=== PATIENT | male | born 1940 | race Caucasian/White ===

== ENCOUNTER 2021-01-24 10:52 | Day surgery (SDC) | payer MEDICARE, SELFPAY ==
[2021-01-16 19:37] VITALS: BMI 27.0
--- NOTE | 2021-01-18 12:52 | P.CONAN_ITS ---
Documented by User: Apolonia Ade 01/18/21 12:56 HPI - Anesthesia Eval Consult details Narrative: 80yo M for Left I&D Debridement Bone/bone biopsy 2nd toe,Debridement chronic ulcer Coumadin for afib PCP cleared [facility] Past Medical History Medical History (Updated 01/24/21 @ 12:21 by Sherri Jaime) Arrhythmia CAD (coronary artery disease) Chronic renal insufficiency COPD (chronic obstructive pulmonary disease) History of prostate cancer HTN (hypertension) Hx of emphysema Hypercholesteremia Rheumatoid arthritis Surgical History Surgical History H/O prostatectomy History of colonoscopy History of tonsillectomy Hx of heart artery stent Social History Social History Patient Tobacco Use Status: Former Tobacco user Quit Date: 2003 Tobacco use type: Cigarette Use of substances other than those prescribed or required for medical reasons: No Are you DNR?: No Advance Directives: No Advance Directives Information Provided: No Advance Directives on File: No Meds Allergies Allergy/AdvReac Type Severity Reaction Status Date / Time pollen extracts Allergy Intermediate itchy/watery Verified 01/24/21 11:44 eyes Home Medications Medication Instructions Recorded Confirmed Last Taken Type hydrochlorothiazide 1 tab PO DAILY PRN 01/16/21 01/16/21 Unknown History leflunomide 1 tab PO DAILY 01/16/21 01/16/21 01/20/21 History lisinopril 5 mg PO DAILY 01/16/21 01/16/21 Unknown History loratadine 1 tab PO DAILY 01/16/21 01/16/21 Unknown History omeprazole 40 mg PO DAILY 01/16/21 01/16/21 Unknown History rosuvastatin 40 mg PO DAILY 01/16/21 01/16/21 Unknown History warfarin 1 tab PO DAILY 01/16/21 01/16/21 01/20/21 History Fish Oil 01/24/21 01/24/21 Unknown History aspirin 81 mg PO DAILY 01/24/21 01/24/21 Unknown History metoprolol tartrate 1.5 tab PO BID 01/24/21 01/24/21 Unknown History Exam Exam Date and Time: January 18, 2021 1252 Height,Weight and Vital Signs: Height 5 ft 2.5 in Weight 68.039 kg Narrative Narrative: EKG 08/2020 afib rate controlled in 90s. No ST-T wave abnormalities Echo 04/2019 EF 45-50% with mild MR Assessment and Plan Assessment Anesthesia Assessment: Chart Reviewed Documented by User: Sherri Jaime 01/24/21 12:24 HPI - Anesthesia Eval Consult details Narrative: 80yo male patient for I&D debridement of bone with 2nd toe bone biopsy, debridement of chronic ulcer Left, excision metatarsal head 2nd and 3rd toes left foot PMFSH Past Medical History Medical History (Updated 01/24/21 @ 12:21 by Sherri Jaime) Arrhythmia CAD (coronary artery disease) Chronic renal insufficiency COPD (chronic obstructive pulmonary disease) History of prostate cancer HTN (hypertension) Hx of emphysema Hypercholesteremia Rheumatoid arthritis Family History Family history of problems with anesthesia: No Surgical History Surgical History H/O prostatectomy History of colonoscopy History of tonsillectomy Hx of heart artery stent History of Problems with Anesthesia: No Social History Social History Patient Tobacco Use Status: Former Tobacco user Quit Date: 2003 Tobacco use type: Cigarette Use of substances other than those prescribed or required for medical reasons: No Are you DNR?: No Advance Directives: No Advance Directives Information Provided: No Advance Directives on File: No Meds Allergies Allergy/AdvReac Type Severity Reaction Status Date / Time pollen extracts Allergy Intermediate itchy/watery Verified 01/24/21 11:44 eyes Home Medications Medication Instructions Recorded Confirmed Last Taken Type hydrochlorothiazide 1 tab PO DAILY PRN 01/16/21 01/16/21 Unknown History leflunomide 1 tab PO DAILY 01/16/21 01/16/21 01/20/21 History lisinopril 5 mg PO DAILY 01/16/21 01/16/21 Unknown History loratadine 1 tab PO DAILY 01/16/21 01/16/21 Unknown History omeprazole 40 mg PO DAILY 01/16/21 01/16/21 Unknown History rosuvastatin 40 mg PO DAILY 01/16/21 01/16/21 Unknown History warfarin 1 tab PO DAILY 01/16/21 01/16/21 01/20/21 History Fish Oil 01/24/21 01/24/21 Unknown History aspirin 81 mg PO DAILY 01/24/21 01/24/21 Unknown History metoprolol tartrate 1.5 tab PO BID 01/24/21 01/24/21 Unknown History Exam Height,Weight and Vital Signs: Vital Signs Temp Pulse Resp BP Pulse Ox 01/24/21 11:19 97.1 F 85 18 130/85 97 Pertinent Lab Results Pertinent Lab Results: Lab Results 01/24/21 Range/Units 11:35 PT 16.6 H (10.8-13.0) SEC INR 1.4 H (0.9-1.1) Narrative Narrative: Had albuterol treatment. Lungs much clearer. Only occasional wheeze Airway Mallampati Class: II TM Dist: >3cm Neck ROM: Full Heart: Irregular Lungs: Bilateral audible wheezes Assessment and Plan Assessment Anesthesia Assessment: Anesthesia Plan Discussed and Chart Reviewed Final Anesthetic Review NPO: Yes ASA Class: III Final Preanesthetic Review: No Changes in Pt Med Stat, Meds/Allgs Chart Reviewed, Consent Obtained/Reviewed and Anes Risks/Benef Reviewed Patient Risk: Intermediate Procedure Risk: Low Assessment/Block/Sedation in SS: Assess/Block/Sedation-SS Anesthetic Plan Anesthetic Plan: MAC: Disposition: Standard PACU
--- NOTE | 2021-01-23 13:12 | HP_ITS ---
DATE OF SERVICE: 01/24/2021 PREOPERATIVE DIAGNOSES: 1. Osteomyelitis, left foot. 2. Metatarsalgia, left foot. 3. Chronic ulcer, left foot. PLANNED PROCEDURES: Excision of second metatarsal head and third metatarsal head, left foot; bone biopsy, left second metatarsal; and debridement of chronic ulcer, left foot. PAST MEDICAL HISTORY: Rheumatoid arthritis; hip, back, and knee pain; cancer; cataracts; heart disease; high blood pressure; measles; mumps; chickenpox; transfusions. CURRENT MEDICATIONS: Warfarin, rosuvastatin, omeprazole, metoprolol, multivitamin, vitamin C, loratadine, ipratropium, albuterol, hydrochlorothiazide, fluticasone, fish oil, baby aspirin, Arava. SURGICAL HISTORY: Denies. FAMILY HISTORY: Heart disease, diabetes, hypertension. SOCIAL HISTORY: The patient is a former smoker, current nonsmoker. Denies any illicit drug use or alcohol use. He is retired. ALLERGIES: SEASONAL. HOSPITALIZATIONS: Denies. REVIEW OF SYSTEMS: Within normal limits. HISTORY OF PRESENT ILLNESS: This is a 80-year-old male, who presents to my office with an open sore, aching, and tenderness to the ball of the foot on the left side that has been present for several months. The patient has rheumatoid arthritis. He gets calluses and sometimes abscesses on the balls of the feet from the pressure. The patient lanced and drained an abscess himself on the left foot that caused an open sore. The patient has tried multiple conservative therapies including rest, inner soles, Spenco orthotics, he is awaiting custom orthotics, dressing changes. He had an MRI, which confirmed possible osteomyelitis. He had a consult with Dr. Whatley, who did say the patient had adequate blood flow to the left foot for surgical intervention. PHYSICAL EXAMINATION: ORTHOPEDIC: Reveals 5/5 muscle strength in a symmetrical fashion. Foot morphology is pes cavus structure, rigid bilaterally. There is medially prominent first metatarsophalangeal joint with lateral tracking, nonreducible bilaterally. Digital contraction 2 through 5 bilaterally, nonreducible with weightbearing, and MPJ dorsal contraction. Subluxation 2 through 5 bilaterally. There is an atrophied anterior fat pad bilaterally and plantar flexed metatarsophalangeal joints second and third bilaterally. GENERAL: Reveals a pleasant, alert, well-nourished, well-developed, well-hydrated individual who demonstrates proper attention to body habitus and hygiene, in no acute distress. He is oriented x3. NEUROLOGIC: Reveals intact sensorium. Pain sensation is normal. Vibratory sensation is intact. The patient denies any anesthesia, burning, paresthesias, or tingling bilaterally. VASCULAR: DP pulses 1/4 bilaterally. PT pulses 3/4. Capillary refill is immediate to all digits. Skin temperature, elasticity, and turgor is warm to cool. Hair growth and texture are normal. Pigmentation is normal. There is no edema. SKIN: Reveals keratotic regions on third metatarsal/second metatarsal bilaterally and there is an ulcer noted to the plantar aspect of the second metatarsal head on the left foot. PLAN: The patient is scheduled for surgical procedures to treat the patient's foot problems as discussed. We reviewed the risks of the procedure as well as not having the procedure, the potential complications, and the usual postoperative course. Discussed potential complications including, but not limited to, pain; swelling; bleeding; scarring; numbness; infection; delayed or nonhealing; floppy, unstable, or shortened toe; recurrence; failure of the procedure; over-correction; need for further surgery; as well as loss of toe, foot, life, or limb. Discussed the use of local and IV anesthesia and the usual postoperative course for healing. No guarantees were given. The patient verbally indicated a full understanding of the above conversation. We decided on performing a metatarsal head excision of the second and third with bone biopsy and debridement of ulcer to left foot procedure based on the patient's complaints and medical history. The patient was given clearance by Dr. Whatley to proceed with surgery. The patient would like to proceed with the proposed surgery. Mass[employer] checked prior to prescription of narcotic medication and he can half-fill the prescription. The patient should use low scheduled dose of narcotics for shortest duration of time. The patient will be weightbearing as tolerated to the heel in a surgical shoe afterwards with crutches or a walker or a knee scooter as patient does have significant rheumatoid arthritis, which may make it difficult for patient to use ambulatory devices. The patient has been given instructions about stopping and restarting his warfarin based on his primary care physician. Tonie Vasquez DPM LP/MICHELE / [id number]
[2021-01-24 11:19] VITALS: BP 130/85; PULSE 85; RESP 18; TEMP 36.2; O2SAT 97
[2021-01-24] MEDS: Lactated Ringers 1,000 ML 100 ML IVCONT (11:44)
[2021-01-24 11:59] LABS: INTERNATIONAL NORM RATIO 1.4 (0.9-1.1); Prothrombin Time 16.6 SEC (10.8-13.0)
--- NOTE | 2021-01-24 12:11 | MHC.SHP ---
Pre-Procedural Eval Section A The patient is an INPATIENT: No Changes since office visit: No Cold of Flu in the past 2 weeks, No New Medical Problems, No Changes in Medication and No Patient answered all questions The History & Physical has been completed within 30 days and I have reviewed it.: Yes Section B Chief Complaint: metatarsalgia left foot Allergies: Allergies Allergy/AdvReac Type Severity Reaction Status Date / Time pollen extracts Allergy Intermediate itchy/watery Verified 01/24/21 11:44 eyes Plan I have reviewed the history and physical and performed a pertinent physical examination on my patient. No changes have occurred unless specified.
[2021-01-24] MEDS: Albuterol Sulfate (0.083%) 2.5 MG/3 ML VIAL.NEB INHALE (12:16)
[2021-01-24 12:17] VITALS: PULSE 91; O2SAT 99
--- NOTE | 2021-01-24 13:13 | PM.OP ---
Brief Operative Note Date of Service: 01/24/21 Pre-op diagnosis: Left foot metatarsalgia 2nd and 3rd, osteomyelitis 2nd metatarsal head, chronic ulcer left foot Post-op diagnosis: same Procedure: Left foot total 2nd and 3rd metatarsal head excision, I and D bone cortex and biopsy 2nd metatarsal head, debridement of chronic ulcer left foot Implants: None Surgeon: Tonie Vasquez Anesthesia: MAC and local Was an Loss Prevention Representative used for this Procedure?: Yes Loss Prevention Representative: Alo Steel Estimated blood loss (mL): 10 Tourniquet time (min): 27 Pathology: other (culture left 2nd MPJ, bone biopsy 2nd metatarsal head, 3rd metatarsal head) Condition: stable Disposition: PACU
[2021-01-24 13:18] VITALS: BP 82/40; PULSE 85; RESP 14; TEMP 36.6; O2SAT 92
[2021-01-24 13:38] VITALS: BP 102/62; PULSE 88; RESP 17; O2SAT 97
[2021-01-24 13:52] VITALS: BP 105/82
--- NOTE | 2021-01-24 21:54 | OP_ITS ---
SURGEON: Tonie Vasquez DPM PREOPERATIVE DIAGNOSES: Metatarsalgia, second and third metatarsal heads; osteomyelitis, second metatarsal head; chronic ulcer, left foot. POSTOPERATIVE DIAGNOSES: Metatarsalgia, second and third metatarsal heads; osteomyelitis, second metatarsal head; chronic ulcer, left foot. PROCEDURES PERFORMED: Total excision of second and third metatarsal heads with I and D and bone biopsy of second metatarsal head, and debridement of chronic skin ulcer, left foot. ESTIMATED BLOOD LOSS: 10 mL. COMPLICATIONS: None HEMOSTASIS: Pneumatic ankle tourniquet set at 250 mmHg for 27 minutes. ANESTHESIA: Monitored anesthetic care with local consisting of 0.5% Marcaine plain and 2% lidocaine plain. ASSISTANTS: Alo Steel DPM. SPECIMENS: Bone left 2nd metatarsal head, 3rd metatarsal head INDICATIONS FOR SURGERY: The patient had painful deformity noted to the left foot with chronic rubbing and ulceration to the left plantar forefoot underneath the second and third metatarsal heads. The patient had suspected osteomyelitis of the second metatarsal head of the left foot via MRI and nonhealing chronic ulcer. The above-mentioned surgery was discussed in detail with the patient including risks, benefits, and possible complications. No guarantees were given and written and oral informed consent was obtained. PROCEDURE IN DETAIL: The patient was brought into the operating room and placed on operating room table in the supine position, following 2 g of cefazolin was administered prophylactically as an antibiotic. The left foot was anesthetized with the above-mentioned local anesthetic, 12 mL in total, and the left foot was scrubbed, prepped, and draped in a sterile manner. Attention was directed to the left foot. It was exsanguinated and the pneumatic ankle tourniquet was inflated and attention was directed to the dorsal aspect of the left forefoot. A curvilinear incision was made in the second interspace between the second and third metatarsal heads. The incision was deepened down to subcutaneous tissue. Great care was taken to retract vital, neuro, and vascular structures and all bleeders were cauterized as necessary. Attention was first directed to the second metatarsal head, where soft tissue was bluntly dissected to the level of the second metatarsal head and then a linear capsulotomy was made medial and parallel to the extensor tendon. The metatarsal head was then freed from its osseous attachments. There was significant contracture of the second digit and dorsal subluxation, dislocation of the second digit over the second metatarsal head. McGlamry elevator was introduced to free up any adhesions plantarly. Using a sagittal saw, the second metatarsal head was resected in total and was removed from the patient's foot and passed from the operative site. There was significant deformity in degeneration noted to the second metatarsal head. A portion was transected and sent for culture and the rest was sent for pathology to confirm and diagnose osteomyelitis. Swab cultures were then introduced and passed from the operative site. Attention was then directed via the same incision to the third metatarsal head, where again blunt dissection was made to the level of the third metatarsal head. A linear capsulotomy was made medial and parallel to the extensor tendon and the soft tissues were freed from the metatarsal head. Using a sagittal saw, again a bone cut was made. The bone cut went from dorsal distal to plantar proximal in the same fashion of the second metatarsal head cut and then the third metatarsal head was then removed in total and passed from the operative site. This was also sent for pathology. Using a pulse lavage, 1000 mL was then pulse lavaged into the incision area for copious irrigation. The capsular structures were then reapproximated with 3-0 Vicryl in an interrupted suture technique and the skin was reapproximated with continuous running 4-0 nylon, and interrupted 2-0 nylon. Attention was then directed to the plantar aspect of the left foot, where a small wound was noted. The wound was debrided. There was also noted to be a blister with some purulent drainage just distal to the current ulceration. This was noted to be tracking from original ulcer. All of this area was debrided sharply with a 15 blade until there was no noted purulence and into a healthy bleeding base. The wound did track to capsule. The wound was then irrigated with normal sterile saline. A postoperative injection of 5 mL of 0.5% Marcaine plain was administered. The left foot was then dressed with Xeroform, Betadine-soaked gauze, an ABD, 4x4s, fluffs, Kerlix, cast padding, and an Urban bandage. Pneumatic ankle tourniquet was deflated. Prompt capillary refill was noted to all 5 digits. The patient tolerated procedure and anesthesia well. The patient was transferred to the recovery room with vital signs stable and vascular status at preoperative levels. Following a period of postoperative recovery, the patient will be discharged home with written and oral postoperative instructions. He is to be weightbearing as tolerated to the left foot heel in a surgical shoe with a walker for stability. The patient also will be prescribed antibiotics and will follow up cultures. The patient will follow up in my office for all postoperative followup care. Tonie Vasquez DPM LP/MICHELE / [id number]
== END 2021-01-24 14:15 | disposition home or self-care (01) ==
PROVIDERS: Nurse Practitioner; PCP Internal Medicine; Visit Provider Podiatrist
PROC: (CPT 11044; principal; 2021-01-24 12:40)
PROC: (CPT 28112; 2021-01-24 12:40)
DX: M77.42 Metatarsalgia, left foot (principal); M86.672 Other chronic osteomyelitis, left ankle and foot; L97.529 Non-pressure chronic ulcer of other part of left foot with unspecified severity; M06.9 Rheumatoid arthritis, unspecified; I12.9 Hypertensive chronic kidney disease with stage 1 through stage 4 chronic kidney disease, or unspecified chronic kidney disease; N18.30 Chronic kidney disease, stage 3 unspecified; I48.21 Permanent atrial fibrillation; J44.9 Chronic obstructive pulmonary disease, unspecified; Z79.01 Long term (current) use of anticoagulants; Z87.891 Personal history of nicotine dependence
CPT/HCPCS: 28112; 20240; 36415; 85610; 87071; 87077; 87186; 87205; 88304; 88311; 94640; J0690; J2250

== ENCOUNTER 2024-05-22 10:58 | Inpatient (IN) | payer MEDICARE, SELFPAY ==
[2024-05-22] VITALS (17 sets, daily range): BP systolic 115–153; BP diastolic 65–95; PULSE 72–177; RESP 19–35; TEMP 37–37.1; O2SAT 94–98; BMI 29.1
--- NOTE | ~2024-05-22 | XR_ITS ---
EXAMINATION: XR CHEST CLINICAL INFORMATION: Pneumonia? COMPARISON: None available. TECHNIQUE: Frontal view of the chest was obtained. FINDINGS: No significant abnormality is noted involving the heart, lungs, mediastinum, bony thorax or soft tissues. XR/XR chest 1V IMPRESSION: Unremarkable examination. Electronically signed by: Saritha Duarte MD 05/22/2024 12:05 PM EDT
--- NOTE | 2024-05-22 11:25 | PC.NURSE ---
Pt. on cafeteria monitor at this time. HR A. Fib between 140s and 170s, pt. denies CP, chest tightness or palpitations. Provider aware.
--- NOTE | 2024-05-22 11:29 | ED_ITS ---
HPI - Weakness General Chief complaint: Weakness Stated complaint: WEAKNESS LETHARGIC WHEEZING SOB Time Seen by Provider: 05/22/24 11:29 Source: patient Limitations: no limitations History of Present Illness ED Provider: Dr. Jayesh Lares HPI Narrative: 83-year-old male with a history CAD (RCA stent 2010), chronic renal insufficiency, hypercholesterolemia, hypertension, rheumatoid arthritis, atrial fibrillation on Xarelto, COPD, prostate cancer metastatic to bone who presents emergency department for evaluation of weakness, shortness of breath, dyspnea on exertion x5 days. The patient states that his weakness has gotten progressively worse and he was unable to got a bed today. Patient states he has a chronic cough which is slightly worse than his baseline. He denied chest pain. He states he feels short of breath and has dyspnea on exertion. He had nausea with occasional vomiting. He states that he had 2-3 episodes of diarrhea over the last 2 days. The patient denied frequency, urgency or dysuria. He denied abdominal pain. States that he did get antibiotics prior to dental procedure 2- 3 weeks prior. Patient was noted to have a rapid heart rate ranging from 141 180 beats per minute at triage. Related Data Home Medications ?Medication ?Instructions ?Recorded ?Confirmed hydrochlorothiazide 25 mg tablet 1 tab PO DAILY PRN Weight Gain 01/16/21 01/16/21 leflunomide 20 mg tablet 1 tab PO DAILY 01/16/21 01/16/21 lisinopril 5 mg tablet 5 mg PO DAILY 01/16/21 01/16/21 loratadine 10 mg tablet 1 tab PO DAILY 01/16/21 01/16/21 omeprazole 40 mg capsule,delayed 40 mg PO DAILY 01/16/21 01/16/21 release rosuvastatin 40 mg tablet 40 mg PO DAILY 01/16/21 01/16/21 warfarin 2 mg tablet 1 tab PO DAILY 01/16/21 01/16/21 Fish Oil 01/24/21 01/24/21 aspirin 81 mg tablet 81 mg PO DAILY 01/24/21 01/24/21 metoprolol tartrate 100 mg tablet 1.5 tab PO BID 01/24/21 01/24/21 Allergies Allergy/AdvReac Type Severity Reaction Status Date / Time pollen extracts Allergy Intermediate itchy/watery Verified 05/22/24 11:21 eyes Review of Systems 2 Review of Systems: Yes all other systems are reviewed and are negative PMFSH Past Medical History [facility] Narrative: Social history: He denies tobacco, alcohol and drug use. Medical History (Updated 05/22/24 @ 16:56 by Jayesh Lares MD) Arrhythmia CAD (coronary artery disease) Hx of emphysema Rheumatoid arthritis Chronic renal insufficiency History of prostate cancer COPD (chronic obstructive pulmonary disease) Hypercholesteremia HTN (hypertension) Surgical History Hx of heart artery stent History of colonoscopy History of tonsillectomy H/O prostatectomy Social History Social History Comment: at times Patient Tobacco Use Status: Former Tobacco user Tobacco use type: Cigarette Smoked in Last 30 Days: No Use of substances other than those prescribed or required for medical reasons: No Advance Directives: No Advance Directives Information Provided: No Do you have a plan to hurt others: No Plan Physical Exam 2 Vital Signs: Vital Signs: Last Vital Signs Temp 98.6 F 05/22/24 11:18 Pulse 149 H 05/22/24 15:27 Resp 19 05/22/24 15:26 BP 131/74 05/22/24 15:27 Pulse Ox 97 05/22/24 15:26 O2 Del Method Room Air 05/22/24 15:26 BMI result Body Mass Index 29.1 Vital signs revealed an elevated pulse of 140 and elevated respiratory rate of 25 Exam: General: Awake, alert in no distress, pale appearing, answers questions appropriately Head: Normocephalic, atraumatic EENT: PERRL, Lids normal, sclera normal, conjunctiva normal, nose normal , ears normal, throat without erythema or exudates Neck: Supple, no adenopathy Lung: breath sounds symmetric, no wheezing, rales or rhonchi Chest: symmetric movement, nontender Heart: Irregularly irregular rapid heart rate with no murmurs Abdomen: soft, non-tender, nondistended, normal bowel sounds Back: no vertebral tenderness, no CVAT Extremities: Patient has hand deformities consistent with his rheumatoid arthritis, moves all extremities symmetrically Neuro: Awake, alert, oriented, normal speech, cranial nerves intact, moves all extremities symmetrically Psych: Pleasant, cooperative Medications Administered Generic Name Dose Route Start Last Admin Trade Name Freq PRN Reason Stop Dose Admin Potassium Chloride 10 meq in 100 mls @ 100 mls/hr 05/22/24 15:15 05/22/24 16:41 Potassium Chloride/H20 IV 05/22/24 17:14 Infused Q1H KARIN Infusion Discontinued Medications Generic Name Dose Route Start Last Admin Trade Name Freq PRN Reason Stop Dose Admin Diltiazem HCl 10 mg 05/22/24 11:37 05/22/24 11:48 Diltiazem Hcl 50 Mg/10 Ml Vial IVPUSH 05/22/24 11:38 10 mg STAT STA Administration Diltiazem HCl 10 mg 05/22/24 12:52 05/22/24 12:54 Diltiazem Hcl 50 Mg/10 Ml Vial IVPUSH 05/22/24 12:53 10 mg ONCE ONE Administration Diltiazem HCl 20 mg 05/22/24 15:04 05/22/24 15:27 Diltiazem Hcl 50 Mg/10 Ml Vial IVPUSH 05/22/24 15:05 20 mg STAT STA Administration Sodium Chloride 1,000 mls @ 999 mls/hr 05/22/24 11:30 05/22/24 12:53 Ns IV 05/22/24 12:30 Infused .Q1H1M STA Infusion Medical Decision Making Medical Decision Making MDM Narrative: 83-year-old male with a history CAD (RCA stent 2010), chronic renal insufficiency, hypercholesterolemia, hypertension, rheumatoid arthritis, atrial fibrillation on Xarelto, COPD, prostate cancer metastatic to bone who presents emergency department for evaluation of weakness, shortness of breath, dyspnea on exertion x5 days, increased weakness where he can not get out of bed today. Patient has a chronic cough which he states is worse over the last 1-2 days . At triage the patient was found to be in atrial fibrillation with a rapid ventricular response 140-180 beats per minute Differential diagnosis: ?Includes but is not limited to pneumonia, bronchitis, viral illness, myocardial infarction, myocardial ischemia, atrial fibrillation with rapid ventricular response, pulmonary edema, anemia, electrolyte abnormalities, C difficile colitis. Course: 15:04 Patient's laboratory evaluation was interpreted by me as follows: Low potassium 2.7. Elevated INR 1.5 (patient was on Xarelto). AST and ALT were elevated 138 and 25. Alk-phos was elevated to 16-most likely caused by metastatic prostate disease. Bilirubin is elevated 1.2. Lipase was normal. COVID-19, influenza and RSV were negative. First troponin was elevated 39.8. I will repeat 2nd troponin now. BNP was elevated 206 Patient's 12 EKG was consistent with atrial fibrillation with a rapid ventricular response. Patient was treated with normal saline IV x1 L, until diltiazem 10 mg IV x2 with only minimal improvement rate. Therefore I ordered diltiazem 20 mg IV and a diltiazem drip. Patient has hypokalemia speak current did with potassium 10 mEq IV you 1 hour x2. 16:45 Patient's 1st troponin was 39.8 and the repeat troponin was 42.8 which is less than 50% delta which is reassuring. The patient did have a good response with the 3rd bolus of diltiazem and he was heart rate is trending down ranging from 101 120 beats per minute. At this time we will start the patient's diltiazem drip to help reduce his rate. I did discuss admission over tiger text with the covering hospitalist, Dr. Moore. Admission/Observation Consideration of admission/observation: Escalation of care including admission/observation considered (Yes) Consult Healthcare Provider Management of the patient was discussed with: Hospitalist Lab Data [facility] Lab Attestation statement: I reviewed the patient's lab results. 05/22/24 11:42 05/22/24 11:42 Labs: Lab Results 05/22/24 05/22/24 05/22/24 Range/Units 11:41 11:42 11:47 WBC 10.4 (4.8-10.8) X10*3/uL RBC 4.21 L (4.60-5.80) X10*6/uL Hgb 12.4 L (14.0-18.0) g/dl Hct 36.6 L (42.0-52.0) % MCV 86.9 (80.0-98.0) fL MCH 29.5 (27.0-33.0) pg MCHC 33.9 (31.0-36.0) g/dl RDW 15.5 (11.0-16.0) % Plt Count 160 (160-400) X10*3/uL MPV 11.1 (9.4-12.4) fL Immature Gran % (Auto) 0.3 (0.0-0.4) % Neut % (Auto) 78.9 H (45-73) % Lymph % (Auto) 9.5 L (20-40) % Hunt % (Auto) 11.0 (2-11) % Eos % (Auto) 0.0 (0-4) % Baso % (Auto) 0.3 (0-2) % Lymph # (Auto) 1.0 L (1.2-4.9) X10*3/uL Hunt # (Auto) 1.1 (0.1-1.2) X10*3/uL Eos # (Auto) 0.0 (0.0-0.4) X10*3/uL Baso # (Auto) 0.0 (0.0-0.2) X10*3/uL Abs Immat Gran (auto) 0.03 (0.00-0.03) X10*3/uL Absolute Neuts (auto) 8.2 (2.0-8.3) x10*3/uL Absolute Nucleated RBC 0.000 (0.0-0.012) X10*3/uL Nucleated RBC % (auto) 0.0 (0.0-0.2) /100WBC PT 17.4 H (10.9-12.4) SEC INR 1.5 H (0.9-1.1) APTT 32.9 (26.0-36.8) SEC Sodium 136 (135-145) mmol/L Potassium 2.7 L* (3.3-5.1) mmol/L Chloride 97 (96-108) mmol/L Carbon Dioxide 26 (22-29) mmol/L Anion Gap 16 (12-20) BUN 15 (9-16) mg/dL Creatinine 1.24 (0.5-1.4) mg/dL Estim Creat Clear Calc 37.7 Estimated GFR 56 Random Glucose 90 (60-115) mg/dL Lactic Acid 1.6 (0.5-2.0) mmol/L Calcium 8.9 (8.4-10.2) mg/dL Magnesium 1.7 (1.6-2.6) mg/dL Total Bilirubin 1.2 H (0.0-1.0) mg/dL AST 138 H (5-37) U/L ALT 25 (0-40) U/L Alkaline Phosphatase 216 H (39-117) U/L Troponin I High Sens 39.8 H (<3.5-35.0) ng/L B-Natriuretic Peptide 206 H (<100) pg/mL Total Protein 6.2 L (6.5-8.0) g/dL Albumin 2.9 L (3.5-5.0) g/dL Lipase 11 (8-78) U/L TSH 1.16 (0.32-4.0) uIU/mL Influenza Type A (PCR) NEGATIVE (Negative) Influenza Type B (PCR) NEGATIVE (Negative) RSV RNA Qual (PCR) NEGATIVE (Negative) SARS-CoV-2 RNA (RT-PCR) NEGATIVE (Negative) 05/22/24 Range/Units 15:16 WBC (4.8-10.8) X10*3/uL RBC (4.60-5.80) X10*6/uL Hgb (14.0-18.0) g/dl Hct (42.0-52.0) % MCV (80.0-98.0) fL MCH (27.0-33.0) pg MCHC (31.0-36.0) g/dl RDW (11.0-16.0) % Plt Count (160-400) X10*3/uL MPV (9.4-12.4) fL Immature Gran % (Auto) (0.0-0.4) % Neut % (Auto) (45-73) % Lymph % (Auto) (20-40) % Hunt % (Auto) (2-11) % Eos % (Auto) (0-4) % Baso % (Auto) (0-2) % Lymph # (Auto) (1.2-4.9) X10*3/uL Hunt # (Auto) (0.1-1.2) X10*3/uL Eos # (Auto) (0.0-0.4) X10*3/uL Baso # (Auto) (0.0-0.2) X10*3/uL Abs Immat Gran (auto) (0.00-0.03) X10*3/uL Absolute Neuts (auto) (2.0-8.3) x10*3/uL Absolute Nucleated RBC (0.0-0.012) X10*3/uL Nucleated RBC % (auto) (0.0-0.2) /100WBC PT (10.9-12.4) SEC INR (0.9-1.1) APTT (26.0-36.8) SEC Sodium (135-145) mmol/L Potassium (3.3-5.1) mmol/L Chloride (96-108) mmol/L Carbon Dioxide (22-29) mmol/L Anion Gap (12-20) BUN (9-16) mg/dL Creatinine (0.5-1.4) mg/dL Estim Creat Clear Calc Estimated GFR Random Glucose (60-115) mg/dL Lactic Acid (0.5-2.0) mmol/L Calcium (8.4-10.2) mg/dL Magnesium (1.6-2.6) mg/dL Total Bilirubin (0.0-1.0) mg/dL AST (5-37) U/L ALT (0-40) U/L Alkaline Phosphatase (39-117) U/L Troponin I High Sens 42.8 H (<3.5-35.0) ng/L B-Natriuretic Peptide (<100) pg/mL Total Protein (6.5-8.0) g/dL Albumin (3.5-5.0) g/dL Lipase (8-78) U/L TSH (0.32-4.0) uIU/mL Influenza Type A (PCR) (Negative) Influenza Type B (PCR) (Negative) RSV RNA Qual (PCR) (Negative) SARS-CoV-2 RNA (RT-PCR) (Negative) Independent Interpretation I performed an independent interpretation of an: EKG Interpretation: My interpretation patient's 12 EKG done at 11:31 hours is as follows: Atrial fibrillation with a rapid ventricular response of 1 T4, no ST segment elevation, no ST segment depression, Q-waves in 3 and AVF, nonspecific T-wave abnormalities. Radiology Impression Discussion of test interpretation with radiology: I have reviewed the radiologist's reading. Radiologist Impression: XR chest 1V IMPRESSION: Unremarkable examination. Dictated By: Saritha Duarte MD Independent Historian Clinical information obtained from an independent historian. History obtained from or confirmed by: Other (Daughter this push the are point general is like 5 want you do this is give it for give the bolus her PN then if it is still buildup ketamine meal your found a right again I think that wean slowly now he might need it CIWA 20 does appendix was not enough yet thanks for think that ask ) Critical Care Time Critical Care Time Critical Care Time: Yes Total Critical Care Time: 75 Attestation: Critical Care: The patient was critically ill with a high probability of imminent or life threatening deterioration. I spent greater than 30 minutes of discontinuous time evaluating the patient,delivering critical care at the bedside, discussing and evaluating pertinent data with consultants. Critical care time does not include time spent performing separately billable procedures or teaching. Total time spent performing critical care was 75 minutes. Discharge Plan Discharge Prescriptions: No Action omeprazole 40 mg capsule,delayed release(DR/EC) 40 mg PO DAILY leflunomide 20 mg tablet 1 tab PO DAILY lisinopril 5 mg tablet 5 mg PO DAILY hydrochlorothiazide 25 mg tablet 1 tab PO DAILY PRN (Reason: Weight Gain) loratadine 10 mg tablet 1 tab PO DAILY rosuvastatin 40 mg tablet 40 mg PO DAILY warfarin 2 mg tablet 1 tab PO DAILY metoprolol tartrate 100 mg tablet 1.5 tab PO BID aspirin 81 mg Tablet 81 mg PO DAILY Fish Oil Print Language: Spanish
--- NOTE | 2024-05-22 11:31 | ECG_ITS ---
Test Reason : TACHY Blood Pressure : / mmHG Vent. Rate : 154 BPM Atrial Rate : 000 BPM P-R Int : 000 ms QRS Dur : 072 ms QT Int : 266 ms P-R-T Axes : 000 -40 -26 degrees QTc Int : 426 ms Atrial fibrillation with rapid ventricular response Left axis deviation Low voltage QRS Inferior infarct , age undetermined Abnormal ECG No previous ECGs available Referred By: Jayesh Lares Electronically Signed By:XAVIER SAUL
[2024-05-22 11:48] LABS: MANUAL DIFF FLAG NO
[2024-05-22] MEDS: 0.9 % Sodium Chloride 1,000 ML 999 ML IV (11:48)
[2024-05-22] MEDS: dilTIAZem HCL 50 MG/10 ML VIAL 10 MG IVPUSH ×2 (11:48→12:54)
[2024-05-22 11:49] LABS: Basophils Percent Auto 0.3 % (0-2); Hematocrit 36.6 % (42.0-52.0); Hemoglobin 12.4 g/dl (14.0-18.0); Imm Gran Abs Auto 0.03 X10*3/uL (0.00-0.03); Imm Gran Pct Auto 0.3 % (0.0-0.4); Lymphocytes Percent Auto 9.5 % (20-40); Mean Corpuscular HGB Conc 33.9 g/dl (31.0-36.0); Mean Corpuscular Hemoglobin 29.5 pg (27.0-33.0); Mean Corpuscular Volume 86.9 fL (80.0-98.0); Mean Platelet Volume 11.1 fL (9.4-12.4); Monocytes Absolute Auto 1.1 X10*3/uL (0.1-1.2); Neutrophils Absolute Auto 8.2 x10*3/uL (2.0-8.3); Neutrophils Percent Auto 78.9 % (45-73); Platelet Count 160 X10*3/uL (160-400); Red Blood Count 4.21 X10*6/uL (4.60-5.80); Red Cell Distribution Width 15.5 % (11.0-16.0); White Blood Count 10.4 X10*3/uL (4.8-10.8)
--- OUTSIDE RECORDS SUMMARY | 2024-05-22 11:57 | XMS_ITS | Continuity of Care Document ---
Author Organization [facility] ancer Care Address [address] [place] [address]- Care Team Providers Care Executive Personal Assistant Name Role Phone Alejandrina FERGUSON, Justus Conway Primary Care Physician [phone] Encounter [id number] [id number] Date(s): 01/12/24 - 01/12/24 [facility] [address] [place] [id number] Allergies, Adverse Reactions, Alerts No Known Allergies Medications abiraterone 250 mg oral tablet 4 tablet = 1,000 mg, By Mouth, Daily, # 120 tablet, 2 Refills, Maintenance, 11/30/23 15:56:00 EDT, [facility], 155.8, cm, 09/30/23 12:46:00 EST, Height, 74.8, kg, 09/30/23 12:55:00 EST, Dry Weight Start Date: 11/30/23 Stop Date: 02/28/24 Status: Ordered acetaminophen 325 mg oral tablet 650 mg, By Mouth, Every 6 hours, May take OTC not to exceed 3000 mg/day, Refills 0, Maintenance, 02/01/22 11:53:00 EDT, Partial fill upon patient request if the prescription is for a schedule II opioid drug. Start Date: 02/01/22 Status: Ordered calcium (as carbonate)-vitamin D 500 mg-400 intl units oral tablet, chewable 1 tablet, By Mouth, 2 times a day, CHEW., # 60 tablet, 2 Refills, Maintenance, 09/28/23 12:58:00 EST, [id number], 30, CHEW 1 TABLET BY MOUTH TWICE A DAY, 155.8, cm, 07/02/23 13:06:00 EST, Height, 72.4, kg, 07/02/23 13:06:00 EST, Dry Weight Start Date: 09/28/23 Status: Ordered Crestor 40 mg oral tablet 1 tablet = 40 mg, By Mouth, Daily at bedtime, # 90 tablet, 3 Refills, Maintenance, 1 tablet By Mouth Daily at bedtime,x90 days Start Date: 06/26/13 Stop Date: 06/21/14 Status: Ordered docusate sodium 100 mg oral capsule 1 capsule = 100 mg, By Mouth, 2 times a day, # 60 capsule, 0 Refills, Maintenance, 02/01/22 11:51:00 EDT, Capsule, [facility], Partial fill upon patient request if the prescription is for a schedule II opioid drug., 159, cm, 02/01/22 11:... Start Date: 02/01/22 Status: Ordered ferrous sulfate 325 mg oral enteric coated tablet 325 mg, 1, tablet, By Mouth, Every Thursday, Thursday and Thursday, # 13 tablet, Refills 0, Tot. Refills 0, Maintenance, 02/01/22 11:55:00 EDT, Do Not Route, Partial fill upon patient request if the prescription is for a schedule II opioid drug. Start Date: 02/01/22 Stop Date: 05/01/23 Status: Ordered fluticasone 50 mcg/inh nasal spray 2 sprays, Nares, Both, Daily in AM, # 9.9 mL, 0 Refills, Maintenance, 02/01/22 11:56:00 EDT, [place],Partial fill upon patient request if the prescription is for a schedule II opioid drug. Start Date: 02/01/22 Status: Ordered leflunomide 20 mg oral tablet 1 tablet = 20 mg, By Mouth, Daily, # 30 tablet, 0 Refills, Maintenance, 01/21/22 16:36:00 EDT, Tablet, Partial fill upon patient request if the prescription is for a schedule II opioid drug. Start Date: 01/21/22 Status: Ordered loratadine 10 mg oral tablet 10 mg, 1, tablet, By Mouth, Daily at bedtime, Refills 0, Maintenance, 02/01/22 11:53:00 EDT, Partial fill upon patient request if the prescription is for a schedule II opioid drug. Start Date: 02/01/22 Status: Ordered metoprolol 100 mg oral tablet 100 mg, 1, tablet, By Mouth, Daily in AM, Refills 0, Maintenance, 02/01/22 11:53:00 EDT, Partial fill upon patient request if the prescription is for a schedule II opioid drug. Start Date: 02/01/22 Status: Ordered metoprolol 50 mg oral tablet 50 mg, 1, tablet, By Mouth, Daily at bedtime, Refills 0, Maintenance, 02/01/22 11:53:00 EDT, Partial fill upon patient request if the prescription is for a schedule II opioid drug. Start Date: 02/01/22 Status: Ordered MiraLax Powder 1 pack/packet = 17 Gm, By Mouth, Daily, PRN Constipation, 0 Refills, Maintenance, 02/01/22 11:54:00EDT, Powder, Partial fill upon patient request if the prescription is for a schedule II opioid drug. Start Date: 02/01/22 Status: Ordered omeprazole 40 mg oral enteric coated capsule 1 capsule = 40 mg, By Mouth, Daily, # 30 capsule, 0 Refills, Maintenance, 02/01/22 11:55:00 EDT, [facility], Partial fill upon patient request if the prescription is for a schedule II opioid drug. Start Date: 02/01/22 Status: Ordered potassium chloride 10 mEq oral capsule, extended release 2 capsule = 20 mEq, By Mouth, 2 times a day, # 12 capsule, 0 Refills, Maintenance, 01/06/24 10:33:00 EDT, CR Capsule, [id number], Partial fill upon patient request if the prescription is for a schedule II opioid drug., 155.8, cm, 12/29/23 10:2... Start Date: 01/06/24 Stop Date: 01/09/24 Status: Ordered predniSONE 5 mg oral tablet 1 tablet, By Mouth, Daily, # 30 tablet, 5 Refills, Maintenance, 08/24/23 18:08:00 EST, [id number], 155.8, cm, 07/02/23 13:06:00 EST, Height, 72.4, kg, 07/02/23 13:06:00 EST, Dry Weight Start Date: 08/24/23 Stop Date: 09/23/23 Status: Ordered senna 187 mg oral tablet 1 tablet = 8.6 mg, By Mouth, Daily at bedtime, PRN as needed for constipation, 0 Refills, Maintenance, 02/01/22 11:54:00 EDT, Tablet, Partial fill upon patient request if the prescription is for a schedule II opioid drug. 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 Chest Pain Confirmed 12/28/10 Active Chronic obstructive pulmonary disease Confirmed Active Coronary artery disease Confirmed Active Hyperlipidemia Confirmed Active Hypokalemia Confirmed Active Degenerative joint disease Confirmed Active Prostate cancer metastatic to multiple sites Confirmed Active Rheumatoid arthritis Confirmed Active Social History Social History Type Response Smoking Status Former smoker, quit more than 30 days ago; Interested in cessation: No; Patient wants NRT during admission No entered on: 01/22/23 Sex Patient Care team information Care Team Personnel Name: Harmony Staley RN Position: [facility] SN RN Member Role: Primary Care Nurse Name: Alejandrina FERGUSON, Justus Conway Position: Reference Physician Member Role: PCP Address: Address: [address] [place] [address] [address] [place], [place] [address] Name: Darwin Graham MD Position: [facility] Cardiology MD Member Role: Lifetime Consulting Physician Address: Address: [address] [place] [address] [facility] [place], [place] [address] Name: Karen Baker RN Position: S RN Member Role: Primary Care Nurse Care Team Related Persons Name: GEOFFSRIRAMI Address: [place] [address] Name: ARIK RAMSAY Address: home [address] [place] [id number]
--- OUTSIDE RECORDS SUMMARY | 2024-05-22 11:57 | XMS_ITS | Continuity of Care Document ---
Author Organization [facility] Address [address] [place] [address]- Care Team Providers Care Painter Shipyard Name Role Phone Alejandrina FERGUSON, Justus Conway Primary Care Physician [phone] [place] [facility] [id number] Date(s): 04/04/24 - 05/04/24 [facility] [address] [place] [id number] Attending Physician: Jocelin Conley Admitting Physician: AdmJocelin cummins Referring Physician: AdmtrJocelin Allergies, Adverse Reactions, Alerts No Known Allergies Immunizations Given and Recorded Vaccine Date Status Refusal Reason influenza virus vaccine, inactivated 04/07/24 Noam rded Medications abiraterone 250 mg oral tablet See Instructions, TAKE 4 TABLETS (1,000MG) BY MOUTH ONCE DAILY ON AN EMPTY STOMACH 1 HOUR BEFORE OR2 HOURS AFTER A MEAL, # 120 tablet, 2 Refills, Maintenance, 02/26/24 8:01:00 EDT, [facility], 155.8, cm, 12/29/23 10:27:00 EDT, Height... Start Date: 02/26/24 Status: Ordered acetaminophen 325 mg oral tablet [...] CHEW., # 60 tablet, 2 Refills, Maintenance, 02/08/24 8:57:00 EDT, [id number], 30, CHEW 1 TABLET BY MOUTH TWICE A DAY, 155.8, cm, 12/29/23 10:27:00 EDT, Height,70.9, kg, 12/29/23 10:27:00 EDT, Dry Weight Start Date: 02/08/24 Status: Ordered Crestor 40 mg oral tablet [...] 0 Refills, Maintenance, 02/01/22 11:51:00 EDT, Capsule, [facility], Partial fill upon patient request [...] mL, 0 Refills, Maintenance, 02/01/22 11:56:00 EDT, [place],Partial fill upon patient request if the prescription [...] Refills, Maintenance, 01/06/24 10:33:00 EDT, CR Capsule, [id number], Partial fill upon patient request if the prescription is for a schedule II opioid drug., 155.8, cm, 12/29/23 10:2... Start Date: 01/06/24 Stop Date: 01/09/24 Status: Ordered predniSONE 5 mg oral tablet 1 tablet, By Mouth, Daily, # 30 tablet, 5 Refills, Maintenance, 02/29/24 8:12:00 EDT, [id number], 155.8, cm, 12/29/23 10:27:00 EDT, Height, 70.9, kg, 12/29/23 10:27:00 EDT, Dry Weight Start Date: 02/29/24 Stop Date: 03/30/24 Status: Ordered senna 187 mg oral tablet [...] Active Hyperlipidemia Confirmed Active Hypokalemia Confirmed Active Obese class I Confirmed Active Degenerative joint disease Confirmed Active Prostate cancer metastatic to multiple sites Confirmed Active Rheumatoid arthritis Confirmed Active Social History Social History Type Response Smoking Status Former smoker, quit more than 30 days ago; Interested in cessation: No; Patient wants NRT during admission No entered on: 01/22/23 Sex Laboratory * Event Display: Genetic Labs, Non BH Authored Date: Patient Care team information Care Team Personnel Name: Harmony Staley RN Position: [facility] SN RN Member Role: Primary Care Nurse Name: Justus Tinoco MD Position: Reference Physician Member Role: PCP Address: Address: [address] [place] [address] [address] [place], [place] [address] Name: Darwin Graham MD Position: [facility] Cardiology MD Member Role: Lifetime Consulting Physician Address: Address: [address] [place] [address] [facility] [place], [place] [address] Name: Karen Baker RN Position: S RN Member Role: Primary Care Nurse Care Team Related Persons Name: DB TELLEZ Address: [place] [address] Name: ARIK RAMSAY Address: home [address] [place] [address]
--- OUTSIDE RECORDS SUMMARY | 2024-05-22 11:57 | XMS_ITS | Continuity of Care Document ---
Author Organization [facility] ancer Care Address [address] [place] [address]- Care Team Providers Care Manager Molecular Name Role Phone Alejandrina FERGUSON, Justus Conway Primary Care Physician [phone] Encounter [facility] Date(s): 07/03/23 - 08/02/[address] [address] Allergies, Adverse Reactions, Alerts No Known Allergies Medications abiraterone 250 mg oral tablet 4 tablet = 1,000 mg, By Mouth, Daily, # 120 tablet, 2 Refills, Maintenance, 05/28/23 13:09:00 EDT, [facility], 155.8, cm, 05/11/23 8:32:00 EDT, Height, 72.1, kg, 04/01/23 10:21:00 EDT,Dry Weight Start Date: 05/28/23 Stop Date: 08/26/23 Status: Ordered acetaminophen 325 mg oral tablet 650 mg, By Mouth, Every 6 hours, May take OTC not to exceed 3000 mg/day, Refills 0, Maintenance, 02/01/22 11:53:00 EDT, Partial fill upon patient request if the prescription is for a schedule II opioid drug. Start Date: 02/01/22 Status: Ordered calcium (as carbonate)-vitamin D 500 mg-400 intl units oral tablet, chewable 1 tablet, Chew, 2 times a day, # 60 tablet, 2 Refills, Maintenance, 07/02/23 13:33:00 EST, Chew Tablet, [id number], Partial fill upon patient request if the prescription is for a schedule II opioid drug., 1 tablet Chew 2 times a day,x30 days,... Start Date: 07/02/23 Stop Date: 09/30/23 Status: Ordered Crestor 40 mg oral tablet [...] 0 Refills, Maintenance, 02/01/22 11:51:00 EDT, Capsule, [facility] 3, Partial fill upon patient request if [...] mL, 0 Refills, Maintenance, 02/01/22 11:56:00 EDT, [place],Partial fill upon patient request if the prescription [...] opioid drug. Start Date: 02/01/22 Status: Ordered predniSONE 5 mg oral tablet 1 tablet = 5 mg, By Mouth, Daily, # 30 tablet, 2 Refills, Maintenance, 08/29/23 13:53:00 EST, Tablet, [facility], Partial fill upon patient request if the prescription is for a schedule II opioid drug., 155.8, cm, 05/11/23 8:32:00 EDT,... 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 Atrial fibrillation Confirmed Active Chest Pain Confirmed 12/28/10 Active [...] Team Personnel Name: Harmony Staley RN Position: [facility] RN Member Role: Primary Care Nurse Name: Odette Newell RN Position: [facility] RN Member Role: Primary Care Nurse Name: Justus Tinoco MD Position: [facility] General Pediatrics MD Member Role: PCP Address: Address: [address] [place] [address] [address] [place] [address]- Name: Darwin Graham MD Position: [facility] Cardiology MD Member Role: Lifetime Consulting Physician Address: Address: [address] [place] [address], [address] [place] [address] [facility] [place], [place] [address] Name: Karen Baker RN Position: [facility] RN Member Role: Primary Care Nurse Care Team Related Persons Name: DB TELLEZ Address: [place] [address] Name: ARIK RAMSAY Address: home [address] [place] [address]
--- OUTSIDE RECORDS SUMMARY | 2024-05-22 11:57 | XMS_ITS | Continuity of Care Document ---
Author Organization [facility] ancer Care Address [address] [place] [address]- Care Team Providers Care Gritting Machine Operator Name Role Phone Alejandrina FERGUSON, Justus Conway Primary Care Physician [phone] [id number] Date(s): 12/30/23 - 01/29/[address] [address] Allergies, Adverse Reactions, Alerts No Known Allergies [...] tablet, 2 Refills, Maintenance, 09/28/23 12:58:00 EST, [id number], 30, CHEW 1 TABLET BY MOUTH TWICE [...] 0 Refills, Maintenance, 02/01/22 11:51:00 EDT, Capsule, [facility] 3, Partial fill upon patient [...] mL, 0 Refills, Maintenance, 02/01/22 11:56:00 EDT, [address],Partial fill upon patient request if the prescription [...] Refills, Maintenance, 01/06/24 10:33:00 EDT, CR Capsule, [id number], Partial fill upon patient request if the prescription is for a schedule II opioid drug., 155.8, cm, 12/29/23 10:2... Start Date: 01/06/24 Stop Date: 01/09/24 Status: Ordered predniSONE 5 mg oral tablet 1 tablet, By Mouth, Daily, # 30 tablet, 5 Refills, Maintenance, 08/24/23 18:08:00 EST, [facility] STORE [id number], 155.8, cm, 07/02/23 13:06:00 EST, Height, 72.4, [...] Team Personnel Name: Harmony Staley RN Position: S RN Member Role: Primary Care Nurse Name: Alejandrina FERGUSON, Justus Conway Position: Reference Physician Member Role: PCP Address: Address: [address] [place] [address] [address] [place], [place] [address] Name: Darwin Graham MD Position: [facility] Cardiology MD Member Role: Lifetime Consulting Physician Address: Address: [address] [place] [address] [facility] [place], [place] [address] Name: Karen Baker RN Position: S RN Member Role: Primary Care Nurse Care Team Related Persons Name: GEOFF DB Address: [place] [address] Name: ARIK RAMSAY Address: home [address] [place] [address]
--- OUTSIDE RECORDS SUMMARY | 2024-05-22 11:57 | XMS_ITS | Continuity of Care Document ---
Author Organization [facility] ancer Care Address [address] [place] [address]- Care Team Providers Care Cloth Sponger Name Role Phone Alejandrina FERGUSON, Justus Conway Primary Care Physician [phone] [id number](s): 01/09/23 - 06/01/23 [facility] [address] [place] [address]- Discharge Disposition: A-D/C Home Attending Physician: Vargas Rowe MD, Reza Armstrong Admitting Physician: Vargas Rowe MD, Reza Armstrong Referring Physician: Lalito Monroy MD Allergies, Adverse Reactions, Alerts No Known Allergies [...] opioid drug. Start Date: 02/01/22 Status: Ordered Crestor 40 mg oral tablet [...] 0 Refills, Maintenance, 02/01/22 11:51:00 EDT, Capsule, [facility], Partial fill upon patient request [...] mL, 0 Refills, Maintenance, 02/01/22 11:56:00 EDT, [place],Partial fill upon patient request if the prescription [...] 2 capsule = 20 mEq, By Mouth, Daily, # 10 capsule, 0 Refills, Maintenance, 05/14/23 20:33:00 EDT, CR Capsule, [facility]/pharmacy #[id number], Partial fill upon patient request if the prescription is for a schedule II opioid drug., 155.8, cm, 05/11/23 8:32:00 EDT,... Start Date: 05/14/23 Stop Date: 05/19/23 Status: Ordered predniSONE 5 mg oral tablet 1 tablet = 5 mg, By Mouth, Daily, for 30 days, # 30 tablet, 5 Refills, Hard Stop 08/29/23 13:53:00 EST, 03/02/23 13:53:00 EDT, Tablet, [facility]/pharmacy #[id number], Partial fill upon patient request if the prescription is for a schedule II opioid drug., 155.8,... Start Date: 03/02/23 Stop Date: 08/29/23 Status: Ordered predniSONE 5 mg oral tablet [...] sites Confirmed Active Rheumatoid arthritis Confirmed Active Vital Signs Most recent to oldest [Reference Range]: 1 2 Height 155.8 cm (04/01/23 10:21 AM) 155.8 cm (01/22/23 2:16 PM) Weight 72.1 kg (04/01/23 10:21 AM) 67.1 kg (01/22/23 2:16 PM) Oxygen Saturation [94-100 %] 100 % (04/01/23 10: AM) 100 % (01/22/23 2:16 PM) Pulse Rate [55-90 bpm] 88 bpm (04/01/23 10:21 AM) 75 bpm (01/22/23 2:16 PM) Body Mass Index [18.5-24.99 kg/m2] 29.7 kg/m2 *H* (04/01/23 10:21 AM) 27.64 kg/m2 *H* (01/22/23 2:16 PM) Blood Pressure [90-138/55-84 mm Hg] 148/ 99mm Hg *H* (04/01/23 10:21 AM) 120/68mm Hg (01/22/23 2:16 PM) Temperature [96.8-100.4 DegF] 97.6 DegF (04/01/23 10:21 AM) 97.1 DegF (01/22/23 2:16 PM) Mode of Delivery (Oxygen) Room air (04/01/23 10:21 AM) Room air (01/22/23 2:16 PM) Blood pressure sites Arm, left (04/01/23 10:21 AM) Arm, right (01/22/23 2:16 PM) Temperature Route Oral (04/01/23 10:21 AM) Oral (01/22/23 2:16 PM) Dry Weight 72.1 kg (04/01/23 10:21 AM) 67.1 kg (01/22/23 2:16 PM) Weight Obtained Via Standing scale (04/01/23 10:21 AM) Standing scale (01/22/23 2:16 PM) Dry Weight Obtained Via Standing scale (04/01/23 10:21 AM) Standing scale (01/22/23 2:16 PM) Social History Social History Type Response Smoking Status Former smoker, quit more than 30 days ago; Interested in cessation: No; Patient wants NRT during admission No entered on: 01/22/23 Sex Note * Malini Cantor: PERFORM, SIGN, VERIFY Event Display: Patient Education/Instruction Authored Date: [facility] *Heme/Onc Adult Clinical Summary Name HERB RAMSAY Age 82 Years 1940 PCP Alejandrina FERGUSON, Justus Conway PCP Visit Date 01/09/2023 07:37:00 Additional Instructions: Scheduled Appointments?? Future Appointments ?*[facility]??Endocrine ?[address]??[place],??[place],??[address] ?Phone:??--?Fax:??-- ?Appt. Date:??05/11/2023?8:45 AM ?Scheduled Provider:??Donna Tilley MD Follow-Up Instructions ?? With: Address: When: Reza Rowe [facility] Hem/[place] [address] Business (1) 07/02/2023 1:00 PM Diagnosis Malignant neoplasm of prostate Medications: Please continue your medications until treatment is completed or stopped by your provider. Discuss any questions related to medications with your provider. New Medications [id number], [address] [place] [id number], [phone] PredniSONE (predniSONE 5 mg oral tablet) 1 tab(s) Oral Daily for 30 Days. Refills: 5. Next Dose: [facility], [address] [place] [id number], [phone] abiraterone (abiraterone 250 mg oral tablet) TAKE 4 TABLETS (1,000MG) BY MOUTH ONCE DAILY ON AN EMPTY STOMACH 1 HOUR BEFORE OR 2 HOURS AFTER A MEAL. Refills: 2. Next Dose: Medications to Continue with No Changes These medications were not printed or sent to your pharmacy Acetaminophen (acetaminophen 325 mg oral tablet) 650 Milligram Oral every 6 hours. May take OTC not to exceed 3000 mg/day. Next Dose: Docusate (docusate sodium 100 mg oral capsule) 1 capsule Oral twice a day. Refills: 0. Next Dose: Enoxaparin 30 Milligram Subcutaneous Injection twice a day. Discontinue when INR is greater than 1.8. Next Dose: Ferrous Sulfate (ferrous sulfate 325 mg oral enteric coated tablet) 1 tab(s) Oral Daily. Refills: 0. Next Dose: Fluticasone Nasal (fluticasone 50 mcg/inh nasal spray) 2 spray(s) Nares, Both Daily in the morning.Refills: 0. Next Dose: Leflunomide (leflunomide 20 mg oral tablet) 1 tab(s) Oral Daily. Next Dose: Loratadine (loratadine 10 mg oral tablet) 1 tab(s) Oral Daily at Bedtime. Next Dose: Metoprolol (metoprolol 100 mg oral tablet) 1 tab(s) Oral Daily in the morning. Next Dose: Metoprolol (metoprolol 50 mg oral tablet) 1 tab(s) Oral Daily at Bedtime. Next Dose: Omeprazole (omeprazole 40 mg oral enteric coated capsule) 1 capsule Oral Daily. Refills: 0. Next Dose: Polyethylene Glycol 3350 (MiraLax Powder) 17 gram Oral Daily as needed Constipation. Next Dose: Rosuvastatin (Crestor 40 mg oral tablet) 1 tab(s) Oral Daily at Bedtime for 90 Days. Refills: 3. Next Dose: Senna (senna 187 mg oral tablet) 1 tab(s) Oral Daily at Bedtime as needed as needed for constipation. Next Dose: Warfarin (warfarin 1 mg oral tablet) Take 1-10 tablets daily as directed by [facility].. Refills: 0. Next Dose: Allergy Info:?? NKA Medications Given This Visit Future Orders ?Dexa Bone Density (Axial)? Order Date:06/01/23?- Complete by?07/02/23 Vital Signs Height 155.8 cm Weight 72.1 kg BMI 29.7 kg/m2 Blood Pressure 148 mm Hg/99 mm Hg Temperature 97.6 DegF Pulse Rate 88 bpm Respiratory Rate 02 Sat Mode of Delivery 100 %/Room air You can now view a summary of your hospital visit from the comfort of your home through a free online portal called [employer]. [employer] is a website that allows you to securely view your medical information including discharge summary, medications and follow-up visits. ??You can alsosend a secure electronic message to your doctor???s office to request appointments, renew medications or just ask a question. You can enroll at [email or web address] or register during your next office visit. Disclaimer:?? The information provided is of a general nature and is intended to be used in conjunction with the recommendations and advice of your health care practitioner. ??Every effort has been made to ensure that the information provided is accurate and complete at the time it is provided to you however, as your needs change, or, as new ??information becomes available, different or additional instructions may be required. If you have questions, please consult with your primary care provider or pharmacist, as appropriate. ??This information is not intended to serve as substitution for assessment and evaluation by a qualified health care provider. If you do not have a primary care provider, you may find a [facility] provider by calling [facility] [employer] Link at [phone]. For information about the plan of care including goals and instructions for your diagnosis, please see the patient education orders section of this document. Patient Education Materials?? The content of this educational material or handout may have been modified, supplemented, or adapted from its original content and format to support your individualized medical care. Patient Care team information Care Team Personnel Name: Harmony Staley RN Position: S RN Member Role: Primary Care Nurse Name: Odette Newell RN Position: S RN Member Role: Primary Care Nurse Name: Jusuts Tinoco MD Position: [facility] General Pediatrics MD Member Role: PCP Address: Address: [address] [place] [address] [address] [facility] [address]- [place] Name: Santos FERGUSON, Darwin Noe Position: [facility] Cardiology MD Member Role: Lifetime Consulting Physician Address: Address: [address] [place] [address] [place] [address]- [place] Name: Karen Baker RN Position: [facility] RN Member Role: Primary Care Nurse Name: Porfirio FERGUSON, Lalito Thomson Position: [facility] Physician - Urology Med Service: Urology Member Role: Referring Physician Address: Address: [address] [place] [address] [place] [address] Name: Vargas Rowe MD, Reza Armstrong Position: [facility] Physician - Oncology Med Service: Hematology & Oncology Member Role: Admitting Physician Address: Address: [address] [place] [address] Hem/[place] [address]- Care Team Related Persons Name: DB TELLEZ Address: [place] [address] Name: ARIK RAMSAY Address: home [address] [place] [address]
--- OUTSIDE RECORDS SUMMARY | 2024-05-22 11:57 | XMS_ITS | Continuity of Care Document ---
Author Organization [facility] Address [address] [place] [address]- Care Team Providers Care Rn Or Lvn Name Role Phone Alejandrina FERGUSON, Justus Conway Primary Care Physician [phone] Encounter [facility] [id number] Date(s): 09/03/21 - 10/03/21 [facility] [address] [place], [place] [address] Attending Physician: Jocelin Conley Admitting Physician: AdmtrJocelin Referring Physician: Admtr, ArLinda Allergies, Adverse Reactions, Alerts No Known Allergies Medications aspirin 81 mg oral tablet 81, mg, 1, tablet, By Mouth, Daily, 0, 0, 03/03/08 14:33:57, Print PITO Number, [id number], Constant Indicator Start Date: 03/03/08 Status: Ordered Combivent Respimat 20 mcg-100 mcg/inh inhalation aerosol 0 Refills, Maintenance, 09/03/21 14:17:00 EST, Partial fill upon patient request if the prescription is for a schedule II opioid drug. Start Date: 09/03/21 Status: Ordered Coumadin Tablet Daily, 0 Refills, Maintenance Start Date: 01/06/12 Status: Ordered Crestor 40 mg oral tablet 1 tablet = 40 mg, By Mouth, Daily at bedtime, # 90 tablet, 3 Refills, Maintenance, 1 tablet By Mouth Daily at bedtime,x90 days Start Date: 06/26/13 Stop Date: 06/21/14 Status: Ordered FeroSul 325 mg oral tablet TAKE 1 TABLET BY MOUTH ONCE DAILY Start Date: 09/03/21 Status: Ordered hydrochlorothiazide 25 mg oral tablet 25 mg, 1, tablet, By Mouth, Daily, # 30 tablet, Refills 0, Maintenance, 09/03/21 14:18:00 EST, Partial fill upon patient request if the prescription is for a schedule II opioid drug. Start Date: 09/03/21 Status: Ordered leflunomide 20 mg oral tablet 20, mg, 1, tablet, By Mouth, Daily, 0, 0, 03/03/08 14:32:25, Print PITO Number, [id number], Constant Indicator Start Date: 03/03/08 Status: Ordered loratadine 10 mg oral tablet 10 mg, 1, tablet, By Mouth, Daily, # 30 tablet, Refills 0, Maintenance, 09/03/21 14:17:00 EST, Partial fill upon patient request if the prescription is for a schedule II opioid drug. Start Date: 09/03/21 Status: Ordered metoprolol 25 mg oral tablet 3 tablet = 75 mg, By Mouth, 2 times a day, # 180 tablet, 0 Refills, Maintenance, Tablet Start Date: 03/04/11 Stop Date: 04/03/11 Status: Ordered Multivitamin With Minerals 1, tablet, By Mouth, Daily, 0, 0, 03/03/08 14:34:53, Print PITO Number, [id number], Constant Indicator Start Date: 03/03/08 Status: Ordered nitroglycerin 0.4 mg sublingual tablet 1 tablet, Sublingual, Every 5 minutes, PRN for chest pain, # 100 tablet, 0 Refills, Maintenance, Tablet Start Date: 12/28/10 Status: Ordered omeprazole 40 mg oral enteric coated capsule 1 capsule = 40 mg, By Mouth, Daily, # 30 capsule, 0 Refills, Maintenance, 09/03/21 14:18:00 EST, [facility], Partial fill upon patient request if the prescription is for a schedule II opioid drug. Start Date: 09/03/21 Status: Ordered Problem List Condition Effective Dates Status Health Status Inform ant Chest Pain(Confirmed) 12/28/10 Active Coronary artery disease(Confirmed) Active Hyperlipidemia(Confirmed) Active Social History Social History Type Response Smoking Status Never smoker; Tobacc o user in household: No entered on: 09/05/14 Sex
--- OUTSIDE RECORDS SUMMARY | 2024-05-22 11:57 | XMS_ITS | Continuity of Care Document ---
Author Organization [facility] ancer Care Address [address] [place] [address]- Care Team Providers Care Meter Tester Primary Name Role Phone Alejandrina FERGUSON, Justus Conway Primary Care Physician [phone] [id number] Date(s): 04/01/23 - 05/01/[address] [address] Allergies, Adverse Reactions, Alerts No Known Allergies Medications abiraterone 250 mg oral tablet See Instructions, TAKE 4 TABLETS (1,000MG) BY MOUTH ONCE DAILY ON AN EMPTY STOMACH 1 HOUR BEFORE OR2 HOURS AFTER A MEAL, # 120 tablet, 2 Refills, Maintenance, 03/16/23 8:18:00 EDT, [facility], 155.8, cm, 01/22/23 14:16:00 EDT, Height... Start Date: 03/16/23 Status: Ordered acetaminophen 325 mg oral tablet [...] 0 Refills, Maintenance, 02/01/22 11:51:00 EDT, Capsule, [facility], Partial fill upon patient [...] mL, 0 Refills, Maintenance, 02/01/22 11:56:00 EDT, [place],Partial fill upon patient request if the prescription [...] Daily, # 10 capsule, 0 Refills, Maintenance, 04/15/23 17:26:00 EDT, CR Capsule, [facility]/pharmacy #[id number], Partial fill upon patient request if the prescription is for a schedule II opioid drug., 155.8, cm, 04/01/23 10:21:00 EDT... Start Date: 04/15/23 Stop Date: 04/20/23 Status: Ordered predniSONE 5 mg oral tablet 1 tablet = 5 mg, By Mouth, Daily, # 30 tablet, 5 Refills, Maintenance, 03/02/23 13:53:00 EDT, Tablet, [facility]/pharmacy #[id number], Partial fill upon patient request if the prescription is for a schedule II opioid drug., 155.8, cm, 01/22/23 14:16:00 EDT, Height... Start Date: 03/02/23 Stop Date: 08/29/23 Status: Ordered senna 187 mg oral tablet [...] Care Nurse Name: Odette Newell RN Position: [facility] RN Member Role: Primary Care Nurse Name: Justus Tinoco MD Position: [facility] General Pediatrics MD Member Role: PCP Address: Address: [address] [place] [address] [address] [place] [address]- Name: Darwin Graham MD Position: [facility] Cardiology MD Member Role: Lifetime Consulting Physician Address: Address: [address] [place] [address], [address] [place] [address] [place] [address]- Name: Karen Baker RN Position: [facility] RN Member Role: Primary Care Nurse Care Team Related Persons Name: DB TELLEZ Address: [place] [address] Name: ARIK RAMSAY Address: home [address] [place] [address]
--- OUTSIDE RECORDS SUMMARY | 2024-05-22 11:57 | XMS_ITS | Continuity of Care Document ---
Author Organization [facility] ter Address [address] [place] [address]- Care Team Providers Care Toll Lineman Name Role Phone Alejandrina FERGUSON, Justus Conway Primary Care Physician Encounter [facility] Date(s): 08/25/19 - 08/25/[address] [address]- [facility] Attending Physician: Not on Staff, Attending MD Allergies, Adverse Reactions, Alerts Substance Reaction Severity Status NKA Active Medications Albuterol PRN Wheezing/Shortness of Breath, 0 Refills, Maintenance, 09/05/14 8:15:55 Start Date: 09/05/14 Status: Ordered aspirin 81 mg oral tablet 81, mg, 1, tablet, By Mouth, Daily, 0, 0, 03/03/08 14:33:57, Print PITO Number, [id number], Constant Indicator Start Date: 03/03/08 Status: Ordered Coumadin Tablet Daily, 0 Refills, Maintenance Start Date: 01/06/12 Status: Ordered Crestor 40 mg oral tablet 1 tablet = 40 mg, By Mouth, Daily at bedtime, # 90 tablet, 3 Refills, Maintenance, 1 tablet By Mouth Daily at bedtime,x90 days Start Date: 06/26/13 Stop Date: 06/21/14 Status: Ordered leflunomide 20 mg oral tablet 20, mg, 1, tablet, By Mouth, Daily, 0, 0, 03/03/08 14:32:25, Print PITO Number, [id number], Constant Indicator Start Date: 03/03/08 Status: Ordered Lisinopril Tablet 10 mg, By Mouth, Daily, Maintenance, 01/06/12 10:52:42 Start Date: 01/06/12 Status: Ordered metoprolol 25 mg oral tablet 3 tablet = 75 mg, By Mouth, 2 times a day, # 180 tablet, 0 Refills, Maintenance, Tablet Start Date: 03/04/11 Stop Date: 04/03/11 Status: Ordered Multivitamin With Minerals 1, tablet, By Mouth, Daily, 0, 0, 03/03/08 14:34:53, Print PITO Number, [id number], Constant Indicator Start Date: 03/03/08 Status: Ordered Nexium 40 mg oral enteric coated capsule 1 capsule = 40 mg, By Mouth, Daily, # 30 capsule, 0 Refills, Maintenance, [facility] Capsule Start Date: 03/04/11 Stop Date: 04/03/11 Status: Ordered nitroglycerin 0.4 mg sublingual tablet 1 tablet, Sublingual, Every 5 minutes, PRN for chest pain, # 100 tablet, 0 Refills, Maintenance, Tablet Start Date: 12/28/10 Status: Ordered Problem List Condition Effective Dates Status Health Status Inform ant Chest Pain(Confirmed) 12/28/10 Active Coronary artery disease(Confirmed) Active Hyperlipidemia(Confirmed) Active Social History Social History Type Response Smoking Status Never smoker; Tobacc o user in household: No entered on: 09/05/14 Sex
--- OUTSIDE RECORDS SUMMARY | 2024-05-22 11:57 | XMS_ITS | Continuity of Care Document ---
Author Organization [facility] ancer Care Address [address] [place] [address]- Care Team Providers Care Best Second Jobs Name Role Phone Alejandrina FERGUSON, Justus Conway Primary Care Physician [phone] [place] [facility] [id number] Date(s): 06/30/23 - 07/30/[address] [address] Attending Physician: Jocelin Conley Admitting Physician: AdmtrJocelin [...] Maintenance, 07/02/23 13:33:00 EST, Chew Tablet, [id number], Partial fill upon patient request if the [...] 0 Refills, Maintenance, 02/01/22 11:51:00 EDT, Capsule, [facility], Partial fill upon patient request [...] mL, 0 Refills, Maintenance, 02/01/22 11:56:00 EDT, [place],Partial fill upon patient request if the prescription [...] Care team information Care Team Personnel Name: Rebeka BEAVERS, Harmony Position: [facility] RN Member Role: Primary Care Nurse Name: Odette Newell RN Position: [facility] RN Member Role: Primary Care Nurse Name: Alejandrina FERGUSON, Justus Conway Position: [facility] General Pediatrics MD Member Role: PCP Address: Address: [address] [place] [address] [address] [place], [place] [address] Name: Darwin Graham MD Position: [facility] Cardiology MD Member Role: Lifetime Consulting Physician Address: Address: [address] [place] [address] [facility] [place], [place] [address] Name: Karen Baker RN Position: [facility] RN Member Role: Primary Care Nurse Care Team Related Persons Name: DB TELLEZ Address: [place] [address] Name: ARIK RAMSAY Address: home [address] [place] [address]
--- OUTSIDE RECORDS SUMMARY | 2024-05-22 11:57 | XMS_ITS | Continuity of Care Document ---
Author Organization [facility] ancer Care Address [address] [place] [address]- Care Team Providers Care Rd Lab Technician Name Role Phone Alejandrina FERGUSON, Justus Conway Primary Care Physician [phone] [id number] Date(s): 10/02/23 - 11/01/[address] [address] Allergies, Adverse Reactions, Alerts No Known Allergies Medications abiraterone 250 mg oral tablet See Instructions, TAKE 4 TABLETS (1,000MG) BY MOUTH ONCE DAILY ON AN EMPTY STOMACH 1 HOUR BEFORE OR2 HOURS AFTER A MEAL, # 120 tablet, 2 Refills, Maintenance, 08/26/23 7:49:00 EST, [facility], 155.8, cm, 07/02/23 13:06:00 EST, Height... Start Date: 08/26/23 Status: Ordered acetaminophen 325 mg [...] tablet, 2 Refills, Maintenance, 09/28/23 12:58:00 EST, [facility] STORE [id number], 30, CHEW 1 TABLET BY MOUTH TWICE [...] 0 Refills, Maintenance, 02/01/22 11:51:00 EDT, Capsule, [facility], Partial fill upon patient request if [...] mL, 0 Refills, Maintenance, 02/01/22 11:56:00 EDT, [place],Partial fill upon patient request if the prescription [...] = 20 mEq, By Mouth, Daily, # 8 capsule, 0 Refills, Maintenance, 09/30/23 13:57:00 EST, CRCapsule, [facility]/pharmacy #[id number], Partial fill upon patient request if the prescription is for a schedule II opioid drug., 155.8, cm, 09/30/23 12:46:00 EST,... Start Date: 09/30/23 Stop Date: 10/04/23 Status: Ordered predniSONE 5 mg oral tablet 1 tablet, By Mouth, Daily, # 30 tablet, 5 Refills, Maintenance, 08/24/23 18:08:00 EST, [facility] STORE [id number], 155.8, cm, 07/02/23 13:06:00 EST, Height, 72.4, [...] Team Personnel Name: Harmony Staley RN Position: [facility] RN Member Role: Primary Care Nurse Name: Alejandrina FERGUSON, Justus Conway Position: Reference Physician Member Role: PCP Address: Address: [address] [place] [address] [address] [place], [place] [address] Name: Darwin Graham MD Position: [facility] Cardiology MD Member Role: Lifetime Consulting Physician Address: Address: [address] [place] [address] [facility] [place] [address] Name: Karen Baker RN Position: S RN Member Role: Primary Care Nurse Care Team Related Persons Name: GEOFF DB Address: [place] [address] Name: ARIK RAMSAY Address: home [address] [place] [address]
--- OUTSIDE RECORDS SUMMARY | 2024-05-22 11:57 | XMS_ITS | Continuity of Care Document ---
Author Organization [facility] ter Address [address] [place] [address]- Care Team Providers Care Rn Emergency Room Name Role Phone Alejandrina FERGUSON, Justus Conway Primary Care Physician Encounter [facility] [place] Date(s): 09/07/19 - 09/14/[address] [address]- [facility] Attending Physician: Not on Staff, Attending MD Allergies, Adverse Reactions, Alerts Substance Reaction Severity Status NKA Active Medications Albuterol PRN Wheezing/Shortness of Breath, 0 Refills, Maintenance, 09/05/14 8:15:55 Start Date: 09/05/14 Status: Ordered aspirin 81 mg oral tablet 81, mg, 1, tablet, By Mouth, Daily, 0, 0, 03/03/08 14:33:57, Print PITO Number, [id number], Constant Indicator Start Date: 03/03/08 Status: Ordered [...] 0, 0, 03/03/08 14:32:25, Print PITO Number, [id number], Constant Indicator Start Date: 03/03/08 Status: Ordered [...] 0, 0, 03/03/08 14:34:53, Print PITO Number, [id number], Constant Indicator Start Date: 03/03/08 Status: Ordered [...]
--- OUTSIDE RECORDS SUMMARY | 2024-05-22 11:57 | XMS_ITS | Continuity of Care Document ---
Author Organization [facility] ter Address [address] [place] [address]- Care Team Providers Care Property Supervisor Name Role Phone Alejandrina FERGUSON, Justus Conway Primary Care Physician Encounter [place] Date(s): 12/30/21 - 02/15/[address] [address] Attending Physician: Lalito Lai DO Admitting Physician: Lalito Lai DO Referring Physician: Lalito Lai MD Allergies, Adverse Reactions, Alerts No Known Allergies Medications acetaminophen 325 mg oral tablet 650 mg, [...] 0 Refills, Maintenance, 02/01/22 11:51:00 EDT, Capsule, [facility], Partial fill upon patient request if the prescription is for a schedule II opioid drug., 159, cm, 02/01/22 11:... Start Date: 02/01/22 Status: Ordered Enoxaparin 0.3 mL = 30 mg, Subcutaneous Injection, 2 times a day, Discontinue when INR is greater than 1.8, 0 Refills, Maintenance, 02/01/22 11:53:00 EDT, Injection, Partial fill upon patient request if the prescription is for a schedule II opioid drug. Start Date: 02/01/22 Status: Ordered ferrous sulfate 325 mg oral enteric coated tablet 325 mg, 1, tablet, By Mouth, Daily, # 30 tablet, Refills 0, Tot. Refills 0, Maintenance, 02/01/22 11:55:00 EDT, Do Not Route, Partial fill upon patient request if the prescription is for a schedule II opioid drug. Start Date: 02/01/22 Status: Ordered fluticasone 50 mcg/inh nasal spray 2 sprays, Nares, Both, Daily in AM, # 9.9 mL, 0 Refills, Maintenance, 02/01/22 11:56:00 EDT, [place],Partial fill upon patient request if the prescription [...] opioid drug. Start Date: 02/01/22 Status: Ordered senna 187 mg oral tablet 1 tablet = 8.6 mg, By Mouth, Daily at bedtime, PRN as needed for constipation, 0 Refills, Maintenance, 02/01/22 11:54:00 EDT, Tablet, Partial fill upon patient request if the prescription is for a schedule II opioid drug. Start Date: 02/01/22 Status: Ordered warfarin 1 mg oral tablet See Instructions, Take 1-10 tablets daily as directed by [facility]., # 150 tablet, 0 Refills, Maintenance, 11/06/21 9:09:00 EDT, Tablet, [facility] 3, Partial fill upon patient request if the prescription is for a schedule II opioid drug., 158.... Start Date: 11/06/21 Status: Ordered Problem List Condition Effective Dates Status Health Status Inform ant Atrial fibrillation(Confirmed) Active Chest Pain(Confirmed) 12/28/10 Active Chronic obstructive pulmonar y disease(Confirmed) Active Coronary artery disease(Confirmed) Active Hyperlipidemia(Confirmed) Active Hypokalemia(Confirmed) Active Degenerative joint disease(Confirmed) Active Rheumatoid arthritis(Confirmed) Active Social History Social History Type Response Smoking Status Never smoker; Tobacc o user in household: No entered on: 09/05/14 Sex
--- OUTSIDE RECORDS SUMMARY | 2024-05-22 11:57 | XMS_ITS | Continuity of Care Document ---
Author Organization [facility] ter Address [address] [place] [address]- Care Team Providers Care Fisher Line Name Role Phone Alejandrina FERGUSON, Justus Conway Primary Care Physician Encounter [facility] [place] Date(s): 03/18/23 - 03/18/[address] [address] Attending Physician: Vargas Rowe MD, Reza Armstrong Allergies, Adverse Reactions, Alerts No Known Allergies [...] 0 Refills, Maintenance, 02/01/22 11:51:00 EDT, Capsule, [facility], Partial fill upon patient [...] mL, 0 Refills, Maintenance, 02/01/22 11:56:00 EDT, [place],Partial fill upon patient request if the prescription [...] 5 Refills, Maintenance, 03/02/23 13:53:00 EDT, Tablet, [facility] #[id number], Partial fill upon patient request [...] 0 Refills, Maintenance, 11/06/21 9:09:00 EDT, Tablet, [facility], Partial fill upon patient request if the prescription is for a schedule II opioid drug., 158.... Start Date: 11/06/21 Status: Ordered Problem List Condition Confirmation Course Effective Dates Status H ealth Status Informant Atrial fibrillation Confirmed Active Chest Pain Confirmed 5/7/11 Active Chronic obstructive pulmonary disease Confirmed Active Coronary artery disease Confirmed Active Hyperlipidemia Confirmed Active Hypokalemia Confirmed Active Degenerative joint disease Confirmed Active Rheumatoid arthritis Confirmed Active Social History Social History Type Response Smoking Status Former smoker, quit more than 30 days ago; Interested in cessation: No; Patient wants NRT during admission No entered on: 01/22/23 Sex Patient Care team information Care Team Personnel Name: Harmony Staley RN Position: S RN Member Role: Primary Care Nurse Name: Odette Newell RN Position: [facility] RN Member Role: Primary Care Nurse Name: Justus Tinoco MD Position: [facility] General Pediatrics MD Member Role: PCP Address: Address: [address] [place] [address] [address] [place] [address]- Name: Darwin Graham MD Position: [facility] Cardiology MD Member Role: Lifetime Consulting Physician Address: Address: [address] [place] [address], [address] [place] [address] [place] [address]- Name: Karen Baker RN Position: [facility] RN Member Role: Primary Care Nurse Care Team Related Persons Name: DB TELLEZ Address: [place] [address] Name: ARIK RAMSAY Address: home [address] [place] [address]
--- OUTSIDE RECORDS SUMMARY | 2024-05-22 11:57 | XMS_ITS | Continuity of Care Document ---
Author Organization [facility] Address [address] [place] [address]- Care Team Providers Care Credit Control Officer Name Role Phone Justus Tinoco MD Primary Care Physician [id number] Date(s): 05/11/23 - 06/28/23 [facility] [address] [place] [address] Attending Physician: Marav Eng MD Admitting Physician: Marva Eng MD Referring Physician: Justus Tinoco MD Allergies, Adverse Reactions, Alerts No Known [...] 0 Refills, Maintenance, 02/01/22 11:51:00 EDT, Capsule, [facility], Partial fill upon patient request [...] mL, 0 Refills, Maintenance, 02/01/22 11:56:00 EDT, [place],Partial fill upon patient request if the prescription [...] Refills, Maintenance, 05/14/23 20:33:00 EDT, CR Capsule, [facility]/pharmacy #[id number], Partial fill upon patient request if the prescription is for a schedule II opioid drug., 155.8, cm, 05/11/23 8:32:00 EDT,... Start Date: 05/14/23 Stop Date: 05/19/23 Status: Ordered predniSONE 5 mg oral tablet 1 tablet = 5 mg, By Mouth, Daily, for 30 days, # 30 tablet, 5 Refills, Hard Stop 08/29/23 13:53:00 EST, 03/02/23 13:53:00 EDT, Tablet, [facility]/pharmacy #[id number], Partial fill upon patient [...] Team Personnel Name: Harmony Staley RN Position: [facility] RN Member Role: Primary Care Nurse Name: Odette Newell RN Position: [facility] RN Member Role: Primary Care Nurse Name: Alejandrina FERGUSON, Justus Conway Position: [facility] General Pediatrics MD Member Role: PCP Address: Address: [address] [place] [address] [address] [place] [address]- Name: Darwin Graham MD Position: [facility] Cardiology MD Member Role: Lifetime Consulting Physician Address: Address: [address] [place] [address], [address] [place] [address] [place] [address]- Name: Karen Baker RN Position: [facility] RN Member Role: Primary Care Nurse Care Team Related Persons Name: DB TELLEZ Address: [place] [address] Name: ARIK RAMSAY Address: home [address] [place] [address]
--- OUTSIDE RECORDS SUMMARY | 2024-05-22 11:57 | XMS_ITS | Continuity of Care Document ---
Author Organization [facility] ancer Care Address [address] [place] [address]- Care Team Providers Care Reconditioner Name Role Phone Alejandrina FERGUSON, Justus Conway Primary Care Physician [id number] Date(s): 01/09/23 - 02/08/[address] [address] Attending Physician: Jocelin Conley Admitting Physician: Jocelin Conley Referring Physician: AdmtrJocelin Allergies, Adverse Reactions, Alerts No Known Allergies Medications abiraterone 250 mg oral tablet 4 tablet = 1,000 mg, By Mouth, Daily, Take on an empty stomach (at least 1 hour prior or 2 hours after food), # 120 tablet, 0 Refills, Maintenance, 01/22/23 15:28:00 EDT, Tablet, Partial fill upon patient request if the prescription is for a schedule... Start Date: 01/22/23 Stop Date: 02/21/23 Status: Ordered acetaminophen 325 mg oral tablet [...] 0 Refills, Maintenance, 02/01/22 11:51:00 EDT, Capsule, [facility], Partial fill upon patient [...] mL, 0 Refills, Maintenance, 02/01/22 11:56:00 EDT, [place],Partial fill upon patient request if the prescription [...] Daily, # 30 tablet, 0 Refills, Maintenance, 01/22/23 15:28:00 EDT, Tablet, Partial fill upon patient request if the prescription is for a schedule II opioid drug. Start Date: 01/22/23 Stop Date: 02/21/23 Status: Ordered senna 187 mg oral tablet [...] 0 Refills, Maintenance, 11/06/21 9:09:00 EDT, Tablet, [facility], Partial fill upon patient request [...] Team Personnel Name: Harmony Staley RN Position: [facility] RN Member Role: Primary Care Nurse Name: Odette Newell RN Position: [facility] RN Member Role: Primary Care Nurse Name: Justus Tinoco MD Position: [facility] General Pediatrics MD Member Role: PCP Address: Address: [address] [place] [address] [address] [place] [address]- Name: Darwin Graham MD Position: [facility] Cardiology MD Member Role: Lifetime Consulting Physician Address: Address: [address] [place] [address], [address] [place] [address] [facility] [place], [place] [address] Name: Karen Baker RN Position: [facility] RN Member Role: Primary Care Nurse Care Team Related Persons Name: DB TELLEZ Address: [place] [address] Name: ARIK RAMSAY Address: home [address] [place] [address]
--- OUTSIDE RECORDS SUMMARY | 2024-05-22 11:58 | XMS_ITS ---
Author Organization [facility] Address [address] [place] [address] Care Team Providers Care Instructional Design Manager Name Role Phone Alejandrina FERGUSON, Justus Primary Care Provider Unava ilTonie Cook Unavailable [phone] Garcia Encounters Encounter Location Date Provider Diagnosis [facility] [address] [place] [address] 02/17/2024 Tonie Vasquez PLAN OF TREATMENT Next Appt Details Provider Name:Tonie beck, 06/21/2024 01:30:00 PM, [address] [place], [address],
--- OUTSIDE RECORDS SUMMARY | 2024-05-22 11:58 | XMS_ITS | Continuity of Care Document ---
Author Organization [facility] Address [address] [place] [address]- Care Team Providers Care Seal Mixing Operator Name Role Phone Alejandrina FERGUSON, Justus Conway Primary Care Physician En[place] [facility] Date(s): 05/20/23 - 06/19/23 [facility] [address] [place] [address] Allergies, Adverse Reactions, Alerts No Known Allergies [...] 0 Refills, Maintenance, 02/01/22 11:51:00 EDT, Capsule, [facility], Partial fill upon patient [...] mL, 0 Refills, Maintenance, 02/01/22 11:56:00 EDT, [place],Partial fill upon patient request if the prescription [...] Refills, Maintenance, 05/14/23 20:33:00 EDT, CR Capsule, [facility]/pharmacy #[id number], Partial fill upon patient request if the prescription is for a schedule II opioid drug., 155.8, cm, 05/11/23 8:32:00 EDT,... Start Date: 05/14/23 Stop Date: 05/19/23 Status: Ordered predniSONE 5 mg oral tablet 1 tablet = 5 mg, By Mouth, Daily, for 30 days, # 30 tablet, 5 Refills, Hard Stop 08/29/23 13:53:00 EST, 03/02/23 13:53:00 EDT, Tablet, [facility]/pharmacy #[id number], Partial fill upon patient request if [...] Team Personnel Name: Harmony Staley RN Position: [facility] RN Member Role: Primary Care Nurse Name: Odette Newell RN Position: S RN Member Role: Primary Care Nurse Name: Justus Tinoco MD Position: [facility] General Pediatrics MD Member Role: PCP Address: Address: [address] [place] [address] [address] Name: Darwin Graham MD Position: [facility] Cardiology MD Member Role: Lifetime Consulting Physician Address: Address: [address] [place] [address] [facility] [address] Name: Karen Baker RN Position: [facility] RN Member Role: Primary Care Nurse Care Team Related Persons Name: DB TELLEZ Address: [place] [address] Name: ARIK RAMSAY Address: home [address] [place] [address]
--- OUTSIDE RECORDS SUMMARY | 2024-05-22 11:58 | XMS_ITS | Continuity of Care Document ---
Author Organization [facility] ter Address [address] [place] [address]- Care Team Providers Care Compress Machine Operator Name Role Phone Alejandrina FERGUSON, Justus Conway Primary Care Physician [phone] Encounter [facility] Date(s): 09/29/19 - 09/29/[address] [address]- [facility] Attending Physician: Not on Staff, Attending MD Allergies, Adverse Reactions, Alerts Substance Reaction Severity Status NKA Active Medications Albuterol PRN Wheezing/Shortness of Breath, 0 Refills, Maintenance, 09/05/14 8:15:55 Start Date: 09/05/14 Status: Ordered aspirin 81 mg oral tablet 81, mg, 1, tablet, By Mouth, Daily, 0, 0, 03/03/08 14:33:57, Print PITO Number, [id number], Constant Indicator Start Date: 03/03/08 Status: Ordered [...] 0, 0, 03/03/08 14:32:25, Print PITO Number, [id number], Constant Indicator Start Date: 03/03/08 Status: Ordered [...] 0, 0, 03/03/08 14:34:53, Print PITO Number, [id number], Constant Indicator Start Date: 03/03/08 Status: Ordered [...]
--- OUTSIDE RECORDS SUMMARY | 2024-05-22 11:58 | XMS_ITS | Continuity of Care Document ---
Author Organization [facility] ter Address [address] [place] [address]- Care Team Providers Care Sales And Catering Coordinator Name Role Phone Alejandrina FERGUSON, Justus Conway Primary Care Physician Encounter [facility] Date(s): 09/10/21 - 10/10/[address] [address]- Attending Physician: Jocelin Conley Admitting Physician: AdmtrJocelin Referring Physician: Admtr, Ar8 Allergies, Adverse Reactions, Alerts No Known Allergies Medications aspirin 81 mg oral tablet 81, mg, 1, tablet, By Mouth, Daily, 0, 0, 03/03/08 14:33:57, Print PITO Number, [id number], Constant Indicator Start Date: 03/03/08 Status: Ordered [...] 0, 0, 03/03/08 14:32:25, Print PITO Number, [id number], Constant Indicator Start Date: 03/03/08 Status: Ordered [...] 0, 0, 03/03/08 14:34:53, Print PITO Number, [id number], Constant Indicator Start Date: 03/03/08 Status: Ordered [...]
--- OUTSIDE RECORDS SUMMARY | 2024-05-22 11:58 | XMS_ITS | Continuity of Care Document ---
Author Organization [facility] ter Address [address] [place] [address]- Care Team Providers Care Express Clerk Name Role Phone Alejandrina FERGUSON, Justus Conway Primary Care Physician Encounter [facility]CT R [id number] Date(s): 01/16/22 - 02/15/[address] [address] Attending Physician: Jocelin Conley Admitting Physician: AdmJocelin [...] 0 Refills, Maintenance, 02/01/22 11:51:00 EDT, Capsule, [facility], Partial fill upon patient [...] mL, 0 Refills, Maintenance, 02/01/22 11:56:00 EDT, [place],Partial fill upon patient request if the prescription [...] 0 Refills, Maintenance, 11/06/21 9:09:00 EDT, Tablet, [facility] 3, Partial fill upon patient request [...]
--- OUTSIDE RECORDS SUMMARY | 2024-05-22 11:58 | XMS_ITS | Continuity of Care Document ---
Author Organization [facility] Endocrinolo gy and Diabetes Address [address] [place] [address]- Care Team Providers Care Concrete Finisher Apprentice Name Role Phone Alejandrina FERGUSON, Justus Conway Primary Care Physician [phone] [facility] R [id number] Date(s): 05/29/23 - 06/28/23 [facility] Endocrinology and Diabetes [address] [place] [id number] Attending Physician: Jocelin Conley Admitting Physician: AdmJocelin [...] 0 Refills, Maintenance, 02/01/22 11:51:00 EDT, Capsule, [facility], Partial fill upon patient [...] mL, 0 Refills, Maintenance, 02/01/22 11:56:00 EDT, [place],Partial fill upon patient request if the prescription [...] Refills, Maintenance, 05/14/23 20:33:00 EDT, CR Capsule, [facility]/pharmacy #[id number], Partial fill upon patient request if the prescription is for a schedule II opioid drug., 155.8, cm, 05/11/23 8:32:00 EDT,... Start Date: 05/14/23 Stop Date: 05/19/23 Status: Ordered predniSONE 5 mg oral tablet 1 tablet = 5 mg, By Mouth, Daily, for 30 days, # 30 tablet, 5 Refills, Hard Stop 08/29/23 13:53:00 EST, 03/02/23 13:53:00 EDT, Tablet, [facility]/pharmacy #[id number], Partial fill upon patient request [...] Team Personnel Name: Harmony Staley RN Position: [facility] RN Member Role: Primary Care Nurse Name: Odette Newell RN Position: [facility] RN Member Role: Primary Care Nurse Name: Alejandrina FERGUSON, Justus Conway Position: [facility] General Pediatrics MD Member Role: PCP Address: Address: [address] [place] [address] [address] [place] [address]- Name: Darwin Graham MD Position: [facility] Cardiology MD Member Role: Lifetime Consulting Physician Address: Address: [address] [place] [address], [address] [place] [address] [facility] [address]- Name: Karen Baker RN Position: [facility] RN Member Role: Primary Care Nurse Care Team Related Persons Name: DB TELLEZ Address: [place] [address] Name: ARIK RAMSAY Address: home [address] [place] [address]
--- OUTSIDE RECORDS SUMMARY | 2024-05-22 11:58 | XMS_ITS | Continuity of Care Document ---
Author Organization [facility] ancer Care Address [address] [place] [address]- Care Team Providers Care Journey Lineman Name Role Phone Alejandrina FERGUSON, Justus Conway Primary Care Physician [phone] [id number] Date[facility]): [facility] - 02/27/[address] [address] Allergies, Adverse Reactions, Alerts No Known [...] 0 Refills, Maintenance, 02/01/22 11:51:00 EDT, Capsule, [facility], Partial fill upon patient [...] mL, 0 Refills, Maintenance, 02/01/22 11:56:00 EDT, [place],Partial fill upon patient request if the prescription [...] 0 Refills, Maintenance, 11/06/21 9:09:00 EDT, Tablet, [facility], Partial fill upon patient request [...] Alejandrina FERGUSON, Justus Conway Position: [facility] General Pediatrics MD Member Role: PCP Address: Address: [address] [place] [address] [address] [place] [address]- Name: Darwin Graham MD Position: [facility] Cardiology MD Member Role: Lifetime Consulting Physician Address: Address: [address] [place] [address], [address] [place] [address] [place] [address]- Name: Karen Baker RN Position: [facility] RN Member Role: Primary Care Nurse Care Team Related Persons Name: DB TELLEZ Address: [place] [address] Name: ARIK RAMSAY Address: home [address] [place] [address]
--- OUTSIDE RECORDS SUMMARY | 2024-05-22 11:58 | XMS_ITS | Continuity of Care Document ---
Author Organization [facility] ter Address [address] [place] [address]- Care Team Providers Care Gymnastics Coach Or Instructor Name Role Phone Alejandrina FERGUSON, Justus Conway Primary Care Physician Encounter [facility] Date(s): 01/31/22 - 02/01/[address] [address] Discharge Disposition: A-Transfer VNA/Home Health Attending Physician: Lalito Lai MD Admitting Physician: Lalito Lai MD Referring Physician: Lalito Lai MD Allergies, Adverse [...] EDT, Capsule, [facility], Partial fill upon patient request [...] mL, 0 Refills, Maintenance, 02/01/22 11:56:00 EDT, [place],Partial fill upon patient request if the prescription [...] metoprolol 100 mg oral tablet 100 mg, Tablet, By Mouth, 02/01/22 9:00:00 EDT Start Date: 02/01/22 Stop Date: 02/01/22 Status: Completed metoprolol 100 mg oral tablet 100 mg, [...] opioid drug. Start Date: 02/01/22 Status: Ordered oxyCODONE 5 mg oral tablet See Instructions, PRN, 1 tablet By Mouth Every 4 hours, # 42 tablet, Refills 0, Tot. Refills 0, Acute 02/08/22 11:52:00 EDT, Pain , Severe, 02/01/22 11:51:00 EDT, Instructions Replace Required Details, Route to Pharmacy Electronically, [facility] Start Date: 02/01/22 Stop Date: 02/08/22 Status: Ordered OxyCODONE IR Tablet 10 mg, Tablet, By Mouth, Every 4 hours, PRN for Pain , Severe, Routine, 01/31/22 10:59:00 EDT Start Date: 01/31/22 Stop Date: 02/07/22 Status: Ordered senna 187 mg oral tablet 1 tablet = 8.6 mg, By Mouth, Daily at bedtime, PRN as needed for constipation, 0 Refills, Maintenance, 02/01/22 11:54:00 EDT, Tablet, Partial fill upon patient request if the prescription is for a schedule II opioid drug. Start Date: 02/01/22 Status: Ordered traMADol 50 mg oral tablet See Instructions, PRN Pain , Mild, 1-2 tablet By Mouth Every 6 hours not to exceed 400 mg/day, # 56tablet, 0 Refills, Acute 02/08/22 11:51:00 EDT, 02/01/22 11:51:00 EDT, Tablet, [facility], Partial fill upon patient request if the pre... Start Date: 02/01/22 Stop Date: 02/08/22 Status: Ordered warfarin 1 mg oral tablet See Instructions, Take 1-10 tablets daily as directed by [facility]., # 150 tablet, 0 Refills, Maintenance, 11/06/21 9:09:00 EDT, Tablet, [facility], Partial fill upon patient request if the prescription is for a schedule II opioid drug., 158.... Start Date: 11/06/21 Status: Ordered Problem List Condition Effective Dates Status Health Status Inform ant Atrial fibrillation(Confirmed) Active Chest Pain(Confirmed) 12/28/10 Active Chronic obstructive pulmonar y disease(Confirmed) Active Coronary artery disease(Confirmed) Active Hyperlipidemia(Confirmed) Active Hypokalemia(Confirmed) Active Degenerative joint disease(Confirmed) Active Rheumatoid arthritis(Confirmed) Active Results Radiology Reports * Exam Date Time Procedure Performing Provider Status 01/31/22 11:02 PM Knee 1 or 2 Views Right Amador Tod; Auth (Verified) Notes: (Knee 1 or 2 Views Right) Reason For Exam: Postop;Postop RESULT: Knee 1 or 2 Views Right Knee 1 or 2 Views Right, 1 view INDICATION/CLINICAL QUESTION: Reason: Postop; Clinical Question(s): Other:; Implant Position; Special Instructions: Do today at 2200, No flexed knee in the lateral position. Keep leg straight; 2 Views COMPARISON: None. FINDINGS: Total knee arthroplasty with intact hardware and normal alignment. No fracture. IMPRESSION: No apparent complication. WSN: [id number] Ordering Physician: Allen Tena Dictated By: Alan Longo MD Dictated Date/Time: 01/31/22 11:15 p Reviewed By: Alan Longo MD Signed By: Alan Longo MD Signed Date/Time: 01/31/22 11:15 pm Transcribed By: AUDREY Transcribed Date/Time: 01/31/22 11:15 pm Vital Signs Most recent to oldest [Reference Range]: 1 2 3 Height 159 cm (02/01/22 11:26 AM) 159 cm (02/01/22 6:34 AM) 159 cm (02/01/22 4:16 AM) Weight 64.3 kg (01/31/22 8:03 AM) 64.3 kg (01/31/22 6:27 AM) Oxygen Saturation [94-100 %] 99 % (02/01/22 11:26 AM) 97 % (02/01/22 6:34 AM) 99 % (02/01/22 4:16 AM) Pulse Rate [55-90 bpm] 86 bpm (02/01/22 11:26 AM) 91 bpm *H* (02/01/22 7:49 AM) 91 bpm *H* (02/01/22 6:34 AM) Body Mass Index [18.5-24.99] 25.43 *H* (01/31/22 8:03 AM) 25.43 *H* (01/31/22 6:27 AM) Blood Pressure [90-138/55-84 mm Hg] 116/76mm Hg (02/01/22 11: AM) 140/85mm Hg *H* (02/01/22 7:49 AM) 140/85mm Hg *H* (02/01/22 6:34 AM) Respiratory Rate [16-30 br/min] 18 br/min (02/01/22 4:58 PM) 18 br/min (02/01/22 11:26 AM) 18 br/min (02/01/22 7:49 AM) Temperature [96.8-100.4 DegF] 97.8 DegF (02/01/22 11:26 AM) 98.7 DegF (02/01/22 6:34 AM) 97.6 DegF (02/01/22 4:16 AM) Liters per Minute 6 L/min (01/31/22 10:45 AM) Mode of Delivery (Oxygen) Room air (02/01/22 11:26 AM) Room air (02/01/22 6:34 AM) Room air (02/01/22 4:16 AM) Blood pressure sites Arm, right (02/01/22 11:26 AM) Arm, left (02/01/22 6:34 AM) Arm, right (01/31/22 5:03 PM) Temperature Route Oral (02/01/22 11:26 AM) Oral (02/01/22 6:34 AM) Oral (02/01/22 4:16 AM) Dry Weight 64.3 kg (01/31/22 6:27 AM) Social History Social History Type Response Smoking Status Never smoker; Tobacc o user in household: No entered on: 09/05/14 Sex
--- OUTSIDE RECORDS SUMMARY | 2024-05-22 11:58 | XMS_ITS | Continuity of Care Document ---
Author Organization [facility] ancer Care Address [address] [place] [address]- Care Team Providers Care Delivery Assistant Name Role Phone Alejandrina FERGUSON, Justus Conway Primary Care Physician [phone] [id number] Date(s): 03/02/23 - 04/01/[address] [address] Allergies, Adverse Reactions, Alerts No Known [...] 0 Refills, Maintenance, 02/01/22 11:51:00 EDT, Capsule, [facility], Partial fill upon patient [...] mL, 0 Refills, Maintenance, 02/01/22 11:56:00 EDT, [place],Partial fill upon patient request if the prescription [...] 5 Refills, Maintenance, 03/02/23 13:53:00 EDT, Tablet, [facility]/pharmacy #[id number], Partial fill upon patient request [...] Nurse Name: Alejandrina FERGUSON, Justus Conway Position: [facility] General Pediatrics MD Member Role: PCP Address: Address: [address] [place] [address] [address] [place] [address]- Name: Darwin Graham MD Position: [facility] Cardiology MD Member Role: Lifetime Consulting Physician Address: Address: [address] [place] [address], [address] [facility] [place] [address]- Name: Karen Baker RN Position: [facility] RN Member Role: Primary Care Nurse Care Team Related Persons Name: DB TELLEZ Address: [place] [address] Name: ARIK RAMSAY Address: home [address] [place] [id number]
--- OUTSIDE RECORDS SUMMARY | 2024-05-22 11:58 | XMS_ITS | Continuity of Care Document ---
Author Organization [facility] ancer Care Address [address] [place] [address]- Care Team Providers Care Drier And Pulverizer Tender Name Role Phone Alejandrina FERGUSON, Justus Conway Primary Care Physician [id number] Date(s): 01/22/23 - 02/21/[address] [address] Allergies, Adverse Reactions, Alerts No Known [...] 0 Refills, Maintenance, 02/01/22 11:51:00 EDT, Capsule, [facility], Partial fill upon patient [...] mL, 0 Refills, Maintenance, 02/01/22 11:56:00 EDT, [place],Partial fill upon patient request if the prescription [...] 0 Refills, Maintenance, 11/06/21 9:09:00 EDT, Tablet, [facility], Partial fill upon patient request [...] Nurse Name: Alejandrina FERGUSON, Justus Conway Position: [facility] General Pediatrics MD Member Role: PCP Address: Address: [address] [place] [address] [address] [place] [address]- Name: Darwin Graham MD Position: [facility] Cardiology MD Member Role: Lifetime Consulting Physician Address: Address: [address] [place] [address], [address] [place] [address] [place] [address]- Name: Karen Baker RN Position: [facility] RN Member Role: Primary Care Nurse Care Team Related Persons Name: DB TELLEZ Address: [place] [address] Name: ARIK RAMSAY Address: home [address] [place] [address]
--- OUTSIDE RECORDS SUMMARY | 2024-05-22 11:58 | XMS_ITS | Continuity of Care Document ---
Author Organization [facility] ancer Care Address [address] [place] [address]- Care Team Providers Care Medicare Contact Specialist Name Role Phone Alejandrina FERGUSON, Justus Conway Primary Care Physician [id number] Date(s): 03/02/23 - 04/01/[address] [address] Allergies, Adverse Reactions, Alerts [...] 0 Refills, Maintenance, 02/01/22 11:51:00 EDT, Capsule, [facility], Partial fill upon patient [...] mL, 0 Refills, Maintenance, 02/01/22 11:56:00 EDT, [place],Partial fill upon patient request if the prescription [...] 5 Refills, Maintenance, 03/02/23 13:53:00 EDT, Tablet, [facility]/pharmacy #[id number], Partial fill upon patient request if [...] Nurse Name: Alejandrina FERGUSON, Justus Conway Position: [facility] General Pediatrics MD Member Role: PCP Address: Address: [address] [place] [address] [address] [place] [address]- Name: Darwin Graham MD Position: [facility] Cardiology MD Member Role: Lifetime Consulting Physician Address: Address: [address] [place] [address], [address] [facility] [place] [address]- Name: Karen Baker RN Position: [facility] RN Member Role: Primary Care Nurse Care Team Related Persons Name: DB TELLEZ Address: [place] [address] Name: ARIK RAMSAY Address: home [address] [place] [address]
--- OUTSIDE RECORDS SUMMARY | 2024-05-22 11:58 | XMS_ITS | Continuity of Care Document ---
Author Organization [facility] Endocrinolo gy and Diabetes Address [address] [place] [address]- Care Team Providers Care Grain Trader Name Role Phone Alejandrina FERGUSON, Justus Conway Primary Care Physician [phone] Encounter [facility] Date(s): 05/20/23 - 06/19/23 [facility] Endocrinology and Diabetes [address] [place] [address] Allergies, Adverse Reactions, Alerts No [...] 0 Refills, Maintenance, 02/01/22 11:51:00 EDT, Capsule, [facility], Partial fill upon patient [...] mL, 0 Refills, Maintenance, 02/01/22 11:56:00 EDT, [place],Partial fill upon patient request if the prescription [...] Refills, Maintenance, 05/14/23 20:33:00 EDT, CR Capsule, [facility]/pharmacy #[id number], Partial fill upon patient request if the prescription is for a schedule II opioid drug., 155.8, cm, 05/11/23 8:32:00 EDT,... Start Date: 05/14/23 Stop Date: 05/19/23 Status: Ordered predniSONE 5 mg oral tablet 1 tablet = 5 mg, By Mouth, Daily, for 30 days, # 30 tablet, 5 Refills, Hard Stop 08/29/23 13:53:00 EST, 03/02/23 13:53:00 EDT, Tablet, [facility]/pharmacy #[id number], Partial fill upon patient request [...] Care Nurse Name: Justus Tinoco MD Position: [facility] General Pediatrics MD Member Role: PCP Address: Address: [address] [place] [address] [address] Name: Darwin Graham MD Position: [facility] Cardiology MD Member Role: Lifetime Consulting Physician Address: Address: [address] [place] [address] [facility] [address] Name: Karen Baker RN Position: [facility] RN Member Role: Primary Care Nurse Care Team Related Persons Name: DB TELLEZ Address: [place] [address] Name: ARKI RAMSAY Address: home [address] [place] [address]
--- OUTSIDE RECORDS SUMMARY | 2024-05-22 11:58 | XMS_ITS | Continuity of Care Document ---
Author Organization [facility] ter Address [address] [place] [address]- Care Team Providers Care Tailer In Name Role Phone Alejandrina FERGUSON, Justus Conway Primary Care Physician Encounter [facility] ACCT R [id number] Date(s): 07/16/21 - 09/27/[address] [address] Attending Physician: Lalito Lai MD Referring Physician: Lalito Lai MD Allergies, Adverse Reactions, Alerts No Known Allergies Medications aspirin 81 mg oral tablet 81, mg, 1, tablet, By Mouth, Daily, 0, 0, 03/03/08 14:33:57, Print PITO Number, [id number], Constant Indicator Start Date: 03/03/08 Status: Ordered [...] 0, 0, 03/03/08 14:32:25, Print PITO Number, [id number], Constant Indicator Start Date: 03/03/08 Status: Ordered [...] 0, 0, 03/03/08 14:34:53, Print PITO Number, [id number], Constant Indicator Start Date: 03/03/08 Status: Ordered [...]
--- OUTSIDE RECORDS SUMMARY | 2024-05-22 11:58 | XMS_ITS | Continuity of Care Document ---
Author Organization [facility] ancer Care Address [address] [place] [address]- Care Team Providers Care Dynamo Tender Name Role Phone Alejandrina FERGUSON, Justus Conway Primary Care Physician [id number] Date[facility]s): 01/06/24 - 02/05/[address] [address] Allergies, Adverse Reactions, Alerts No [...] tablet, 2 Refills, Maintenance, 09/28/23 12:58:00 EST, [id number], 30, CHEW 1 TABLET BY MOUTH TWICE [...] 0 Refills, Maintenance, 02/01/22 11:51:00 EDT, Capsule, [facility], Partial fill upon patient request [...] mL, 0 Refills, Maintenance, 02/01/22 11:56:00 EDT, [place],Partial fill upon patient request if the prescription [...] Refills, Maintenance, 01/06/24 10:33:00 EDT, CR Capsule, [facility]/pharmacy #[id number], Partial fill upon patient request if the prescription is for a schedule II opioid drug., 155.8, cm, 12/29/23 10:2... Start Date: 01/06/24 Stop Date: 01/09/24 Status: Ordered predniSONE 5 mg oral tablet 1 tablet, By Mouth, Daily, # 30 tablet, 5 Refills, Maintenance, 08/24/23 18:08:00 EST, [id number], 155.8, cm, 07/02/23 13:06:00 EST, Height, 72.4, [...] Team Personnel Name: Harmony Staley RN Position: [facility] RN Member Role: Primary Care Nurse Name: Alejandrina FERGUSON, Justus Conway Position: Reference Physician Member Role: PCP Address: Address: [address] [place] [address] [address] [place], [place] [address] Name: Darwin Graham MD Position: [facility] Cardiology MD Member Role: Lifetime Consulting Physician Address: Address: [address] [place] [address] [facility] [place] [address] Name: Karen Baker RN Position: S RN Member Role: Primary Care Nurse Care Team Related Persons Name: GEOFF DB Address: [place] [address] Name: ARIK RAMSAY Address: home [address] [place] [address]
--- OUTSIDE RECORDS SUMMARY | 2024-05-22 11:58 | XMS_ITS | Continuity of Care Document ---
Author Organization [facility] ter Address [address] [place] [address]- Care Team Providers Care Wet Finisher Wool Name Role Phone Alejandrina FERGUSON, Justus Conway Primary Care Physician [place] [facility] Date(s): 01/13/22 - 01/14/[address] [address]- Discharge Disposition: A-D/C Home Attending Physician: Luis Lacy MD Admitting Physician: Iraj Breaux MD Referring Physician: Not on Staff, Referring MD Allergies, Adverse Reactions, Alerts No Known Allergies Medications acetaminophen 325 mg oral tablet 650 mg, By Mouth, Every 6 hours, May take OTC not to exceed 3000 mg/day, Refills 0, Maintenance, 11/06/21 9:11:00 EDT, Partial fill upon patient request if the prescription is for a schedule II opioid drug. Start Date: 11/06/21 Status: Ordered Crestor 40 mg oral tablet 1 tablet = 40 mg, By Mouth, Daily at bedtime, # 90 tablet, 3 Refills, Maintenance, 1 tablet By Mouth Daily at bedtime,x90 days Start Date: 06/26/13 Stop Date: 06/21/14 Status: Ordered FeroSul 325 mg oral tablet TAKE 1 TABLET BY MOUTH ONCE DAILY Start Date: 09/03/21 Status: Ordered leflunomide 20 mg oral tablet 20, mg, 1, tablet, By Mouth, Daily, 0, 0, 03/03/08 14:32:25, Print PITO Number, [id number], Constant Indicator Start Date: 03/03/08 Status: Ordered metoprolol 25 mg oral tablet 75 mg, Tablet, By Mouth, 01/14/22 9:00:00 EDT Start Date: 01/14/22 Stop Date: 01/14/22 Status: Completed metoprolol 25 mg oral tablet 3 tablet = 75 mg, By Mouth, 2 times a day, # 180 tablet, 0 Refills, Maintenance, Tablet Start Date: 03/04/11 Stop Date: 04/03/11 Status: Ordered omeprazole 40 mg oral enteric coated capsule 1 capsule = 40 mg, By Mouth, Daily, # 30 capsule, 0 Refills, Maintenance, 09/03/21 14:18:00 EST, [facility], Partial fill upon patient request if the prescription is for a schedule II opioid drug. Start Date: 09/03/21 Status: Ordered warfarin 1 mg oral tablet See Instructions, Take 1-10 tablets daily as directed by [facility]., # 150 tablet, 0 Refills, Maintenance, 11/06/21 9:09:00 EDT, Tablet, [facility], Partial fill upon patient request if the prescription is for a schedule II opioid drug., 158.... Start Date: 11/06/21 Status: Ordered Problem List Condition Effective Dates Status Health Status Inform ant Atrial fibrillation(Confirmed) Active Chest Pain(Confirmed) 12/28/10 Active Coronary artery disease(Confirmed) Active Hyperlipidemia(Confirmed) Active Hypokalemia(Confirmed) Active Degenerative joint disease(Confirmed) Active Vital Signs Most recent to oldest [Reference Range]: 1 2 3 Weight 65 kg (01/14/22 5:33 PM) 65 kg (01/14/22 2:32 PM) 65 kg (01/13/22 8:02 PM) Oxygen Saturation [94-100 %] 98 % (01/14/22 5:33 PM) 100 % (01/14/22 2:32 PM) 100 % (01/14/22 7:03 AM) Pulse Rate [55-90 bpm] 85 bpm (01/14/22 5:33 PM) 83 bpm (01/14/22 2:32 PM) 90 bpm (01/14/22 8:18 AM) Blood Pressure [90-138/55-84 mm Hg] 121/85mm Hg (01/14/22 5:33 PM) 114/78mm Hg (01/14/22 2:32 PM) 134/78mm Hg (01/14/22 8:18 AM) Respiratory Rate [16-30 br/min] 18 br/min (01/14/22 5:33 PM) 18 br/min (01/14/22 2:32 PM) 20 br/min (01/14/22 7:03 AM) Temperature [96.8-100.4 DegF] 98.1 DegF (01/14/22 2:32 PM) 98.1 DegF (01/14/22 2:47 AM) 98.3 DegF (01/14/22 1:33 AM) Liters per Minute 1 L/min (01/14/22 5:33 PM) Mode of Delivery (Oxygen) Room air (01/14/22 5:33 PM) Room air (01/14/22 2:32 PM) Room air (01/14/22 7:03 AM) Blood pressure sites Arm, right (01/14/22 5:33 PM) Arm, left (01/14/22 2:47 AM) Arm, left (01/14/22 1:33 AM) Temperature Route Oral (01/14/22 2:32 PM) Oral (01/14/22 2:47 AM) Oral (01/14/22 1:33 AM) Social History Social History Type Response Smoking Status Never smoker; Tobacc o user in household: No entered on: 09/05/14 Sex
--- OUTSIDE RECORDS SUMMARY | 2024-05-22 11:58 | XMS_ITS | Continuity of Care Document ---
Author Organization [facility] ter Address [address] [place] [address]- Care Team Providers Care Nurse Gynecology Name Role Phone Alejandrina FERGUSON, Justus [place] Primary Care Physician [place] [facility] [place] - 12/05/[address] [address] Attending Physician: Not on Staff, Attending MD Admitting Physician: Not on Staff, Admitting MD Referring Physician: Not on Staff, Referring MD Allergies, Adverse Reactions, Alerts No Known Allergies Medications acetaminophen 325 mg oral tablet 650 mg, By Mouth, Every 6 hours, May take OTC not to exceed 3000 mg/day, Refills 0, Maintenance, 11/06/21 9:11:00 EDT, Partial fill upon patient request if the prescription is for a schedule II opioid drug. Start Date: 11/06/21 Status: Ordered aspirin 81 mg oral tablet 81, mg, 1, tablet, By Mouth, Daily, 0, 0, 03/03/08 14:33:57, Print PITO Number, [id number], Constant Indicator Start Date: 03/03/08 Status: Ordered Combivent Respimat 20 mcg-100 mcg/inh inhalation aerosol 0 Refills, Maintenance, 09/03/21 14:17:00 EST, Partial fill upon patient request if the prescription is for a schedule II opioid drug. Start Date: 09/03/21 Status: Ordered Crestor 40 mg oral tablet 1 tablet = 40 mg, By Mouth, Daily at bedtime, # 90 tablet, 3 Refills, Maintenance, 1 tablet By Mouth Daily at bedtime,x90 days Start Date: 06/26/13 Stop Date: 06/21/14 Status: Ordered docusate sodium 100 mg oral capsule 1 capsule = 100 mg, By Mouth, 2 times a day, PRN for constipation, # 20 capsule, 0 Refills, Maintenance, Capsule Start Date: 07/23/11 Status: Ordered FeroSul 325 mg oral tablet [...] 0, 0, 03/03/08 14:32:25, Print PITO Number, [id number], Constant Indicator Start Date: 03/03/08 Status: Ordered loratadine 10 mg oral tablet 10 mg, 1, tablet, By Mouth, Daily, # 30 tablet, Refills 0, Maintenance, 09/03/21 14:17:00 EST, Partial fill upon patient request if the prescription is for a schedule II opioid drug. Start Date: 09/03/21 Status: Ordered Maalox Plus Liquid 30 mL, By Mouth, Every 4 hours, PRN Other, Heartburn, 0 Refills, Maintenance, 11/06/21 9:11:00 EDT,Suspension, Partial fill upon patient request if the prescription is for a schedule II opioid drug. Start Date: 11/06/21 Status: Ordered metoprolol 25 mg oral tablet 3 tablet = 75 mg, By Mouth, 2 times a day, # 180 tablet, 0 Refills, Maintenance, Tablet Start Date: 03/04/11 Stop Date: 04/03/11 Status: Ordered Milk of Magnesia Liquid 30 mL, By Mouth, Daily, PRN Constipation, 0 Refills, Maintenance, 11/06/21 9:12:00 EDT, [place],Partial fill upon patient request if the prescription is for a schedule II opioid drug. Start Date: 11/06/21 Status: Ordered MiraLax Powder 1 pack/packet = 17 Gm, By Mouth, Daily, PRN Constipation, 0 Refills, Maintenance, 11/06/21 9:12:00 EDT, Powder, Partial fill upon patient request if the prescription is for a schedule II opioid drug. Start Date: 11/06/21 Status: Ordered nitroglycerin 0.4 mg sublingual tablet [...] opioid drug. Start Date: 09/03/21 Status: Ordered senna 187 mg oral tablet 1 tablet = 8.6 mg, By Mouth, Daily at bedtime, PRN as needed for constipation, 0 Refills, Maintenance, 11/06/21 9:12:00 EDT, Tablet, Partial fill upon patient request if the prescription is for a schedule II opioid drug. Start Date: 11/06/21 Status: Ordered warfarin 1 mg oral tablet See Instructions, Take 1-10 tablets daily as directed by NEOS., # 150 tablet, 0 Refills, Maintenance, 11/06/21 9:09:00 EDT, Tablet, [facility], Partial fill upon patient request [...]
--- OUTSIDE RECORDS SUMMARY | 2024-05-22 11:58 | XMS_ITS ---
Author Organization [facility] Address [address] [place] [address] Care Team Providers Care Solar Lab Technician Name Role Phone Alejandrina FERGUSON, Justus Primary Care Provider Tonie Resendiz Unavailable [phone] REASON FOR VISIT antibitoic MEDICATIONS Medication SIG (Take, Route, Fr equency, Duration) Notes Start Date End Date Status Amoxicillin 500 MG 4 capsule Orally One hour before dental procedure for 1 days 02/29/2024 Acti ve Encounters Encounter Location Date Provider Diagnosis [facility] [address] [place] [address] 02/29/2024 Tonie Vasquez PLAN OF TREATMENT Medication Medication Name Sig Start Date Stop Date Notes Amoxicillin 500 MG 4 capsule Orally One hour before dental procedure for 1 days 02/29/2024 Next Appt Details Provider Name:Tonie beck, 06/21/2024 01:30:00 PM, [address] [place], [address],
--- OUTSIDE RECORDS SUMMARY | 2024-05-22 11:58 | XMS_ITS | Continuity of Care Document ---
Author Organization [facility] Address [address] [place] [address]- Care Team Providers Care Teacher Education Director Name Role Phone Alejandrina FERGUSON, Justus [place] Primary Care Physician [phone] Encounter 11/07/21 - 11/15/21 [facility] Visiting Nurse [facility] H[facility]ice [address] [place] [address]- Discharge Disposition: GOALS MET Allergies, Adverse Reactions, Alerts No Known Allergies [...] 0, 0, 03/03/08 14:33:57, Print PITO Number, [id number], Constant Indicator Start Date: 03/03/08 Status: Ordered [...] 0, 0, 03/03/08 14:32:25, Print PITO Number, [id number], Constant Indicator Start Date: 03/03/08 Status: Ordered [...] 0 Refills, Maintenance, 11/06/21 9:09:00 EDT, Tablet, [facility] 3, Partial fill upon patient request [...]
--- OUTSIDE RECORDS SUMMARY | 2024-05-22 11:58 | XMS_ITS | Continuity of Care Document ---
Author Organization [facility] Address [address] [place] [address]- Care Team Providers Care Collating Machine Operator Name Role Phone Alejandrina FERGUSON, Justus [place] Primary Care Physician [phone] [id number] Date(s): 01/28/23 - 02/27/[address] [address] Allergies, Adverse Reactions, Alerts No [...] 0 Refills, Maintenance, 02/01/22 11:51:00 EDT, Capsule, [facility], Partial fill upon patient [...] mL, 0 Refills, Maintenance, 02/01/22 11:56:00 EDT, [place],Partial fill upon patient request if the prescription [...] 0 Refills, Maintenance, 11/06/21 9:09:00 EDT, Tablet, [facility], Partial fill upon patient request if [...] Nurse Name: Alejandrina FERGUSON, Justus [place] Position: [facility] General Pediatrics MD Member Role: PCP Address: Address: [address] [place] [address] [address] [place] [address]- Name: Darwin Graham MD Position: [facility] Cardiology MD Member Role: Lifetime Consulting Physician Address: Address: [address] [place] [address], [address] [place] [address] [place] [address]- Name: Karen Baker RN Position: [facility] RN Member Role: Primary Care Nurse Care Team Related Persons Name: DB TELLEZ Address: [place] [address] Name: ARIK RAMSAY Address: home [address] [place] [address]
--- OUTSIDE RECORDS SUMMARY | 2024-05-22 11:58 | XMS_ITS | Continuity of Care Document ---
Author Organization [facility] Address [address] [place] [address]- Care Team Providers Care Process Pumper Name Role Phone Alejandrina FERGUSON, Justus [place] Primary [id number]25[facility]23 - 02/28/24 [facility] [address] [place] [address] Discharge Disposition: A-D/C Home Attending Physician: Vargas Rowe MD, Reza Armstrong Admitting Physician: Vargas Rowe MD, Reza Armstrong Referring Physician: Justus Tinoco MD Allergies, Adverse [...] tablet, 2 Refills, Maintenance, 02/08/24 8:57:00 EDT, [facility] STORE [id number], 30, CHEW 1 TABLET BY MOUTH TWICE [...] Refills, Maintenance, 02/01/22 11:51:00 EDT, Capsule, [facility], Partial fill upon patient request [...] mL, 0 Refills, Maintenance, 02/01/22 11:56:00 EDT, [place],Partial fill upon patient request if the prescription [...] Refills, Maintenance, 01/06/24 10:33:00 EDT, CR Capsule, [facility]/pharmacy #[id number], Partial fill upon patient request if the prescription is for a schedule II opioid drug., 155.8, cm, 12/29/23 10:2... Start Date: 01/06/24 Stop Date: 01/09/24 Status: Ordered predniSONE 5 mg oral tablet 1 tablet, By Mouth, Daily, # 30 tablet, 5 Refills, Maintenance, 08/24/23 18:08:00 EST, [facility] STORE [id number], 155.8, cm, 07/02/23 13:06:00 EST, Height, 72.4, [...] Most recent to oldest [Reference Range]: 1 Height 155.8 cm (12/29/23 10:27 AM) Weight 70.9 kg (12/29/23 10:27 AM) Oxygen Saturation [94-100 %] 100 % (12/29/23 10:27 AM) Pulse Rate [55-90 bpm] 82 bpm (12/29/23 10:27 AM) Body Mass Index [18.5-24.99 kg/m2] 29.21 kg/m2 *H* (12/29/23 10:27 AM) Blood Pressure [90-138/55-84 mm Hg] 148/ 98mm Hg *H* (12/29/23 10:27 AM) Temperature [96.8-100.4 DegF] 97.6 DegF (12/29/23 10:27 AM) Mode of Delivery (Oxygen) Room air (12/29/23 10:27 AM) Blood pressure sites Arm, left (12/29/23 10:27 AM) Temperature Route Oral (12/29/23 10:27 AM) Dry Weight 70.9 kg (12/29/23 10:27 AM) Weight Obtained Via Standing scale (12/29/23 10:27 AM) Dry Weight Obtained Via Standing scale (12/29/23 10:27 AM) Social History Social History Type Response Smoking Status Former smoker, quit more than 30 days ago; Interested in cessation: No; Patient wants NRT during admission No entered on: 01/22/23 Sex Patient Care team information Care Team Personnel Name: Harmony Staley RN Position: S RN Member Role: Primary Care Nurse Name: Alejandrina FERGUSON, Justus [place] Position: Reference Physician Member Role: PCP Address: Address: [address] [place] [address] [address] [place] [address]- Name: Darwin Graham MD Position: [facility] Cardiology MD Member Role: Lifetime Consulting Physician Address: Address: [address] [place] [address], [address] [place] [address] [place] [address]- Name: Karen Baker RN Position: S RN Member Role: Primary Care Nurse Name: Vargas Rowe MD, Reza Armstrong Position: [facility] Physician - Oncology Med Service: Hematology & Oncology Member Role: Admitting Physician Address: Address: [address] [place] [address] [place] [address]- Care Team Related Persons Name: DB TELLEZ Address: [place] [address] Name: ARIK RAMSAY Address: home [address] [place] [address]
--- OUTSIDE RECORDS SUMMARY | 2024-05-22 11:58 | XMS_ITS | Continuity of Care Document ---
Author Organization [facility] Address [address] [place] [address]- Care Team Providers Care Help Desk Technician Name Role Phone Alejandrina FERGUSON, Justus [place] Primary Care Physician [phone] [place] [id number] Date(s): 09/28/23 - 10/28/[address] [address] Attending Physician: Jocelin Conley Admitting Physician: [...] tablet, 2 Refills, Maintenance, 09/28/23 12:58:00 EST, [facility] STORE 84348, 30, CHEW 1 TABLET BY MOUTH TWICE [...] 0 Refills, Maintenance, 02/01/22 11:51:00 EDT, Capsule, [facility], Partial fill upon patient request if [...] mL, 0 Refills, Maintenance, 02/01/22 11:56:00 EDT, [place],Partial fill upon patient request if the prescription [...] 0 Refills, Maintenance, 09/30/23 13:57:00 EST, CRCapsule, [facility]/pharmacy #[id number], Partial fill upon patient request if the prescription is for a schedule II opioid drug., 155.8, cm, 09/30/23 12:46:00 EST,... Start Date: 09/30/23 Stop Date: 10/04/23 Status: Ordered predniSONE 5 mg oral tablet 1 tablet, By Mouth, Daily, # 30 tablet, 5 Refills, Maintenance, 08/24/23 18:08:00 EST, [facility] STORE 81685, 155.8, cm, 07/02/23 13:06:00 EST, Height, 72.4, [...] Name: Harmony Staley RN Position: [facility] SN RN Member Role: Primary Care Nurse Name: Alejandrina FERGUSON, Justus [place] Position: Reference Physician Member Role: PCP Address: Address: [address] [place] [address] [address] [place] [address]- Name: Darwin Graham MD Position: [facility] Cardiology MD Member Role: Lifetime Consulting Physician Address: Address: [address] [place] [address], [address] [place] [address] [place] [address]- Name: Karen Baker RN Position: [facility] RN Member Role: Primary Care Nurse Care Team Related Persons Name: DB TELLEZ Address: [place] [address] Name: ARIK RAMSAY Address: home [address] [place] [address]
--- OUTSIDE RECORDS SUMMARY | 2024-05-22 11:58 | XMS_ITS | Continuity of Care Document ---
Author Organization [facility] Address [address] [place] [address]- Care Team Providers Care Credit Risk Analytics Manager Name Role Phone Alejandrina FERGUSON, Justus [place] Primary Care Physician Encounter 02/02/22 - 02/07/22 [facility] Visiting Nurse [facility] [address] [place] [address]- Discharge Disposition: GOALS MET Allergies, Adverse Reactions, [...] 0 Refills, Maintenance, 02/01/22 11:51:00 EDT, Capsule, [facility], Partial fill upon [...] mL, 0 Refills, Maintenance, 02/01/22 11:56:00 EDT, [place],Partial fill upon patient request if the prescription [...] Replace Required Details, Route to Pharmacy Electronically, [facility] [address]... Start Date: 02/01/22 Stop Date: 02/08/22 Status: Ordered senna 187 mg oral tablet [...] 02/08/22 11:51:00 EDT, 02/01/22 11:51:00 EDT, Tablet, [facility], Partial fill upon patient request if the pre... Start Date: 02/01/22 Stop Date: 02/08/22 Status: Ordered warfarin 1 mg oral tablet See Instructions, Take 1-10 tablets daily as directed by NEOS., # 150 tablet, 0 Refills, Maintenance, 11/06/21 9:09:00 EDT, Tablet, [facility], Partial fill upon [...]
--- OUTSIDE RECORDS SUMMARY | 2024-05-22 11:58 | XMS_ITS | Continuity of Care Document ---
Author Organization [facility] ter Address [address] [place] [address]- Care Team Providers Care Packing And Final Assembly Supervisor Name Role Phone Alejandrina FERGUSON, Justus [place] Primary Care Physician [place] [facility] [place] - 11/06/[address] [address] Discharge Disposition: A-Transfer VNA/Home Health Attending [...] opioid drug. Start Date: 11/06/21 Status: Ordered Acetaminophen Tablet 650 mg, Tablet, By Mouth, 11/06/21 11:00:00 EDT Start Date: 11/06/21 Stop Date: 11/06/21 Status: Completed aspirin 81 mg oral tablet 81, mg, 1, tablet, By Mouth, Daily, 0, 0, 03/03/08 14:33:57, Print PITO Number, [id number], Constant Indicator Start Date: 03/03/08 Status: Ordered [...] Maintenance, Capsule Start Date: 07/23/11 Status: Ordered enoxaparin 30 mg/0.3 mL injectable solution 0.3 mL = 30 mg, Subcutaneous Injection, 2 times a day, for 7 days, Discontinue when INR is greater than 1.8, # 4.2 mL, 0 Refills, Acute 11/13/21 9:10:00 EDT, 11/06/21 9:10:00 EDT, Injection, [facility] 3, Partial fill upon patient request... Start Date: 11/06/21 Stop Date: 11/13/21 Status: Ordered FeroSul 325 mg oral tablet [...] 0, 0, 03/03/08 14:32:25, Print PITO Number, [id number], Constant Indicator Start Date: 03/03/08 Status: Ordered [...] Date: 03/04/11 Stop Date: 04/03/11 Status: Ordered Metoprolol IR Tablet 100 mg, Tablet, By Mouth, 11/06/21 9:00:00 EDT Start Date: 11/06/21 Stop Date: 11/06/21 Status: Completed Milk of Magnesia Liquid 30 mL, By [...] opioid drug. Start Date: 09/03/21 Status: Ordered oxyCODONE 5 mg oral tablet 5 mg, 1, tablet, By Mouth, Every 4 hours, PRN, for 7 days, # 42 tablet, Refills 0, Tot. Refills 0, Acute 11/13/21 9:13:00 EDT, Pain , Moderate, 11/06/21 9:13:00 EDT, Route to Pharmacy Electronically,[facility], Partial fill upon patient... Start Date: 11/06/21 Stop Date: 11/13/21 Status: Ordered senna 187 mg oral tablet 1 tablet = 8.6 mg, By Mouth, Daily at bedtime, PRN as needed for constipation, 0 Refills, Maintenance, 11/06/21 9:12:00 EDT, Tablet, Partial fill upon patient request if the prescription is for a schedule II opioid drug. Start Date: 11/06/21 Status: Ordered traMADol 50 mg oral tablet See Instructions, PRN Pain , Mild, Take 1-2 tablets every 6 hours as needed for mild pain. not to exceed 400 mg/day, # 56 tablet, 0 Refills, Acute 11/12/21 8:00:00 EDT, 11/06/21 9:08:00 EDT, Tablet, [facility], Partial fill upon patien... Start Date: 11/06/21 Stop Date: 11/12/21 Status: Ordered warfarin 1 mg oral tablet See Instructions, Take 1-10 tablets daily as directed by NEOS., # 150 tablet, 0 Refills, Maintenance, 11/06/21 9:09:00 EDT, Tablet, [facility], Partial fill upon patient request if the prescription is for a schedule II opioid drug., 158.... Start Date: 11/06/21 Status: Ordered Problem List Condition Effective Dates Status Health Status Inform ant Chest Pain(Confirmed) 12/28/10 Active Coronary artery disease(Confirmed) Active Hyperlipidemia(Confirmed) Active Results Radiology Reports * Exam Date Time Procedure Performing Provider Status 11/05/21 10:48 PM Knee 1 or 2 Views Left Pepe Harkins i; Nick (Verified) Notes: (Knee 1 or 2 Views Left) Reason For Exam: Postop;Postop RESULT: Knee 1 or 2 Views Left Knee 1 or 2 Views Left 1 view INDICATION/CLINICAL QUESTION: Reason: Postop; Clinical Question(s): Other:; Implant Position; Special Instructions: Do today at 2200, No flexed knee in the lateral position. Keep leg straight; 2 Views COMPARISON: None. FINDINGS: Total knee arthroplasty with intact hardware and normal alignment. No fracture. Surgical dana inplace. IMPRESSION: No apparent complication. WSN: [id number] Ordering Physician: Sarah Mays Dictated By: Alan Longo MD Dictated Date/Time: 11/05/21 10:57 p Reviewed By: Alan Longo MD Signed By: Alan Longo MD Signed Date/Time: 11/05/21 10:57 pm Transcribed By: CSB Transcribed Date/Time: 11/05/21 10:57 pm Vital Signs Most recent to oldest [Reference Range]: 1 2 3 Height 158.7 cm (11/06/21 11:13 AM) 158.7 cm (11/06/21 7:13 AM) 158.7 cm (11/06/21 3:23 AM) Weight 70.4 kg (11/05/21 6:31 AM) 70.4 kg (11/05/21 5:13 AM) Oxygen Saturation [94-100 %] 99 % (11/06/21 11:13 AM) 99 % (11/06/21 7:13 AM) 98 % (11/06/21 3:23 AM) Pulse Rate [55-90 bpm] 78 bpm (11/06/21 11:13 AM) 87 bpm (11/06/21 7:59 AM) 87 bpm (11/06/21 7:13 AM) Body Mass Index [18.5-24.99] 27.95 *H* (11/05/21 6:31 AM) 27.95 *H* (11/05/21 5:13 AM) Blood Pressure [90-138/55-84 mm Hg] 99/69mm Hg (11/06/21 11:13 AM) 117/71mm Hg (11/06/21 7:59 AM) 117/71mm Hg (11/06/21 7:13 AM) Respiratory Rate [16-30 br/min] 18 br/min (11/06/21 11:13 AM) 18 br/min (11/06/21 9:01 AM) 18 br/min (11/06/21 7:13 AM) Temperature [96.8-100.4 DegF] 98.6 DegF (11/06/21 11:13 AM) 98.3 DegF (11/06/21 7:13 AM) 97.8 DegF (11/06/21 3:23 AM) Liters per Minute 6 L/min (11/05/21 10:00 AM) Mode of Delivery (Oxygen) Room air (11/06/21 11:13 AM) Room air (11/06/21 7:13 AM) Room air (11/06/21 3:23 AM) Blood pressure sites Arm, right (11/06/21 11:13 AM) Arm, right (11/06/21 7:13 AM) Arm, left (11/06/21 3:23 AM) Temperature Route Oral (11/06/21 11:13 AM) Oral (11/06/21 7:13 AM) Oral (11/06/21 3:23 AM) Dry Weight 70.4 kg (11/05/21 5:13 AM) Weight Obtained Via Standing scale (11/05/21 5:13 AM) Social History Social History Type Response Smoking Status Never smoker; Tobacc o user in household: No entered on: 09/05/14 Sex
--- OUTSIDE RECORDS SUMMARY | 2024-05-22 11:58 | XMS_ITS | Continuity of Care Document ---
Author Organization [facility] Address [address] [place] [address]- Care Team Providers Care Linen Controller Name Role Phone Alejandrina FERGUSON, Justus [place] Primary Care Physician [id number](s[facility]30/23 - 09/01/23 [facility] Care [address] [place] [address]- Discharge Disposition: A-D/C Home Attending Physician: Vargas [...] Refills, Maintenance, 07/02/23 13:33:00 EST, Chew Tablet, [facility]/pharmacy #[id number], Partial fill upon patient request if the [...] 0 Refills, Maintenance, 02/01/22 11:51:00 EDT, Capsule, [facility], Partial fill upon patient [...] mL, 0 Refills, Maintenance, 02/01/22 11:56:00 EDT, [place],Partial fill upon patient request if the prescription [...] tablet, 5 Refills, Maintenance, 08/24/23 18:08:00 EST, [facility] STORE 26833, 155.8, cm, 07/02/23 13:06:00 EST, Height, 72.4, [...] oldest [Reference Range]: 1 Height 155.8 cm (07/02/23 1:06 PM) Weight 72.4 kg (07/02/23 1:06 PM) Oxygen Saturation [94-100 %] 99 % (07/02/23 1:06 PM) Pulse Rate [55-90 bpm] 76 bpm (07/02/23 1:06 PM) Body Mass Index [18.5-24.99 kg/m2] 29.83 kg/m2 *H* (07/02/23 1:06 PM) Blood Pressure [90-138/55-84 mm Hg] 131/ 88mm Hg (07/02/23 1:06 PM) Temperature [96.8-100.4 DegF] 97.5 DegF (07/02/23 1:06 PM) Mode of Delivery (Oxygen) Room air (07/02/23 1:06 PM) Blood pressure sites Arm, right (07/02/23 1:06 PM) Temperature Route Oral (07/02/23 1:06 PM) Dry Weight 72.4 kg (07/02/23 1:06 PM) Weight Obtained Via Standing scale (07/02/23 1:06 PM) Dry Weight Obtained Via Standing scale (07/02/23 1:06 PM) Social History Social History Type Response Smoking Status Former smoker, quit more than 30 days ago; Interested in cessation: No; Patient wants NRT during admission No entered on: 01/22/23 Sex Patient Care team information Care Team Personnel Name: Harmony Staley RN Position: [facility] SN RN Member Role: Primary Care Nurse Name: Justus Tinoco MD Position: [facility] General Pediatrics MD Member Role: PCP Address: Address: [address] [place] [address] [address] [place] [address]- [place] Name: Darwin Graham MD Position: [facility] Cardiology MD Member Role: Lifetime Consulting Physician Address: Address: [address] [place] [address], [address] [facility] [address]- [place] Name: Olivia BEAVERS, Karen Position: [facility] RN Member Role: Primary Care Nurse Name: Vargas Rowe MD, Reza Armstrong Position: [facility] Physician - Oncology Med Service: Hematology & Oncology Member Role: Admitting Physician Address: Address: [address] [place] [address] Hem/[place] [address]- Care Team Related Persons Name: DB TELLEZ Address: [place] [address] Name: ARIK RAMSAY Address: home [address] [place] [address]
--- OUTSIDE RECORDS SUMMARY | 2024-05-22 11:58 | XMS_ITS | Continuity of Care Document ---
Author Organization [facility] Address [address] [place] [address]- Care Team Providers Care Settlement Clerk Name Role Phone Alejandrina FERGUSON, Justus Conway Primary Care Physician [phone] Encounter [facility] ACCT [facility] [id number] Date(s): 01/21/22 - 02/20/22 [facility] [address] [place], [place] [address] Attending Physician: Jocelin Conley Admitting Physician: Jocelin [...] 0 Refills, Maintenance, 02/01/22 11:51:00 EDT, Capsule, [facility], Partial fill upon patient [...] mL, 0 Refills, Maintenance, 02/01/22 11:56:00 EDT, [place],Partial fill upon patient request if the prescription [...] 0 Refills, Maintenance, 11/06/21 9:09:00 EDT, Tablet, [facility] 3, Partial fill upon patient request [...]
--- OUTSIDE RECORDS SUMMARY | 2024-05-22 11:58 | XMS_ITS | Continuity of Care Document ---
Author Organization [facility] Address [address] [place] [address]- Care Team Providers Care Powerhouse Mechanic Supervisor Name Role Phone Alejandrina FERGUSON, Justus Conway Primary Care Physician Encounter [facility] Date(s): 04/12/24 - 05/12/24 [facility] Care [address] [place] [id number] Allergies, Adverse Reactions, [...] tablet, 2 Refills, Maintenance, 02/08/24 8:57:00 EDT, [facility] STORE 40958, 30, CHEW 1 TABLET BY MOUTH TWICE [...] Maintenance, 02/01/22 11:51:00 EDT, Capsule, [facility], Partial fill upon patient [...] mL, 0 Refills, Maintenance, 02/01/22 11:56:00 EDT, [place],Partial fill upon patient request if the prescription [...] Refills, Maintenance, 01/06/24 10:33:00 EDT, CR Capsule, [facility]/pharmacy #[id number], Partial fill upon patient request if the prescription is for a schedule II opioid drug., 155.8, cm, 12/29/23 10:2... Start Date: 01/06/24 Stop Date: 01/09/24 Status: Ordered predniSONE 5 mg oral tablet 1 tablet, By Mouth, Daily, # 30 tablet, 5 Refills, Maintenance, 02/29/24 8:12:00 EDT, [facility] STORE [address]1495, 155.8, cm, 12/29/23 10:27:00 EDT, Height, 70.9, [...] Team Personnel Name: Harmony Staley RN Position: [facility] RN Member Role: Primary Care Nurse Name: Justus Tinoco MD Position: Reference Physician Member Role: PCP Address: Address: [address] [place] [address] [address] [place] [address]- Name: Darwin Graham MD Position: [facility] Cardiology MD Member Role: Lifetime Consulting Physician Address: Address: [address] [place] [address], [address] [place] [address] [place] [address]- Name: Karen Baker RN Position: S RN Member Role: Primary Care Nurse Care Team Related Persons Name: DB TELLEZ Address: [place] [address] Name: ARIK RAMSAY Address: home [address] [place] [address]
--- OUTSIDE RECORDS SUMMARY | 2024-05-22 11:58 | XMS_ITS | Continuity of Care Document ---
Author Organization [facility] Address [address] [place] [address]- Care Team Providers Care Gum Machine Filler Name Role Phone Alejandrina FERGUSON, Justus Conway Primary Care Physician Encounter [facility] [id number] Date(s): 01/05/24 - 01/05/24 [facility] Care [address] [place] [id number] Allergies, Adverse Reactions, Alerts No Known Allergies [...] tablet, 2 Refills, Maintenance, 09/28/23 12:58:00 EST, [facility] STORE [address]55, 30, CHEW 1 TABLET BY MOUTH TWICE [...] 0 Refills, Maintenance, 02/01/22 11:51:00 EDT, Capsule, [facility], Partial fill upon patient [...] mL, 0 Refills, Maintenance, 02/01/22 11:56:00 EDT, [place],Partial fill upon patient request if the prescription [...] opioid drug. Start Date: 02/01/22 Status: Ordered Potassium Chloride (Eqv-K-Tab) 20 mEq oral tablet, extended release 2 tablet = 40 mEq, By Mouth, Once, # 10 tablet, 0 Refills, Soft Stop, 12/28/23 19:40:00 EDT, [facility]/pharmacy #[id number], Partial fill upon patient request if the prescription is for a schedule II opioid drug., 155.8, cm, 09/30/23 12:46:00 EST, Height, 74.8, k... Start Date: 12/28/23 Status: Ordered predniSONE 5 mg oral tablet 1 tablet, By Mouth, Daily, # 30 tablet, 5 Refills, Maintenance, 08/24/23 18:08:00 EST, [facility] STORE [address]94, 155.8, cm, 07/02/23 13:06:00 EST, Height, 72.4, [...] Team Personnel Name: Harmony Staley RN Position: [facility] SN RN Member Role: Primary Care Nurse Name: Justus Tinoco MD Position: Reference Physician Member Role: PCP Address: Address: [address] [place] [address] [address] [place], [place] [address] Name: Darwin Graham MD Position: [facility] Cardiology MD Member Role: Lifetime Consulting Physician Address: Address: [address] [place] [address] [facility] [place] [address] Name: Karen Baker RN Position: S RN Member Role: Primary Care Nurse Care Team Related Persons Name: DB TELLEZ Address: [place] [address] Name: ARIK RAMSAY Address: home [address] [place] [address]
--- OUTSIDE RECORDS SUMMARY | 2024-05-22 11:58 | XMS_ITS ---
Author Organization [facility] Address [address] [facility] [place] [address] Care Team Providers Care Hop Picker Name Role Phone Alejandrina FERGUSON, Justus Primary Care Provider Tonie Resendiz Unavailable [phone] ALLERGIES Allergen (clinical drug ingredient) Drug/Non Drug Allergy documented on EMR Reaction Allergy Type Onset Date Status Seasonale Unknown Drug Allergy Active REASON FOR VISIT At Risk Footcare, Painful Nail(s) aggrevated by shoes and causing difficulty standing/walking., Open sore MEDICATIONS Medication SIG (Take, Route, Frequency, Duration) Notes Start Date End Date Status Bactrim DS 800-160 MG 1 tablet Orally Twice a day for 10 day(s) 08/19/2022 Not-Taking Cephalexin 500 MG 1 capsule Orally every 12 hrs for 10 days Not-Taking Cephalexin 500 MG 1 capsule Orally Twice a day for 7 days 08/26/2022 Not-Taking Amoxicillin-Pot Clavulanate 875-125 MG 1 tablet Orally every 12 hrs for 7 days 09/17/2021 Not-Taking Augmentin 500-125 MG 1 tablet Orally Twice a day for 10 day(s) 09/05/2022 Not-Taking Vitamin C Active Sulfamethoxazole-Trimethopri m 800-160 MG Oral for 30 Active Custom Orthotics as directed RA, hammer toes, bunions, contracture B/L feet 10/24/2020 Active Levaquin 500 MG 1 tablet Orally Once a day for 10 day(s) Not-Taking Amoxicillin 500 MG 4 capsule Orally One hour before dental procedure for 1 days 02/29/2024 Active Loratadine 10 MG 1 tablet Orally Once a day for 30 day(s) Active Multivitamin Active Metoprolol Tartrate 100 MG as directed O rally Twice a day Active Omeprazole 40 MG 1 capsule 30 minutes before morning meal Orally Once a day for 30 day(s) Active Rosuvastatin Calcium 40 MG 1 tablet Oral ly Once a day for 30 day(s) Active Ipratropium-Albuterol 20-100 MCG/ACT 1 puff as needed Inhalation every 6 hrs PRN Active Fish Oil Active Aspir-81 Active hydroCHLOROthiazide 25 MG 1 tablet in th e morning Orally Once a day for 30 day(s) PRN Active Fluticasone Propionate 50 MCG/ACT 1 spray in each nostril Nasally Twice a day Active predniSONE Active Eligard Active Iron Active Arava 20 MG 1 tablet Orally Once a day for 30 day(s) Active Xarelto 20 MG 1 tablet with food Orally Once a day for 30 day(s) Active Abiraterone Acetate 250 MG 4 tablets Ora lly Once a day Active Keflex 500 MG 1 capsule Orally every 12 hrs for 10 day(s) 09/13/2021 Not-Taking Keflex 500 MG 1 capsule Orally every 12 hrs for 10 day(s) 11/28/2020 Not-Taking Doxycycline Hyclate 100 MG 1 capsule Ora lly Twice a day for 10 day(s) 01/28/2021 Not-Taking Keflex 500 MG 1 capsule Orally every 12 hrs for 7 days 11/28/2020 Not-Taking Warfarin Sodium 2 MG 1 tablet Orally Onc e a day for 30 day(s) Not-Taking SOCIAL HISTORY Tobacco Use: Social History Observation Description Date Details (start date - stop date) Former Smoker NA - NA Sex Assigned At : Social History Observation Description Sex Assigned At Unknown Tobacco Use/Smoking Question Answer Notes Are you a: former smoker Additional Findings: Tobacco Non-User Current no n-smoker Tobacco use other than smoking: Question Answer Notes Are you an other tobacco user? 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) Active confirmed [id number] VITAL SIGNS Height 5 ft 2 in in 04/12/2024 Weight 150 lbs 04/12/2024 BMI 27.43 kg/m2 04/12/2024 Blood pressure systolic 120 mm Hg 04/12/20 Blood pressure diastolic 80 mm Hg 024 Encounters Encounter Location Date Provider Diagnosis [facility] [address] [address] 04/12/2024 Tonie Vasquez Pain in toe of left foot M79.675 ; Ischemic ulcer of right foot with fat layer exposed L97.512 ; Pain in toe of right foot M79.674 ; Tinea unguium B35.1 and Atherosclerosis of artery of both lower extremities I70.203 ASSESSMENTS Encounter Date Diagnosis Assessment Notes Treatment Notes Treatment Clinical Notes 04/12/2024 Pain in toe of left foot (ICD-10 - M79.675) 04/12/2024 Ischemic ulcer of right foot with fat layer exposed (ICD-10 - L97.512) 04/12/2024 Pain in toe of right foot (ICD-10 - M79.674) 04/12/2024 Tinea unguium (ICD-1 0 - B35.1) 04/12/2024 Atherosclerosis of artery of both lower extremities (ICD-10 - I70.203) 04/12/2024 Other Patient Educate d with: WOUND CARE INSTRUCTIONS.pdf (WOUND CARE INSTRUCTIONS.pdf ) Patient Educated with: WOUND CARE INSTRUCTIONS.pdf (WOUND CARE INSTRUCTIONS.pdf ) Patient Educated with: WOUND CARE INSTRUCTIONS.pdf (WOUND CARE INSTRUCTIONS.pdf ) PLAN OF TREATMENT Treatment Notes Assessment Notes Other Patient Educated wit h: WOUND CARE INSTRUCTIONS.pdf (WOUND CARE INSTRUCTIONS.pdf) Patient Educated with: WOUND CARE INSTRUCTIONS.pdf (WOUND CARE INSTRUCTIONS.pdf) Patient Educated with: WOUND CARE INSTRUCTIONS.pdf (WOUND CARE INSTRUCTIONS.pdf) Next Appt Details Follow Up: 6 Weeks, Reason: Provider Name:Tonie beck, 06/21/2024 01:30:00 PM, [address] [place] [address], [id number], Procedure Notes * Category Sub-Category Detail Notes Debride Nail 6-10 Nail debridement Nail debridem ent performed extensively to reduce/remove overall nail length, girth, thickness, subungual debris, and necrotic tissue, by manual and electrical means through the use of a nail nipper and/or dremel, to more viable healthy nail plate or bed tissue 1-5. Silver nitrate used for any petechial bleeding as necessary. Patient chooses, no pharmaceutical tx ([address]684) Debride skin and subQ Open wound Physician of record performed open wound selective debridement of devitalized necrotic/nonviable soft tissue, fibrin, exudate, epidermis, dermis, thru skin and subcutaneous fat tissue, first 20 sq cm or less, using sharp dissection with sterile 15 blade, and/or tissue nippers. ANESTHESIA was not required due to presence of NEUROPATHY. Hemostasis was controlled through direct pressure. Sterile antibiotic dressing applied. Post debridement measurements: 3mm x 3mm x 3mm. Character of the wound post debridement is stable (65[address]), The patient was instructed on importance of proper wound care consisting of pressure reduction, maintainance of moist wound environment, and regular debridement of devitilized tissue, The patient is to cleanse the wound with warm soapy water/peroxide/saline or betadine BID based on product availability , The patient is to apply Antibiotic Oint. to the wound and cover with a DSD Keratoma Treatment Parring or Cutting o f Benign Hyperkeratotic Lesion(s) 14[address] ( More than 4 Lesions ) - The Benign hyperkeratotic lesions, as described above were pared, and/or cut utilizing a sterile 15 blade, tissue nippers, and/or dremel, Q8 Progress Notes * Examination Category Sub-Category Detail Notes Dermatologic SKIN FINDINGS: Skin exam reveal s Keratotic lesion(s) located at , TA , SUB MTH (s) , 3 , B/L SUB MTH (s) 1 Left T4 ULCER: LOCATION Right sub 4 th met head, , SIZE, 3mm X 3mm X 3mm, BASE, granular, RIM, hyperkeratotic, UNDERMINING, absent, TRACKING, Sub Q with Fat layer exposed DRAINAGE, serosanguineous, mild, NECROTIC TISSUE, loosely-adherent, yellow slough, MALODOR, absent, CALOR, absent, ERYTHEMA, absent, PAIN ON PALPATION, present Vascular DP PULSES(B): 1/4, B/L PT PULSES(B): 0/4, B/L CAPILLARY FILL TIME: delayed, all digits , B/L TEMPERTURE GRADIENT(C): decreased, cool to cool, proximal to distal, B/L TROPHIC CONDITION-TEXTURE/ELASTICITY/TURGOR/HAIR GROWTH(B): decreased, B/L EDEMA(C): 2/4 , B/L CLAUDICATION(C): denies, B/L REST PAIN: denies, B/L PIGMENTATION: pale, B/L Nails NAILS are: Elongated, overg rown, dystrophic, lytic, greater than 3mm thick, discolored and friable with crumbly malodorous subungual debris, with pain on palpation, 1-5 B/L History and Physical Notes * HPI (History of Present Illness) Category Sub-Category Detail Notes At Risk footcare Pt States Last PCP Visit: Date: 10/22
--- OUTSIDE RECORDS SUMMARY | 2024-05-22 11:58 | XMS_ITS | Continuity of Care Document ---
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 Name Role Phone Alejandrina FERGUSON, Justus Conway Primary Care Physician Encounter [facility] ACCT [facility] [id number] Date(s): 12/25/23 - 01/24/[address] [address] Attending Physician: Jocelin Conley Admitting [...] tablet, 2 Refills, Maintenance, 09/28/23 12:58:00 EST, [facility] STORE [address]58, 30, CHEW 1 TABLET BY MOUTH TWICE [...] 0 Refills, Maintenance, 02/01/22 11:51:00 EDT, Capsule, [facility], Partial fill upon [...] mL, 0 Refills, Maintenance, 02/01/22 11:56:00 EDT, [place],Partial fill upon patient request if the prescription [...] Refills, Maintenance, 01/06/24 10:33:00 EDT, CR Capsule, [facility]/pharmacy #2335, Partial fill upon patient request if the prescription is for a schedule II opioid drug., 155.8, cm, 12/29/23 10:2... Start Date: 01/06/24 Stop Date: 01/09/24 Status: Ordered predniSONE 5 mg oral tablet 1 tablet, By Mouth, Daily, # 30 tablet, 5 Refills, Maintenance, 08/24/23 18:08:00 EST, [facility] STORE [address]293, 155.8, cm, 07/02/23 13:06:00 EST, Height, 72.4, [...] Team Personnel Name: Harmony Staley RN Position: [facility] SN RN Member Role: Primary Care Nurse Name: Justus Tinoco MD Position: Reference Physician Member Role: PCP Address: Address: [address] [place] [address] [address] [place] [address]- Name: Darwin Graham MD Position: [facility] Cardiology MD Member Role: Lifetime Consulting Physician Address: Address: [address] [place] [address], [address] [place] [address] [place] [address]- Name: Karen Baker RN Position: [facility] RN Member Role: Primary Care Nurse Care Team Related Persons Name: DB TELLEZ Address: [place] [address] Name: ARIK RAMSAY Address: home [address] [place] [address]
--- OUTSIDE RECORDS SUMMARY | 2024-05-22 11:58 | XMS_ITS | Continuity of Care Document ---
Author Organization [facility] ter Address [address] [place] [address]- Care Team Providers Care Manager Mass Name Role Phone Justus Tinoco MD Primary Care Physician [phone] Encounter [facility] Date(s): 03/18/23 - 03/18/[address] [address] Attending Physician: Justus Tinoco MD Allergies, Adverse Reactions, [...] 0 Refills, Maintenance, 02/01/22 11:51:00 EDT, Capsule, [facility], Partial fill upon patient [...] mL, 0 Refills, Maintenance, 02/01/22 11:56:00 EDT, [place],Partial fill upon patient request if the prescription [...] 5 Refills, Maintenance, 03/02/23 13:53:00 EDT, Tablet, [facility]/pharmacy #[id number], Partial fill upon [...] Maintenance, 11/06/21 9:09:00 EDT, Tablet, [facility], Partial fill upon patient request [...] Team Personnel Name: Harmony Staley RN Position: [facility] RN Member Role: Primary Care Nurse Name: Odette Newell RN Position: [facility] RN Member Role: Primary Care Nurse Name: Justus Tinoco MD Position: [facility] General Pediatrics MD Member Role: PCP Address: Address: [address] [place] [address] [address] [place] [address]- Name: Darwin Graham MD Position: [facility] Cardiology MD Member Role: Lifetime Consulting Physician Address: Address: [address] [place] [address], [address] [place] [address] [place] [address]- Name: Karen Baker RN Position: [facility] RN Member Role: Primary Care Nurse Care Team Related Persons Name: DB TELLEZ Address: [place] [address] Name: ARIK RAMSAY Address: home [address] [place] [address]
--- OUTSIDE RECORDS SUMMARY | 2024-05-22 11:58 | XMS_ITS | Continuity of Care Document ---
Author Organization [facility] an[facility] Care Address [address] [place] [address]- Care Team Providers Care Vice President Integrated Name Role Phone Alejandrina FERGUSON, Justus Conway Primary Care Physician [phone] [id number]): 09/28/23 - 11/30/23 [facility] Care [address] [place] [address] [[email or web address] Discharge Disposition: A-D/C Home Attending Physician: Vargas [...] tablet, 2 Refills, Maintenance, 09/28/23 12:58:00 EST, [facility] STORE [address]94, 30, CHEW 1 TABLET BY MOUTH TWICE [...] 0 Refills, Maintenance, 02/01/22 11:51:00 EDT, Capsule, [facility], Partial fill upon patient request if [...] mL, 0 Refills, Maintenance, 02/01/22 11:56:00 EDT, [place],Partial fill upon patient request if the prescription [...] 0 Refills, Maintenance, 09/30/23 13:57:00 EST, CRCapsule, [facility]/pharmacy #[id number], Partial fill upon patient request if the prescription is for a schedule II opioid drug., 155.8, cm, 09/30/23 12:46:00 EST,... Start Date: 09/30/23 Stop Date: 10/04/23 Status: Ordered predniSONE 5 mg oral tablet 1 tablet, By Mouth, Daily, # 30 tablet, 5 Refills, Maintenance, 08/24/23 18:08:00 EST, [facility] STORE [address], 155.8, cm, 07/02/23 13:06:00 EST, Height, 72.4, [...] oldest [Reference Range]: 1 Height 155.8 cm (09/30/23 12:46 PM) Weight 74.8 kg (09/30/23 12:46 PM) Oxygen Saturation [94-100 %] 97 % (09/30/23 12:46 PM) Pulse Rate [55-90 bpm] 98 bpm *H* (09/30/23 12:46 PM) Body Mass Index [18.5-24.99 kg/m2] 30.82 kg/m2 *>HHI* (09/30/23 12:46 PM) Blood Pressure [90-138/55-84 mm Hg] 122/ 73mm Hg (09/30/23 12:46 PM) Temperature [96.8-100.4 DegF] 97.8 DegF (09/30/23 12:46 PM) Mode of Delivery (Oxygen) Room air (09/30/23 12:46 PM) Blood pressure sites Arm, right (09/30/23 12:46 PM) Temperature Route Oral (09/30/23 12:46 PM) Dry Weight 74.8 kg (09/30/23 12:46 PM) Weight Obtained Via Standing scale (09/30/23 12:46 PM) Dry Weight Obtained Via Standing scale (09/30/23 12:46 PM) Social History Social History Type Response Smoking Status Former smoker, quit more than 30 days ago; Interested in cessation: No; Patient wants NRT during admission No entered on: 01/22/23 Sex Patient Care team information Care Team Personnel Name: Harmony Staley RN Position: [facility] SN RN Member Role: Primary Care Nurse Name: Alejandrina FERGUSON, Justus Conway Position: Reference Physician Member Role: PCP Address: Address: [address] [place] [address] [address] [place] [address]- Name: Darwin Graham MD Position: [facility] Cardiology MD Member Role: Lifetime Consulting Physician Address: Address: [address] [place] [address], [address] [place] [address] [place] [address]- Name: Karen Baker RN Position: [facility] RN Member Role: Primary Care Nurse Name: Vargas Rowe MD, Reza Armstrong Position: [facility] Physician - Oncology Med Service: Hematology & Oncology Member Role: Admitting Physician Address: Address: [address] [place] [address] Hem/[place] [address]- Care Team Related Persons Name: DB TELLEZ Address: [place] [address] Name: ARIK RAMSAY Address: home [address] [place] [address]
--- OUTSIDE RECORDS SUMMARY | 2024-05-22 11:59 | XMS_ITS | Patient Health Record ---
Author Organization [facility] Address [address] [place] [address] Care Team Providers Care Occasional Caregiver Name Role Phone Alejandrina FERGUSON, Justus Primary Care Provider Tonie Resendiz Unavailable [phone] ALLERGIES Allergen (clinical drug ingredient) Drug/Non Drug Allergy documented on EMR Reaction Allergy Type Onset Date Status Seasonale Unknown Drug Allergy Active REASON FOR REFERRAL No Information MEDICATIONS Medication SIG (Take, Route, Frequency, Duration) Notes Start Date End Date Status Abiraterone Acetate 250 MG 4 tablets Ora lly Once a day Active Bactrim DS 800-160 MG 1 tablet Orally Twice a day for 10 day(s) 08/19/2022 Not-Taking Cephalexin 500 MG 1 capsule Orally every 12 hrs for 10 days Not-Taking predniSONE Active Eligard Active Cephalexin 500 MG 1 capsule Orally Twice a day for 7 days 08/26/2022 Not-Taking Iron Active Omeprazole 40 MG 1 capsule 30 minutes before morning meal Orally Once a day for 30 day(s) Active Vitamin C Active Rosuvastatin Calcium 40 MG 1 tablet Oral ly Once a day for 30 day(s) Active Sulfamethoxazole-Trimethopri m 800-160 MG Oral for [...] needed Inhalation every 6 hrs PRN Active Multivitamin Active Metoprolol Tartrate 100 MG as directed O rally Twice a day Active Amoxicillin-Pot Clavulanate 875-125 MG 1 tablet Orally every 12 hrs for 7 days 09/17/2021 Not-Taking Augmentin 500-125 MG 1 tablet Orally Twice a day for 10 day(s) 09/05/2022 Not-Taking Arava 20 MG 1 tablet Orally Once a day for 30 day(s) Active Keflex 500 MG 1 capsule Orally every 12 hrs for 10 day(s) 09/13/2021 Not-Taking Xarelto 20 MG 1 tablet with food Orally Once a day for 30 day(s) Active Warfarin Sodium 2 MG 1 tablet Orally Onc e a day for 30 day(s) Not-Taking Fish Oil Active Keflex 500 MG 1 capsule Orally every 12 hrs for 10 day(s) 11/28/2020 Not-Taking Aspir-81 Active Doxycycline Hyclate 100 MG 1 capsule Ora lly Twice a day for 10 day(s) 01/28/2021 Not-Taking hydroCHLOROthiazide 25 MG 1 tablet in th e morning Orally Once a day for 30 day(s) PRN Active Fluticasone Propionate 50 MCG/ACT 1 spray in each nostril Nasally Twice a day Active Keflex 500 MG 1 capsule Orally every 12 hrs for 7 days 11/28/2020 Not-Taking IMMUNIZATIONS Vaccine Route Administration Date Status Comme nts COVID-19 Pfizer BioNTech Vaccine Unknown 05/26/2021 Administered 1st 10/03/20 2nd 10/24/20 Influenza Unknown 05/24/2021 Administered SOCIAL HISTORY Tobacco Use: Social History Observation Description Date Details (start date - stop date) Former Smoker NA - NA Sex Assigned At : Social History Observation Description Sex Assigned At Unknown Tobacco Use/Smoking Question Answer Notes Are you a: former smoker Additional Findings: Tobacco Non-User Current no n-smoker Alcohol Screen Question Answer Notes Did you have a drink containing alcohol in the p ast year? No Points 0 Interpretation Negative Tobacco use other than smoking: Question Answer Notes Are you an other tobacco user? No PROBLEMS Problem Type ICD Code Onset Dates Problem Status W/U Status Risk SNOMED Code Notes Problem Hallux valgus (acquired), left foot (M20.12) Active confirmed Acquired hallu x valgus (73748491) Problem Hallux valgus (acquired), right foot (M20.11) Active confirmed Acquired hallu x valgus (76446550) Problem Contracture, right foot (M24.574) Active confirmed 127584500181782 Problem Contracture, left foot (M24.575) Active confirmed 449757322141755 Problem Primary osteoarthritis, left ankle and foot (M19.072) Active confirmed Localized, pr imary osteoarthritis of the ankle and/or foot (553666416) Problem Primary osteoarthritis, right ankle and foot (M19.071) Active confirmed Localized, pr imary osteoarthritis of the ankle and/or foot (338628290) Problem Non-pressure ulcer of left lower extremity, limited to breakdown of skin (L97.921) Active confirmed 15416790 Problem Hammer toe of right foot (M20.41) Active confirmed 423641971 Problem Hammer toe of left foot (M20.42) Active confirmed 600779744 Problem Osteomyelitis of foot, left, acute (M86.172) Active confirmed 8900910529464279 Rule out Problem Non-pressure ulcer of left lower extremity with fat layer exposed (L97.922) Active confirmed 07955668 Problem Atherosclerosis of artery of both lower extremities (I70.203) Active confirmed 16010147394567402 Problem 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) Active confirmed 9798801023520450 Problem Rheumatoid arthritis involving both feet, unspecified whether rheumatoid factor present (M06.9) Active confirmed 04508074052521591 Problem Ulcer of right foot, limited to breakdown of skin (L97.511) Active confirmed 457102724 Problem Pressure injury of left foot, stage 1 (L89.891) Active confirmed Pressure i njury of left foot stage I (disorder) (782520589002587) Response to treatment Problem Ischemic ulcer of left foot, limited to breakdown of skin (L97.521) Active confirmed Response to treatment Problem Ischemic ulcer of right foot with fat layer exposed (L97.512) Active confirmed 574273157 Problem Pressure injury of right foot, stage 1 (L89.891) Active confirmed Respons e to treatment VITAL SIGNS Blood pressure diastolic 80 mm Hg 04/12/2024 Height 5 ft 2 in in 04/12/2024 Blood pressure systolic 120 mm Hg 04/12/2024 Weight 150 lbs 04/12/2024 BMI 27.43 kg/m2 04/12/2024 Encounters Encounter Location Date Provider Diagnosis [address] [address] 07/08/2023 Tonie Vasquez Pressure injury of left foot, stage 1 L89.891 ; Abscess of right foot L02.611 ; Pain in toe of left foot M79.675 ; Pain in toe of right foot M79.674 and Tinea unguium B35.[address] [address] 07/15/2023 Tonie Vasquez [address] [address] 07/15/2023 Tonie Vasquez Rheumatoid arthritis involving both feet, unspecified whether rheumatoid factor present M06.9 ; Metatarsalgia, left foot M77.42 and Metatarsalgia of right foot M77.[address] [address] 08/07/2023 Tonie Vasquez [address] [address] 08/07/2023 Tonie Vasquez Neuropathic ulcer of right foot with fat layer exposed L97.512 ; Cellulitis of foot, left L03.116 ; Pressure injury of left foot, stage 1 L89.891 ; Foot abscess, left L02.612 ; Hallux valgus (acquired), right foot M20.11 ; Hallux valgus (acquired), left foot M20.12 ; Hammer toe of left foot M20.42 and Hammer toe of right foot M20.41 [facility] [address] [address] 08/07/2023 Tonie Vasquez [address] [address] 08/07/2023 Tonie Vasquez [address] [address] 08/19/2023 Tonie Vasquez Cellulitis of foot, left L03.116 ; Hallux valgus (acquired), right foot M20.11 ; Hallux valgus (acquired), left foot M20.12 ; Hammer toe of left foot M20.42 ; Hammer toe of right foot M20.41 and Ulcer of right foot, limited to breakdown of skin L97.511 [facility] [address] [address] 08/28/2023 Tonie Vasquez [address] [address] 08/28/2023 Tonie Vasquez Abscess of right susan t L02.611 ; Cellulitis of foot, right L03.115 ; Rheumatoid arthritis involving both feet, unspecified whether rheumatoid factor present M06.9 ; Hallux valgus (acquired), right foot M20.11 ; Hammer toe of right foot M20.41 and Metatarsalgia of right foot M77.[address] [address] 08/28/2023 Tonie Vasquez [address] [address] 08/28/2023 Tonie Vasquez [address] [address] 09/01/2023 Tonie Vasquez Rheumatoid arthritis involving both feet, unspecified whether rheumatoid factor present M06.9 ; Cellulitis of foot, right L03.115 ; Hallux valgus (acquired), right foot M20.11 ; Hammer toe of right foot M20.41 ; Metatarsalgia of right foot M77.41 and Foot ulcer with fat layer exposed, right L97.[address] [address] 09/08/2023 Tonie Vasquez [facility] [address] [place] [address] 09/08/2023 Tonie Vasquez [address] [address] 09/08/2023 Tonie Vasquez [address] [address] 09/09/2023 Tonie Vasquez Cellulitis of foot, right L03.115 ; Rheumatoid arthritis involving both feet, unspecified whether rheumatoid factor present M06.9 ; Contracture, right foot M24.574 and Metatarsalgia of right foot M77.[address] [address] 09/16/2023 Tonie Vasquez [address] [address] 09/30/2023 Tonie Uriasa Ischemic ulcer of le ft foot, limited to breakdown of skin L97.521 ; Pain in toe of left foot M79.675 ; Pain in toe of right foot M79.674 ; Tinea unguium B35.1 and Atherosclerosis of artery of both lower extremities I70.[address] [address] 11/13/2023 Tonie Uriasa Pain in toe of left foot M79.675 ; Pressure injury of right foot, stage 1 L89.891 ; Pain in toe of right foot M79.674 ; Tinea unguium B35.1 and Atherosclerosis of artery of both lower extremities I70.[address] [address] 12/25/2023 Tonie Vasquez Pain in toe of left foot M79.675 ; Non-pressure ulcer of left lower extremity with fat layer exposed L97.922 ; Pain in toe of right foot M79.674 ; Tinea unguium B35.1 and Atherosclerosis of artery of both lower extremities I70.[address] [address] 02/05/2024 Tonie Vasquez [facility] [address] 02/05/2024 Tonie Uriasa [facility] [address] 02/17/2024 Tonie Uriasa [facility] [address] 02/29/2024 Tonie Uriasa [address] [address] 04/12/2024 Tonie Vasquez Pain in toe of left foot M79.675 ; Ischemic ulcer of right foot with fat layer exposed L97.512 ; Pain in toe of right foot M79.674 ; Tinea unguium B35.1 and Atherosclerosis of artery of both lower extremities I70.203 ASSESSMENTS Encounter Date Diagnosis Assessment Notes Treatment Notes Treatment Clinical Notes 07/08/2023 Pressure injury of left foot, stage 1 (ICD-10 - L89.891) Response to treatment Patient Educated with: WOUND CARE INSTRUCTIONS.pdf (WOUND CARE INSTRUCTIONS.pdf ) 07/15/2023 Metatarsalgia, left foot (ICD-10 - M77.42) 07/15/2023 Rheumatoid arthritis involving both feet, unspecified whether rheumatoid factor present (ICD-10 - M06.9) 08/07/2023 Cellulitis of foot, left (ICD-10 - L03.116) 08/07/2023 Neuropathic ulcer of right foot with fat layer exposed (ICD-10 - L97.512) Response to treatment Patient Educated with: WOUND CARE INSTRUCTIONS.pdf (WOUND CARE INSTRUCTIONS.pdf ) 08/19/2023 Hallux valgus (acquired), right foot (ICD-10 - M20.11) 08/19/2023 Cellulitis of foot, left (ICD-10 - L03.116) 08/28/2023 Cellulitis of foot, right (ICD-10 - L03.115) 08/28/2023 Abscess of right susan t (ICD-10 - L02.611) Patient Educated with: WOUND CARE INSTRUCTIONS.pdf (WOUND CARE INSTRUCTIONS.pdf ) 09/01/2023 Rheumatoid arthritis involving both feet, unspecified whether rheumatoid factor present (ICD-10 - M06.9) 09/09/2023 Cellulitis of foot, right (ICD-10 - L03.115) 09/09/2023 Rheumatoid arthritis involving both feet, unspecified whether rheumatoid factor present (ICD-10 - M06.9) 09/30/2023 Pain in toe of left foot (ICD-10 - M79.675) 09/30/2023 Ischemic ulcer of le ft foot, limited to breakdown of skin (ICD-10 - L97.521) Response to treatment Patient Educated with: WOUND CARE INSTRUCTIONS.pdf (WOUND CARE INSTRUCTIONS.pdf ) 11/13/2023 Pain in toe of left foot (ICD-10 - M79.675) 11/13/2023 Pressure injury of right foot, stage 1 (ICD-10 - L89.891) Patient Educated with: WOUND CARE INSTRUCTIONS.pdf (WOUND CARE INSTRUCTIONS.pdf ) 12/25/2023 Pain in toe of left foot (ICD-10 - M79.675) 12/25/2023 Non-pressure ulcer o f left lower extremity with fat layer exposed (ICD-10 - L97.922) 04/12/2024 Pain in toe of left foot (ICD-10 - M79.675) 04/12/2024 Ischemic ulcer of right foot with fat layer exposed (ICD-10 - L97.512) 04/12/2024 Pain in toe of right foot (ICD-10 - M79.674) 12/25/2023 Pain in toe of right foot (ICD-10 - M79.674) 11/13/2023 Pain in toe of right foot (ICD-10 - M79.674) 09/30/2023 Pain in toe of right foot (ICD-10 - M79.674) 09/09/2023 Contracture, right foot (ICD-10 - M24.574) 09/01/2023 Cellulitis of foot, right (ICD-10 - L03.115) 08/28/2023 Rheumatoid arthritis involving both feet, unspecified whether rheumatoid factor present (ICD-10 - M06.9) 09/01/2023 Hallux valgus (acquired), right foot (ICD-10 - M20.11) 08/19/2023 Hallux valgus (acquired), left foot (ICD-10 - M20.12) 08/07/2023 Pressure injury of left foot, stage 1 (ICD-10 - L89.891) Response to treatment Patient Educated with: WOUND CARE INSTRUCTIONS.pdf (WOUND CARE INSTRUCTIONS.pdf ) 07/15/2023 Metatarsalgia of rig ht foot (ICD-10 - M77.41) 07/08/2023 Pain in toe of left foot (ICD-10 - M79.675) 07/08/2023 Abscess of right susan t (ICD-10 - L02.611) Patient Educated with: WOUND CARE INSTRUCTIONS.pdf (WOUND CARE INSTRUCTIONS.pdf ) 07/08/2023 Pain in toe of right foot (ICD-10 - M79.674) 08/07/2023 Foot abscess, left (ICD-10 - L02.612) 08/28/2023 Hallux valgus (acquired), right foot (ICD-10 - M20.11) 08/19/2023 Hammer toe of left foot (ICD-10 - M20.42) 09/01/2023 Hammer toe of right foot (ICD-10 - M20.41) 09/09/2023 Metatarsalgia of rig ht foot (ICD-10 - M77.41) 09/30/2023 Tinea unguium (ICD-1 0 - B35.1) 11/13/2023 Tinea unguium (ICD-1 0 - B35.1) 12/25/2023 Tinea unguium (ICD-1 0 - B35.1) 04/12/2024 Tinea unguium (ICD-1 0 - B35.1) 04/12/2024 Atherosclerosis of artery of both lower extremities (ICD-10 - I70.203) 12/25/2023 Atherosclerosis of artery of both lower extremities (ICD-10 - I70.203) 11/13/2023 Atherosclerosis of artery of both lower extremities (ICD-10 - I70.203) 09/30/2023 Atherosclerosis of artery of both lower extremities (ICD-10 - I70.203) 08/28/2023 Hammer toe of right foot (ICD-10 - M20.41) 09/01/2023 Metatarsalgia of rig ht foot (ICD-10 - M77.41) 08/07/2023 Hallux valgus (acquired), right foot (ICD-10 - M20.11) 08/19/2023 Hammer toe of right foot (ICD-10 - M20.41) 07/08/2023 Tinea unguium (ICD-1 0 - B35.1) 08/19/2023 Ulcer of right foot, limited to breakdown of skin (ICD-10 - L97.511) 08/07/2023 Hallux valgus (acquired), left foot (ICD-10 - M20.12) 08/28/2023 Metatarsalgia of rig ht foot (ICD-10 - M77.41) 09/01/2023 Foot ulcer with fat layer exposed, right (ICD-10 - L97.512) 08/07/2023 Hammer toe of left foot (ICD-10 - M20.42) 08/07/2023 Hammer toe of right foot (ICD-10 - M20.41) 08/07/2023 Other 08/28/2023 Other Patient Educate d with: WOUND CARE INSTRUCTIONS.pdf (WOUND CARE INSTRUCTIONS.pdf ) 09/01/2023 Other Patient Educate d with: WOUND CARE INSTRUCTIONS.pdf (WOUND CARE INSTRUCTIONS.pdf ) Patient Educated with: WOUND CARE INSTRUCTIONS.pdf (WOUND CARE INSTRUCTIONS.pdf ) 09/09/2023 Other 11/13/2023 Other Patient Educate d with: WOUND CARE INSTRUCTIONS.pdf (WOUND CARE INSTRUCTIONS.pdf ) Patient Educated with: WOUND CARE INSTRUCTIONS.pdf (WOUND CARE INSTRUCTIONS.pdf ) 12/25/2023 Other Patient Educate d with: WOUND CARE INSTRUCTIONS.pdf (WOUND CARE INSTRUCTIONS.pdf ) Patient Educated with: WOUND CARE INSTRUCTIONS.pdf (WOUND CARE INSTRUCTIONS.pdf ) Patient Educated with: WOUND CARE INSTRUCTIONS.pdf (WOUND CARE INSTRUCTIONS.pdf ) 04/12/2024 Other Patient Educate d with: WOUND CARE INSTRUCTIONS.pdf (WOUND CARE INSTRUCTIONS.pdf ) Patient Educated with: WOUND CARE INSTRUCTIONS.pdf (WOUND CARE INSTRUCTIONS.pdf ) Patient Educated with: WOUND CARE INSTRUCTIONS.pdf (WOUND CARE INSTRUCTIONS.pdf ) 07/08/2023 Other Patient Educate d with: WOUND CARE INSTRUCTIONS.pdf (WOUND CARE INSTRUCTIONS.pdf ) Patient Educated with: WOUND CARE INSTRUCTIONS.pdf (WOUND CARE INSTRUCTIONS.pdf ) PLAN OF TREATMENT Pending Test Test Name Order Date MRI : Foot, left 09/05/2022 *Uric Acid, Serum 08/20/2022 *CBC With Differential/Platelet 08/20/20 Basic Metabolic Panel (8) 08/20/2022 ESR 08/20/2022 X ray : Foot, left 3V 01/29/2021 X ray : Foot, left 3V 02/27/2021 X ray : Foot, left 3V 09/13/2021 X ray : Foot, left 3V 11/28/2020 X ray : Foot, left 3V 09/05/2022 X ray : Foot, right 3V 11/28/2020 Next Appt Details Provider Name:Tonie Humberto beck, 06/21/2024 01:30:00 PM, [address] [place], [address], Insurance Providers Payer Name Payer Address Payer Phone Subscriber Number Group Number Insured Name Patient Relationship to Insured Coverage Start Date Coverage End Date [employer] [address] [place] [address] [id number] Gomez Bourgeois Self - patient is the insured [facility] [address] [place] [address] [id number] Gomez Bourgeois Self - patient is the insured MEDICAL (GENERAL) HISTORY Medical History History ICD Code Rheumatoid Arthritis Back,Hip,and Knee pain Cancer prostate Cataracts Heart disease High blood pressure Measles Mumps Chicken pox Transfusions Surgical History Surgery Date(Month/Year) Left foot surgery 01/24/2021 colonoscopy/endoscopy 08/07/21 left knee replacement 2021 right knee replacement 2021 Hospitalization History Reason Date(Month/Year) Had an echocardiogram 09/24/2022
[2024-05-22 12:00] LABS: INTERNATIONAL NORM RATIO 1.5 (0.9-1.1); Prothrombin Time 17.4 SEC (10.9-12.4)
[2024-05-22 12:02] LABS: Lactic Acid 1.6 mmol/L (0.5-2.0)
[2024-05-22 12:02] LABS: Partial Thromboplastin Time 32.9 SEC (26.0-36.8)
[2024-05-22 12:08] LABS: Alanine Aminotransferase 25 U/L (0-40); Albumin Level 2.9 g/dL (3.5-5.0); Alkaline Phosphatase 216 U/L (39-117); Anion Gap 16 (12-20); Aspartate Amino Transferase 138 U/L (5-37); B Type Natriuretic Peptide 206 pg/mL (<100); Bilirubin Total 1.2 mg/dL (0.0-1.0); Blood Urea Nitrogen 15 mg/dL (9-16); Calcium 8.9 mg/dL (8.4-10.2); Carbon Dioxide 26 mmol/L (22-29); Chloride 97 mmol/L (96-108); Creatinine Clr Calc Pharmacy 37.7; Estimated Glomerular Filt Rate 56; Glucose Random 90 mg/dL (60-115); Lipase 11 U/L (8-78); Magnesium 1.7 mg/dL (1.6-2.6); Potassium 2.7 mmol/L (3.3-5.1); Sodium 136 mmol/L (135-145); Total Protein 6.2 g/dL (6.5-8.0)
[2024-05-22 12:13] LABS: Troponin-I High Sensitivity 39.8 ng/L (<3.5-35.0)
[2024-05-22 12:35] LABS: Influenza A PCR NEGATIVE (Negative); Influenza B PCR NEGATIVE (Negative); Resp Syncy Virus RNA Qual PCR NEGATIVE (Negative); SARS COV2 PCR INHOUSE NEGATIVE (Negative)
[2024-05-22] MEDS: dilTIAZem HCL 50 MG/10 ML VIAL 20 MG IVPUSH (15:27)
[2024-05-22] MEDS: Potassium Chloride/H20 10 MEQ/100 ML PIGGYBACK 100 MEQ IV ×2 (15:33→17:22)
--- NOTE | 2024-05-22 15:42 | PC.NURSE ---
Per Steve Lares MD, hold off on Cardizem gtt for now. Administer the Cardizem 20mg IVP first, then wait and re-assess effect on pt.'s HR before considering gtt.
[2024-05-22 15:45] LABS: Troponin-I High Sensitivity 42.8 ng/L (<3.5-35.0)
[2024-05-22 16:13] LABS: TSH reflex Free T4 1.16 uIU/mL (0.32-4.0)
[2024-05-22] MEDS: dilTIAZem HCL 125 MG in 0.9 % Sodium Chloride 100 ML 10 MG IVCONT (17:26)
[2024-05-22 17:38] LABS: Appearance Urine Clear; Color Urine Dark Yellow; Glucose Urine UA Negative (Negative); Leukocyte Esterase Urine Negative (Negative); Nitrite Urine Negative (Negative); Specific Gravity - Urine 1.015 (1.005-1.025); UMIC TRIGGER UACC YES; Urine Blood Small (1+) (Negative); Urine Ketones 15 mg/dL (Negative); Urine Protein 100 (2+) mg/dL (Neg-Trace)
--- NOTE | 2024-05-22 18:00 | PM.IMHP ---
History of Present Illness Date of Service: 05/22/24 Attending physician on admission: Shila Moore Chief Complaint: weakness, vazquez 83-year-old male with history of COPD, hypertension, hypercholesterolemia, CKD stage 3, rheumatoid arthritis, coronary artery disease, paroxysmal atrial fibrillation anticoagulated with Xarelto, and recurrent metastatic prostate cancer on palliative chemotherapy with abiraterone and lupron (Drs. Alva and Dr. Monroy) presented to the ED earlier today for evaluation of significant generalized weakness ongoing x 5 days. He states he has been so weak he has been unable to roll over in bed and walking is very difficulty. He has had dyspnea and lightheadedness with exertion and orthopnea and reports BLE edema ongoing x 5 months. Denies weight gain, PND, palpitations, or chest pain. No sob at rest. No fevers, chills, recent illness. No abd pain, n/v/d, melena, hematochezia, dysuria, hematuria, increased urinary frequency, change in cough (has chronic cough). Since arrival, has been tachycardic to 180, tachypneic. No hypotension or fevers. There is no leukocytosis. He has a stable normocytic anemia with H/H 12.4/36.6%. Renal function is baseline, electrolyte levels normal except for potassium 2.7. Total bilirubin 1.2, AST 138, ALT 25, alkaline phosphatase 216. Initial troponin 39.8, repeat 42.8. Urinalysis with small amount of blood and 2+ protein, otherwise unremarkable. Negative for COVID, RSV, flu. Chest x-ray unremarkable. EKG shows atrial fibrillation with RVR, rate 154 without any RAFFAELE or depressions. In the ED has received multiple pushes IV dilt and has been started on dilt drip. He also received IV KCl 20meq and 1L IVF. Review of Systems Review of Systems: Yes all other systems are reviewed and are negative [facility] Medical History (Updated 05/22/24 @ 18:17 by JERSON Fofana) Arrhythmia CAD (coronary artery disease) Hx of emphysema Rheumatoid arthritis Chronic renal insufficiency History of prostate cancer COPD (chronic obstructive pulmonary disease) Hypercholesteremia HTN (hypertension) Surgical History Hx of heart artery stent History of colonoscopy History of tonsillectomy H/O prostatectomy Social History Comment: at times Patient Tobacco Use Status: Former Tobacco user Tobacco use type: Cigarette Smoked in Last 30 Days: No Use of substances other than those prescribed or required for medical reasons: No Advance Directives: No Advance Directives Information Provided: No Do you have a plan to hurt others: No Plan Meds Allergies Allergy/AdvReac Type Severity Reaction Status Date / Time pollen extracts Allergy Intermediate itchy/watery Verified 05/22/24 11:21 eyes Active Medications: Current Medications Furosemide (Furosemide 20 Mg/2 Ml Vial) 20 mg IVPUSH ONCE ONE; Protocol Stop: 05/22/24 17:54 Diltiazem HCl 125 mg/ Sodium (Chloride) 125 mls @ 0 mls/hr IVCONT .Q0M [facility]; Protocol Last Admin: 05/22/24 17:26 Dose: 10 mg/hr, 10 mls/hr Potassium Chloride (Potassium Chloride Packet 20 Meq Packet) 40 meq PO ONCE ONE Stop: 05/22/24 17:55 Home Medications ?Medication ?Instructions ?Recorded ?Confirmed ?Last Taken ?Type leflunomide 20 mg tablet 1 tab PO DAILY 01/16/21 05/22/24 01/20/21 History omeprazole 40 mg capsule,delayed 40 mg PO BID 01/16/21 05/22/24 Unknown History release rosuvastatin 40 mg tablet 40 mg PO DAILY 01/16/21 05/22/24 Unknown History metoprolol tartrate 100 mg tablet 1.5 tab PO BID 01/24/21 05/22/24 Unknown History abiraterone 250 mg tablet 1,000 mg PO DAILY 05/22/24 05/22/24 Unknown History acetaminophen 325 mg tablet 650 mg PO Q6H PRN pain or fever 05/22/24 05/22/24 Unknown History bismuth subsalicylate 525 mg/15 mL 525 mg PO Q30M PRN 05/22/24 05/22/24 Unknown History oral suspension heartburn/indigestion calcium carbonate 500 mg-vitamin 1 tab PO BID 05/22/24 05/22/24 Unknown History D3 10 mcg (400 unit) chewable tablet ferrous sulfate 325 mg (65 mg 325 mg PO MOWEFR 05/22/24 05/22/24 Unknown History iron) tablet,delayed release fluticasone propionate 50 2 spray intranasal DAILY 05/22/24 05/22/24 Unknown History mcg/actuation nasal spray,suspension (Flonase Allergy Relief) furosemide 40 mg tablet 40 mg PO DAILY 05/22/24 05/22/24 Unknown History ipratropium 20 mcg-albuterol 100 1 puff inhalation Q8H PRN 05/22/24 05/22/24 Unknown History mcg/actuation mist for inhalation Shortness Of Breath Or Wheezing (Combivent Respimat) leuprolide acetate (6 month) 45 mg 45 mg IM [id number] 05/22/24 05/22/24 Unknown History intramuscular syringe kit (Lupron Depot) prednisone 5 mg tablet 5 mg PO DAILY 05/22/24 05/22/24 05/21/24 History rivaroxaban 20 mg tablet (Xarelto) 20 mg PO QPM 05/22/24 05/22/24 Unknown History Physical Exam Vital Signs and Narrative: Vital Signs: Last Vital Signs Temp 98.6 F 05/22/24 11:18 Pulse 129 H 05/22/24 17:26 Resp 35 H 05/22/24 17:25 BP 130/80 05/22/24 17:26 Pulse Ox 96 05/22/24 17:25 O2 Del Method Room Air 05/22/24 17:25 BMI result Body Mass Index 29.1 Constitutional - Awake and Alert, No apparent distress Eyes - PERRLA, EOMI Cardiovascular - S1S2, RRR, 1+ ble edema , no jvd Respiratory - Normal lung expansion, Normal respiratory effort, No respiratory distress, bilateral wheezing, +orthopnea Gastrointestinal - NT / ND; +BS; No rebound or guarding Extremities - no calf tenderness bilaterally, no swelling Skin - Warm/Dry Neurological - Alert & oriented x3 Psychological - Appropriate affect Results Labs 05/22/24 11:42 05/22/24 11:42 Labs: Laboratory Results - last 24 hr 05/22/24 05/22/24 05/22/24 11:41 11:42 11:47 MCV 86.9 MCH 29.5 MCHC 33.9 RDW 15.5 Plt Count 160 MPV 11.1 Immature Gran % (Auto) 0.3 Neut % (Auto) 78.9 H Lymph % (Auto) 9.5 L [place] % (Auto) 11.0 Eos % (Auto) 0.0 Baso % (Auto) 0.3 Lymph # (Auto) 1.0 L [place] # (Auto) 1.1 Eos # (Auto) 0.0 Baso # (Auto) 0.0 Abs Immat Gran (auto) 0.03 Absolute Neuts (auto) 8.2 Absolute Nucleated RBC 0.000 Nucleated RBC % (auto) 0.0 PT 17.4 H INR 1.5 H APTT 32.9 Anion Gap 16 Estim Creat Clear Calc 37.7 Estimated GFR 56 Random Glucose 90 Lactic Acid 1.6 Calcium 8.9 Magnesium 1.7 Total Bilirubin 1.2 H AST 138 H ALT 25 Alkaline Phosphatase 216 H Troponin I High Sens 39.8 H B-Natriuretic Peptide 206 H Total Protein 6.2 L Albumin 2.9 L Lipase 11 TSH 1.16 Urine Color Urine Appearance Urine pH Ur Specific [place] Urine Protein Urine Glucose (UA) Urine Ketones Urine Blood Urine Nitrite Ur Leukocyte Esterase Influenza Type A (PCR) NEGATIVE Influenza Type B (PCR) NEGATIVE RSV RNA Qual (PCR) NEGATIVE SARS-CoV-2 RNA (RT-PCR) NEGATIVE 05/22/24 05/22/24 15:16 17:29 MCV MCH MCHC RDW Plt Count MPV Immature Gran % (Auto) Neut % (Auto) Lymph % (Auto) [place] % (Auto) Eos % (Auto) Baso % (Auto) Lymph # (Auto) [place] # (Auto) Eos # (Auto) Baso # (Auto) Abs Immat Gran (auto) Absolute Neuts (auto) Absolute Nucleated RBC Nucleated RBC % (auto) PT INR APTT Anion Gap Estim Creat Clear Calc Estimated GFR Random Glucose Lactic Acid Calcium Magnesium Total Bilirubin AST ALT Alkaline Phosphatase Troponin I High Sens 42.8 H B-Natriuretic Peptide Total Protein Albumin Lipase TSH Urine Color Dark Yellow Urine Appearance Clear Urine pH 6.0 Ur Specific [place] 1.015 Urine Protein 100 (2+) H Urine Glucose (UA) Negative Urine Ketones 15 Urine Blood Small (1+) H Urine Nitrite Negative Ur Leukocyte Esterase Negative Influenza Type A (PCR) Influenza Type B (PCR) RSV RNA Qual (PCR) SARS-CoV-2 RNA (RT-PCR) Imaging Radiologist's Impressions: Impressions Chest X-Ray 05/22/24 11:40 IMPRESSION: Unremarkable examination. Electronically signed by: Saritha Duarte MD 05/22/2024 12:05 PM EDT RP Assessment and Plan (1) Acute hypokalemia: Status: Acute (2) Atrial fibrillation with rapid ventricular response: Status: Acute (3) New onset of congestive heart failure: Status: Acute Plan 83-year-old male with history of COPD, hypertension, hypercholesterolemia, CKD stage 3, rheumatoid arthritis, coronary artery disease, paroxysmal atrial fibrillation anticoagulated with Xarelto, and recurrent metastatic prostate cancer on palliative chemotherapy with abiraterone and lupron (Drs. Alva and Dr. Monroy) admitted for atrial fibrillation with rvr and new onset CHF #Paroxysmal atrial fibrillation with RVR -Rates 180 on arrival. Received multiple pushes IV Dilt (40mg) -Continue dilt drip -xarelto for ac -continue po metoprolol -cardaic diet -echo -cardiology consult -monitor on tele #New onset CHF -likely due to afib rvr. symptomatic with vazquez, orthopnea/wheezing -cxr negative. BNP 204 -IV laasix 20mg daily -echo -cardiology consult -cardiac diet -strict I&O -follow renal function.lytes #Hypokalemia -Given IV KCl x2 in ED. Add 40meq PO KCl given added lasix -follow lytes #Elevated troponins -likely demand due to HR -trops flat, ekg without raffaele or depressions. No cp #HTN -continue hctz, metoprolol #COPD -no exacerbation, albuterol prn #Metastatic prostate ca -follows with Dr. Brantley ([facility] onc) and Dr. Monroy (urology) -palliative chemo with abiraterone and lupron #CKD stage 3 -renal function baseline #RA -continue leflunomide #CAD/HLD -no cp -continue asa, statin, bb dvt prophylaxis- xarelto full code pt requires inpt stay at least 2 midnights for management of afib with rvr on dilt drip and chf exacerbation on iv diuretics requiring close cardiac monitoring and monitoring of hemodynamics with expert consultation Quality Stroke Does the patient have a stroke diagnosis?: No VTE Prior VTE?: No VTE Risk Level:: Medical - moderate - high VTE Device Contraindication: Treatment Not Indicated VTE Drug Contraindication: N/A - Med Ordered
[2024-05-22 18:02] LABS: Bacteria Urine None Seen (None Seen); Squamous Epithelial Cell Urine 0-2 /HPF (0-2); WBC Urine 0-5 /HPF (0-5)
--- NOTE | 2024-05-22 18:21 | PHA.MEDREC ---
Pharmacy Consult ? Medication Reconciliation Pharmacy has completed the medication reconciliation. Spoke with patient at bedside. He did bring in an old medication list so I went through his newer medications/doses. He is no longer taking baby aspirin, he ran out of fish oil about a month ago. his furosemide replaced the HCTZ, he only takes loratidine in the summer so not currently taking at the moment but does take flonase daily. He confirmed his metoprolol dose. He was unsure about the omeprazole so I used claim history to confirm. He has been needing to take pepto bismol daily for heartburn/indigestion lately. He reports he only took his prednisone yesterday and not the other cancer medications. He reports he takes his ferrous sulfate QOD and not on SA + CAMERON. He reports he gets an injection at his urologists office every 6 months. [facility] records show Lupron 45 mg. Used claim history to verify the rest.
[2024-05-22] MEDS: Potassium Chloride Packet 20 MEQ PACKET 40 MEQ PO (18:25)
[2024-05-22] MEDS: Furosemide 20 MG/2 ML VIAL IVPUSH ×2 (18:25→19:10)
--- NOTE | 2024-05-22 19:00 | PC.NURSE ---
Report given to Ofe Mccollum RN
--- NOTE | 2024-05-22 20:37 | PC.NURSE ---
HR 108-138, BP 118/82, O2 Sat 95% RA, patient on Cardizem drip at max dose of 15 mg/hr. [place] updated.
--- NOTE | 2024-05-22 20:41 | PM.EVENT ---
Event Note Date of Service: 05/22/24 Event Note: 83-year-old male admitted for atrial fibrillation with RVR. Currently maxed on diltiazem drip still maintaining heart rates 130-140. load with dig 0.25mg q6h x 3 doses. Cardiology consult pending. Continue xarelto and cardiac monitoring Time Spent With Patient Time: Total time managing care of this patient today ____ minutes.
[2024-05-22] MEDS: Metoprolol Tartrate 50 MG TABLET 150 MG PO (20:43)
[2024-05-22] MEDS: Calcium + Vitamin D 250 MG TABLET 500 MG PO (20:43)
--- NOTE | 2024-05-22 20:43 | PC.NURSE ---
Patient medicated per MAR.
[2024-05-22] MEDS: Digoxin 0.5 MG/2 ML AMPUL 0.25 MG IVPUSH (21:00)
[2024-05-22] MEDS: Rivaroxaban 20 MG TABLET PO (21:06)
--- NOTE | 2024-05-22 21:08 | PC.NURSE ---
HR 91, BP 123/70. Patient denies any pain,resting comfortably in a stretcher bed, call hutchison in reach.
[2024-05-23] VITALS (18 sets, daily range): BP systolic 99–133; BP diastolic 58–86; PULSE 64–95; RESP 16–33; TEMP 36.2–36.7; O2SAT 94–98
--- NOTE | 2024-05-23 01:00 | PC.NURSE ---
HR 77-80, Cardizem drip on hold per parameters for HR <90.
[2024-05-23] MEDS: Digoxin 0.5 MG/2 ML AMPUL 0.25 MG IVPUSH ×2 (02:51→09:04)
[2024-05-23 05:24] LABS: MANUAL DIFF FLAG NO
[2024-05-23 05:28] LABS: Basophils Percent Auto 0.4 % (0-2); Eosinophils Percent Auto 0.1 % (0-4); Hematocrit 33.7 % (42.0-52.0); Hemoglobin 11.3 g/dl (14.0-18.0); Imm Gran Abs Auto 0.02 X10*3/uL (0.00-0.03); Imm Gran Pct Auto 0.2 % (0.0-0.4); Lymphocytes Absolute Auto 1.2 X10*3/uL (1.2-4.9); Mean Corpuscular HGB Conc 33.5 g/dl (31.0-36.0); Mean Corpuscular Hemoglobin 29.1 pg (27.0-33.0); Mean Corpuscular Volume 86.9 fL (80.0-98.0); Mean Platelet Volume 11.5 fL (9.4-12.4); Monocytes Percent Auto 12.2 % (2-11); Neutrophils Percent Auto 73.1 % (45-73); Platelet Count 153 X10*3/uL (160-400); Red Blood Count 3.88 X10*6/uL (4.60-5.80); Red Cell Distribution Width 15.5 % (11.0-16.0); White Blood Count 8.2 X10*3/uL (4.8-10.8)
[2024-05-23] MEDS: Omeprazole 40 MG CAPSULE.DR PO ×2 (05:45→16:04)
[2024-05-23 05:55] LABS: Anion Gap 14 (12-20); Blood Urea Nitrogen 12 mg/dL (9-16); Carbon Dioxide 25 mmol/L (22-29); Chloride 100 mmol/L (96-108); Creatinine Clr Calc Pharmacy 44.9; Estimated Glomerular Filt Rate > 60; Glucose Random 85 mg/dL (60-115); Potassium 2.7 mmol/L (3.3-5.1); Sodium 136 mmol/L (135-145)
[2024-05-23] MEDS: Potassium Chloride Packet 20 MEQ PACKET 40 MEQ PO (06:44)
--- NOTE | 2024-05-23 07:00 | CA_ITS ---
Transthoracic Echocardiogram Patient (Last, First, Middle): Gomez Bourgeois M Gender: Male Date of : 1940 Age: 83 Procedure Date: 05/23/2024 Procedure Type: Transthoracic Echocardiogram Location: ER Height: 152.4 cm Weight: 67.59 kg BSA: 1.65 m2 Heart Rate: bpm BP: 113 / 67 mmHg Country Sales Manager: Referring MD: Zahra ARTHUR Symptoms: afib rvr, chf Study Quality: Fair Conclusions: - Normal left ventricular size, thickness, and systolic function. Regional wall motion abnormalities can not be excluded due to suboptimal endocardial definition. - Cannot exclude basal to mid inferior wall hypokinesis. - Normal right ventricular cavity size. There is low normal right ventricular systolic function. - The left atrium is mildly dilated. Findings Left Ventricle Normal left ventricular size, thickness, and systolic function. Regional wall motion abnormalities can not be excluded due to suboptimal endocardial definition. Diastolic function is indeterminate on the basis of available data. Cannot exclude basal to mid inferior wall hypokinesis. Right Ventricle Normal right ventricular cavity size. There is low normal right ventricular systolic function. Atria The left atrium is mildly dilated. Aortic Valve There is a normal trileaflet aortic valve. There is mild calcification of the aortic valve. There is no aortic valve stenosis. There is no aortic valve regurgitation. Mitral Valve Likely normal mitral valve structure and function. There is no mitral valve regurgitation. There is no mitral valve stenosis. Pulmonic Valve The pulmonic valve is likely normal. Tricuspid Valve Normal tricuspid valve structure. There is no tricuspid valve regurgitation. Tricuspid regurgitation envelope is inadequate for calculation of right ventricular systolic pressure. Normal right atrial pressure. Great Vessels All visible segments of the aorta are normal in size. Venous The inferior vena cava is normal in size and collapses greater than 50% with inspiration. Pericardium/Pleural There is no evidence of pericardial effusion. Prior Study Comparison No prior study available for comparison. Measurements 2D Linear Measurements IVSd: 1.04 0.6-0.9/0.6-1.0 cm LVIDd: 3.41 3.9-5.3/4.2-5.9 cm LVIDd Index: 2.07 2.4-3.2/2.2-3.1 cm/m2 LVIDs: 2.36 2.0-3.6 cm LVPWd: 1.10 0.7-1.1 cm LA Diam: 3.90 2.7-3.8/3.0-4.0 cm LAIDs Index: 2.36 1.5-2.3 cm/m2 LV Mass: 136.55 67-162/88-224 g LV Mass Index: 82.76 43-95/49-115 g/m2 LVOT Diam: 2.00 3.0+(-)1.3 cm Mitral Valve MV Pk E: 0.82 MV Decel Time: 181.00 E'Lateral: 9.79 E'Medial: 9.25 E/E' Med: 8.90 E/E' Lat: 8.40 PHT: 53.00 MVA PHT: 4.15 Decel Van [place]andt: 4.54 Aortic Valve AoV Pk Christ: 1.74 AoV Mn Christ: 1.02 AoV VTI: 0.26 AoV Pk Grad: 12.00 Aov Mn Grad: 5.00 DINAH Cont.VTI: 1.23 LVOT LVOT Pk Christ: 0.69 LVOT Mn Christ: 0.44 LVOT VTI: 0.10 LVOT Pk Grad: 2.00 LVOT Mn Grad: 1.00 LVOT Diam: 2.00 LVOT Area: 3.14 Diastolic Function MV Pk E: 0.82 E'Medial: 9.25 E/E' Med: 8.90 E' Laterial: 9.79 E/E' Lat: 8.40 Right Ventricle TAPSE (mm): 14.30 TVS' Christ: 11.60 Tricuspid Valve TR Pk Christ: 2.07 TR Pk Grad: 17.00 Great Vessels Aorta Sinus of Valsalva: 3.00 2.0-3.5 cm Ao Asc: 3.60 2.1-3.4 cm Pulmonary Valve PV Pk Christ: 0.88 Peak PV Grad: 3.00 Updated in Other Vendor System with Status of Final Danny Moore MD electronically signed on 05/23/2024 1:26:32 PM with status of Final
--- NOTE | 2024-05-23 07:46 | P.PNIM_ITS ---
Subjective Subjective Date of Service: 05/23/24 Interval History: Seen in follow-up for AFib with RVR, weakness, hypokalemia Interval history: Continues with wheezing but denies any shortness of breath. Reports weakness has improved. No palpitations, lightheadedness, chest pain. Remains in AFib but rates more controlled in the 80s. Potassium remains low at 2.7. Incontinent of urine but reports this is his baseline Review of Systems Review of Systems: Yes all other systems are reviewed and are negative Physical Exam 2 Vital Signs: Vital Signs: Last Vital Signs Temp 98.8 F 05/22/24 20:34 Pulse 84 05/23/24 06:17 Resp 29 H 05/23/24 06:17 BP 113/67 05/23/24 06:17 Pulse Ox 94 05/23/24 06:17 O2 Del Method Room Air 05/23/24 06:17 BMI result Body Mass Index 29.1 Constitutional - Awake and Alert, No apparent distress Eyes - PERRLA, EOMI Cardiovascular - S1S2, irregularly irregular, normal rate, No edema Respiratory - Normal lung expansion, Normal respiratory effort, No respiratory distress, + scattered wheezes bilaterally Gastrointestinal - NT / ND; +BS; No rebound or guarding - incontinent of urine Extremities - no calf tenderness bilaterally, no swelling Skin - Warm/Dry Neurological - Alert & oriented x3 Objective Data Active Medications Acetaminophen (Acetaminophen 325 Mg Tablet) 650 mg PO Q6H PRN PRN Reason: Pain, Mild (Pain Scale 1-3), fever or headache Albuterol/Ipratropium (Albuterol/Iprat 2.5/0.5mg 3 Ml Ampul.Neb) 3 ml INHALE Q8H PRN PRN Reason: Shortness Of Breath Or Wheezing Atorvastatin Calcium (Atorvastatin Calcium 80 Mg Tablet) 80 mg PO DAILY [facility] Calcium Carbonate (Calcium Carbonate 750 Mg Tab.Chew) 750 mg PO Q4H PRN PRN Reason: Heartburn Calcium Carbonate/Cholecalciferol (Calcium + Vitamin D 250 Mg Tablet) 500 mg PO BID [facility] Last Admin: 05/22/24 20:43 Dose: 500 mg Documented By: ANUPAM Digoxin (Digoxin 0.5 Mg/2 Ml Ampul) 0.25 mg IVPUSH Q6H [facility]; Protocol Stop: 05/23/24 08:46 Last Admin: 05/23/24 02:51 Dose: 0.25 mg Documented By: ANUPAM Ferrous Sulfate (Ferrous Sulfate 324 Mg Tablet.) 324 mg PO MOWEFR [facility] Fluticasone Propionate (Fluticasone Propionate Nasal 16 Gm [place]) 2 spray NOSTRIL-B DAILY [facility] Furosemide (Furosemide 20 Mg/2 Ml Vial) 40 mg IVPUSH DAILY [facility]; Protocol Diltiazem HCl 125 mg/ Sodium (Chloride) 125 mls @ 0 mls/hr IVCONT .Q0M [facility]; Protocol Last Titration: 05/23/24 01:01 Dose: 0 mg/hr, 0 mls/hr Documented By: ANUPAM Leflunomide (Leflunomide 10 Mg Tablet) 20 mg PO DAILY [facility] Magnesium Hydroxide (Milk Of Magnesia 30 Ml Oral.Susp) 30 ml PO DAILY PRN PRN Reason: Constipation Melatonin (Melatonin 3 Mg Tablet) 6 mg PO BEDTIME PRN PRN Reason: Insomnia Metoprolol Tartrate (Metoprolol Tartrate 50 Mg Tablet) 150 mg PO BID [facility]; Protocol Last Admin: 05/22/24 20:43 Dose: 150 mg Documented By: ANUPAM Non-Formulary Medication (Abiraterone) 1,000 mg PO DAILY [facility] Omeprazole (Omeprazole 40 Mg Capsule.) 40 mg PO BID@0630,1630 [facility] Last Admin: 05/23/24 05:45 Dose: 40 mg Documented By: ANUPAM Prednisone (Prednisone 5 Mg Tablet) 5 mg PO DAILY [facility] Rivaroxaban (Rivaroxaban 20 Mg Tablet) 20 mg PO DAILY@1700 [facility] Last Admin: 05/22/24 21:06 Dose: 20 mg Documented By: ANUPAM Sodium Chloride (0.9 % Sodium Chloride Flush 3 Ml Syringe) 3 ml IVFLUSH QSHIFT [facility] Last Admin: 05/23/24 00:00 Dose: Not Given Documented By: ANUPAM Non-Admin Reason: IV Running Labs 05/23/24 04:49 05/23/24 04:49 Labs: Laboratory Results - last 24 hr 05/22/24 05/22/24 05/22/24 11:41 11:42 11:47 MCV 86.9 MCH 29.5 MCHC 33.9 RDW 15.5 Plt Count 160 MPV 11.1 Immature Gran % (Auto) 0.3 Neut % (Auto) 78.9 H Lymph % (Auto) 9.5 L [place] % (Auto) 11.0 Eos % (Auto) 0.0 Baso % (Auto) 0.3 Lymph # (Auto) 1.0 L [place] # (Auto) 1.1 Eos # (Auto) 0.0 Baso # (Auto) 0.0 Abs Immat Gran (auto) 0.03 Absolute Neuts (auto) 8.2 Absolute Nucleated RBC 0.000 Nucleated RBC % (auto) 0.0 PT 17.4 H INR 1.5 H APTT 32.9 Anion Gap 16 Estim Creat Clear Calc 37.7 Estimated GFR 56 Random Glucose 90 Lactic Acid 1.6 Calcium 8.9 Magnesium 1.7 Total Bilirubin 1.2 H AST 138 H ALT 25 Alkaline Phosphatase 216 H Troponin I High Sens 39.8 H B-Natriuretic Peptide 206 H Total Protein 6.2 L Albumin 2.9 L Lipase 11 TSH 1.16 Urine Color Urine Appearance Urine pH Ur Specific [place] Urine Protein Urine Glucose (UA) Urine Ketones Urine Blood Urine Nitrite Ur Leukocyte Esterase Urine RBC Urine WBC Ur Squamous Epith Cells Urine Bacteria Hyaline Casts Influenza Type A (PCR) NEGATIVE Influenza Type B (PCR) NEGATIVE RSV RNA Qual (PCR) NEGATIVE SARS-CoV-2 RNA (RT-PCR) NEGATIVE 05/22/24 05/22/24 05/23/24 15:16 17:29 04:49 MCV 86.9 MCH 29.1 MCHC 33.5 RDW 15.5 Plt Count 153 L MPV 11.5 Immature Gran % (Auto) 0.2 Neut % (Auto) 73.1 H Lymph % (Auto) 14.0 L [place] % (Auto) 12.2 H Eos % (Auto) 0.1 Baso % (Auto) 0.4 Lymph # (Auto) 1.2 [place] # (Auto) 1.0 Eos # (Auto) 0.0 Baso # (Auto) 0.0 Abs Immat Gran (auto) 0.02 Absolute Neuts (auto) 6.0 Absolute Nucleated RBC 0.000 Nucleated RBC % (auto) 0.0 PT INR APTT Anion Gap 14 Estim Creat Clear Calc 44.9 Estimated GFR > 60 Random Glucose 85 Lactic Acid Calcium 8.0 L D Magnesium Total Bilirubin AST ALT Alkaline Phosphatase Troponin I High Sens 42.8 H B-Natriuretic Peptide Total Protein Albumin Lipase TSH Urine Color Dark Yellow Urine Appearance Clear Urine pH 6.0 Ur Specific [place] 1.015 Urine Protein 100 (2+) H Urine Glucose (UA) Negative Urine Ketones 15 Urine Blood Small (1+) H Urine Nitrite Negative Ur Leukocyte Esterase Negative Urine RBC 3-5 H Urine WBC 0-5 Ur Squamous Epith Cells 0-2 Urine Bacteria None Seen Hyaline Casts 3-5 Influenza Type A (PCR) Influenza Type B (PCR) RSV RNA Qual (PCR) SARS-CoV-2 RNA (RT-PCR) Assessment and Plan (1) New onset of congestive heart failure: Status: Acute (2) Acute hypokalemia: Status: Acute (3) Atrial fibrillation with rapid ventricular response: Status: Acute Plan 83-year-old male with history of COPD, hypertension, hypercholesterolemia, CKD stage 3, rheumatoid arthritis, coronary artery disease, paroxysmal atrial fibrillation anticoagulated with Xarelto, and recurrent metastatic prostate cancer on palliative chemotherapy with abiraterone and lupron (Drs. Alva and Dr. Monroy) admitted for atrial fibrillation with rvr and new onset CHF #Paroxysmal atrial fibrillation with RVR -Rates improved, now in the 90s -continue xarelto for ac -Per cardiology, pursue rate control. No further digoxin due to persistent hypokalemia -decrease metoprolol to 100 mg twice daily, add diltiazem CD 120 mg daily. Discontinue diltiazem drip -cardiac diet -cardiology input appreciated -monitor on tele # heart failure preserved ejection fraction -volume status improved. No further orthopnea -cxr negative. BNP 204 -discontinue IV Lasix. Resume 40 mg p.o. Lasix -echo shows normal LV systolic function, EF not specified with mildly reduced right ventricular function -cardiology input appreciated -cardiac diet -strict I&O -add spironolactone 25 mg daily, consider increased to 25 mg b.i.d. per Cardiology -follow renal function.lytes #Hypokalemia -repleted with 20 mEq IV KCl and 40 mEq p.o. KCl -add spironolactone per Cardiology -follow lytes #COPD -with exacerbation. Ongoing wheezing, less likely related to volume overload -add prednisone 40 mg daily -DuoNebs q.4h while awake -no hypoxia. Tachycardia due to atrial fibrillation, no sepsis #Elevated troponins -likely demand due to HR -trops flat, ekg without raffaele or depressions. No cp -continue Xarelto # weakness-improved -possibly related to hypokalemia. PT eval #HTN -continue hctz, metoprolol #Metastatic prostate ca -follows with Dr. Brantley ([facility] onc) and Dr. Monroy (urology) -palliative chemo with abiraterone and lupron #CKD stage 3 -renal function baseline #RA -continue leflunomide #CAD/HLD -no cp -continue asa, statin, bb dvt prophylaxis- xarelto full code pt requires ongoing inpatient stay due to atrial fibrillation with RVR, CHF exacerbation and COPD exacerbation Quality Stroke Does the patient have a stroke diagnosis?: No VTE Prior VTE?: No VTE Risk Level:: Medical - moderate - high VTE Device Contraindication: Treatment Not Indicated VTE Drug Contraindication: N/A - Med Ordered
[2024-05-23] MEDS: predniSONE 5 MG TABLET PO (08:43)
[2024-05-23] MEDS: Calcium + Vitamin D 250 MG TABLET 500 MG PO ×2 (08:43→19:51)
[2024-05-23] MEDS: Atorvastatin Calcium 80 MG TABLET PO (08:44)
[2024-05-23] MEDS: Furosemide 20 MG/2 ML VIAL 40 MG IVPUSH (08:45)
[2024-05-23] MEDS: Metoprolol Tartrate 50 MG TABLET 150 MG PO (08:52)
[2024-05-23] MEDS: 0.9 % Sodium Chloride Flush 3 ML SYRINGE IVFLUSH ×2 (09:05→18:14)
[2024-05-23] MEDS: Albuterol/Iprat 2.5/0.5MG 3 ML AMPUL.NEB INHALE ×2 (11:04→15:34)
--- NOTE | 2024-05-23 11:17 | MHC.CM.PN ---
CM met with Patient at bedside, in the ED and addressed IMM with him, providing Patient with the original and a copy has been placed on the chart. Patient lives in a house with his Brother/HCP/Luis,Nephew and 14 year old Grand Nephew and he required no services nor DME [employer]. Home/self care is the goal and CM has initiated and will follow for dc planning. PCP is Dr. Justus Tinoco and Patient's Brother will transport to home.
[2024-05-23] MEDS: predniSONE 20 MG TABLET 40 MG PO (12:07)
--- NOTE | 2024-05-23 12:15 | PM.CNCAR ---
History of Present Illness History of Present Illness Date of Service: 05/23/24 Requesting physician: Zahra Franco Chief complaint: Afib,rvr,chf exac Narrative: 83-year-old gentleman with known history of hyperlipidemia, hypertension, chronic kidney disease stage 3, COPD, rheumatoid arthritis, history of coronary disease and atrial fibrillation anticoagulated with Xarelto. He also has metastatic prostate cancer and is on palliative chemotherapy with abiraterone and Lupron. He was seen in the ER and was currently feeling good. He said he came in because he was feeling very weak. He had difficulty walking and was unable to roll in bed due to weakness. ER he was noticed to be in AFib with RVR. He also had significant electrolyte issues including hypokalemia with potassium 2.7. He was tachypneic and apparently was noted to be in congestive heart failure. Started on Cardizem and heart rate is better. He also received a digoxin load. He was seen while getting echocardiography and was laying flat and denying any symptoms. He is saying that is feeling little more energetic today. [facility] Past Medical History Medical History (Updated 05/22/24 @ 18:17 by JERSON Fofana) Arrhythmia CAD (coronary artery disease) Hx of emphysema Rheumatoid arthritis Chronic renal insufficiency History of prostate cancer COPD (chronic obstructive pulmonary disease) Hypercholesteremia HTN (hypertension) Surgical History Surgical History Hx of heart artery stent History of colonoscopy History of tonsillectomy H/O prostatectomy Social History Social History Comment: at times Patient Tobacco Use Status: Former Tobacco user Tobacco use type: Cigarette Smoked in Last 30 Days: No Use of substances other than those prescribed or required for medical reasons: No Advance Directives: No Advance Directives Information Provided: No Do you have a plan to hurt others: No Plan Nutrition Risks: No Nutritional Risk service: No Meds Allergies Allergy/AdvReac Type Severity Reaction Status Date / Time pollen extracts Allergy Intermediate itchy/watery Verified 05/22/24 11:21 eyes Active Medications: Current Medications Acetaminophen (Acetaminophen 325 Mg Tablet) 650 mg PO Q6H PRN PRN Reason: Pain, Mild (Pain Scale 1-3), fever or headache Albuterol/Ipratropium (Albuterol/Iprat 2.5/0.5mg 3 Ml Ampul.Neb) 3 ml INHALE Q8H PRN PRN Reason: Shortness Of Breath Or Wheezing Albuterol/Ipratropium (Albuterol/Iprat 2.5/0.5mg 3 Ml Ampul.Neb) 3 ml INHALE RQ4H WHILE AWAKE [facility] Last Admin: 05/23/24 11:04 Dose: 3 ml Atorvastatin Calcium (Atorvastatin Calcium 80 Mg Tablet) 80 mg PO DAILY [facility] Last Admin: 05/23/24 08:44 Dose: 80 mg Calcium Carbonate (Calcium Carbonate 750 Mg Tab.Chew) 750 mg PO Q4H PRN PRN Reason: Heartburn Calcium Carbonate/Cholecalciferol (Calcium + Vitamin D 250 Mg Tablet) 500 mg PO BID [facility] Last Admin: 05/23/24 08:43 Dose: 500 mg Ferrous Sulfate (Ferrous Sulfate 324 Mg Tablet.) 324 mg PO MOWEFR [facility] Fluticasone Propionate (Fluticasone Propionate Nasal 16 Gm [place]) 2 spray NOSTRIL-B DAILY [facility] Furosemide (Furosemide 20 Mg/2 Ml Vial) 40 mg IVPUSH DAILY [facility]; Protocol Last Admin: 05/23/24 08:45 Dose: 40 mg Diltiazem HCl 125 mg/ Sodium (Chloride) 125 mls @ 0 mls/hr IVCONT .Q0M [facility]; Protocol Last Titration: 05/23/24 01:01 Dose: 0 mg/hr, 0 mls/hr Potassium Chloride (Potassium Chloride/H20) 10 meq in 100 mls @ 100 mls/hr IV Q1H [facility] Stop: 05/23/24 13:29 Leflunomide (Leflunomide 10 Mg Tablet) 20 mg PO DAILY [facility] Magnesium Hydroxide (Milk Of Magnesia 30 Ml Oral.Susp) 30 ml PO DAILY PRN PRN Reason: Constipation Melatonin (Melatonin 3 Mg Tablet) 6 mg PO BEDTIME PRN PRN Reason: Insomnia Metoprolol Tartrate (Metoprolol Tartrate 50 Mg Tablet) 150 mg PO BID [facility]; Protocol Last Admin: 05/23/24 08:52 Dose: 150 mg Non-Formulary Medication (Abiraterone) 1,000 mg PO DAILY [facility] Omeprazole (Omeprazole 40 Mg Capsule.) 40 mg PO BID@0630,1630 [facility] Last Admin: 05/23/24 05:45 Dose: 40 mg Prednisone (Prednisone 5 Mg Tablet) 5 mg PO DAILY [facility] Last Admin: 05/23/24 08:43 Dose: 5 mg Prednisone (Prednisone 20 Mg Tablet) 40 mg PO DAILY [facility] Last Admin: 05/23/24 12:07 Dose: 40 mg Rivaroxaban (Rivaroxaban 20 Mg Tablet) 20 mg PO DAILY@1700 [facility] Last Admin: 05/22/24 21:06 Dose: 20 mg Sodium Chloride (0.9 % Sodium Chloride Flush 3 Ml Syringe) 3 ml IVFLUSH QSHIFT [facility] Last Admin: 05/23/24 09:05 Dose: 3 ml Home Medications ?Medication ?Instructions ?Recorded ?Confirmed ?Last Taken ?Type leflunomide 20 mg tablet 1 tab PO DAILY 01/16/21 05/22/24 01/20/21 History omeprazole 40 mg capsule,delayed 40 mg PO BID@0630,1630 01/16/21 05/22/24 Unknown History release rosuvastatin 40 mg tablet 40 mg PO DAILY 01/16/21 05/22/24 Unknown History metoprolol tartrate 100 mg tablet 1.5 tab PO BID 01/24/21 05/22/24 Unknown History abiraterone 250 mg tablet 1,000 mg PO DAILY 05/22/24 05/22/24 Unknown History acetaminophen 325 mg tablet 650 mg PO Q6H PRN pain or fever 05/22/24 05/22/24 Unknown History bismuth subsalicylate 525 mg/15 mL 525 mg PO Q30M PRN 05/22/24 05/22/24 Unknown History oral suspension heartburn/indigestion calcium carbonate 500 mg-vitamin 1 tab PO BID 05/22/24 05/22/24 Unknown History D3 10 mcg (400 unit) chewable tablet ferrous sulfate 325 mg (65 mg 325 mg PO MOWEFR 05/22/24 05/22/24 Unknown History iron) tablet,delayed release fluticasone propionate 50 2 spray intranasal DAILY 05/22/24 05/22/24 Unknown History mcg/actuation nasal spray,suspension (Flonase Allergy Relief) furosemide 40 mg tablet 40 mg PO DAILY 05/22/24 05/22/24 Unknown History ipratropium 20 mcg-albuterol 100 1 puff inhalation Q8H PRN 05/22/24 05/22/24 Unknown History mcg/actuation mist for inhalation Shortness Of Breath Or Wheezing (Combivent Respimat) leuprolide acetate (6 month) 45 mg 45 mg IM [id number] 05/22/24 05/22/24 Unknown History intramuscular syringe kit (Lupron Depot) prednisone 5 mg tablet 5 mg PO DAILY 05/22/24 05/22/24 05/21/24 History rivaroxaban 20 mg tablet (Xarelto) 20 mg PO DAILY@1700 05/22/24 05/22/24 Unknown History Physical Exam Vital Signs: Vital Signs: Last Vital Signs Temp 97.8 F 05/23/24 08:29 Pulse 95 05/23/24 12:11 Resp 26 H 05/23/24 12:11 BP 118/69 05/23/24 12:11 Pulse Ox 95 05/23/24 12:11 O2 Del Method Room Air 05/23/24 12:11 O2 Flow Rate 95 05/23/24 08:29 BMI result Body Mass Index 29.1 GENERAL APPEARANCE: in no acute distress, frail. NECK: no carotid bruit, no jugular venous distention. SKIN: no suspicious lesions, warm and dry. HEART: no murmurs, irregular rate and rhythm. LUNGS: Mild wheezes bilaterally. ABDOMEN: soft, nontender. EXTREMITIES: no edema. PERIPHERAL PULSES: equal. NEUROLOGIC: No gross deficits, AAO X 3 Objective Labs and Meds 05/23/24 04:49 05/23/24 04:49 Lab results: Laboratory Results - last 24 hr 05/22/24 05/22/24 05/22/24 11:42 11:47 15:16 WBC RBC Hgb Hct MCV MCH MCHC RDW Plt Count MPV Immature Gran % (Auto) Neut % (Auto) Lymph % (Auto) [place] % (Auto) Eos % (Auto) Baso % (Auto) Lymph # (Auto) [place] # (Auto) Eos # (Auto) Baso # (Auto) Abs Immat Gran (auto) Absolute Neuts (auto) Absolute Nucleated RBC Nucleated RBC % (auto) Sodium Potassium Chloride Carbon Dioxide Anion Gap BUN Creatinine Estim Creat Clear Calc Estimated GFR Random Glucose Calcium Troponin I High Sens 42.8 H TSH 1.16 Urine Color Urine Appearance Urine pH Ur Specific [place] Urine Protein Urine Glucose (UA) Urine Ketones Urine Blood Urine Nitrite Ur Leukocyte Esterase Urine RBC Urine WBC Ur Squamous Epith Cells Urine Bacteria Hyaline Casts Influenza Type A (PCR) NEGATIVE Influenza Type B (PCR) NEGATIVE RSV RNA Qual (PCR) NEGATIVE SARS-CoV-2 RNA (RT-PCR) NEGATIVE 05/22/24 05/23/24 17:29 04:49 WBC 8.2 RBC 3.88 L Hgb 11.3 L Hct 33.7 L MCV 86.9 MCH 29.1 MCHC 33.5 RDW 15.5 Plt Count 153 L MPV 11.5 Immature Gran % (Auto) 0.2 Neut % (Auto) 73.1 H Lymph % (Auto) 14.0 L [place] % (Auto) 12.2 H Eos % (Auto) 0.1 Baso % (Auto) 0.4 Lymph # (Auto) 1.2 [place] # (Auto) 1.0 Eos # (Auto) 0.0 Baso # (Auto) 0.0 Abs Immat Gran (auto) 0.02 Absolute Neuts (auto) 6.0 Absolute Nucleated RBC 0.000 Nucleated RBC % (auto) 0.0 Sodium 136 Potassium 2.7 L* Chloride 100 Carbon Dioxide 25 Anion Gap 14 BUN 12 Creatinine 1.04 Estim Creat Clear Calc 44.9 Estimated GFR > 60 Random Glucose 85 Calcium 8.0 L D Troponin I High Sens TSH Urine Color Dark Yellow Urine Appearance Clear Urine pH 6.0 Ur Specific [place] 1.015 Urine Protein 100 (2+) H Urine Glucose (UA) Negative Urine Ketones 15 Urine Blood Small (1+) H Urine Nitrite Negative Ur Leukocyte Esterase Negative Urine RBC 3-5 H Urine WBC 0-5 Ur Squamous Epith Cells 0-2 Urine Bacteria None Seen Hyaline Casts 3-5 Influenza Type A (PCR) Influenza Type B (PCR) RSV RNA Qual (PCR) SARS-CoV-2 RNA (RT-PCR) Assessment and Plan (1) Atrial fibrillation with rapid ventricular response: Status: Acute (2) Acute hypokalemia: Status: Acute Plan 83-year-old gentleman presenting for weakness and significant hypokalemia. He was in AFib with RVR and is currently getting rate control. I reviewed his previous EKG from [facility] and he was in atrial fibrillation. It is possible that he is in atrial fibrillation all the time as he does not feel atrial fibrillation. Strategy will be rate controlled. He is on 150 mg p.o. b.i.d. Lopressor. That is a significantly high dose. He is also getting Cardizem on top of it. He is hypokalemic and received a digoxin load. Continues to be hypokalemic and no further digoxin should be given to him. Replete potassium and check magnesium and replete magnesium also. Start him on p.o. spironolactone 25 mg daily. This can be titrated to b.i.d. in the next 48 hours. Monitor electrolytes closely. Does not appear significantly volume overloaded to me. It is possible his volume status was worse and this before. We will follow along with you. Thank you for allowing me to participate in the care of your patient. Please feel free to contact me if you have any questions. Procedures Date of Service Date of Service: 05/23/24
[2024-05-23] MEDS: Leflunomide 10 MG TABLET 20 MG PO (12:51)
[2024-05-23] MEDS: Potassium Chloride/H20 10 MEQ/100 ML PIGGYBACK 100 MEQ IV ×2 (13:01→14:57)
[2024-05-23] MEDS: Fluticasone Propionate Nasal 16 GM SPRAY 2 SPRAY NOSTRIL-B (15:05)
--- NOTE | 2024-05-23 15:07 | PC.NURSE ---
Nasal spray delivered from pharmacy. Pt self administered 2 sprays as ordered without complication.
[2024-05-23 15:08] LABS: Magnesium 1.7 mg/dL (1.6-2.6)
[2024-05-23] MEDS: dilTIAZem HCL CD 120 MG CAP.ER.DEG PO (16:04)
[2024-05-23 16:06] LABS: Anion Gap 16 (12-20); Blood Urea Nitrogen 14 mg/dL (9-16); Calcium 7.6 mg/dL (8.4-10.2); Carbon Dioxide 21 mmol/L (22-29); Chloride 102 mmol/L (96-108); Creatinine Clr Calc Pharmacy 48.7; Estimated Glomerular Filt Rate > 60; Glucose Random 116 mg/dL (60-115); Potassium 3.5 mmol/L (3.3-5.1); Sodium 135 mmol/L (135-145)
[2024-05-23] MEDS: Rivaroxaban 20 MG TABLET PO (18:14)
[2024-05-23] MEDS: Ferrous Sulfate 324 MG TABLET.DR PO (18:15)
[2024-05-23] MEDS: Metoprolol Tartrate 100 MG TABLET PO (19:51)
[2024-05-24] VITALS (10 sets, daily range): BP systolic 96–125; BP diastolic 64–78; PULSE 70–140; RESP 14–20; TEMP 36–36.6; O2SAT 93–99
[2024-05-24] MEDS: 0.9 % Sodium Chloride Flush 3 ML SYRINGE IVFLUSH ×4 (00:34→20:24)
[2024-05-24] MEDS: Omeprazole 40 MG CAPSULE.DR PO ×2 (05:26→17:59)
[2024-05-24 06:37] LABS: Anion Gap 14 (12-20); Blood Urea Nitrogen 19 mg/dL (9-16); Calcium 7.8 mg/dL (8.4-10.2); Carbon Dioxide 22 mmol/L (22-29); Chloride 101 mmol/L (96-108); Creatinine Clr Calc Pharmacy 45.4; Estimated Glomerular Filt Rate > 60; Glucose Random 131 mg/dL (60-115); Potassium 3.3 mmol/L (3.3-5.1); Sodium 134 mmol/L (135-145)
[2024-05-24] MEDS: Leflunomide 10 MG TABLET 20 MG PO (08:33)
[2024-05-24] MEDS: dilTIAZem HCL CD 120 MG CAP.ER.DEG PO (08:34)
[2024-05-24] MEDS: Furosemide 40 MG TABLET PO (08:34)
[2024-05-24] MEDS: predniSONE 20 MG TABLET 40 MG PO (08:34)
[2024-05-24] MEDS: Metoprolol Tartrate 100 MG TABLET PO (08:34)
[2024-05-24] MEDS: Spironolactone 25 MG TABLET PO ×2 (08:34→17:59)
[2024-05-24] MEDS: Calcium + Vitamin D 250 MG TABLET 500 MG PO ×2 (08:34→20:23)
[2024-05-24] MEDS: Atorvastatin Calcium 80 MG TABLET PO (08:34)
[2024-05-24] MEDS: Magnesium Oxide 400 MG TABLET PO (08:34)
[2024-05-24] MEDS: Albuterol/Iprat 2.5/0.5MG 3 ML AMPUL.NEB INHALE ×4 (09:25→19:38)
[2024-05-24] MEDS: Potassium Chloride ER 10 MEQ TABLET.ER PO (12:08)
--- NOTE | 2024-05-24 13:12 | PM.PNCARD ---
Subjective Subjective Date of Service: 05/24/24 Interval history: Seen examined at bedside. Potassium is 3.3. He is saying he is feeling little better. Physical Exam Vital Signs: Last Vital Signs Temp 97.2 F 05/24/24 10:47 Pulse 91 05/24/24 12:31 Resp 18 05/24/24 12:31 BP 108/78 05/24/24 10:47 Pulse Ox 96 05/24/24 10:52 O2 Del Method Room Air 05/24/24 10:47 O2 Flow Rate 95 05/23/24 08:29 BMI result Body Mass Index 29.1 GENERAL APPEARANCE: in no acute distress, frail. NECK: no carotid bruit, no jugular venous distention. SKIN: no suspicious lesions, warm and dry. HEART: no murmurs, irregular rate and rhythm. LUNGS: Clear to auscultation bilaterally. ABDOMEN: soft, nontender. EXTREMITIES: no edema. PERIPHERAL PULSES: equal. NEUROLOGIC: No gross deficits, AAO X 3 Objective Labs and Meds 05/23/24 04:49 05/24/24 05:44 Lab results: Laboratory Results - last 24 hr 05/23/24 05/23/24 05/24/24 04:49 15:40 05:44 Sodium 135 134 L Potassium 3.5 D 3.3 Chloride 102 101 Carbon Dioxide 21 L 22 Anion Gap 16 14 BUN 14 19 H Creatinine 0.96 1.03 Estim Creat Clear Calc 48.7 45.4 Estimated GFR > 60 > 60 Random Glucose 116 H 131 H Calcium 7.6 L 7.8 L Magnesium 1.7 Progress Note: A&P Assessment and plan (1) Acute hypokalemia: Status: Acute (2) Atrial fibrillation with rapid ventricular response: Status: Acute Plan [age] gentleman with AFib with RVR and diastolic heart failure. He was diuresed and clinically appears to be fairly euvolemic at this stage. Please resume home dose of furosemide 40 mg daily. Spironolactone has been added and should be titrated. Change metoprolol tartrate to 200 mg of metoprolol succinate daily. Target heart rates below 110. He is feeling better with potassium repletion. He has chronic issues including prostate cancer and rheumatoid arthritis and appears significantly deconditioned. We will follow along with you. Thank you for allowing me to participate in the care of your patient. Please feel free to contact me if you have any questions. Time Spent With Patient Time: Total time managing care of this patient today ____ minutes. Progress Note: Quality Stroke Does the patient have a stroke diagnosis?: No Procedures Date of Service Date of Service: 05/24/24
--- NOTE | 2024-05-24 13:23 | MHC.CM.PN ---
PT is recommending home with services vs STR; CM will follow.
--- NOTE | 2024-05-24 15:42 | HO.PM.IMPN ---
Subjective Subjective Date of Service: 05/24/24 Interval History: afib rvr weakness Review of Systems sob seems improving denies any chest pain or palpatations seems genralised weak Physical Exam Vital Signs: Vital Signs: Last Vital Signs Temp 97.8 F 05/24/24 15:26 Pulse 100 05/24/24 15:42 Resp 14 05/24/24 15:42 BP 125/73 05/24/24 15:26 Pulse Ox 96 05/24/24 15:26 O2 Del Method Room Air 05/24/24 15:26 O2 Flow Rate 95 05/23/24 08:29 BMI result Body Mass Index 29.1 Appearance: Alert.? Oriented . cvs: rrr, [id number]. res: clear to auscultation ,no rhonchii or wheezing abd: no rebound or guarding ,nt, bs present. ext pulses present , no cyanosis. neuro: nonfocal. Objective Data Active Medications Acetaminophen (Acetaminophen 325 Mg Tablet) 650 mg PO Q6H PRN PRN Reason: Pain, Mild (Pain Scale 1-3), fever or headache Albuterol/Ipratropium (Albuterol/Iprat 2.5/0.5mg 3 Ml Ampul.Neb) 3 ml INHALE Q8H PRN PRN Reason: Shortness Of Breath Or Wheezing Albuterol/Ipratropium (Albuterol/Iprat 2.5/0.5mg 3 Ml Ampul.Neb) 3 ml INHALE RQ4H WHILE [facility]WAKE [facility] Last Admin: 05/24/24 15:31 Dose: 3 ml Documented By: GRZEGORZ Atorvastatin Calcium (Atorvastatin Calcium 80 Mg Tablet) 80 mg PO DAILY [facility] Last Admin: 05/24/24 08:34 Dose: 80 mg Documented By: BRE Calcium Carbonate (Calcium Carbonate 750 Mg Tab.Chew) 750 mg PO Q4H PRN PRN Reason: Heartburn Calcium Carbonate/Cholecalciferol (Calcium + Vitamin D 250 Mg Tablet) 500 mg PO BID [facility] Last Admin: 05/24/24 08:34 Dose: 500 mg Documented By: BRE Diltiazem HCl (Diltiazem Hcl Cd 120 Mg Cap.Er.Deg) 120 mg PO DAILY [facility]; Protocol Last Admin: 05/24/24 08:34 Dose: 120 mg Documented By: BRE Ferrous Sulfate (Ferrous Sulfate 324 Mg Tablet.) 324 mg PO MOWEFR [facility] Last Admin: 05/23/24 18:15 Dose: 324 mg Documented By: CASSANDRA Fluticasone Propionate (Fluticasone Propionate Nasal 16 Gm [place]) 2 spray NOSTRIL-B DAILY [facility] Last Admin: 05/24/24 12:09 Dose: Not Given Documented By: BRE Non-Admin Reason: IV Running Furosemide (Furosemide 40 Mg Tablet) 40 mg PO DAILY [facility]; Protocol Last Admin: 05/24/24 08:34 Dose: 40 mg Documented By: BRE Leflunomide (Leflunomide 10 Mg Tablet) 20 mg PO DAILY [facility] Last Admin: 05/24/24 08:33 Dose: 20 mg Documented By: BRE Magnesium Hydroxide (Milk Of Magnesia 30 Ml Oral.Susp) 30 ml PO DAILY PRN PRN Reason: Constipation Magnesium Oxide (Magnesium Oxide 400 Mg Tablet) 400 mg PO DAILY [facility] Last Admin: 05/24/24 08:34 Dose: 400 mg Documented By: BRE Melatonin (Melatonin 3 Mg Tablet) 6 mg PO BEDTIME PRN PRN Reason: Insomnia Non-Formulary Medication (Abiraterone) 1,000 mg PO DAILY [facility] Omeprazole (Omeprazole 40 Mg Capsule.) 40 mg PO BID@0630,1630 [facility] Last Admin: 05/24/24 05:26 Dose: 40 mg Documented By: LEONIDAS Potassium Chloride (Potassium Chloride Er 10 Meq Tablet.Er) 10 meq PO DAILY [facility] Last Admin: 05/24/24 12:08 Dose: 10 meq Documented By: BRE Prednisone (Prednisone 20 Mg Tablet) 40 mg PO DAILY [facility] Last Admin: 05/24/24 08:34 Dose: 40 mg Documented By: BRE Rivaroxaban (Rivaroxaban 20 Mg Tablet) 20 mg PO DAILY@1700 [facility] Last Admin: 05/23/24 18:14 Dose: 20 mg Documented By: CASSANDRA Sodium Chloride (0.9 % Sodium Chloride Flush 3 Ml Syringe) 3 ml IVFLUSH QSHIFT [facility] Last Admin: 05/24/24 08:35 Dose: 3 ml Documented By: BRE Spironolactone (Spironolactone 25 Mg Tablet) 25 mg PO BIDWM [facility]; Protocol Labs 05/23/24 04:49 05/24/24 05:44 Labs: Laboratory Results - last 24 hr 05/23/24 05/24/24 15:40 05:44 Anion Gap 16 14 Estim Creat Clear Calc 48.7 45.4 Estimated GFR > 60 > 60 Random Glucose 116 H 131 H Calcium 7.6 L 7.8 L Assessment and Plan (1) New onset of congestive heart failure: Status: Acute (2) Acute hypokalemia: Status: Acute (3) Atrial fibrillation with rapid ventricular response: Status: Acute Plan 83-year-old male with history of COPD, hypertension, hypercholesterolemia, CKD stage 3, rheumatoid arthritis, coronary artery disease, paroxysmal atrial fibrillation anticoagulated with Xarelto, and recurrent metastatic prostate cancer on palliative chemotherapy with abiraterone and lupron (Drs. Alva and Dr. Monroy) admitted for atrial fibrillation with rvr and new onset CHF Paroxysmal atrial fibrillation with RVR Rates improved, mostly in 80-90 adjusted metoprolol to 100 mg twice daily, add diltiazem CD 120 mg daily. continue xarelto for ac cardiology following heart failure preserved ejection fraction-volume status improved. No further orthopnea. cxr negative. BNP 204 echo shows normal LV systolic function, EF not specified with mildly reduced right ventricular function plan: strict I&O received IV Lasix. Resume 40 mg p.o. Lasix and adjusted spironolactone 25 mg b.i.d. per Cardiology follow renal function/lytes Hypokalemia recived potassium-improved in addition spironolactone adjusted COPD with exacerbation. Ongoing wheezing, less likely related to volume overload no hypoxia. continue nebs,steriods. Elevated troponins -likely demand due to HR -trops flat, ekg without raffaele or depressions. No cp -continue Xarelto weakness-improving -possibly related to hypokalemia. PT eval-?need rehab HTN-continue hctz, metoprolol Metastatic prostate ca -follows with Dr. Brantley ([facility] onc) and Dr. Monroy (urology) -palliative chemo with abiraterone and lupron CKD stage 3 -renal function baseline RA -continue leflunomide CAD/HLD -no cp -continue asa, statin, bb dvt prophylaxis- xarelto full code ongoing inpatient stay due to atrial fibrillation with RVR, CHF exacerbation and COPD exacerbation-continue nebs ,setriods ,r Quality Stroke Does the patient have a stroke diagnosis?: No VTE Prior VTE?: No VTE Risk Level:: Medical - moderate - high VTE Device Contraindication: Treatment Not Indicated VTE Drug Contraindication: N/A - Med Ordered
[2024-05-24] MEDS: Rivaroxaban 20 MG TABLET PO (18:02)
[2024-05-24] MEDS: Fluticasone Propionate Nasal 16 GM SPRAY 2 SPRAY NOSTRIL-B (20:24)
[2024-05-24] MEDS: Melatonin 3 MG TABLET 6 MG PO (22:20)
[2024-05-25] VITALS (7 sets, daily range): BP systolic 108–126; BP diastolic 66–84; PULSE 78–90; RESP 15–18; TEMP 36.3–36.9; O2SAT 94–98
[2024-05-25] MEDS: Omeprazole 40 MG CAPSULE.DR PO (06:30)
[2024-05-25] MEDS: Albuterol/Iprat 2.5/0.5MG 3 ML AMPUL.NEB INHALE ×3 (07:45→15:24)
[2024-05-25] MEDS: Calcium + Vitamin D 250 MG TABLET 500 MG PO (07:54)
[2024-05-25] MEDS: Leflunomide 10 MG TABLET 20 MG PO (07:54)
[2024-05-25] MEDS: predniSONE 20 MG TABLET 40 MG PO (07:54)
[2024-05-25] MEDS: Atorvastatin Calcium 80 MG TABLET PO (07:54)
[2024-05-25] MEDS: Spironolactone 25 MG TABLET PO (07:54)
[2024-05-25] MEDS: Furosemide 40 MG TABLET PO (07:54)
[2024-05-25] MEDS: 0.9 % Sodium Chloride Flush 3 ML SYRINGE IVFLUSH (07:55)
[2024-05-25] MEDS: Magnesium Oxide 400 MG TABLET PO (07:55)
[2024-05-25] MEDS: dilTIAZem HCL CD 120 MG CAP.ER.DEG PO (07:55)
[2024-05-25 11:06] LABS: Potassium 3.4 mmol/L (3.3-5.1)
[2024-05-25] MEDS: Metoprolol Succinate ER 100 MG TAB.ER.24H 200 MG PO (11:06)
[2024-05-25] MEDS: Fluticasone Propionate Nasal 16 GM SPRAY 2 SPRAY NOSTRIL-B (11:07)
--- NOTE | 2024-05-25 12:09 | MHC.CM.PN ---
Per MD, Patient is medically cleared for dc to SNF/[facility] today. Patient has accepted [facility]'s bed offer and he will dc there today at 4PM, via [facility]. Last IMM addressed on 05/23/2024. ANNIE spoke with Patient's Nephew/Davide @ [phone], who will be bringing Patient's Chemo med (Abiraterone) here to [facility] for Patient to take with him at the SNF.
--- NOTE | 2024-05-25 12:38 | P.DS_ITS ---
DS: Providers Provider Date of Service: 05/25/24 Date of admission: 05/22/24 17:55 Date of discharge: 05/25/24 Primary care physician: Justus Tinoco MD Consults: 05/22/24 17:55 Consult to Cardiology Routine Consulting Provider[place] [facility] [place] Reason for consultation: afib rvr, chf Attending physician on discharge: Lincoln Camacho Discharging clinician: Lincoln Camacho DS: Diagnosis Discharge Diagnosis (1) New onset of congestive heart failure: Status: Acute (2) Acute hypokalemia: Status: Acute (3) Atrial fibrillation with rapid ventricular response: Status: Acute DS: Summary Hospital Course Hospital Course: HPI: 83-year-old male with history of COPD, hypertension, hypercholesterolemia, CKD stage 3, rheumatoid arthritis, coronary artery disease, paroxysmal atrial fibrillation anticoagulated with Xarelto, and recurrent metastatic prostate cancer on palliative chemotherapy with abiraterone and lupron (Drs. Alva and Dr. Rebollar) presented to the ED earlier today for evaluation of significant generalized weakness ongoing x 5 days. He states he has been so weak he has been unable to roll over in bed and walking is very difficulty. He has had dyspnea and lightheadedness with exertion and orthopnea and reports BLE edema ongoing x 5 months. Denies weight gain, PND, palpitations, or chest pain. No sob at rest. No fevers, chills, recent illness. No abd pain, n/v/d, melena, hematochezia, dysuria, hematuria, increased urinary frequency, change in cough (has chronic cough). Since arrival, has been tachycardic to 180, tachypneic. No hypotension or fevers. There is no leukocytosis. He has a stable normocytic anemia with H/H 12.4/36.6%. Renal function is baseline, electrolyte levels normal except for potassium 2.7. Total bilirubin 1.2, AST 138, ALT 25, alkaline phosphatase 216. Initial troponin 39.8, repeat 42.8. Urinalysis with small amount of blood and 2+ protein, otherwise unremarkable. Negative for COVID, RSV, flu. Chest x- ray unremarkable. EKG shows atrial fibrillation with RVR, rate 154 without any ANI or depressions. In the ED has received multiple pushes IV dilt and has been started on dilt drip. He also received IV KCl 20meq and 1L IVF. Hospital course: 83-year-old male with history of COPD, hypertension, hypercholesterolemia, CKD stage 3, rheumatoid arthritis, coronary artery disease, paroxysmal atrial fibrillation anticoagulated with Xarelto, and recurrent metastatic prostate cancer on palliative chemotherapy with abiraterone and lupron (Drs. Alva and Dr. Rebollar) admitted for atrial fibrillation with rvr and new onset CHF : Received IV diuretics, diuresed well, his symptoms are improved significantly. For AFib started on beta-isreal, digoxin load-subsequently digoxin was stopped because of hypokalemia. Subsequently his metoprolol adjusted to 100 mg b.i.d. and transition to 200 mg daily. For hypokalemia initially received potassium replacement and then subsequently was started on spironolactone: Potassium seems to be improved. Also continue magnesium 400 mg p.o. daily. Monitor BMP,bnp and magnesium in 1 week. plan: Monitor BMP,bnp and magnesium in 1 week. started on spironolactone 25 mg po bid. complete prednisone 40 mg po daily for 4 days ,then switch to his home prednisone dose 5 mg po daily. metoprolol ER 200 mg daily checked with Dr rebollar's office -patient will need next luprone on 08/25/24. also checked with Dr ponce's office -continue his po abiratrone , prednisone . Monitor I&O and daily weights, CHF education given, if gains weight 2 lb or more in 1 week may need outpatient adjustment of diuretics. Patient is to follow-up with PCP and Cardiology outpatient, cardiology may arrange their own appointment. Above management discussed with the patient in detail length he understand and in agreement with the above plan, time spent 40 min. Time Attestation Total time managing care of this patient today: 40 mintues. Discharge Coordination Time (in mins): 40 min Quality: Safe Use of Opioids Does Pt have an Active Cancer Diagnosis on the Problem List?: No Quality: Stroke Does the patient have a stroke diagnosis?: No Physical Exam Vital Signs: Vital Signs: Last Vital Signs Temp 98.4 F 05/25/24 10:57 Pulse 86 05/25/24 11:34 Resp 18 05/25/24 11:34 BP 125/70 05/25/24 10:57 Pulse Ox 96 05/25/24 10:57 O2 Del Method Room Air 05/25/24 10:57 O2 Flow Rate 95 05/23/24 08:29 BMI result Body Mass Index 29.1 Appearance: Alert.? Oriented . cvs: rrr, [id number]. res: clear to auscultation ,no rhonchii or wheezing abd: no rebound or guarding ,nt, bs present. ext pulses present , no cyanosis. neuro: nonfocal. DS: Data Data Completed and Pending Labs on day of discharge: Laboratory Results - last 24 hr 05/25/24 10:40 Potassium 3.4 Imaging Chest x-ray: Radiologist's impression: ITS Impressions Chest X-Ray 05/22/24 11:40 IMPRESSION: Unremarkable examination. Electronically signed by: Saritha Duarte MD 05/22/2024 12:05 PM EDT RP Discharge Plan Discharge Anticipated Discharge Date/Time: 05/25/24 12:21 Patient Disposition: Xfer SNF Discharge Diagnosis: chf ,hypokalemia Referrals: [facility] [Outside] - 1 Week Justus Tinoco MD [Primary Care Provider] - 1 Week Discharge Medications: New prednisone 20 mg Tablet 40 mg PO DAILY Qty: 8 0RF spironolactone 25 mg Tablet 25 mg PO BIDWM Qty: 1 0RF Protocol: Hold for SBP< HOLD for SBP < : 90 magnesium oxide 400 mg (241.3 mg magnesium) Tablet 400 mg PO DAILY Qty: 1 0RF metoprolol succinate 100 mg Tablet Extended Release 24 Hr 200 mg PO DAILY Qty: 1 0RF Protocol: Hold for SBP/HR < HOLD for SBP < : 90 HOLD for HR < : 60 Continued omeprazole 40 mg capsule,delayed release(DR/EC) 40 mg PO BID@0630,1630 leflunomide 20 mg tablet 1 tab PO DAILY rosuvastatin 40 mg tablet 40 mg PO DAILY furosemide 40 mg tablet 40 mg PO DAILY acetaminophen 325 mg Tablet 650 mg PO Q6H PRN (Reason: pain or fever) ferrous sulfate 325 mg (65 mg iron) Tablet,Delayed Release (Dr/Ec) 325 mg PO MOWEFR fluticasone propionate [Flonase Allergy Relief] 50 mcg/actuation [place],Suspension 2 spray INTRANASAL DAILY Rx Instructions: administer into each nostril bismuth subsalicylate 525 mg/15 mL Suspension 525 mg PO Q30M PRN (Reason: heartburn/indigestion) Rx Instructions: do not exceed 8 doses in a 24 hour period calcium carbonate-vitamin D3 500 mg-10 mcg (400 unit) tablet,chewable 1 tab PO BID abiraterone 250 mg tablet 1,000 mg PO DAILY Lupron Depot (6 Month) 45 mg Syringe Kit 45 mg IM [id number] Xarelto 20 mg tablet 20 mg PO DAILY@1700 Combivent Respimat 20-100 mcg/actuation mist 1 puff inhalation Q8H PRN (Reason: Shortness Of Breath Or Wheezing) Held prednisone 5 mg tablet 5 mg PO DAILY Hold Instructions: Resume on 05/29/24. Discontinued metoprolol tartrate 100 mg tablet 1.5 tab PO BID Discharge Orders: Discharge Order (Routine); Ordered 05/25/24 Ordered By: Lincoln Camacho Diet: Advance to usual diet Activity on Discharge: As tolerated Stand Alone Forms: Patient Portal Discharge page Print Language: Ukrainian Care Plan Goals: 83-year-old male with history of COPD, hypertension, hypercholesterolemia, CKD stage 3, rheumatoid arthritis, coronary artery disease, paroxysmal atrial fibrillation anticoagulated with Xarelto, and recurrent metastatic prostate cancer on palliative chemotherapy with abiraterone and lupron (Drs. Alva and Dr. Rebollar) admitted for atrial fibrillation with rvr and new onset CHF : Received IV diuretics, diuresed well, his symptoms are improved significantly. For AFib started on beta-isreal, digoxin load-subsequently digoxin was stopped because of hypokalemia. Subsequently his metoprolol adjusted to 100 mg b.i.d. and transition to 200 mg daily. For hypokalemia initially received potassium replacement and then subsequently was started on spironolactone: Potassium seems to be improved. Also continue magnesium 400 mg p.o. daily. Monitor BMP,bnp and magnesium in 1 week. Monitor I&O and daily weights, CHF education given, if gains weight 2 lb or more in 1 week may need outpatient adjustment of diuretics. Patient is to follow-up with PCP and Cardiology outpatient, cardiology may arr sunshine their own appointment. Health Concerns: Monitor BMP,bnp and magnesium in 1 week. started on spironolactone 25 mg po bid. complete prednisone 40 mg po daily for 4 days ,then switch to his home prednisone dose 5 mg po daily. Adjuated metoprolol ER 200 mg daily checked with Dr rebollar's office -patient will need next luprone on 08/25/24. also checked with Dr ponce's office -continue his po abiratrone , prednisone . Plan of Treatment: as above. Assessment: as above.
--- NOTE | 2024-05-25 13:24 | P.CDIM_ITS ---
PROVIDER RESPONSE TEXT: To clarify, the appropriate diagnosis supported by the clinical indicators: Other (explain): calcium is normal when corrected for albumin QUERY TEXT: PHYSICIAN'S DOCUMENTATION REQUEST Date of Query: 05/25/2024 08:13 AM EDT Patient Name: HERB RAMSAY Admit Date: 05/22/2024 Dear Lincoln Camacho MD, A review of the medical record indicates additional documentation may be needed. Please review below and update the documentation accordingly. Clinical Indicators: LABS: calcium 7.6 L 7.8 L Based on the above, is there a diagnosis that correlates with these lab findings: Hypocalcemia possible, probable, suspected, resolved etc. Labs indicate a diagnosis of (please specify) Other (explain) Clinically unable to determine (explain) Thank you, Roopa Matamoros, CCS, CDIS Use of terms such as suspected, likely, concern for, or probable (associated with a specific diagnosi s that is being evaluated, monitored, or treated as if it exists) are acceptable and can be coded in the inpatient se tting, when documented at the time of discharge. Please use your independent medical judgment in providing your response. THIS QUERY IS PART OF THE PERMANENT MEDICAL RECORD
== END 2024-05-25 17:11 | disposition skilled nursing facility (03) | DRG 308 ==
LOC: HO.ED 11:56 → HO.EDOVER 18:03 → HO.IMC 05-23 17:26
PROVIDERS: Admitting Provider Physician Assistant; Emergency Provider Emergency Medicine Emergency Medical Services; PCP Internal Medicine; Visit Provider Internal Medicine
DX: I48.0 Paroxysmal atrial fibrillation (principal); I50.31 Acute diastolic (congestive) heart failure; I13.0 Hypertensive heart and chronic kidney disease with heart failure and stage 1 through stage 4 chronic kidney disease, or unspecified chronic kidney disease; C79.51 Secondary malignant neoplasm of bone; J44.1 Chronic obstructive pulmonary disease with (acute) exacerbation; I25.10 Atherosclerotic heart disease of native coronary artery without angina pectoris; M06.9 Rheumatoid arthritis, unspecified; N18.30 Chronic kidney disease, stage 3 unspecified; E87.6 Hypokalemia; E78.5 Hyperlipidemia, unspecified; C61 Malignant neoplasm of prostate; Z20.822 Contact with and (suspected) exposure to COVID-19; Z95.5 Presence of coronary angioplasty implant and graft; Z87.891 Personal history of nicotine dependence; Z79.01 Long term (current) use of anticoagulants; Z79.51 Long term (current) use of inhaled steroids; Z79.52 Long term (current) use of systemic steroids; Z79.818 Long term (current) use of other agents affecting estrogen receptors and estrogen levels; Z79.899 Other long term (current) drug therapy
CPT/HCPCS: 0241U; 36415; 71045; 80048; 80053; 81001; 83605; 83690; 83735; 83880; 84132; 84443; 84484; 85025; 85610; 85730; 93005; 93306; 94640; 97116; 97162; 99285; J1160; J1940; J3480; Q9957

== ENCOUNTER 2024-05-22 17:55 | Outpatient (BNV) | payer MEDICARE, SELFPAY | END 2024-05-23 07:00 | PROVIDERS: Admitting Provider Physician Assistant; Emergency Provider Emergency Medicine Emergency Medical Services; PCP Internal Medicine; Visit Provider Internal Medicine Cardiovascular Disease | DX: I35.8 Other nonrheumatic aortic valve disorders (principal) | CPT/HCPCS: 93306 ==

== ENCOUNTER → 2024-05-22 17:55 | Outpatient (BNV) | payer MEDICARE, SELFPAY | PROVIDERS: Admitting Provider Physician Assistant; Emergency Provider Emergency Medicine Emergency Medical Services; PCP Internal Medicine; Visit Provider Physician Assistant | DX: I48.0 Paroxysmal atrial fibrillation (principal); I50.9 Heart failure, unspecified; E87.6 Hypokalemia | CPT/HCPCS: 99223; 99232; 99239; 99499 ==

== ENCOUNTER → 2024-05-22 17:55 | Outpatient (BNV) | payer MEDICARE, SELFPAY | PROVIDERS: Admitting Provider Physician Assistant; Emergency Provider Emergency Medicine Emergency Medical Services; PCP Internal Medicine; Visit Provider Internal Medicine Cardiovascular Disease | DX: I48.91 Unspecified atrial fibrillation (principal); E87.6 Hypokalemia | CPT/HCPCS: 99223; 99232 ==

== ENCOUNTER 2024-05-26 06:50 | Outpatient (REF) | payer SELFPAY ==
[2024-05-26 06:53] LABS: MANUAL DIFF FLAG NO
[2024-05-26 07:14] LABS: Basophils Percent Auto 0.1 % (0-2); Hematocrit 31.5 % (42.0-52.0); Hemoglobin 10.9 g/dl (14.0-18.0); Imm Gran Abs Auto 0.04 X10*3/uL (0.00-0.03); Imm Gran Pct Auto 0.4 % (0.0-0.4); Lymphocytes Absolute Auto 0.7 X10*3/uL (1.2-4.9); Lymphocytes Percent Auto 7.1 % (20-40); Mean Corpuscular HGB Conc 34.6 g/dl (31.0-36.0); Mean Corpuscular Hemoglobin 29.5 pg (27.0-33.0); Mean Corpuscular Volume 85.1 fL (80.0-98.0); Mean Platelet Volume 11.2 fL (9.4-12.4); Monocytes Absolute Auto 0.8 X10*3/uL (0.1-1.2); Monocytes Percent Auto 8.3 % (2-11); Neutrophils Absolute Auto 7.7 x10*3/uL (2.0-8.3); Neutrophils Percent Auto 84.1 % (45-73); Platelet Count 214 X10*3/uL (160-400); Red Cell Distribution Width 15.2 % (11.0-16.0); White Blood Count 9.1 X10*3/uL (4.8-10.8)
[2024-05-26 07:27] LABS: Alanine Aminotransferase 30 U/L (0-40); Albumin Level 2.4 g/dL (3.5-5.0); Alkaline Phosphatase 223 U/L (39-117); Anion Gap 13 (12-20); Aspartate Amino Transferase 93 U/L (5-37); Bilirubin Total 0.6 mg/dL (0.0-1.0); Blood Urea Nitrogen 31 mg/dL (9-16); Calcium 8.3 mg/dL (8.4-10.2); Carbon Dioxide 26 mmol/L (22-29); Chloride 100 mmol/L (96-108); Estimated Glomerular Filt Rate 52; Glucose Random 110 mg/dL (60-115); Sodium 135 mmol/L (135-145); Total Protein 4.9 g/dL (6.5-8.0)
== END 2024-05-26 06:51 | disposition home or self-care (01) ==
LOC: HO.MMNH1L 06:50
PROVIDERS: Visit Provider Hospitalist
DX: I48.91 Unspecified atrial fibrillation (principal); I50.9 Heart failure, unspecified; I25.10 Atherosclerotic heart disease of native coronary artery without angina pectoris
CPT/HCPCS: 36415; 80053; 85025

== ENCOUNTER 2024-05-30 06:27 | Outpatient (REF) | payer SELFPAY ==
[2024-05-30 06:13] LABS: MANUAL DIFF FLAG NO
[2024-05-30 07:04] LABS: Hematocrit 35.1 % (42.0-52.0); Hemoglobin 11.6 g/dl (14.0-18.0); Imm Gran Abs Auto 0.06 X10*3/uL (0.00-0.03); Imm Gran Pct Auto 0.6 % (0.0-0.4); Lymphocytes Percent Auto 10.8 % (20-40); Mean Corpuscular Hemoglobin 29.1 pg (27.0-33.0); Mean Platelet Volume 10.4 fL (9.4-12.4); Monocytes Absolute Auto 0.9 X10*3/uL (0.1-1.2); Monocytes Percent Auto 9.4 % (2-11); Neutrophils Absolute Auto 7.6 x10*3/uL (2.0-8.3); Neutrophils Percent Auto 79.2 % (45-73); Platelet Count 309 X10*3/uL (160-400); Red Blood Count 3.99 X10*6/uL (4.60-5.80); Red Cell Distribution Width 16.2 % (11.0-16.0); White Blood Count 9.5 X10*3/uL (4.8-10.8)
[2024-05-30 07:20] LABS: B Type Natriuretic Peptide 461 pg/mL (<100)
[2024-05-30 07:37] LABS: Anion Gap 9 (12-20); Blood Urea Nitrogen 26 mg/dL (9-16); Calcium 8.3 mg/dL (8.4-10.2); Carbon Dioxide 29 mmol/L (22-29); Chloride 104 mmol/L (96-108); Estimated Glomerular Filt Rate > 60; Glucose Random 82 mg/dL (60-115); Magnesium 2.1 mg/dL (1.6-2.6); Sodium 138 mmol/L (135-145)
== END 2024-05-30 06:28 | disposition home or self-care (01) ==
LOC: HO.MMNH1L 06:27
PROVIDERS: Visit Provider Hospitalist
DX: I48.91 Unspecified atrial fibrillation (principal); I25.10 Atherosclerotic heart disease of native coronary artery without angina pectoris; I50.9 Heart failure, unspecified
CPT/HCPCS: 36415; 80048; 83735; 83880; 85025

== ENCOUNTER 2024-06-24 12:37 | Inpatient (IN) | payer MEDICARE, SELFPAY ==
[2024-06-24] VITALS (11 sets, daily range): BP systolic 97–123; BP diastolic 47–72; PULSE 68–126; RESP 18–27; TEMP 36.3–38.1; O2SAT 93–98; BMI 27.1; BMI 25.5
--- NOTE | ~2024-06-24 | XR_ITS ---
EXAMINATION: XR CHEST CLINICAL INFORMATION: Central line in place COMPARISON: Radiograph of earlier the same day TECHNIQUE: Frontal view of the chest was obtained. FINDINGS: Right IJ central venous catheter tip projects over the SVC. Endotracheal tube tip is approximately 2 cm from the pamella. Enteric tube tip is below the diaphragm with the side port at the level of the gastroesophageal junction, similar to prior. The fibular pads in place. Cardiomediastinal silhouette is stable. Clear lungs without consolidation, pleural effusion or pneumothorax. Degenerative changes of both shoulders. XR/XR chest 1V IMPRESSION: 1. Right IJ central venous catheter tip projects over the SVC. No pneumothorax. 2. Enteric tube tip is below the diaphragm with the side port at the level of the gastroesophageal junction. Electronically signed by: Chaka Singh MD 06/26/2024 01:30 PM [facility]
--- NOTE | ~2024-06-24 | XR_ITS ---
EXAMINATION: XR CHEST CLINICAL INFORMATION: Wheezing COMPARISON: Chest x-ray on 05/22/2024 TECHNIQUE: 2 views of the chest were obtained. FINDINGS: The cardiac silhouette is normal. There is mild diffuse bronchial wall thickening. There are no areas of consolidation. There are no pleural effusions or pneumothoraces. The bones and soft tissues are unremarkable for the patient's age. XR/XR chest 2V IMPRESSION: Bronchial wall thickening may be infectious and/or inflammatory in etiology. Electronically signed by: Vivienne Sanz MD 06/24/2024 03:21 PM EDT
--- NOTE | ~2024-06-24 | XR_ITS ---
EXAMINATION: XR CHEST CLINICAL INFORMATION: Fever, tachypnea. COMPARISON: None available. TECHNIQUE: Frontal view of the chest was obtained. FINDINGS: No significant abnormality is noted involving the heart, lungs, mediastinum, bony thorax or soft tissues. XR/XR chest 1V IMPRESSION: Unremarkable chest examination. Electronically signed by: Dorian Nicholas MD 06/26/2024 08:38 AM [facility] [place]
--- NOTE | ~2024-06-24 | MR_ITS ---
EXAMINATION: MR BRAIN WITHOUT AND WITH CONTRAST CLINICAL INFORMATION: Encephalopathy COMPARISON: None available. TECHNIQUE: Multiplanar, multisequence MRI of the brain was obtained before and after the intravenous administration of 7 mL gadolinium without reported immediate complications. FINDINGS: No restricted diffusion. No acute intracranial hemorrhage, mass effect, midline shift, hydrocephalus or herniation. Colby-white matter differentiation is normal. Susceptibility signal abnormality involving the dentate nuclei, bilaterally demonstrated focal central enhancement on the left dentate nucleus. Small vascular enhancing structure in the right parietal lobe extending into the subependymal right lateral ventricle. Bilateral multifocal patchy deep periventricular white matter hyperintense T2 FLAIR signal involving centrum semiovale, schwarz radiata, ventral medulla oblongata and jenna. Flow-void signal within the main cerebral vessels is normal. Sellar/suprasellar region demonstrated no signal abnormality or enhancing mass. Bilateral, supratentorial compartment susceptibility signal foci. Prominence of the extra-axial CSF spaces, cerebral sulci and ventricles. Multifocal old lacunar infarcts in the basal ganglia with the cribriform pattern. Craniocervical junction is intact and normal. MR/MR head/brain wo/w con IMPRESSION: No acute stroke/nonhemorrhagic ischemia. Old blood products versus calcifications in the dentate nuclei with associated enhancement. Underlying acute inflammatory versus infectious processes cannot be excluded. Small vessel occlusive disease. Developmental venous anomaly, right parietal lobe. Old blood products suggesting hypertensive etiology versus a amyloid angiopathy Electronically signed by: Aguila Avendaño MD 06/28/2024 07:49 AM EST
--- NOTE | ~2024-06-24 | US_ITS ---
EXAMINATION: US ABDOMEN LIMITED CLINICAL INFORMATION: Transaminitis. Elevated alkaline phosphatase. COMPARISON: None available. TECHNIQUE: Real-time imaging of the right upper quadrant abdominal viscera. FINDINGS: PANCREAS: Not well seen due to overlying bowel gas. LIVER: Diffusely heterogeneous hepatic parenchymal with nodular contour and multiple hyperechoic foci. No periductal dilatation. GALLBLADDER: Echogenic foci within the gallbladder fundus with ring down artifact which could represent adenomyomatosis. No gallbladder wall thickening or pericholecystic free fluid to suggest acute cholecystitis. No gallstones or sludge. COMMON BILE DUCT: Normal in caliber measuring 0.3 cm in diameter. RIGHT KIDNEY: Unremarkable. No hydronephrosis. No renal calculi or focal parenchymal lesions. The kidney measures 10 cm in maximum dimension. FREE FLUID: None. US/US abdomen limited IMPRESSION: 1. Heterogeneous hepatic parenchymal with nodular contour and multiple hyperechoic foci. Findings are nonspecific, but can be seen in the setting of hepatic metastases or cirrhosis. No intrahepatic or extrahepatic biliary ductal dilatation. 2. Echogenic foci within the gallbladder fundus with ring down artifact which could represent adenomyomatosis. No cholelithiasis, gallbladder wall thickening, or pericholecystic free fluid to suggest acute cholecystitis. 3. Pancreas not well seen due to overlying bowel gas. Electronically signed by: Kwan Duke MD 06/27/2024 12:57 PM [facility] [place]
--- NOTE | ~2024-06-24 | XR_ITS ---
EXAMINATION: XR CHEST CLINICAL INFORMATION: Placement of OGD and ETT COMPARISON: None available. TECHNIQUE: Frontal view of the chest was obtained. FINDINGS: The lungs are well-expanded and clear. The heart size and pulmonary vascularity is normal. Tip of endotracheal tube is 2.2 cm above the pamella. Enteric tube tip is in the fundus. The end hole is at the GE junction and needs to be advanced by 5 cm. No gross bony abnormality seen. XR/XR chest 1V IMPRESSION: 1. Tip of endotracheal tube is 2.2 cm above the pamella. 2. Enteric tube tip is in the fundus. The end hole is at the GE junction and needs to be advanced by 5 cm. Electronically signed by: Dorian Nicholas MD 06/26/2024 09:21 AM [facility]
--- NOTE | 2024-06-24 12:46 | ECG_ITS ---
Test Reason : low mag Blood Pressure : / mmHG Vent. Rate : 119 BPM Atrial Rate : 000 BPM P-R Int : 000 ms QRS Dur : 080 ms QT Int : 310 ms P-R-T Axes : 000 -23 -15 degrees QTc Int : 436 ms Atrial fibrillation with rapid ventricular response with premature ventricular or aberrantly conducted complexes Nonspecific ST and T wave abnormality Abnormal ECG When compared with ECG of 22-MAY-2024 11:31, No significant changes seen Referred By: Generic ED Physician Electronically Signed By:OLAMIDE PURVIS
[2024-06-24 13:17] LABS: MANUAL DIFF FLAG NO
--- NOTE | 2024-06-24 13:19 | PC.NURSE ---
Unable to establish PIV x 2 attempts. Took a long time to obtain a pulse ox reading, pt peripherally cold.
[2024-06-24 13:20] LABS: Basophils Absolute Auto 0.1 X10*3/uL (0.0-0.2); Basophils Percent Auto 0.7 % (0-2); Eosinophils Absolute Auto 0.3 X10*3/uL (0.0-0.4); Eosinophils Percent Auto 3.2 % (0-4); Hematocrit 39.1 % (42.0-52.0); Hemoglobin 13.1 g/dl (14.0-18.0); Imm Gran Abs Auto 0.05 X10*3/uL (0.00-0.03); Imm Gran Pct Auto 0.5 % (0.0-0.4); Lymphocytes Absolute Auto 1.8 X10*3/uL (1.2-4.9); Lymphocytes Percent Auto 17.9 % (20-40); Mean Corpuscular HGB Conc 33.5 g/dl (31.0-36.0); Mean Corpuscular Hemoglobin 29.7 pg (27.0-33.0); Mean Corpuscular Volume 88.7 fL (80.0-98.0); Mean Platelet Volume 12.2 fL (9.4-12.4); Monocytes Percent Auto 9.8 % (2-11); Neutrophils Percent Auto 67.9 % (45-73); Platelet Count 238 X10*3/uL (160-400); Red Blood Count 4.41 X10*6/uL (4.60-5.80); Red Cell Distribution Width 19.6 % (11.0-16.0); White Blood Count 10.2 X10*3/uL (4.8-10.8)
--- NOTE | 2024-06-24 13:34 | ED.GENADULT ---
HPI - General Adult General Chief complaint: Recheck/Abnormal Lab/Rx Stated complaint: ABNORMAL LABS Time Seen by Provider: 06/24/24 13:21 Source: patient, EMS, RN notes reviewed and old records reviewed Mode of arrival: EMS History of Present Illness ED Provider: Alesia Paige PA-C HPI narrative: 83-year-old male with history of COPD, hypertension, hypercholesterolemia, CKD stage 3, rheumatoid arthritis, coronary artery disease, paroxysmal atrial fibrillation anticoagulated with Xarelto, and recurrent metastatic prostate cancer on palliative chemotherapy with abiraterone and lupron (Drs. Alva and Dr. Monroy) presented to the ED via EMS sent by PCP for low potassium on outpatient labs drawn yesterday. Patient was recently discharged from our facility on 05/25/24 w/AFib with RVR & new onset CHF. Reports dark stool. Denies other complaints at present including CP/SOB, abdominal pain, worsening pedal edema Related Data Home Medications ?Medication ?Instructions ?Recorded ?Confirmed leflunomide 20 mg tablet 1 tab PO DAILY 01/16/21 06/24/24 omeprazole 40 mg capsule,delayed 40 mg PO BID@0630,1630 01/16/21 06/24/24 release rosuvastatin 40 mg tablet 40 mg PO DAILY 01/16/21 06/24/24 abiraterone 250 mg tablet 1,000 mg PO DAILY 05/22/24 06/24/24 bismuth subsalicylate 525 mg/15 mL 525 mg PO Q30M PRN 05/22/24 06/24/24 oral suspension heartburn/indigestion calcium carbonate 500 mg-vitamin 1 tab PO BID 05/22/24 06/24/24 D3 10 mcg (400 unit) chewable tablet ferrous sulfate 325 mg (65 mg 325 mg PO MOWEFR 05/22/24 06/24/24 iron) tablet,delayed release fluticasone propionate 50 2 spray intranasal DAILY 05/22/24 06/24/24 mcg/actuation nasal spray,suspension (Flonase Allergy Relief) furosemide 40 mg tablet 40 mg PO DAILY 05/22/24 06/24/24 ipratropium 20 mcg-albuterol 100 1 puff inhalation Q8H PRN 05/22/24 06/24/24 mcg/actuation mist for inhalation Shortness Of Breath Or Wheezing (Combivent Respimat) leuprolide acetate (6 month) 45 mg 45 mg IM [id number] 05/22/24 05/22/24 intramuscular syringe kit (Lupron Depot) prednisone 5 mg tablet 5 mg PO DAILY 05/22/24 06/24/24 rivaroxaban 20 mg tablet (Xarelto) 20 mg PO DAILY@1700 05/22/24 06/24/24 metoprolol tartrate 50 mg tablet 150 mg PO BID 06/24/24 06/24/24 Previous Rx's ?Medication ?Instructions ?Recorded magnesium oxide 400 mg (241.3 mg 400 mg PO DAILY #1 tab 05/25/24 magnesium) tablet Allergies Allergy/AdvReac Type Severity Reaction Status Date / Time pollen extracts Allergy Intermediate itchy/watery Verified 06/24/24 13:19 eyes Review of Systems Review of Systems: Yes all other systems are reviewed and are negative Constitutional: Constitutional: Reports as per [facility] Past Medical History Attestation statement: The following information was validated with the patient. Source: old records reviewed Medical History Arrhythmia CAD (coronary artery disease) Hx of emphysema Rheumatoid arthritis Chronic renal insufficiency History of prostate cancer COPD (chronic obstructive pulmonary disease) Hypercholesteremia HTN (hypertension) Surgical History Hx of heart artery stent History of colonoscopy History of tonsillectomy H/O prostatectomy Social History Social History Household Members: Family Housing: House Do you presently have visiting nurse or other home services: No Comment: at times Patient Tobacco Use Status: Former Tobacco user Tobacco use type: Cigarette Smoked in Last 30 Days: No e-Cigarette/Vaping Use: Never Used Use of substances other than those prescribed or required for medical reasons: No Advance Directives: Yes Advance Directives Information Provided: Yes Advance Directives on File: No Do you have a plan to hurt others: No Plan service: No Physical Exam ED Vital Signs: Vital Signs - 24 hr 06/24/24 12:46 06/24/24 14:00 06/24/24 14:15 Temperature 98.3 F 98.4 F 100.5 F H Pulse Rate 126 H 98 91 Respiratory Rate 25 H 27 H 24 H Blood Pressure 123/72 108/65 110/66 Pulse Oximetry 98 97 93 Oxygen Delivery Method Room Air Room Air 06/24/24 15:14 06/24/24 16:00 Temperature 97.6 F Pulse Rate 118 H Respiratory Rate 22 H Blood Pressure 110/70 116/72 Pulse Oximetry Oxygen Delivery Method Room Air BMI result Body Mass Index 27.1 Const Other: Pale General: cooperative and no acute distress Orientation/consciousness: patient oriented x3 Limitations: no limitations HENMT Head: Yes normal to inspection and Yes atraumatic Ears: hearing grossly normal bilaterally General nose exam: Normal external nose present Face and sinus: Yes normal facial exam Eyes General: appearance normal, both eyes and all related structures Pupils: Equal, round and reactive pupils present EOM: EOMs intact bilaterally Neck Neck: Yes normal visual inspection and Yes no meningeal signs Resp Effort & Inspection: no respiratory distress and tachypneic Auscultation: crackles bilateral at the base Cardio Rate: regular rate Heart sounds: S1 normal heart sound present and S2 normal heart sound present GI Inspection: Yes normal to inspection Palpation (GI): Soft to palpation, nontender, no guarding and not rigid Skin Rashes: no rashes Wounds: no wounds Neuro General: patient oriented x3, tone normal and no meningeal signs Cranial nerves: Yes CN's II-XII intact bilaterally and Yes Equal, round and reactive pupils present Gait exam (Neuro): Normal gait present Extrem Other: + bilateral LE pitting edema General: Yes normal to inspection and Yes pedal edema Course Course Course Narrative: -1445--no leukocytosis. H&H at patient's baseline. Potassium low at 2.7 > p.o. repletion ordered. - + MANUEL with BUN of 34, creatinine 1.67 > suspect from fluid overload. Lactic acid 2.3 -acute on chronic transaminitis. -troponin 67.4 > will obtain 3 hour repeat. Likely from renal dysfunction -occult stool positive. Viral studies negative -patient's heart rate now in the 90s. No rate control medications needed at this time 1526--XR chest 2V IMPRESSION: Bronchial wall thickening may be infectious and/or inflammatory in etiology. >> plan to admit for further management Medications Administered Generic Name Dose Route Start Last Admin Trade Name Freq PRN Reason Stop Dose Admin Cefepime HCl 2 gm in 50 mls @ 100 mls/hr 06/24/24 13:45 06/24/24 14:37 Maxipime IV Infused Q24H KARIN Infusion Discontinued Medications Generic Name Dose Route Start Last Admin Trade Name Marcial PRN Reason Stop Dose Admin Furosemide 40 mg 06/24/24 14:52 06/24/24 15:14 Furosemide 40 Mg/4 Ml Vial IVPUSH 06/24/24 14:53 40 mg STAT STA Administration Protocol Potassium Chloride 60 meq 06/24/24 13:41 06/24/24 14:07 Potassium Chloride Packet 20 Meq Packet PO 06/24/24 13:42 60 meq ONCE ONE Administration Potassium Chloride 60 meq 06/24/24 14:43 06/24/24 15:14 Potassium Chloride Packet 20 Meq Packet PO 06/24/24 14:44 60 meq ONCE ONE Administration Medical Decision Making Medical Decision Making MDM Narrative: 83-year-old male with history of COPD, hypertension, hypercholesterolemia, CKD stage 3, rheumatoid arthritis, coronary artery disease, paroxysmal atrial fibrillation anticoagulated with Xarelto, and recurrent metastatic prostate cancer on palliative chemotherapy with abiraterone and lupron (Drs. Alva and Dr. Monroy) presented to the ED via EMS sent by PCP for low potassium on outpatient labs drawn yesterday. On exam febrile 100.5 rectally, tachycardic initially, tachypneic, bibasilar crackles, bilateral LE pitting edema. Pale. Ill-appearing. Concern for CHF exacerbation vs metabolic abnormalities vs GI bleed. Plan: EKG, labs, UA, CXR, occult stool, viral testing anticipated admission Please refer to course for remaining clinical decision making, interpretation of labs/imaging results, and discussions with consultants and/or family members. Differential Diagnosis Differential Diagnoses: The differential diagnosis associated with the presentation includes As above Admission/Observation Consideration of admission/observation: Escalation of care including admission/observation considered Consult Healthcare Provider Management of the patient was discussed with: Hospitalist Lab Data [facility] Lab Attestation statement: I reviewed the patient's lab results. 06/24/24 13:13 06/24/24 13:13 Labs: Lab Results 06/24/24 06/24/24 06/24/24 Range/Units 13:13 13:41 13:44 WBC 10.2 (4.8-10.8) X10*3/uL RBC 4.41 L (4.60-5.80) X10*6/uL Hgb 13.1 L (14.0-18.0) g/dl Hct 39.1 L (42.0-52.0) % MCV 88.7 (80.0-98.0) fL MCH 29.7 (27.0-33.0) pg MCHC 33.5 (31.0-36.0) g/dl RDW 19.6 H (11.0-16.0) % Plt Count 238 (160-400) X10*3/uL MPV 12.2 (9.4-12.4) fL Immature Gran % (Auto) 0.5 H (0.0-0.4) % Neut % (Auto) 67.9 (45-73) % Lymph % (Auto) 17.9 L (20-40) % [place] % (Auto) 9.8 (2-11) % Eos % (Auto) 3.2 (0-4) % Baso % (Auto) 0.7 (0-2) % Lymph # (Auto) 1.8 (1.2-4.9) X10*3/uL [place] # (Auto) 1.0 (0.1-1.2) X10*3/uL Eos # (Auto) 0.3 (0.0-0.4) X10*3/uL Baso # (Auto) 0.1 (0.0-0.2) X10*3/uL Abs Immat Gran (auto) 0.05 H (0.00-0.03) X10*3/uL Absolute Neuts (auto) 7.0 (2.0-8.3) x10*3/uL Absolute Nucleated RBC 0.100 H (0.0-0.012) X10*3/uL Nucleated RBC % (auto) 1.0 H (0.0-0.2) /100WBC PT 30.8 H D (10.9-12.4) SEC INR 2.6 H (0.9-1.1) Sodium 136 (135-145) mmol/L Potassium 2.7 L* D (3.3-5.1) mmol/L Chloride 98 (96-108) mmol/L Carbon Dioxide 23 (22-29) mmol/L Anion Gap 18 (12-20) BUN 34 H (9-16) mg/dL Creatinine 1.67 H (0.5-1.4) mg/dL Estim Creat Clear Calc 28.1 Estimated GFR 40 Random Glucose 97 (60-115) mg/dL Lactic Acid (0.5-2.0) mmol/L Lactic Acid F/U @ 2Hr (0.5-2.0) mmol/L Calcium 9.0 D (8.4-10.2) mg/dL Magnesium 2.1 (1.6-2.6) mg/dL Total Bilirubin 1.2 H (0.0-1.0) mg/dL Direct Bilirubin 0.8 H (0.0-0.5) mg/dL AST 224 H (5-37) U/L ALT 68 H (0-40) U/L Alkaline Phosphatase 584 H (39-117) U/L Troponin I High Sens 67.4 H D (<3.5-35.0) ng/L B-Natriuretic Peptide 193 H (<100) pg/mL Total Protein 6.1 L (6.5-8.0) g/dL Albumin 3.0 L (3.5-5.0) g/dL Lipase 29 (8-78) U/L Urine Color Urine Appearance Urine pH (5.0-9.0) Ur Specific [place] (1.005-1.025) Urine Protein (Neg-Trace) mg/dL Urine Glucose (UA) (Negative) mg/dL Urine Ketones (Negative) mg/dL Urine Blood (Negative) Urine Nitrite (Negative) Ur Leukocyte Esterase (Negative) Stool Occult Blood (NEGATIVE) Influenza Type A (PCR) NEGATIVE (Negative) Influenza Type B (PCR) NEGATIVE (Negative) RSV RNA Qual (PCR) NEGATIVE (Negative) SARS-CoV-2 RNA (RT-PCR) NEGATIVE (Negative) 06/24/24 06/24/24 06/24/24 Range/Units 13:45 13:46 15:27 WBC (4.8-10.8) X10*3/uL RBC (4.60-5.80) X10*6/uL Hgb (14.0-18.0) g/dl Hct (42.0-52.0) % MCV (80.0-98.0) fL MCH (27.0-33.0) pg MCHC (31.0-36.0) g/dl RDW (11.0-16.0) % Plt Count (160-400) X10*3/uL MPV (9.4-12.4) fL Immature Gran % (Auto) (0.0-0.4) % Neut % (Auto) (45-73) % Lymph % (Auto) (20-40) % [place] % (Auto) (2-11) % Eos % (Auto) (0-4) % Baso % (Auto) (0-2) % Lymph # (Auto) (1.2-4.9) X10*3/uL [place] # (Auto) (0.1-1.2) X10*3/uL Eos # (Auto) (0.0-0.4) X10*3/uL Baso # (Auto) (0.0-0.2) X10*3/uL Abs Immat Gran (auto) (0.00-0.03) X10*3/uL Absolute Neuts (auto) (2.0-8.3) x10*3/uL Absolute Nucleated RBC (0.0-0.012) X10*3/uL Nucleated RBC % (auto) (0.0-0.2) /100WBC PT (10.9-12.4) SEC INR (0.9-1.1) Sodium (135-145) mmol/L Potassium (3.3-5.1) mmol/L Chloride (96-108) mmol/L Carbon Dioxide (22-29) mmol/L Anion Gap (12-20) BUN (9-16) mg/dL Creatinine (0.5-1.4) mg/dL Estim Creat Clear Calc Estimated GFR Random Glucose (60-115) mg/dL Lactic Acid 2.3 H* (0.5-2.0) mmol/L Lactic Acid F/U @ 2Hr (0.5-2.0) mmol/L Calcium (8.4-10.2) mg/dL Magnesium (1.6-2.6) mg/dL Total Bilirubin (0.0-1.0) mg/dL Direct Bilirubin (0.0-0.5) mg/dL AST (5-37) U/L ALT (0-40) U/L Alkaline Phosphatase (39-117) U/L Troponin I High Sens 64.1 H (<3.5-35.0) ng/L B-Natriuretic Peptide (<100) pg/mL Total Protein (6.5-8.0) g/dL Albumin (3.5-5.0) g/dL Lipase (8-78) U/L Urine Color Urine Appearance Urine pH (5.0-9.0) Ur Specific [place] (1.005-1.025) Urine Protein (Neg-Trace) mg/dL Urine Glucose (UA) (Negative) mg/dL Urine Ketones (Negative) mg/dL Urine Blood (Negative) Urine Nitrite (Negative) Ur Leukocyte Esterase (Negative) Stool Occult Blood POSITIVE (NEGATIVE) Influenza Type A (PCR) (Negative) Influenza Type B (PCR) (Negative) RSV RNA Qual (PCR) (Negative) SARS-CoV-2 RNA (RT-PCR) (Negative) 06/24/24 06/24/24 Range/Units 15:57 16:13 WBC (4.8-10.8) X10*3/uL RBC (4.60-5.80) X10*6/uL Hgb (14.0-18.0) g/dl Hct (42.0-52.0) % MCV (80.0-98.0) fL MCH (27.0-33.0) pg MCHC (31.0-36.0) g/dl RDW (11.0-16.0) % Plt Count (160-400) X10*3/uL MPV (9.4-12.4) fL Immature Gran % (Auto) (0.0-0.4) % Neut % (Auto) (45-73) % Lymph % (Auto) (20-40) % [place] % (Auto) (2-11) % Eos % (Auto) (0-4) % Baso % (Auto) (0-2) % Lymph # (Auto) (1.2-4.9) X10*3/uL [place] # (Auto) (0.1-1.2) X10*3/uL Eos # (Auto) (0.0-0.4) X10*3/uL Baso # (Auto) (0.0-0.2) X10*3/uL Abs Immat Gran (auto) (0.00-0.03) X10*3/uL Absolute Neuts (auto) (2.0-8.3) x10*3/uL Absolute Nucleated RBC (0.0-0.012) X10*3/uL Nucleated RBC % (auto) (0.0-0.2) /100WBC PT (10.9-12.4) SEC INR (0.9-1.1) Sodium (135-145) mmol/L Potassium (3.3-5.1) mmol/L Chloride (96-108) mmol/L Carbon Dioxide (22-29) mmol/L Anion Gap (12-20) BUN (9-16) mg/dL Creatinine (0.5-1.4) mg/dL Estim Creat Clear Calc Estimated GFR Random Glucose (60-115) mg/dL Lactic Acid (0.5-2.0) mmol/L Lactic Acid F/U @ 2Hr 1.8 (0.5-2.0) mmol/L Calcium (8.4-10.2) mg/dL Magnesium (1.6-2.6) mg/dL Total Bilirubin (0.0-1.0) mg/dL Direct Bilirubin (0.0-0.5) mg/dL AST (5-37) U/L ALT (0-40) U/L Alkaline Phosphatase (39-117) U/L Troponin I High Sens (<3.5-35.0) ng/L B-Natriuretic Peptide (<100) pg/mL Total Protein (6.5-8.0) g/dL Albumin (3.5-5.0) g/dL Lipase (8-78) U/L Urine Color Yellow Urine Appearance Clear Urine pH 6.5 (5.0-9.0) Ur Specific [place] 1.010 (1.005-1.025) Urine Protein Trace (Neg-Trace) mg/dL Urine Glucose (UA) Negative (Negative) mg/dL Urine Ketones Negative (Negative) mg/dL Urine Blood Negative (Negative) Urine Nitrite Negative (Negative) Ur Leukocyte Esterase Negative (Negative) Stool Occult Blood (NEGATIVE) Influenza Type A (PCR) (Negative) Influenza Type B (PCR) (Negative) RSV RNA Qual (PCR) (Negative) SARS-CoV-2 RNA (RT-PCR) (Negative) Independent Interpretation I performed an independent interpretation of an: EKG (EKG AFib with RVR rate of 119. QTC 436. No STEMI.) Radiology Impression Discussion of test interpretation with radiology: I have reviewed the radiologist's reading. Independent Historian Clinical information obtained from an independent historian. History obtained from or confirmed by: EMS External Record Review External record reviewed: Inpatient record, Office record, Outpatient record, Prior outpatient labs, Prior outpatient radiology, Primary care record and Outside ED record Tests considered The following testing was considered but not selected: As above Prescription Management I considered prescription management with: Pain Medication, Antibiotic and Other Chronic Conditions Patient?s care impacted by: Cancer and Other (AFib with RVR, CHF) Social Determinants Patient?s care significantly limited by Social Determinants of Health including: Problems related to primary support group and Other Social Determinant of Health Critical Care Time Critical Care Time Critical Care Time: Yes Total Critical Care Time: 50 Attestation: I have personally provided critical care time exclusive of time spent on separately billable procedures. Time includes review of lab data, radiology results, discussion with consultants, and monitoring for potential decompensation. Intervention performed as documented. Discharge Plan Discharge Clinical Impression: CHF (congestive heart failure), Acute hypokalemia, Occult blood positive stool, MANUEL (acute kidney injury), Transaminitis Patient Disposition: Admitted As Inpatient Print Language: Pashto
--- NOTE | 2024-06-24 13:37 | PC.RT ---
Pt seen by RT for bronchodilator protocol. Pt has course crackles in the bases with pitting edema in the ankles and lower legs. Pt has no respiratory distress at this time. Provider states his potassium is low as well so no bronchodilator is needed at this time.
[2024-06-24 13:42] LABS: Alanine Aminotransferase 68 U/L (0-40); Alkaline Phosphatase 584 U/L (39-117); Anion Gap 18 (12-20); Aspartate Amino Transferase 224 U/L (5-37); Bilirubin Direct 0.8 mg/dL (0.0-0.5); Bilirubin Total 1.2 mg/dL (0.0-1.0); Blood Urea Nitrogen 34 mg/dL (9-16); Carbon Dioxide 23 mmol/L (22-29); Chloride 98 mmol/L (96-108); Creatinine Clr Calc Pharmacy 28.1; Estimated Glomerular Filt Rate 40; Glucose Random 97 mg/dL (60-115); Lipase 29 U/L (8-78); Magnesium 2.1 mg/dL (1.6-2.6); Potassium 2.7 mmol/L (3.3-5.1); Sodium 136 mmol/L (135-145); Total Protein 6.1 g/dL (6.5-8.0)
--- OUTSIDE RECORDS SUMMARY | 2024-06-24 13:51 | XMS_ITS ---
Author Organization [facility] Address [address] [facility] [place] [address] Care Team Providers Care Overcaster Name Role Phone Alejandrina FERGUSON, Justus Primary Care Provider Tonie Resendiz Unavailable [phone] ALLERGIES Allergen (clinical drug ingredient) Drug/Non Drug Allergy documented on EMR Reaction Allergy Type Onset Date Status Seasonale Unknown Drug Allergy Active REASON FOR VISIT At Risk Footcare, Painful Nail(s) aggrevated by shoes and causing difficulty standing/walking., Open sore, Possible Infection MEDICATIONS Medication SIG (Take, Route, Frequency, Duration) Notes Start Date End Date Status Custom Orthotics as directed RA, hammer toes, bunions, contracture B/L feet 10/24/2020 Active Vitamin C Active Rosuvastatin Calcium 40 MG 1 tablet Oral ly Once a day for 30 day(s) Active Omeprazole 40 MG 1 capsule 30 minutes before morning meal Orally Once a day for 30 day(s) Active Multivitamin Active Ipratropium-Albuterol 20-100 MCG/ACT 1 puff as needed Inhalation every 6 hrs PRN Active hydroCHLOROthiazide 25 MG 1 tablet in th e morning Orally Once a day for 30 day(s) PRN Active Fluticasone Propionate 50 MCG/ACT 1 spray in each nostril Nasally Twice a day Active Metoprolol Tartrate 100 MG as directed O rally Twice a day Active Loratadine 10 MG 1 tablet Orally Once a day for 30 day(s) Active Fish Oil Active Aspir-81 Active Arava 20 MG 1 tablet Orally Once a day for 30 day(s) Active Xarelto 20 MG 1 tablet with food Orally Once a day for 30 day(s) Active Iron Active Keflex 500 MG 1 capsule Orally every 12 hrs for 7 days 11/28/2020 Not-Taking Keflex 500 MG 1 capsule Orally every 12 hrs for 10 day(s) 11/28/2020 Not-Taking predniSONE Active Eligard Active Abiraterone Acetate 250 MG 4 tablets Ora lly Once a day Active Amoxicillin-Pot Clavulanate 875 875-125 MG one tab Orally every 12 hrs for 10 days 06/21/2024 Active Doxycycline Hyclate 100 MG 1 capsule Ora lly Twice a day for 10 day(s) 01/28/2021 Not-Taking Keflex 500 MG 1 capsule Orally every 12 hrs for 10 day(s) 09/13/2021 Not-Taking Warfarin Sodium 2 MG 1 tablet Orally Onc e a day for 30 day(s) Not-Taking Amoxicillin-Pot Clavulanate 875-125 MG 1 tablet Orally every 12 hrs for 7 days 09/17/2021 Not-Taking Cephalexin 500 MG 1 capsule Orally every 12 hrs for 10 days Not-Taking Levaquin 500 MG 1 tablet Orally Once a day for 10 day(s) Not-Taking Augmentin 500-125 MG 1 tablet Orally Twice a day for 10 day(s) 09/05/2022 Not-Taking Cephalexin 500 MG 1 capsule Orally Twice a day for 7 days 08/26/2022 Not-Taking Bactrim DS 800-160 MG 1 tablet Orally Twice a day for 10 day(s) 08/19/2022 Not-Taking Amoxicillin 500 MG 4 capsule Orally One hour before dental procedure for 1 days 02/29/2024 Active Sulfamethoxazole-Trimethopri m 800-160 MG Oral for 30 Active SOCIAL HISTORY Tobacco Use: Social History Observation [...] SNOMED Code Notes Problem Ischemic ulcer of left foot with fat layer exposed (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) Active confirmed Response to treatment VITAL SIGNS Height 5 ft 2 in in 06/21/2024 Weight 135 lbs 06/21/2024 BMI 24.69 kg/m2 06/21/2024 Blood pressure systolic 110 mm Hg 06/21/20 Blood pressure diastolic 80 mm Hg 024 Encounters Encounter Location Date Provider Diagnosis [facility] [address] [address] 06/21/2024 Tonie Vasquez Pain in toe of left foot M79.675 ; Ischemic ulcer of right foot with fat layer exposed L97.512 ; Pain in toe of right foot M79.674 ; Tinea unguium B35.1 ; Atherosclerosis of artery of both lower extremities I70.203 ; Abscess of toe, right L02.611 ; Cellulitis of toe of left foot L03.032 and Ischemic ulcer of left foot with fat layer exposed L97.522 ASSESSMENTS Encounter Date Diagnosis Assessment Notes Treatment Notes Treatment Clinical Notes 06/21/2024 Pain in toe of left foot (ICD-10 - M79.675) 06/21/2024 Ischemic ulcer of right foot with fat layer exposed (ICD-10 - L97.512) 06/21/2024 Pain in toe of right foot (ICD-10 - M79.674) 06/21/2024 Tinea unguium (ICD-1 0 - B35.1) 06/21/2024 Atherosclerosis of artery of both lower extremities (ICD-10 - I70.203) 06/21/2024 Abscess of toe, righ t (ICD-10 - L02.611) Patient Educated with: WOUND CARE INSTRUCTIONS.pdf (WOUND CARE INSTRUCTIONS.pdf ) 06/21/2024 Cellulitis of toe of left foot (ICD-10 - L03.032) 06/21/2024 Ischemic ulcer of le ft foot with fat layer exposed (ICD-10 - L97.522) Response to treatment 06/21/2024 Other PLAN OF TREATMENT Medication Medication Name Sig Start Date Stop Date Notes Amoxicillin-Pot Clavulanate 875 875-125 MG one tab Orally every 12 hrs for 10 days 06/21/2024 Treatment Notes Assessment Notes Abscess of toe, right Patient Educated w ith: WOUND CARE INSTRUCTIONS.pdf (WOUND CARE INSTRUCTIONS.pdf) Next Appt Details Follow Up: 2 Weeks, Reason: Provider Name:Tonie beck, 07/13/2024 02:00:00 PM, [address] [place], [address], Procedure Notes * Category Sub-Category Detail Notes [...] as necessary. Patient chooses, no pharmaceutical tx (31918) Debride skin and subQ Open wound Physician [...] Sterile antibiotic dressing applied. Post debridement measurements: 5mm x 3mm x 3mm. Character of the wound post debridement is stable (86645), The patient was instructed on importance of proper wound care consisting of pressure reduction, maintainance of moist wound environment, and regular debridement of devitilized tissue, The patient is to cleanse the wound with warm soapy water/peroxide/saline or betadine BID based on product availability , The patient is to apply Antibiotic Oint. to the wound and cover with a DSD , ISCHEMIC: Physician of record performed open wound selective debridement of devitalized necrotic/nonviable soft tissue, fibrin, exudate, epidermis, dermis, thru skin and subcutaneous fat tissue, first 20 sq cm or less, using sharp dissection with sterile 15 blade, and/or tissue nippers. ANESTHESIA was accomplished TOPICALLY with Lidocaine Hydrochloride Jelly 2 percent, Sterile antibiotic dressing applied. Hemostasis was controlled through direct pressure. Post debridement measurements: 15 mm x 15 mm x 3mm. Character of the wound post debriement is stable (20509) , The patient was instructed to change dressings according to orders or PRN saturation, leaks , The patient is to apply Antibiotic Oint. to the wound and cover with a DSD I&D nail abscess Location Medial nail bor sasha , T5 Procedure Performed incision a nd drainage of Single Nail Abscess with use of sterile nail nipper/316 blade. Approximately ( 0.1 ) cc purulent fluid material was drained. The infected devitalized soft tissue was curettaged to healthy bleeding bed. Any affected nail portion was removed to the eponychium . Any evidence of granuloma was also removed at this time. No underlying bone was visualized. There was minimal bleeding as hemostasis was achieved through the temporary use of either a digital tournaquet or the aforementioned local with epinephrine. An application of sterile Bacitracin dressing was performed. Local wound care instructions were discussed and dispensed. 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 Keratoma Treatment Parring or Cutting o f Benign Hyperkeratotic Lesion(s) 83164 ( More than 4 Lesions ) - The Benign hyperkeratotic lesions, as described above were pared, and/or cut utilizing a sterile 15 blade, tissue nippers, and/or dremel, Q8 Progress Notes * Examination Category Sub-Category Detail Notes Neurological SENSORY: Neurological exa m demonstrates , reduced light touch sensation , reduced sharp/dull pin prick discrimination , reduced proprioception sensation , in a stocking fashion , plantar aspects , 5.07 monofilament test performed at plantar aspects of 5 varied sites per foot shows sensation , reduced Dermatologic SKIN FINDINGS: Skin exam reveal s Keratotic lesion(s) located at , TA , SUB MTH (s) , 3 , B/L SUB MTH (s) 1 Left T4 , Skin shows sign(s) of, localized cellulitis TA without lymphangitis extending proximally to the level of the MPJ ULCER: LOCATION B/L sub 4th met head, , SIZE, 4mm X 3mm X 3mm, BASE, granular, RIM, hyperkeratotic, UNDERMINING, absent, TRACKING, Sub Q with Fat layer exposed DRAINAGE, serosanguineous, mild, NECROTIC TISSUE, loosely-adherent, yellow slough, MALODOR, absent, CALOR, absent, ERYTHEMA, absent, PAIN ON PALPATION, present , LOCATION, medial 1st MPJ LEFT, SIZE, 15 mm X 15 mm X 3mm, BASE, fibro-granular, RIM, hyperkeratotic, UNDERMINING, mild, TRACKING, Sub Q with Fat layer exposed, DRAINAGE, serosanguineous, moderate, NECROTIC TISSUE, loosely-adherent, yellow slough, MALODOR, absent, CALOR, absent, ERYTHEMA, present General Examination GENERAL APPEARANCE: Denies f ever, chills, malaise, lymphadenopathy ORIENTED: person, place, and t korin Vascular DP PULSES(B): 1/4, B/L PT PULSES(B): [...] debris, with pain on palpation, 1-5 B/L Abscess/infected nail INSPECTION Reveals na il incurvation, pain on palpation, groove laceration, inflammation, malodor, localized cellulitis, and purulent abscess with pre-operative size of approximately ( 1-2 ) mm square without exposed bone , Medial nail border , T5 History and Physical Notes * HPI (History of Present Illness) Category Sub-Category Detail Notes Skin problems Nature: redness , swelli ng , tender Location: Left , Forefoot , In side Duration: a few weeks Course: worse Treatments: abx oint and bandaid At Risk footcare Pt States Last PCP Visit: Date: 10/22
--- OUTSIDE RECORDS SUMMARY | 2024-06-24 13:52 | XMS_ITS | Continuity of Care Document ---
Author Organization [facility] Address [address] [place] [address]- Care Team Providers Care Procurement Officer Name Role Phone Justus Tinoco MD Primary Care Physician Encounter [facility] ACCT R [id number] Date(s): 04/04/24 - 06/12/24 [facility] [address] [place] [address] Discharge Disposition: A-D/C Home Attending Physician: [...] MEAL, # 120 tablet, 2 Refills, Maintenance, 05/30/24 13:08:00 EDT, [facility], 155.8, cm, 04/12/24 12:53:00 EDT, [facility]... Start Date: 05/30/24 Status: Ordered acetaminophen 325 mg oral tablet [...] CHEW., # 60 tablet, 2 Refills, Maintenance, 06/02/24 8:32:00 EDT, [id number], 30, CHEW 1 TABLET BY MOUTH TWICE A DAY, 155.8, cm, 04/12/24 12:53:00 EDT, Height,73.1, kg, 04/12/24 12:53:00 EDT, Dry Weight Start Date: 06/02/24 Status: Ordered Crestor 40 mg oral tablet [...] Refills, Maintenance, 02/01/22 11:51:00 EDT, Capsule, [facility], Partial fill upon patient request [...] mL, 0 Refills, Maintenance, 02/01/22 11:56:00 EDT, [place],Partial fill upon patient request if the prescription [...] Refills, Maintenance, 01/06/24 10:33:00 EDT, CR Capsule, [id number], Partial fill upon patient request if the prescription is for a schedule II opioid drug., 155.8, cm, 12/29/23 10:2... Start Date: 01/06/24 Stop Date: 01/09/24 Status: Ordered predniSONE 5 mg oral tablet 1 tablet, By Mouth, Daily, # 30 tablet, 5 Refills, Maintenance, 02/29/24 8:12:00 EDT, [id number], 155.8, cm, 12/29/23 10:27:00 EDT, Height, 70.9, [...] oldest [Reference Range]: 1 Height 155.8 cm (04/12/24 12:53 PM) Weight 73.1 kg (04/12/24 12:53 PM) Oxygen Saturation [94-100 %] 97 % (04/12/24 12:53 PM) Pulse Rate [55-90 bpm] 88 bpm (04/12/24 12:53 PM) Body Mass Index [18.5-24.99 kg/m2] 30.11 kg/m2 *>HHI* (04/12/24 12:53 PM) Blood Pressure [90-138/55-84 mm Hg] 120/ 78mm Hg (04/12/24 12:53 PM) Temperature [96.8-100.4 DegF] 97.3 DegF (04/12/24 12:53 PM) Mode of Delivery (Oxygen) Room air (04/12/24 12:53 PM) Blood pressure sites Arm, right (04/12/24 12:53 PM) Temperature Route Oral (04/12/24 12:53 PM) Dry Weight 73.1 kg (04/12/24 12:53 PM) Weight Obtained Via Standing scale (04/12/24 12:53 PM) Dry Weight Obtained Via Standing scale (8/20/24 12:53 PM) Social History Social History Type Response Smoking Status Former smoker, quit more than 30 days ago; Interested in cessation: No; Patient wants NRT during admission No entered on: 01/22/23 Sex Patient Care team information Care Team Personnel Name: Harmony Staley RN Position: [facility] SN RN Member Role: Primary Care Nurse Name: Alejandrina FERGUSON, Justus Conway Position: Reference Physician Member Role: PCP Address: Address: [address] [place] [address] [address] [place] [address]- Name: Darwin Graham MD Position: [facility] Cardiology MD Member Role: [employer] Consulting Physician Address: Address: [address] [place] [address], [address] [place] [address] [place] [address]- Name: Karen Baker RN Position: [facility] RN Member Role: Primary Care Nurse Name: Vargas Rowe MD, Reza Armstrong Position: [facility] Physician - Oncology Med Service: Hematology & Oncology Member Role: Admitting Physician Address: Address: [address] [place] [address] Hem/[place] [address]- Care Team Related Persons Name: DB TELLEZ Address: [place] [address] Name: ARIK RAMSAY Address: home [address] [place] [address]
--- OUTSIDE RECORDS SUMMARY | 2024-06-24 13:52 | XMS_ITS ---
Author Organization [facility] Address [address] [facility] [place] [address] Care Team Providers Care Scribing Machine Operator Name Role Phone Alejandrina FERGUSON, Justus Primary Care Provider Tonie Resendiz Unavailable [phone] ALLERGIES Allergen (clinical drug ingredient) Drug/Non Drug [...] with fat layer exposed (L97.512) Active confirmed [id number] VITAL SIGNS Height 5 ft 2 in in 04/12/2024 Weight 150 lbs 04/12/2024 BMI 27.43 kg/m2 04/12/2024 Blood pressure systolic 120 mm Hg 04/12/20 Blood pressure diastolic 80 mm Hg 024 Encounters Encounter Location Date Provider Diagnosis [facility] [place] [address] [place] [address] 04/12/2024 Tonie Vasquez Pain in toe of [...] Up: 6 Weeks, Reason: Provider Name:Tonie beck, 07/13/2024 02:00:00 PM, [address] [place] [address], [id number], Procedure Notes * Category Sub-Category Detail Notes [...] as necessary. Patient chooses, no pharmaceutical tx (68890) Debride skin and subQ Open wound Physician [...] of the wound post debridement is stable (72602), The patient was instructed on importance of [...] or Cutting o f Benign Hyperkeratotic Lesion(s) 83092 ( More than 4 Lesions ) - [...]
--- OUTSIDE RECORDS SUMMARY | 2024-06-24 13:52 | XMS_ITS ---
Author Organization [facility] Address [address] [place] [address] Care Team Providers Care Barrel Line Operator Name Role Phone Alejandrina FERGUSON, Justus Primary Care Provider Tonie Resendiz Unavailable [phone] REASON FOR VISIT antibitoic MEDICATIONS Medication SIG (Take, Route, Fr equency, Duration) Notes Start Date End Date Status Amoxicillin 500 MG 4 capsule Orally One hour before dental procedure for 1 days 02/29/2024 Acti ve Encounters Encounter Location Date Provider Diagnosis [facility] [address] [place] [address] 02/29/2024 Tonie Vasquez PLAN OF TREATMENT Medication Medication Name Sig Start Date Stop Date Notes Amoxicillin 500 MG 4 capsule Orally One hour before dental procedure for 1 days 02/29/2024 Next Appt Details Provider Name:Tonie beck, 07/13/2024 02:00:00 PM, [address] [place], [address],
--- OUTSIDE RECORDS SUMMARY | 2024-06-24 13:52 | XMS_ITS | Patient Health Record ---
Author Organization [facility] Address [address] [place] [address] Care Team Providers Care Mandarin Tutor Name Role Phone Alejandrina FERGUSON, Justus Primary Care Provider Tonie Resendiz Unavailable [phone] ALLERGIES Allergen (clinical drug ingredient) Drug/Non Drug Allergy documented on EMR Reaction Allergy Type Onset Date Status Seasonale Unknown Drug Allergy Active REASON FOR REFERRAL No Information MEDICATIONS Medication SIG (Take, Route, Frequency, Duration) Notes Start Date End Date Status Amoxicillin-Pot Clavulanate 875 875-125 MG one tab [...] a day for 10 day(s) 08/19/2022 Not-Taking Ipratropium-Albuterol 20-100 MCG/ACT 1 puff as needed Inhalation every 6 hrs PRN Active hydroCHLOROthiazide 25 MG 1 tablet in th e morning Orally Once a day for 30 day(s) PRN Active Keflex 500 MG 1 capsule Orally every 12 hrs for 7 days 11/28/2020 Not-Taking Keflex 500 MG 1 capsule Orally every 12 hrs for 10 day(s) 11/28/2020 Not-Taking Sulfamethoxazole-Trimethopri m 800-160 MG Oral for 30 [...] Once a day for 30 day(s) Active Cephalexin 500 MG 1 capsule Orally every 12 hrs for 10 days Not-Taking Levaquin 500 MG 1 tablet Orally Once a day for 10 day(s) Not-Taking Fluticasone Propionate 50 MCG/ACT 1 spray in each nostril Nasally Twice a day Active Amoxicillin 500 MG 4 capsule Orally One hour before dental procedure for 1 days 02/29/2024 Active Fish Oil Active Aspir-81 Active Arava 20 MG 1 tablet Orally Once a day for 30 day(s) Active Xarelto 20 MG 1 tablet with food Orally Once a day for 30 day(s) Active Iron Active predniSONE Active Eligard Active Abiraterone Acetate 250 MG 4 tablets Ora lly Once a day Active IMMUNIZATIONS Vaccine Route Administration Date Status Comme [...] (M20.12) Active confirmed Acquired hallu x valgus (10022589) Problem Hallux valgus (acquired), right foot (M20.11) Active confirmed Acquired hallu x valgus (31861004) Problem Contracture, right foot (M24.574) Active confirmed 796283907400544 Problem Contracture, left foot (M24.575) Active confirmed 760804166075191 Problem Primary osteoarthritis, left ankle and foot (M19.072) Active confirmed Localized, pr imary osteoarthritis of the ankle and/or foot (907747734) Problem Primary osteoarthritis, right ankle and foot (M19.071) Active confirmed Localized, pr imary osteoarthritis of the ankle and/or foot (133465044) Problem Non-pressure ulcer of left lower extremity, limited to breakdown of skin (L97.921) Active confirmed 21131280 Problem Hammer toe of right foot (M20.41) Active confirmed 285983325 Problem Hammer toe of left foot (M20.42) Active confirmed 643330861 Problem Osteomyelitis of foot, left, acute (M86.172) Active confirmed 3451797474380338 Rule out Problem Non-pressure ulcer of left lower extremity with fat layer exposed (L97.922) Active confirmed 87704176 Problem Atherosclerosis of artery of both lower extremities (I70.203) Active confirmed 62692885265890508 Problem 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) Active confirmed 2220434980986625 Problem Rheumatoid arthritis involving both feet, unspecified whether rheumatoid factor present (M06.9) Active confirmed 49965873055301506 Problem Ulcer of right foot, limited to breakdown of skin (L97.511) Active confirmed 753587274 Problem Pressure injury of left foot, stage 1 (L89.891) Active confirmed Pressure i njury of left foot stage I (disorder) (577329571285650) Response to treatment Problem Ischemic ulcer of left foot, limited to breakdown of skin (L97.521) Active confirmed Response to treatment Problem Ischemic ulcer of left foot with fat layer exposed (L97.522) Active confirmed Response to treatment Problem Ischemic ulcer of right foot with fat layer exposed (L97.512) Active confirmed 112538369 Problem Pressure injury of right foot, stage 1 (L89.891) Active confirmed Respons e to treatment VITAL SIGNS Blood pressure diastolic 80 mm Hg 06/21/2024 Height 5 ft 2 in in 06/21/2024 Blood pressure systolic 110 mm Hg 06/21/2024 Weight 135 lbs 06/21/2024 BMI 24.69 kg/m2 06/21/2024 Encounters Encounter Location Date Provider Diagnosis [address] [address] 07/08/2023 Tonie Vasquez Pressure injury of left foot, stage 1 L89.891 ; Abscess of right foot L02.611 ; Pain in toe of left foot M79.675 ; Pain in toe of right foot M79.674 and Tinea unguium B35.[address] [address] 07/15/2023 Tonie Vasquez [address] [address] 07/15/2023 Tonie Vasquez Rheumatoid arthritis involving both feet, unspecified whether rheumatoid factor present M06.9 ; Metatarsalgia, left foot M77.42 and Metatarsalgia of right foot M77.[address] [address] 08/07/2023 Tonie Vasquez [address] [address] 08/07/2023 Tonie Vasquez Neuropathic ulcer of right foot with fat layer exposed L97.512 ; Cellulitis of foot, left L03.116 ; Pressure injury of left foot, stage 1 L89.891 ; Foot abscess, left L02.612 ; Hallux valgus (acquired), right foot M20.11 ; Hallux valgus (acquired), left foot M20.12 ; Hammer toe of left foot M20.42 and Hammer toe of right foot M20.41 [facility] [address] [address] 08/07/2023 Tonie Vasquez [address] [address] 08/07/2023 Tonie Vasquez [address] [place] [address] 08/19/2023 Tonie Vasquez Cellulitis of foot, left L03.116 ; Hallux valgus (acquired), right foot M20.11 ; Hallux valgus (acquired), left foot M20.12 ; Hammer toe of left foot M20.42 ; Hammer toe of right foot M20.41 and Ulcer of right foot, limited to breakdown of skin L97.511 [facility] [address] [address] 08/28/2023 Tonie Vasquez [address] [address] 08/28/2023 Tonie Vasquez Abscess of right susan t L02.611 ; Cellulitis of foot, right L03.115 ; Rheumatoid arthritis involving both feet, unspecified whether rheumatoid factor present M06.9 ; Hallux valgus (acquired), right foot M20.11 ; Hammer toe of right foot M20.41 and Metatarsalgia of right foot M77.[address] [address] 08/28/2023 Tonie Vasquez [address] [address] 08/28/2023 Tonie Vasquez [address] [address] 09/01/2023 Tonie Vasquez Rheumatoid arthritis involving both feet, unspecified whether rheumatoid factor present M06.9 ; Cellulitis of foot, right L03.115 ; Hallux valgus (acquired), right foot M20.11 ; Hammer toe of right foot M20.41 ; Metatarsalgia of right foot M77.41 and Foot ulcer with fat layer exposed, right L97.[address] [address] 09/08/2023 Tonie Vasquez [address] [address] 09/08/2023 Tonie Vasquez [address] [address] 09/08/2023 Tonie Vasquez [address] [address] 09/09/2023 Tonie Vasquez Cellulitis of foot, right L03.115 ; Rheumatoid arthritis involving both feet, unspecified whether rheumatoid factor present M06.9 ; Contracture, right foot M24.574 and Metatarsalgia of right foot M77.[address] [address] 09/16/2023 Tonie Vasquez [address] [address] 09/30/2023 Tonie Vasquez Ischemic ulcer of le ft foot, limited to breakdown of skin L97.521 ; Pain in toe of left foot M79.675 ; Pain in toe of right foot M79.674 ; Tinea unguium B35.1 and Atherosclerosis of artery of both lower extremities I70.[address] [address] 11/13/2023 Tonie Vasquez Pain in toe of left foot M79.675 ; Pressure injury of right foot, stage 1 L89.891 ; Pain in toe of right foot M79.674 ; Tinea unguium B35.1 and Atherosclerosis of artery of both lower extremities I70.[address] [address] 12/25/2023 Tonie Vasquez Pain in toe of left foot M79.675 ; Non-pressure ulcer of left lower extremity with fat layer exposed L97.922 ; Pain in toe of right foot M79.674 ; Tinea unguium B35.1 and Atherosclerosis of artery of both lower extremities I70.[address] [address] 02/05/2024 Tonie Vasquez [address] [address] 02/05/2024 Tonie Vasquez [address] [address] 02/17/2024 Tonie Vasquez [facility] [address] [address] 02/29/2024 Tonie Perica [facility] [address] 04/12/2024 Tonie Perica Pain in toe of left foot M79.675 ; Ischemic ulcer of right foot with fat layer exposed L97.512 ; Pain in toe of right foot M79.674 ; Tinea unguium B35.1 and Atherosclerosis of artery of both lower extremities I70.203 [facility] [address] 06/21/2024 Tonie Perica Pain in toe of left foot M79.675 [...] - L97.512) 06/21/2024 Pain in toe of left foot (ICD-10 - M79.675) 06/21/2024 Pain in toe of right foot (ICD-10 - M79.674) 06/21/2024 Ischemic ulcer of right foot with [...] 12/25/2023 Tinea unguium (ICD-1 0 - B35.1) 06/21/2024 Tinea unguium (ICD-1 0 - B35.1) 04/12/2024 Tinea unguium (ICD-1 0 - B35.1) 06/21/2024 Atherosclerosis of artery of both lower extremities (ICD-10 - I70.203) 04/12/2024 Atherosclerosis of artery of both lower [...] fat layer exposed, right (ICD-10 - L97.512) 06/21/2024 Abscess of toe, righ t (ICD-10 - L02.611) Patient Educated with: WOUND CARE INSTRUCTIONS.pdf (WOUND CARE INSTRUCTIONS.pdf ) 06/21/2024 Cellulitis of toe of left foot (ICD-10 - L03.032) 08/07/2023 Hammer toe of left foot (ICD-10 - M20.42) 08/07/2023 Hammer toe of right foot (ICD-10 - M20.41) 06/21/2024 Ischemic ulcer of le ft foot with fat layer exposed (ICD-10 - L97.522) Response to treatment 08/07/2023 Other 08/28/2023 Other Patient Educate d [...] CARE INSTRUCTIONS.pdf (WOUND CARE INSTRUCTIONS.pdf ) 06/21/2024 Other PLAN OF TREATMENT Pending Test Test Name [...] 3V 11/28/2020 Next Appt Details Provider Name:Tonie beck, 07/13/2024 02:00:00 PM, [address] [facility], [place], [address], Insurance Providers Payer Name Payer Address Payer Phone Subscriber Number Group Number Insured Name Patient Relationship to Insured Coverage Start Date Coverage End Date [employer] [address] [place] [address] [phone] [id number] Gomez Bourgeois Self - patient is the insured [facility] [address] [place] [address] [phone] [id number] Gomez Bourgeois Self - patient is the insured MEDICAL (GENERAL) HISTORY Medical History History ICD Code Rheumatoid Arthritis Back,Hip,and Knee pain Cancer prostate Cataracts Heart disease High blood pressure Measles Mumps Chicken pox Transfusions Surgical History Surgery Date(Month/Year) Left foot surgery 01/24/2021 colonoscopy/endoscopy 08/07/21 left knee replacement 2021 right knee replacement 2021 Hospitalization History Reason Date(Month/Year[place] [facility] [place] 05/30/24 Had an echocardiogram 09/24/2022
[2024-06-24 13:53] LABS: OBS Int Ctl Valid YES; OBS1 POSITIVE (NEGATIVE)
[2024-06-24 13:58] LABS: INTERNATIONAL NORM RATIO 2.6 (0.9-1.1); Prothrombin Time 30.8 SEC (10.9-12.4)
--- NOTE | 2024-06-24 14:06 | PC.NURSE ---
Pt refusing to change into hospital gown.
[2024-06-24] MEDS: cefEPime HCl/D5W 2 GM/50 ML PIGGYBACK IV (14:07)
[2024-06-24] MEDS: Potassium Chloride Packet 20 MEQ PACKET 60 MEQ PO ×2 (14:07→15:14)
[2024-06-24 14:09] LABS: Troponin-I High Sensitivity 67.4 ng/L (<3.5-35.0)
[2024-06-24 14:10] LABS: Lactic Acid 2.3 mmol/L (0.5-2.0)
[2024-06-24 14:15] LABS: B Type Natriuretic Peptide 193 pg/mL (<100)
--- NOTE | 2024-06-24 14:18 | PC.NURSE ---
Lactic elevated, pt unable to receive IVF bolus per Alesia ARTHUR due to CHF.
[2024-06-24 14:29] LABS: Influenza A PCR NEGATIVE (Negative); Influenza B PCR NEGATIVE (Negative); Resp Syncy Virus RNA Qual PCR NEGATIVE (Negative); SARS COV2 PCR INHOUSE NEGATIVE (Negative)
--- NOTE | 2024-06-24 14:33 | PC.NURSE ---
Pt has wound to the posterior aspect of his right foot, bandaide removed and inspected by PA. New bandage placed. Bandage removed from left foot medial aspect, inspected by PA and new dressing applied. No drainage, erythema or edema noted to these wounds.
[2024-06-24] MEDS: Furosemide 40 MG/4 ML VIAL IVPUSH (15:14)
[2024-06-24 15:49] LABS: Troponin-I High Sensitivity 64.1 ng/L (<3.5-35.0)
[2024-06-24 15:50] LABS: Reflex Lactate? Lactic Acid Added
[2024-06-24 16:03] LABS: Appearance Urine Clear; Color Urine Yellow; Glucose Urine UA Negative (Negative); Leukocyte Esterase Urine Negative (Negative); Nitrite Urine Negative (Negative); PH 6.5 (5.0-9.0); Urine Blood Negative (Negative); Urine Ketones Negative (Negative); Urine Protein Trace mg/dL (Neg-Trace)
[2024-06-24 16:28] LABS: ~Lactic Acid-LAB USE ONLY 1.8 mmol/L (0.5-2.0)
--- NOTE | 2024-06-24 16:37 | PM.IMHP ---
History of Present Illness Date of Service: 06/24/24 Attending physician on admission: Heath Matos Chief Complaint: Abnormal labs Pt is an 83-year-old male with a complicated PMH significant for?HTN, HLD, CKD3, CAD, NSTEMI s/p stent in 2010,, paroxysmal AFib on Xarelto, recurrent metastatic prostate cancer on palliative chemotherapy with abiraterone and lupron (follows with Dr. Alva and Dr. Monroy), COPD not on home O2, and HFpEF who presents to the ED after routine outpatient labs were drawn yesterday and showed critically low potassium. Pt is a rather poor and vague historian, but states has been feeling rather poorly for the past 6 months. Was recently admitted to the hospital from 05/22-05/25 for AFib with RVR and new onset HFpEF. Reports has been feeling increasing fatigue and exertional SOB the past week or so. Has had reduced p.o. intake due to loss of appetite. Some loose stool, no fever, chills, nausea, vomiting or abdominal pain. Chronic cough at baseline. Denies chest pain/pressure, palpitations. Lives at home with his family and ambulates with a walker at baseline. In the ED pt was febrile up to 100.5, tachycardic up to 126, and tachypneic up to 25. Labs were significant for potassium 2.7, BUN 34, creatinine 1.67, lactic acid 2.3 with repeat 1.8, bilirubin 1.2, AST 224, ALT 68, alk-phos 584, initial troponin 67.4 with repeat 64.1, and BNP mildly elevated at 193. Stool positive for occult blood. UA negative for UTI. Tested negative for flu, RSV, and COVID. CXR showed bronchial wall thickening possibly infectious and/or inflammatory in etiology. EKG demonstrated AFib with RVR of 119 with PVCs. Pt was treated with cefepime, potassium chloride, and Lasix 40mg IV. Pt will be admitted to the hospital for acute hypokalemia and MANUEL in the setting of COPD exacerbation with possible underlying pneumonia meeting SIRS criteria. Review of Systems Review of Systems: Yes all other systems are reviewed and are negative [facility] Medical History Arrhythmia CAD (coronary artery disease) Hx of emphysema Rheumatoid arthritis Chronic renal insufficiency History of prostate cancer COPD (chronic obstructive pulmonary disease) Hypercholesteremia HTN (hypertension) Surgical History Hx of heart artery stent History of colonoscopy History of tonsillectomy H/O prostatectomy Social History Household Members: Family Housing: House Do you presently have visiting nurse or other home services: Yes Comment: at times Patient Tobacco Use Status: Former Tobacco user Tobacco use type: Cigarette e-Cigarette/Vaping Use: Never Used Advance Directives Date on File: 06/24/24 service: No Meds Allergies Allergy/AdvReac Type Severity Reaction Status Date / Time pollen extracts Allergy Intermediate itchy/watery Verified 06/24/24 13:19 eyes Active Medications: Current Medications Cefepime HCl (Maxipime) 2 gm in 50 mls @ 100 mls/hr IV Q24H KARIN Last Infusion: 06/24/24 14:37 Dose: Infused Home Medications ?Medication ?Instructions ?Recorded ?Confirmed ?Last Taken ?Type leflunomide 20 mg tablet 1 tab PO DAILY 01/16/21 06/24/24 06/24/24 History omeprazole 40 mg capsule,delayed 40 mg PO BID@0630,1630 01/16/21 06/24/24 06/24/24 History release rosuvastatin 40 mg tablet 40 mg PO DAILY 01/16/21 06/24/24 06/24/24 History abiraterone 250 mg tablet 1,000 mg PO DAILY 05/22/24 06/24/24 06/24/24 History bismuth subsalicylate 525 mg/15 mL 525 mg PO Q30M PRN 05/22/24 06/24/24 Unknown History oral suspension heartburn/indigestion calcium carbonate 500 mg-vitamin 1 tab PO BID 05/22/24 06/24/24 06/24/24 History D3 10 mcg (400 unit) chewable tablet ferrous sulfate 325 mg (65 mg 325 mg PO MOWEFR 05/22/24 06/24/24 06/24/24 History iron) tablet,delayed release fluticasone propionate 50 2 spray intranasal DAILY 05/22/24 06/24/24 06/24/24 History mcg/actuation nasal spray,suspension (Flonase Allergy Relief) furosemide 40 mg tablet 40 mg PO DAILY 05/22/24 06/24/24 06/24/24 History ipratropium 20 mcg-albuterol 100 1 puff inhalation Q8H PRN 05/22/24 06/24/24 Unknown History mcg/actuation mist for inhalation Shortness Of Breath Or Wheezing (Combivent Respimat) leuprolide acetate (6 month) 45 mg 45 mg IM [id number] 05/22/24 05/22/24 Unknown History intramuscular syringe kit (Lupron Depot) prednisone 5 mg tablet 5 mg PO DAILY 05/22/24 06/24/24 06/24/24 History rivaroxaban 20 mg tablet (Xarelto) 20 mg PO DAILY@1700 05/22/24 06/24/24 Unknown History metoprolol tartrate 50 mg tablet 150 mg PO BID 06/24/24 06/24/24 06/24/24 History Physical Exam Vital Signs and Narrative: Vital Signs: Last Vital Signs Temp 97.6 F 06/24/24 16:00 Pulse 118 H 06/24/24 16:00 Resp 22 H 06/24/24 16:00 BP 116/72 06/24/24 16:00 Pulse Ox 93 06/24/24 14:15 O2 Del Method Room Air 06/24/24 16:00 BMI result Body Mass Index 27.1 Constitutional: Alert, though appears pale and weak. In no acute distress. Mental Status: Oriented to person, place and time. Eyes: Pupils are equal, round, and reactive to light. Ear, Nose, and Throat: Oropharynx clear, mucous membranes moist. Ears and nose without deformities. Trachea midline. Respiratory: Audibly wheezing. Diffuse inspiratory and expiratory wheezing upon auscultation. Cardiovascular: S1, S2 regular. No murmurs, rubs, or gallops. Gastrointestinal: Abdomen soft, non-tender, non-distended. Normal bowel sounds. Neurologic: Cranial nerves II-XII are grossly intact bilaterally. No focal neurological deficits. Moves all extremities spontaneously. Skin: Warm, dry. Extremities: 2-3+ bilateral pitting edema, R>L. Psychiatric: Normal mood and affect. Results Labs 06/24/24 13:13 06/24/24 13:13 Labs: Laboratory Results - last 24 hr 11/09/1606/24/24 06/24/24 13:13 13:41 13:44 MCV 88.7 MCH 29.7 MCHC 33.5 RDW 19.6 H Plt Count 238 MPV 12.2 Immature Gran % (Auto) 0.5 H Neut % (Auto) 67.9 Lymph % (Auto) 17.9 L Pepin % (Auto) 9.8 Eos % (Auto) 3.2 Baso % (Auto) 0.7 Lymph # (Auto) 1.8 Pepin # (Auto) 1.0 Eos # (Auto) 0.3 Baso # (Auto) 0.1 Abs Immat Gran (auto) 0.05 H Absolute Neuts (auto) 7.0 Absolute Nucleated RBC 0.100 H Nucleated RBC % (auto) 1.0 H PT 30.8 H D INR 2.6 H Anion Gap 18 Estim Creat Clear Calc 28.1 Estimated GFR 40 Random Glucose 97 Lactic Acid Lactic Acid F/U @ 2Hr Calcium 9.0 D Magnesium 2.1 Total Bilirubin 1.2 H Direct Bilirubin 0.8 H AST 224 H ALT 68 H Alkaline Phosphatase 584 H Troponin I High Sens 67.4 H D B-Natriuretic Peptide 193 H Total Protein 6.1 L Albumin 3.0 L Lipase 29 Urine Color Urine Appearance Urine pH Ur Specific [place] Urine Protein Urine Glucose (UA) Urine Ketones Urine Blood Urine Nitrite Ur Leukocyte Esterase Stool Occult Blood Influenza Type A (PCR) NEGATIVE Influenza Type B (PCR) NEGATIVE RSV RNA Qual (PCR) NEGATIVE SARS-CoV-2 RNA (RT-PCR) NEGATIVE 06/24/24 06/24/24 06/24/24 13:45 13:46 15:27 MCV MCH MCHC RDW Plt Count MPV Immature Gran % (Auto) Neut % (Auto) Lymph % (Auto) Pepin % (Auto) Eos % (Auto) Baso % (Auto) Lymph # (Auto) Pepin # (Auto) Eos # (Auto) Baso # (Auto) Abs Immat Gran (auto) Absolute Neuts (auto) Absolute Nucleated RBC Nucleated RBC % (auto) PT INR Anion Gap Estim Creat Clear Calc Estimated GFR Random Glucose Lactic Acid 2.3 H* Lactic Acid F/U @ 2Hr Calcium Magnesium Total Bilirubin Direct Bilirubin AST ALT Alkaline Phosphatase Troponin I High Sens 64.1 H B-Natriuretic Peptide Total Protein Albumin Lipase Urine Color Urine Appearance Urine pH Ur Specific [place] Urine Protein Urine Glucose (UA) Urine Ketones Urine Blood Urine Nitrite Ur Leukocyte Esterase Stool Occult Blood POSITIVE Influenza Type A (PCR) Influenza Type B (PCR) RSV RNA Qual (PCR) SARS-CoV-2 RNA (RT-PCR) 06/24/24 06/24/24 15:57 16:13 MCV MCH MCHC RDW Plt Count MPV Immature Gran % (Auto) Neut % (Auto) Lymph % (Auto) Pepin % (Auto) Eos % (Auto) Baso % (Auto) Lymph # (Auto) Pepin # (Auto) Eos # (Auto) Baso # (Auto) Abs Immat Gran (auto) Absolute Neuts (auto) Absolute Nucleated RBC Nucleated RBC % (auto) PT INR Anion Gap Estim Creat Clear Calc Estimated GFR Random Glucose Lactic Acid Lactic Acid F/U @ 2Hr 1.8 Calcium Magnesium Total Bilirubin Direct Bilirubin AST ALT Alkaline Phosphatase Troponin I High Sens B-Natriuretic Peptide Total Protein Albumin Lipase Urine Color Yellow Urine Appearance Clear Urine pH 6.5 Ur Specific [place] 1.010 Urine Protein Trace Urine Glucose (UA) Negative Urine Ketones Negative Urine Blood Negative Urine Nitrite Negative Ur Leukocyte Esterase Negative Stool Occult Blood Influenza Type A (PCR) Influenza Type B (PCR) RSV RNA Qual (PCR) SARS-CoV-2 RNA (RT-PCR) Imaging Radiologist's Impressions: Impressions Chest X-Ray 06/24/24 13:21 IMPRESSION: Bronchial wall thickening may be infectious and/or inflammatory in etiology. Electronically signed by: Vivienne Sanz MD 06/24/2024 03:21 PM EDT RP Assessment and Plan (1) MANUEL (acute kidney injury): Status: Acute (2) Acute hypokalemia: Status: Acute Plan Pt is an 83-year-old male with a complicated PMH significant for?HTN, HLD, CKD3, CAD, NSTEMI s/p stent in 2010, paroxysmal AFib on Xarelto, recurrent metastatic prostate cancer on palliative chemotherapy with abiraterone and lupron (follows with Dr. Alva and Dr. Monroy), COPD not on home O2, rheumatoid arthritis, and HFpEF who presents to the ED after routine outpatient labs were drawn yesterday and showed critically low potassium. Pt will be admitted to the hospital for acute hypokalemia and MANUEL in the setting of COPD exacerbation with possible underlying pneumonia meeting SIRS criteria. Acute COPD exacerbation with possible underlying pneumonia meeting SIRS criteria Patient audibly wheezing, CXR showing possible infectious/inflammatory process, procalcitonin significantly elevated at 5.96 Meets SIRS criteria: Tachycardia, tachypnea; lactic acid 2.3 Patient started on broad-spectrum antibiotics in the ED Will treat cefepime, azithromycin, started 06/24/2024 Duonebs, continue home inhalers Follow cultures Hypokalemia Potassium 2.7 at time of presentation Magnesium WNL at 2.1 Patient received potassium 80 mEq p.o. in the ED Will supplement with potassium 40 mEq IV Monitor on telemetry Follow potassium MANUEL on CKD3 Creatinine 1.67, elevated from 0.98 on 06/06/2024 Likely cardiorenal as patient appears fluid overloaded Patient received IV Lasix in the ED Follow creatinine Stool positive for occult blood H&H stable at 13.1/39.1, at baseline Patient with history of GI bleed Will hold Xarelto for now Follow H&H HFpEF Clinically pt appears fluid overloaded with 2-3+ LLE BNP only mildly elevated, CXR without effusions or edema Pt received Lasix 40mg IV in the ED Given electrolyte abnormalities will hold on additional Lasix IV at this time Follow BMP, volume status Continue spironolactone Elevated troponins Initial troponin 67.4 with repeat flat at 64.1 Patient asymptomatic, EKG without significant ischemic changes Likely type 2 in the setting of increased demand Monitor on telemetry Paroxysmal AFib Hold Xarelto due to stool heme+ Continue metoprolol Metastatic prostate cancer Continue epidural and Lupron GERD Continue PPI Rheumatoid arthritis Prednisone on hold Full Code Attending:?Dr. Matos DVT Prophylaxis: Xarelto on hold, pneumatic compression for now Pt will require a hospitalization of at least two nights for treatment of acute hypokalemia and MANUEL in setting COPD exacerbation with possible underlying pneumonia meeting SIRS criteria. Pt will require empiric IV antibiotics, close monitoring of labs, electrolyte supplementation as necessary, and re-evaluation tomorrow for possible continued IV diuretics. Quality Stroke Does the patient have a stroke diagnosis?: No VTE Prior VTE?: No VTE Risk Level:: Medical - moderate - high VTE Device Contraindication: N/A - Device Ordered VTE Drug Contraindication: Treatment Not Indicated
--- NOTE | 2024-06-24 16:57 | PHA.MEDREC ---
Pharmacy Consult ? Medication Reconciliation Pharmacy has completed the medication reconciliation. Patient confused, unable to determine medications by himself but noted he brought a list with him. The list seems outdated, as it has spironolactone 25mg BID but there have been no fills for it over the past year. Combivent also not in claim history however it is noted to be used PRN so I left it on the list. He had a recent fill for Augmentin that I called [facility] to confirm was picked up 06/21, but the patient insisted he did not start taking it yet. Per his last discharge instructions, Dr. Camacho increased his metoprolol dose to 200mg ER daily; no fills for succinate so left his med rec as tartrate 150mg BID per claim history and patient list. Most everything else on his list matched claim history, however his Xarelto has not been filled since 02/22/24 x 90 day supply.
[2024-06-24 17:53] LABS: Procalcitonin 5.96 ng/mL
[2024-06-24] MEDS: Potassium Chloride/H20 10 MEQ/100 ML PIGGYBACK 100 MEQ IV ×4 (18:44→22:52)
[2024-06-24] MEDS: Albuterol/Iprat 2.5/0.5MG 3 ML AMPUL.NEB INHALE (19:48)
[2024-06-24] MEDS: Azithromycin 500 MG in 0.9 % Sodium Chloride 250 ML 125 MG IV (21:27)
[2024-06-24] MEDS: 0.9 % Sodium Chloride Flush 3 ML SYRINGE IVFLUSH (21:28)
[2024-06-25] VITALS (12 sets, daily range): BP systolic 103–114; BP diastolic 60–89; PULSE 58–131; RESP 16–20; TEMP 36.3–37.4; O2SAT 94–98
[2024-06-25] MEDS: Metoprolol Tartrate 12.5 MG HALFTAB PO ×2 (01:03→08:01)
[2024-06-25 01:04] LABS: Anion Gap 17 (12-20); Blood Urea Nitrogen 33 mg/dL (9-16); Calcium 8.3 mg/dL (8.4-10.2); Carbon Dioxide 20 mmol/L (22-29); Chloride 104 mmol/L (96-108); Creatinine Clr Calc Pharmacy 29.1; Estimated Glomerular Filt Rate 46; Glucose Random 72 mg/dL (60-115); Magnesium 2.1 mg/dL (1.6-2.6); Potassium 5.3 mmol/L (3.3-5.1); Sodium 136 mmol/L (135-145)
[2024-06-25] MEDS: Labetalol HCL 100 MG/20 ML VIAL IVPUSH (02:17)
[2024-06-25] MEDS: 0.9 % Sodium Chloride 250 ML 999 ML IV (02:18)
[2024-06-25] MEDS: Metoprolol Tartrate 5 MG/5 ML VIAL IVPUSH ×3 (03:17→04:26)
--- NOTE | 2024-06-25 04:12 | PC.NURSE ---
Pt AOx3, forgetful at times when woken up. Pt has flat affect. TX catheter is on, draining CYU. Overnight pt's HR became erratic and was going into the 150's. Tigered , see MAR for med administration. Clarified w/MD about PRN lopressor, [id number] for HR > 100. Pt's HR will drop to low 100's but will climb again to 130-140's. Overnight MD following and tigering this RN about pt's HR. Will continue to keep MD updated for rest of shift. Pharmacy asked if pt's family could bring in chemotherapy pills. Pt sated he will call in the AM for family to bring them in. Bed alarm on, call hutchison within reach.
[2024-06-25] MEDS: dilTIAZem HCL 50 MG/10 ML VIAL 10 MG IVPUSH (05:32)
[2024-06-25] MEDS: Omeprazole 40 MG CAPSULE.DR PO ×2 (05:34→17:56)
[2024-06-25 07:06] LABS: Hematocrit 35.6 % (42.0-52.0); Hemoglobin 11.8 g/dl (14.0-18.0); Mean Corpuscular HGB Conc 33.1 g/dl (31.0-36.0); Mean Corpuscular Hemoglobin 29.2 pg (27.0-33.0); Mean Corpuscular Volume 88.1 fL (80.0-98.0); Mean Platelet Volume 12.7 fL (9.4-12.4); NRBC Pct Auto 0.9 /100WBC (0.0-0.2); Platelet Count 192 X10*3/uL (160-400); Red Blood Count 4.04 X10*6/uL (4.60-5.80); Red Cell Distribution Width 20.1 % (11.0-16.0); White Blood Count 10.6 X10*3/uL (4.8-10.8)
[2024-06-25] MEDS: dilTIAZem HCL 125 MG in 0.9 % Sodium Chloride 100 ML IVCONT (07:24)
[2024-06-25 07:26] LABS: Anion Gap 17 (12-20); Blood Urea Nitrogen 31 mg/dL (9-16); Calcium 8.3 mg/dL (8.4-10.2); Carbon Dioxide 21 mmol/L (22-29); Chloride 103 mmol/L (96-108); Creatinine Clr Calc Pharmacy 29.7; Estimated Glomerular Filt Rate 47; Potassium 4.7 mmol/L (3.3-5.1); Sodium 136 mmol/L (135-145)
[2024-06-25 07:34] LABS: Glucose Random 54 mg/dL (60-115)
[2024-06-25 07:36] LABS: Glucose, Whole Blood 39 mg/dL (60-115)
[2024-06-25 07:57] LABS: Glucose, Whole Blood 39 mg/dL (60-115)
[2024-06-25] MEDS: 0.9 % Sodium Chloride Flush 3 ML SYRINGE IVFLUSH ×3 (08:01→19:28)
[2024-06-25] MEDS: Atorvastatin Calcium 80 MG TABLET PO (08:01)
[2024-06-25] MEDS: predniSONE 5 MG TABLET PO (08:01)
[2024-06-25] MEDS: Leflunomide 10 MG TABLET 20 MG PO (08:01)
[2024-06-25] MEDS: Magnesium Oxide 400 MG TABLET PO (08:01)
[2024-06-25] MEDS: Glucose Gel 15 GM GEL..GRAM. PO ×2 (08:05→08:28)
[2024-06-25 08:22] LABS: Glucose, Whole Blood 40 mg/dL (60-115)
[2024-06-25] MEDS: Albuterol/Iprat 2.5/0.5MG 3 ML AMPUL.NEB INHALE ×3 (08:27→15:19)
[2024-06-25 08:53] LABS: Glucose, Whole Blood 86 mg/dL (60-115)
[2024-06-25 09:59] LABS: Adenovirus PCR Not Detected (Not Detect.); Bordetella parapertussis PCR Not Detected (Not Detect.); Bordetella pertussis PCR Not Detected (Not Detect.); Chlamydia pneumoniae PCR Not Detected (Not Detect.); Coronavirus 229E PCR Not Detected (Not Detect.); Coronavirus HKU1 PCR Not Detected (Not Detect.); Coronavirus NL63 PCR Not Detected (Not Detect.); Coronavirus OC43 PCR Not Detected (Not Detect.); Human metapneumovirus PCR Not Detected (Not Detect.); Influenza A PCR Not Detected (Not Detect.); Influenza B PCR Not Detected (Not Detect.); Mycoplasma pneumoniae PCR Not Detected (Not Detect.); Parainfluenza 1 PCR Not Detected (Not Detect.); Parainfluenza 2 PCR Not Detected (Not Detect.); Parainfluenza 3 PCR Not Detected (Not Detect.); Parainfluenza 4 PCR Not Detected (Not Detect.); RSV PCR Not Detected (Not Detect.); Rhino/Enterovirus PCR Not Detected (Not Detect.)
[2024-06-25 10:18] LABS: SARS-CoV-2 PCR Not Detected (Not Detect.)
--- NOTE | 2024-06-25 10:32 | HO.PM.IMPN ---
Subjective Subjective Date of Service: 06/25/24 Interval History: Seen and evaluated this morning Episode of hypoglycemia , asymptomatic Improving Cr HR better controlled on Cardizem drip Review of Systems Review of Systems: Yes all other systems are reviewed and are negative Physical Exam Vital Signs: Vital Signs: Last Vital Signs Temp 97.4 F 06/25/24 08:07 Pulse 66 06/25/24 08:35 Resp 20 06/25/24 08:35 BP 114/89 06/25/24 08:07 Pulse Ox 98 06/25/24 08:07 O2 Del Method Room Air 06/25/24 08:07 BMI result Body Mass Index 25.5 Const: Other: Constitutional : Awake, interactive, pale, frail, not in distress Neck : Normal inspection, Supple Cardiovascular :irregular irregular, tachycardia, , trace lower extremity edema Respiratory : good bilateral air entry, no crackles, wheezes or rhonchi Gastrointestinal: soft, lax, Normal bowel sounds, Non tender Skin : Warm, Dry Neurological : Alert & oriented x3, No focal deficit Objective Data Active Medications Acetaminophen (Acetaminophen 325 Mg Tablet) 650 mg PO Q6H PRN PRN Reason: Pain, Mild (Pain Scale 1-3), fever or headache Albuterol/Ipratropium (Albuterol/Iprat 2.5/0.5mg 3 Ml Ampul.Neb) 3 ml INHALE RQ4H WHILE AWAKE [facility] Last Admin: 06/25/24 08:27 Dose: 3 ml Documented By: GERMÁN Atorvastatin Calcium (Atorvastatin Calcium 80 Mg Tablet) 80 mg PO DAILY [facility] Last Admin: 06/25/24 08:01 Dose: 80 mg Documented By: BRE Calcium Carbonate (Calcium Carbonate 750 Mg Tab.Chew) 750 mg PO Q4H PRN PRN Reason: Heartburn Fluticasone Propionate (Fluticasone Propionate Nasal 16 Gm Eagle) 2 spray NOSTRIL-B DAILY [facility] Glucose (Glucose Gel 15 Gm Gel..Gram.) 15 gm PO Q15M PRN PRN Reason: per Hypoglycemia Standing Ord. Last Admin: 06/25/24 08:28 Dose: 15 gm Documented By: BRE Azithromycin 500 mg/ Sodium (Chloride) 250 mls @ 125 mls/hr IV Q24H [facility] Last Infusion: 06/24/24 23:38 Dose: Infused Documented By: ANGIE Cefepime HCl 2 gm/ Sodium (Chloride) 50 mls @ 100 mls/hr IV Q24H [facility] Diltiazem HCl 125 mg/ Sodium (Chloride) 125 mls @ 0 mls/hr IVCONT .Q0M [facility]; Protocol Last Titration: 06/25/24 07:42 Dose: 10 mg/hr, 10 mls/hr Documented By: ARMEN Leflunomide (Leflunomide 10 Mg Tablet) 20 mg PO DAILY [facility] Last Admin: 06/25/24 08:01 Dose: 20 mg Documented By: BRE Magnesium Hydroxide (Milk Of Magnesia 30 Ml Oral.Susp) 30 ml PO DAILY PRN PRN Reason: Constipation Magnesium Oxide (Magnesium Oxide 400 Mg Tablet) 400 mg PO DAILY [facility] Last Admin: 06/25/24 08:01 Dose: 400 mg Documented By: BRE Melatonin (Melatonin 3 Mg Tablet) 6 mg PO BEDTIME PRN PRN Reason: Insomnia Metoprolol Tartrate (Metoprolol Tartrate 12.5 Mg Halftab) 12.5 mg PO BID [facility]; Protocol Last Admin: 06/25/24 08:01 Dose: 12.5 mg Documented By: BRE Metoprolol Tartrate (Metoprolol Tartrate 5 Mg/5 Ml Vial) 5 mg IVPUSH Q15H PRN; Protocol PRN Reason: HR > 100 bpm Last Admin: 06/25/24 04:26 Dose: 5 mg Documented By: ANGIE Comments: HR 131 Non-Formulary Medication (Abiraterone) 1,000 mg PO DAILY [facility] Non-Formulary Medication (Ferrous Sulfate) 325 mg PO MoWeFr@0900 [facility] Omeprazole (Omeprazole 40 Mg Capsule.Dr) 40 mg PO BID@0630,1630 [facility] Last Admin: 06/25/24 05:34 Dose: 40 mg Documented By: ANGIE Prednisone (Prednisone 5 Mg Tablet) 5 mg PO DAILY [facility] Last Admin: 06/25/24 08:01 Dose: 5 mg Documented By: BRE Sodium Chloride (0.9 % Sodium Chloride Flush 3 Ml Syringe) 3 ml IVFLUSH QSHIFT [facility] Last Admin: 06/25/24 08:01 Dose: 3 ml Documented By: BRE Labs 06/25/24 05:55 06/25/24 05:55 Labs: Laboratory Results - last 24 hr 06/24/24 06/24/24 06/24/24 13:13 13:41 13:44 MCV 88.7 MCH 29.7 MCHC 33.5 RDW 19.6 H Plt Count 238 MPV 12.2 Immature Gran % (Auto) 0.5 H Neut % (Auto) 67.9 Lymph % (Auto) 17.9 L [place] % (Auto) 9.8 Eos % (Auto) 3.2 Baso % (Auto) 0.7 Lymph # (Auto) 1.8 Dooly # (Auto) 1.0 Eos # (Auto) 0.3 Baso # (Auto) 0.1 Abs Immat Gran (auto) 0.05 H Absolute Neuts (auto) 7.0 Absolute Nucleated RBC 0.100 H Nucleated RBC % (auto) 1.0 H PT 30.8 H D INR 2.6 H Anion Gap 18 Estim Creat Clear Calc 28.1 Estimated GFR 40 POC Glucose Random Glucose 97 Lactic Acid Lactic Acid F/U @ 2Hr Calcium 9.0 D Phosphorus Magnesium 2.1 Total Bilirubin 1.2 H Direct Bilirubin 0.8 H AST 224 H ALT 68 H Alkaline Phosphatase 584 H Troponin I High Sens 67.4 H D B-Natriuretic Peptide 193 H Total Protein 6.1 L Albumin 3.0 L Lipase 29 Procalcitonin 5.96 Urine Color Urine Appearance Urine pH Ur Specific [place] Urine Protein Urine Glucose (UA) Urine Ketones Urine Blood Urine Nitrite Ur Leukocyte Esterase Stool Occult Blood Respiratory Panel Moon Adenovirus (Rapid PCR) B.pert (TEM-PCR) B.parapertussis DNA PCR C. pneumoniae DNA (PCR) Coronavirus OC43 (PCR) Coronavirus HKU1 (PCR) Coronavirus 229E (PCR) Coronavirus NL63 (PCR) Human Metapneumovir PCR Influenza A (RT-PCR) Influenza Type A (PCR) NEGATIVE Influenza B (RT-PCR) Influenza Type B (PCR) NEGATIVE M. pneumoniae (PCR) Parainfluenza 1 (PCR) Parainfluenza 2 (PCR) Parainfluenza 3 (PCR) Parainfluenza 4 (PCR) RSV (PCR) RSV RNA Qual (PCR) NEGATIVE Entero/Rhino (PCR) SARS-CoV-2 RNA (RT-PCR) NEGATIVE 06/24/24 06/24/24 06/24/24 13:45 13:46 15:27 MCV MCH MCHC RDW Plt Count MPV Immature Gran % (Auto) Neut % (Auto) Lymph % (Auto) [place] % (Auto) Eos % (Auto) Baso % (Auto) Lymph # (Auto) [place]y # (Auto) Eos # (Auto) Baso # (Auto) Abs Immat Gran (auto) Absolute Neuts (auto) Absolute Nucleated RBC Nucleated RBC % (auto) PT INR Anion Gap Estim Creat Clear Calc Estimated GFR POC Glucose Random Glucose Lactic Acid 2.3 H* Lactic Acid F/U @ 2Hr Calcium Phosphorus Magnesium Total Bilirubin Direct Bilirubin AST ALT Alkaline Phosphatase Troponin I High Sens 64.1 H B-Natriuretic Peptide Total Protein Albumin Lipase Procalcitonin Urine Color Urine Appearance Urine pH Ur Specific [place] Urine Protein Urine Glucose (UA) Urine Ketones Urine Blood Urine Nitrite Ur Leukocyte Esterase Stool Occult Blood POSITIVE Respiratory Panel Moon Adenovirus (Rapid PCR) B.pert (TEM-PCR) B.parapertussis DNA PCR C. pneumoniae DNA (PCR) Coronavirus OC43 (PCR) Coronavirus HKU1 (PCR) Coronavirus 229E (PCR) Coronavirus NL63 (PCR) Human Metapneumovir PCR Influenza A (RT-PCR) Influenza Type A (PCR) Influenza B (RT-PCR) Influenza Type B (PCR) M. pneumoniae (PCR) Parainfluenza 1 (PCR) Parainfluenza 2 (PCR) Parainfluenza 3 (PCR) Parainfluenza 4 (PCR) RSV (PCR) RSV RNA Qual (PCR) Entero/Rhino (PCR) SARS-CoV-2 RNA (RT-PCR) 06/24/24 06/24/24 06/24/24 15:57 16:13 18:00 MCV MCH MCHC RDW Plt Count MPV Immature Gran % (Auto) Neut % (Auto) Lymph % (Auto) [place] % (Auto) Eos % (Auto) Baso % (Auto) Lymph # (Auto) [place] # (Auto) Eos # (Auto) Baso # (Auto) Abs Immat Gran (auto) Absolute Neuts (auto) Absolute Nucleated RBC Nucleated RBC % (auto) PT INR Anion Gap Estim Creat Clear Calc Estimated GFR POC Glucose Random Glucose Lactic Acid Lactic Acid F/U @ 2Hr 1.8 Calcium Phosphorus Magnesium Total Bilirubin Direct Bilirubin AST ALT Alkaline Phosphatase Troponin I High Sens B-Natriuretic Peptide Total Protein Albumin Lipase Procalcitonin Urine Color Yellow Urine Appearance Clear Urine pH 6.5 Ur Specific [place] 1.010 Urine Protein Trace Urine Glucose (UA) Negative Urine Ketones Negative Urine Blood Negative Urine Nitrite Negative Ur Leukocyte Esterase Negative Stool Occult Blood Respiratory Panel Moon See Note Adenovirus (Rapid PCR) Not Detected B.pert (TEM-PCR) Not Detected B.parapertussis DNA PCR Not Detected C. pneumoniae DNA (PCR) Not Detected Coronavirus OC43 (PCR) Not Detected Coronavirus HKU1 (PCR) Not Detected Coronavirus 229E (PCR) Not Detected Coronavirus NL63 (PCR) Not Detected Human Metapneumovir PCR Not Detected Influenza A (RT-PCR) Not Detected Influenza Type A (PCR) Influenza B (RT-PCR) Not Detected Influenza Type B (PCR) M. pneumoniae (PCR) Not Detected Parainfluenza 1 (PCR) Not Detected Parainfluenza 2 (PCR) Not Detected Parainfluenza 3 (PCR) Not Detected Parainfluenza 4 (PCR) Not Detected RSV (PCR) Not Detected RSV RNA Qual (PCR) Entero/Rhino (PCR) Not Detected SARS-CoV-2 RNA (RT-PCR) Not Detected 06/25/24 06/25/24 06/25/24 00:38 05:55 07:32 MCV 88.1 MCH 29.2 MCHC 33.1 RDW 20.1 H Plt Count 192 MPV 12.7 H Immature Gran % (Auto) Neut % (Auto) Lymph % (Auto) [place] % (Auto) Eos % (Auto) Baso % (Auto) Lymph # (Auto) [place] # (Auto) Eos # (Auto) Baso # (Auto) Abs Immat Gran (auto) Absolute Neuts (auto) Absolute Nucleated RBC 0.100 H Nucleated RBC % (auto) 0.9 H PT INR Anion Gap 17 17 Estim Creat Clear Calc 29.1 29.7 Estimated GFR 46 47 POC Glucose 39 L* Random Glucose 72 54 L* Lactic Acid Lactic Acid F/U @ 2Hr Calcium 8.3 L D 8.3 L Phosphorus 2.0 L Magnesium 2.1 Total Bilirubin Direct Bilirubin AST ALT Alkaline Phosphatase Troponin I High Sens B-Natriuretic Peptide Total Protein Albumin Lipase Procalcitonin Urine Color Urine Appearance Urine pH Ur Specific [place] Urine Protein Urine Glucose (UA) Urine Ketones Urine Blood Urine Nitrite Ur Leukocyte Esterase Stool Occult Blood Respiratory Panel Moon Adenovirus (Rapid PCR) B.pert (TEM-PCR) B.parapertussis DNA PCR C. pneumoniae DNA (PCR) Coronavirus OC43 (PCR) Coronavirus HKU1 (PCR) Coronavirus 229E (PCR) Coronavirus NL63 (PCR) Human Metapneumovir PCR Influenza A (RT-PCR) Influenza Type A (PCR) Influenza B (RT-PCR) Influenza Type B (PCR) M. pneumoniae (PCR) Parainfluenza 1 (PCR) Parainfluenza 2 (PCR) Parainfluenza 3 (PCR) Parainfluenza 4 (PCR) RSV (PCR) RSV RNA Qual (PCR) Entero/Rhino (PCR) SARS-CoV-2 RNA (RT-PCR) 06/25/24 06/25/24 06/25/24 07:53 08:18 08:49 MCV MCH MCHC RDW Plt Count MPV Immature Gran % (Auto) Neut % (Auto) Lymph % (Auto) [place] % (Auto) Eos % (Auto) Baso % (Auto) Lymph # (Auto) [place] # (Auto) Eos # (Auto) Baso # (Auto) Abs Immat Gran (auto) Absolute Neuts (auto) Absolute Nucleated RBC Nucleated RBC % (auto) PT INR Anion Gap Estim Creat Clear Calc Estimated GFR POC Glucose 39 L* 40 L* 86 Random Glucose Lactic Acid Lactic Acid F/U @ 2Hr Calcium Phosphorus Magnesium Total Bilirubin Direct Bilirubin AST ALT Alkaline Phosphatase Troponin I High Sens B-Natriuretic Peptide Total Protein Albumin Lipase Procalcitonin Urine Color Urine Appearance Urine pH Ur Specific [place] Urine Protein Urine Glucose (UA) Urine Ketones Urine Blood Urine Nitrite Ur Leukocyte Esterase Stool Occult Blood Respiratory Panel Moon Adenovirus (Rapid PCR) B.pert (TEM-PCR) B.parapertussis DNA PCR C. pneumoniae DNA (PCR) Coronavirus OC43 (PCR) Coronavirus HKU1 (PCR) Coronavirus 229E (PCR) Coronavirus NL63 (PCR) Human Metapneumovir PCR Influenza A (RT-PCR) Influenza Type A (PCR) Influenza B (RT-PCR) Influenza Type B (PCR) M. pneumoniae (PCR) Parainfluenza 1 (PCR) Parainfluenza 2 (PCR) Parainfluenza 3 (PCR) Parainfluenza 4 (PCR) RSV (PCR) RSV RNA Qual (PCR) Entero/Rhino (PCR) SARS-CoV-2 RNA (RT-PCR) Assessment and Plan (1) Transaminitis: Status: Acute (2) MANUEL (acute kidney injury): Status: Acute (3) Occult blood positive stool: Status: Acute (4) Acute hypokalemia: Status: Acute (5) CHF (congestive heart failure): Status: Acute (6) Atrial fibrillation with rapid ventricular response: Status: Acute (7) COPD exacerbation: Status: Acute Plan Pt is an 83-year-old male with a complicated PMH significant for?HTN, HLD, CKD3, CAD, NSTEMI s/p stent in 2010, paroxysmal AFib on Xarelto, recurrent metastatic prostate cancer on palliative chemotherapy with abiraterone and lupron (follows with Dr. Alva and Dr. Monroy), COPD not on home O2, rheumatoid arthritis, and HFpEF who presents to the ED after routine outpatient labs were drawn yesterday and showed critically low potassium. Pt will be admitted to the hospital for acute hypokalemia and MANUEL in the setting of COPD exacerbation with possible underlying pneumonia meeting SIRS criteria. Acute COPD exacerbation with acute lactic acidosis Not septic Lactic acidosis resolved DC cefepime Continue azithromycin, started 06/24/2024 Duonebs, continue home inhalers Follow cultures Hypokalemia, acute resolved Follow potassium MANUEL on CKD3 Creatinine 1.44, elevated from 0.98 on 06/06/2024 Likely cardiorenal as patient appears fluid overloaded, on lasix Follow creatinine Afib w RvR OVernight for incorrect dose of MEtoprolol Start MEtoprolol 75 mg Q6 for now started on Cardizem drip , to DC as tolerated keep on Tele Hypoglycemia event no clear reason, not on diabetic meds monitor POC as he recovered with glucose gell and diet Stool positive for occult blood H&H stable at 13.1/39.1, at baseline Patient with history of GI bleed restart xarelto, Follow H&H acute on chronic HFpEF improving with IV lasix continue PO Lasix monitor response Continue spironolactone Elevated troponins Initial troponin 67.4 with repeat flat at 64.1 Patient asymptomatic, EKG without significant ischemic changes Likely type 2 in the setting of increased demand Monitor on telemetry Paroxysmal AFib Hold Xarelto due to stool heme+ Continue metoprolol Metastatic prostate cancer Continue epidural and Lupron GERD Continue PPI Rheumatoid arthritis Prednisone on hold Full Code DVT Prophylaxis: Xarelto Pt will require a hospitalization of at least two nights for treatment of acute hypokalemia and MANUEL in setting COPD exacerbation with possible underlying pneumonia meeting SIRS criteria. Pt will require empiric IV antibiotics, close monitoring of labs, electrolyte supplementation as necessary, Quality Stroke Does the patient have a stroke diagnosis?: No VTE Prior VTE?: No VTE Risk Level:: Medical - moderate - high VTE Device Contraindication: N/A - Device Ordered VTE Drug Contraindication: Treatment Not Indicated
[2024-06-25] MEDS: Metoprolol Tartrate 25 MG TABLET 75 MG PO ×3 (11:09→23:28)
[2024-06-25] MEDS: Fluticasone Propionate Nasal 16 GM SPRAY 2 SPRAY NOSTRIL-B (11:09)
[2024-06-25 11:26] LABS: Glucose, Whole Blood 148 mg/dL (60-115)
[2024-06-25] MEDS: Furosemide 40 MG TABLET PO (14:06)
--- NOTE | 2024-06-25 14:08 | PC.NURSE ---
Diltiazem paused for hr sustained under 90 bpm
[2024-06-25] MEDS: Calcium Carbonate 750 MG TAB.CHEW PO (14:13)
[2024-06-25 15:58] LABS: Glucose, Whole Blood 176 mg/dL (60-115)
[2024-06-25] MEDS: Rivaroxaban 15 MG TABLET PO (18:06)
[2024-06-25] MEDS: Azithromycin 500 MG in 0.9 % Sodium Chloride 250 ML 125 MG IV (19:28)
[2024-06-26] VITALS (37 sets, daily range): BP systolic 0–131; BP diastolic 0–90; PULSE 86–150; RESP 17–40; TEMP 34.3–39.8; O2SAT 88–98
[2024-06-26] MEDS: Metoprolol Tartrate 25 MG TABLET PO (04:26)
[2024-06-26] MEDS: Omeprazole 40 MG CAPSULE.DR PO (06:00)
[2024-06-26 07:03] LABS: Glucose, Whole Blood 82 mg/dL (60-115)
[2024-06-26 07:44] LABS: Glucose, Whole Blood 62 mg/dL (60-115)
[2024-06-26] MEDS: Atorvastatin Calcium 80 MG TABLET PO (07:48)
[2024-06-26] MEDS: Furosemide 40 MG TABLET PO (07:48)
[2024-06-26] MEDS: predniSONE 5 MG TABLET PO (07:48)
[2024-06-26] MEDS: Magnesium Oxide 400 MG TABLET PO (07:48)
[2024-06-26] MEDS: Acetaminophen 325 MG TABLET 650 MG PO (07:50)
[2024-06-26] MEDS: 0.9 % Sodium Chloride Flush 3 ML SYRINGE IVFLUSH ×2 (07:51→16:19)
[2024-06-26] MEDS: SODIUM CHLORIDE 1839 ML IV ×2 (08:15→10:30)
[2024-06-26] MEDS: Ketamine HCl/NS 50 MG/5 ML SYRINGE 100 MG IVPUSH (08:23)
[2024-06-26] MEDS: Norepinephrine Bitartrate/D5W 8 MG/250 ML PLAST..BAG 17.24 MG IVCONT (08:26)
--- NOTE | 2024-06-26 08:31 | PM.EVENT ---
Documented by User: Heath Matos MD 06/26/24 10:11 Event Note Date of Service: 06/26/24 Event Note: I was contacted by nursing staff that pain is hypoxic and hypotensive around 7_30 this morning I went to see and he lookd pale, lethargic, tachypneic. I explained to him that he might need to be intubated and he agreed. Ordered Bolus of fluids, Blood cultures and Lactic acid along with ABG and CXR. Jes was aspirating overnight and meets sepsis criteria. A rapid response called around 0800 and ED provider was able to intubate him. Started on Propofol drip and transferred to ICU Time Spent With Patient Time: Total time managing care of this patient today ____ minutes. Documented by User: Jayesh Lares MD 06/26/24 18:57 Event Note Date of Service: 06/26/24
--- NOTE | 2024-06-26 08:45 | PC.NURSE ---
Upon assessment, the patient appeared to be pale, A&O x3, tele; afib rvr with HR 120-130s. Vitals done at this time; temp 103.7 rectal, BP: 80/58, HR; 120 93 % on 4 liters via NC. Provider notified; metoprolol held, tylenol given for temp. POC checked at this time; POC 62; pt not diabetic, however 12 ounces of orange juice given, repeat POC 72. Pt then appeared to be aspirating on orange juice; lung auscultated, dim in the right base, expiratory wheezing throughout. Respiratory called to bedside at this time. Unable to get O2 stat. Pt now placed on oxymask; finally able to get an O2 on the forehead; O2 read as low as 60s and as high as 80. Provider aware and called to the bedside by the charge nurse. CXR ordered and taken; VBG ordered and taken. PT becoming more lethargic and having increased work of breathing, respirations 40, BP still soft; 1 liter bolus ordered and started. Rapid Response Called at this time. Code Cart pulled to room; pacer pads applied, hooked up to defibrillator. RSI kit pulled; 100 Ketamine and 60 of Rocuronium given; pt intubated at bedside by ED doc at 0825. 7.5 tube placed, positive color change, bilateral breath sounds. Levophed gtt started at 0.15 and the patient was transported to ICU.
[2024-06-26 08:49] LABS: ABG Base Excess -1.6 mmol/L; ABG HCO3 23 mmol/L (22-26); ABG pCO2 42 mmHg (32-45); ABG pH 7.35 (7.35-7.45); ABG pO2 616 mmHg (83-108)
[2024-06-26 08:50] LABS: Glucose, Whole Blood 73 mg/dL (60-115)
--- NOTE | 2024-06-26 09:02 | MHC.CM.PN ---
Addendum entered by Christen Green 06/26/24 09:27: [facility] HAS CONFIRMED PT IS ACTIVE WITH THEM FOR SN/PT/OT Original Note: PT REPORTS HE LIVES WITH HIS BROTHER AND REQUIRES ASSISTANCE WITH SOME CARE HE IS ACTIVE WITH A [facility]STRUMENT [facility] AND A [facility] FOR PT AND SN HE DOES NOT KNOW THE NAME OF HIS VN AGENCY PT HAS BOTH A CANE AND A WALKER HCP ON FILE PCP: [facility]AR[facility] IMM DELIVERED ON 06/25/24 DCP TBD: CM FOLLOWING FOR DC NEEDS IF PT IS CLEARED TO DC HOME, HIS BROTHER WOULD TRANSPORT
[2024-06-26] MEDS: dexmedeTOMIDidine HCL/NS 400 MCG/100 ML INFUS..BTL 15.33 MCG IVCONT (10:02)
[2024-06-26 10:10] LABS: Alanine Aminotransferase 174 U/L (0-40); Albumin Level 2.4 g/dL (3.5-5.0); Alkaline Phosphatase 506 U/L (39-117); Anion Gap 18 (12-20); Aspartate Amino Transferase 1255 U/L (5-37); Bilirubin Direct 1.3 mg/dL (0.0-0.5); Bilirubin Total 1.6 mg/dL (0.0-1.0); Blood Urea Nitrogen 29 mg/dL (9-16); Calcium 8.7 mg/dL (8.4-10.2); Carbon Dioxide 20 mmol/L (22-29); Chloride 102 mmol/L (96-108); Estimated Glomerular Filt Rate 39; Glucose Random 110 mg/dL (60-115); Potassium 3.9 mmol/L (3.3-5.1); Sodium 136 mmol/L (135-145); Total Protein 5.2 g/dL (6.5-8.0)
[2024-06-26 10:15] LABS: B Type Natriuretic Peptide 163 pg/mL (<100)
[2024-06-26 10:16] LABS: Lactic Acid 3.6 mmol/L (0.5-2.0)
[2024-06-26 10:41] LABS: ABG Refer to POC result
[2024-06-26] MEDS: Piperacillin Sodium/Tazobactam 3.375 GM in 0.9 % Sodium Chloride 50 ML IV ×2 (11:12→18:02)
--- NOTE | 2024-06-26 11:27 | P.CONCC_ITS ---
History of Present Illness Data of Consult Service Date: 06/26/24 Primary Care Provider: Justus Tinoco MD [facility] Reason for consult: Hypoxia 83-year-old gentleman with complicated past medical history of HTN, HLD, CKD3, CAD, NSTEMI s/p stent in 2010,, paroxysmal AFib on Xarelto, recurrent metastatic prostate cancer on palliative chemotherapy with abiraterone and lupron (follows with Dr. Alva and Dr. Monroy), COPD not on home O2, and HFpEF admitted to the hospital 2 days ago due to progressive decline in his overall status, fever tachycardia tachypnea and hypoxia. He had weaning and waxing mental status, which further deteriorated at he aspirated overnight and this morning he was severely hypoxic so is intubated and placed on ventilator support and transferred to medical ICU. Review of Systems 2 Review of Systems: Yes unobtainable due to endotracheal tube and Unobtainable due to mental condition PMFSH Past Medical History Medical History Arrhythmia CAD (coronary artery disease) Hx of emphysema Rheumatoid arthritis Chronic renal insufficiency History of prostate cancer COPD (chronic obstructive pulmonary disease) Hypercholesteremia HTN (hypertension) Surgical History Surgical History Hx of heart artery stent History of colonoscopy History of tonsillectomy H/O prostatectomy Social History Social History Household Members: Family Housing: House Do you presently have visiting nurse or other home services: Yes Comment: at times Patient Tobacco Use Status: Former Tobacco user Tobacco use type: Cigarette Smoked in Last 30 Days: No e-Cigarette/Vaping Use: Never Used Use of substances other than those prescribed or required for medical reasons: No Currently Displaying Signs/Symptoms of Drug Intoxication Withdrawal: No Have you been hit, kicked, punched, or otherwise hurt by someone within the past year? If so, by whom?: No Do you feel safe in your current relationship?: No Current Relationship Is there a partner from a previous relationship who is making you feel unsafe now?: No Are you made to feel afraid or neglected: No Advance Directives: Yes Advance Directives Information Provided: Yes Advance Directives on File: No (Not on file) Advance Directives Date on File: 06/24/24 Do you have a plan to hurt others: No Plan Recently lost weight without trying: Unsure How much weight loss: Unsure Eating poorly because of decreased appetite: Yes Nutrition screen score: 5 Nutrition Risks: No Nutritional Risk Poor oral hygiene: No service: No Meds Allergies Allergy/AdvReac Type Severity Reaction Status Date / Time pollen extracts Allergy Intermediate itchy/watery Verified 06/24/24 13:19 eyes Active Medications: Current Medications Acetaminophen (Acetaminophen 325 Mg Tablet) 650 mg PO Q6H PRN PRN Reason: Pain, Mild (Pain Scale 1-3), fever or headache Last Admin: 06/26/24 07:50 Dose: 650 mg Albuterol/Ipratropium (Albuterol/Iprat 2.5/0.5mg 3 Ml Ampul.Neb) 3 ml INHALE RQ4H WHILE AWAKE [facility] Last Admin: 06/26/24 08:40 Dose: Not Given Atorvastatin Calcium (Atorvastatin Calcium 80 Mg Tablet) 80 mg PO DAILY [facility] Last Admin: 06/26/24 07:48 Dose: 80 mg Calcium Carbonate (Calcium Carbonate 750 Mg Tab.Chew) 750 mg PO Q4H PRN PRN Reason: Heartburn Last Admin: 06/25/24 14:13 Dose: 750 mg Dexmedetomidine HCl (Precedex) 400 mcg in 100 mls @ 0 mls/hr IVCONT .Q0M [facility]; Protocol Last Titration: 06/26/24 10:44 Dose: 1.4 mcg/kg/hr, 21.46 mls/hr Propofol (Diprivan) 1,000 mg in 100 mls @ 0 mls/hr IVCONT .Q0M [facility]; Protocol Piperacillin Sod/Tazobactam (Sod 3.375 gm/ Sodium Chloride) 50 mls @ 100 mls/hr IV Q6H [facility] Last Infusion: 06/26/24 11:16 Dose: 0 mls/hr Vancomycin HCl 1,500 mg/ (Sodium Chloride) 500 mls @ 333.333 mls/hr IV ONCE ONE Stop: 06/26/24 12:29 Last Admin: 06/26/24 11:07 Dose: Not Given Norepinephrine Bitartrate (Levophed) 8 mg in 250 mls @ 0 mls/hr IVCONT .Q0M [facility]; Protocol Leflunomide (Leflunomide 10 Mg Tablet) 20 mg PO DAILY [facility] Last Admin: 06/25/24 08:01 Dose: 20 mg Non-Formulary Medication (Abiraterone) 1,000 mg PO DAILY [facility] Pharmacy Consult (Consult Rx Vancomycin Dosing) 1 each MISCELLANE DAILY PRN PRN Reason: Consult order Prednisone (Prednisone 5 Mg Tablet) 5 mg PO DAILY [facility] Last Admin: 06/26/24 07:48 Dose: 5 mg Rivaroxaban (Rivaroxaban 15 Mg Tablet) 15 mg PO DAILY@1700 [facility] Last Admin: 06/25/24 18:06 Dose: 15 mg Sodium Chloride (0.9 % Sodium Chloride Flush 3 Ml Syringe) 3 ml IVFLUSH QSHIFT [facility] Last Admin: 06/26/24 07:51 Dose: 3 ml Home Medications ?Medication ?Instructions ?Recorded ?Confirmed ?Last Taken ?Type leflunomide 20 mg tablet 1 tab PO DAILY 01/16/21 06/24/24 06/24/24 History omeprazole 40 mg capsule,delayed 40 mg PO BID@0630,1630 01/16/21 06/24/24 06/24/24 History release rosuvastatin 40 mg tablet 40 mg PO DAILY 01/16/21 06/24/24 06/24/24 History abiraterone 250 mg tablet 1,000 mg PO DAILY 05/22/24 06/24/24 06/24/24 History bismuth subsalicylate 525 mg/15 mL 525 mg PO Q30M PRN 05/22/24 06/24/24 Unknown History oral suspension heartburn/indigestion calcium carbonate 500 mg-vitamin 1 tab PO BID 05/22/24 06/24/24 06/24/24 History D3 10 mcg (400 unit) chewable tablet ferrous sulfate 325 mg (65 mg 325 mg PO MOWEFR 05/22/24 06/24/24 06/24/24 History iron) tablet,delayed release fluticasone propionate 50 2 spray intranasal DAILY 05/22/24 06/24/24 06/24/24 History mcg/actuation nasal spray,suspension (Flonase Allergy Relief) furosemide 40 mg tablet 40 mg PO DAILY 05/22/24 06/24/24 06/24/24 History ipratropium 20 mcg-albuterol 100 1 puff inhalation Q8H PRN 05/22/24 06/24/24 Unknown History mcg/actuation mist for inhalation Shortness Of Breath Or Wheezing (Combivent Respimat) leuprolide acetate (6 month) 45 mg 45 mg IM [id number] 05/22/24 05/22/24 Unknown History intramuscular syringe kit (Lupron Depot) prednisone 5 mg tablet 5 mg PO DAILY 05/22/24 06/24/24 06/24/24 History rivaroxaban 20 mg tablet (Xarelto) 20 mg PO DAILY@1700 05/22/24 06/24/24 Unknown History metoprolol tartrate 50 mg tablet 150 mg PO BID 06/24/24 06/24/24 06/24/24 History Physical Exam 2 Vital Signs: Vital Signs: Last Vital Signs Temp 103.7 F H 06/26/24 07:23 Pulse 120 H 06/26/24 10:02 Resp 18 06/26/24 10:02 BP 96/59 L 06/26/24 10:02 Pulse Ox 93 06/26/24 10:02 O2 Del Method Nasal Cannula 06/26/24 07:23 O2 Flow Rate 4 06/26/24 07:23 FiO2 50 06/26/24 09:12 BMI result Body Mass Index 25.5 General: in acute distress, ill appearing and tired appearing Nutritional Appearance: well nourished and overweight Eyes: appearance normal, both eyes and all related structures; Alignment and Position: alignment normal and position normal Neck: No lymphadenopathy, no thyromegaly Resp: bilateral air entry equal, occasional added sounds present Cardio: Regular rate, regular rhythm; Heart sounds: S1 normal heart sound present and S2 normal heart sound present GI: soft, nontender, no guarding, no hepatosplenomegaly : bladder normal to inspection, bladder normal to palpation, no renal angle tenderness Skin: no rashes or lesions noted and elasticity normal Neuro: sedated, paralyzed Results Labs 06/25/24 05:55 06/26/24 09:33 Labs: BMP 06/26/24 06/26/24 06/26/24 09:33 09:33 09:33 Sodium 136 Cancelled Potassium 3.9 Cancelled Chloride 102 Carbon Dioxide BUN Creatinine Calcium 06/26/24 06/26/24 06/26/24 09:33 09:33 09:33 Sodium Potassium Chloride Cancelled Carbon Dioxide 20 L Cancelled BUN 29 H Cancelled Creatinine 1.71 H Calcium 06/26/24 06/26/24 09:33 09:33 Sodium Potassium Chloride Carbon Dioxide BUN Creatinine Cancelled Calcium 8.7 Cancelled Liver Function 06/26/24 Range/Units 09:33 Total Bilirubin 1.6 H (0.0-1.0) mg/dL Direct Bilirubin 1.3 H (0.0-0.5) mg/dL AST 1255 H (5-37) U/L ALT 174 H (0-40) U/L Alkaline Phosphatase 506 H (39-117) U/L Albumin 2.4 L (3.5-5.0) g/dL Microbiology Microbiology Results: Microbiology 06/24/24 13:45 Blood - Venous Blood Culture - Preliminary No growth after 24 hours. 06/24/24 13:40 Blood - Venous Blood Culture - Preliminary No growth after 24 hours. Assessment and Plan (1) Acute hypoxemic respiratory failure: Status: Acute (2) Shock: Status: Acute Plan Neuro: Acute encephalopathy possibly due to metabolic encephalopathy On Precedex for anxiolysis and sedation We will get MRI of the brain to rule out underlying neurological issues that led to aspiration Close neurological status monitoring in the ICU every hour Cardiac: Shock: Possibly secondary to positive pressure ventilation and sedation On Levophed support, titrate Levophed to keep map above 65 mm Hg Bedside ultrasound showing IVC small and collapsible patient treated 2 L of saline bolus titrate off the Levophed Respiratory: Acute respiratory failure due to poor mental status Currently on ventilator support On PRVC mode FiO2 28, PEEP 5, TV 400, RR 20; PF ratio 621 Peak pressures and plateau pressures are under the curve Ventilator management bundle with head end elevation, aspiration precaution, chlorhexidine mouthwash, daily awakening trials, daily spontaneous breathing trials GI: We will start on tube feeds Renal: Has underlying CKD, creatinine close to baseline We will closely monitor I's and O's Avoid nephrotoxic medications Heme: Chronic anemia, closely monitor H&H, transfuse for hemoglobin less than 7 grams/deciliter Endocrine: Blood sugars under control Sliding scale insulin as needed Infectious disease: We will send pancultures Continue Zosyn We will get MRSA nares if positive we will add vancomycin Musculoskeletal: Decubitus ulcer prevention protocol Lines: Right IJ TLC Prophylaxis: Lovenox, pantoprazole Patient's hypoxia and intubation is secondary to poor mental status, his PF ratio is 621 which is normal. He does not have hypoxia, intubation was done due to poor mental status. Shock is secondary to positive pressure ventilation, sedation and hypovolemia. Bedside ultrasound shows IVC collapsing, so fluid boluses has been ordered. Continue antibiotics, serial lactates has been ordered, repeat blood cultures have been sent Critical care time spent is about 50 minutes on managing this critically ill patient with multiple organ failures. Time spent is mainly on admitting the pateint to ICU, ventilator management, sedation management, close hemodynamic monitoring, vasopressor management, review of charts and images. Total time managing care of this patient today: 50 minutes.
[2024-06-26] MEDS: Albuterol/Iprat 2.5/0.5MG 3 ML AMPUL.NEB INHALE ×3 (11:42→20:44)
[2024-06-26 11:47] LABS: Reflex Lactate? Lactic Acid Added
[2024-06-26 13:50] LABS: Appearance Urine Cloudy; Color Urine Yellow; Glucose Urine UA Negative (Negative); Leukocyte Esterase Urine Negative (Negative); Nitrite Urine Negative (Negative); PH 5.5 (5.0-9.0); UMIC TRIGGER UACC YES; Urine Blood Small (1+) (Negative); Urine Ketones Negative (Negative); Urine Protein 30 (1+) mg/dL (Neg-Trace)
[2024-06-26] MEDS: dexmedeTOMIDidine HCL/NS 400 MCG/100 ML INFUS..BTL 21.46 MCG IVCONT ×2 (13:55→18:38)
--- NOTE | 2024-06-26 13:58 | W.PM.CCHP ---
Procedures Date of Service Date of Service: 06/26/24 Central Line Placement Right IJ: Consent for Procedure: Elective - informed consent obtained Time out performed: Yes Sterile Technique Used: Yes Patient placed on monitor/pulse ox: Yes MD prep: mask, gown and gloves Central line prep: Chlorhexidine scrub Ultrasound used for placement: Yes Central line lumen inserted: triple Post procedure: sutured in place, good blood return, all ports aspirated, flushed, capped and sterile dressing applied Post procedure x-ray: tip of catheter in good position and no pneumothorax seen Patient tolerated procedure: well and no complications Complications: none
[2024-06-26 14:01] LABS: Granular Casts Urine Present
[2024-06-26 14:04] LABS: Bacteria Urine None Seen (None Seen); RBC Urine 0-2 /HPF (0-2); WBC Urine 0-5 /HPF (0-5)
[2024-06-26 14:53] LABS: Adenovirus PCR Not Detected (Not Detect.); Bordetella parapertussis PCR Not Detected (Not Detect.); Bordetella pertussis PCR Not Detected (Not Detect.); Chlamydia pneumoniae PCR Not Detected (Not Detect.); Coronavirus 229E PCR Not Detected (Not Detect.); Coronavirus HKU1 PCR Not Detected (Not Detect.); Coronavirus NL63 PCR Not Detected (Not Detect.); Coronavirus OC43 PCR Not Detected (Not Detect.); Human metapneumovirus PCR Not Detected (Not Detect.); Influenza A PCR Not Detected (Not Detect.); Influenza B PCR Not Detected (Not Detect.); Mycoplasma pneumoniae PCR Not Detected (Not Detect.); Parainfluenza 1 PCR Not Detected (Not Detect.); Parainfluenza 2 PCR Not Detected (Not Detect.); Parainfluenza 3 PCR Not Detected (Not Detect.); Parainfluenza 4 PCR Not Detected (Not Detect.); RSV PCR Not Detected (Not Detect.); Rhino/Enterovirus PCR Not Detected (Not Detect.)
[2024-06-26 14:56] LABS: SARS-CoV-2 PCR Not Detected (Not Detect.)
[2024-06-26] MEDS: Rocuronium Bromide 50 MG/5 ML VIAL 60 MG IVPUSH (14:58)
[2024-06-26 15:52] LABS: Lactic Acid 2.1 mmol/L (0.5-2.0)
[2024-06-26] MEDS: 0.9 % Sodium Chloride 1,000 ML 999 ML IV (16:21)
[2024-06-26 17:21] LABS: Reflex Lactate? Lactic Acid Added
--- NOTE | 2024-06-26 17:52 | HO.SKINPHOTO ---
Location small left toe Location: buttock Location: right heel Location: left heel
[2024-06-26] MEDS: Norepinephrine Bitartrate/D5W 8 MG/250 ML PLAST..BAG 10.34 MG IVCONT (18:03)
[2024-06-26 18:19] LABS: Glucose, Whole Blood 134 mg/dL (60-115)
[2024-06-26 18:30] LABS: ~Lactic Acid-LAB USE ONLY 1.5 mmol/L (0.5-2.0)
[2024-06-26 19:53] LABS: MANUAL DIFF FLAG NO
[2024-06-26 19:57] LABS: Venous Blood Gas Refer to POC result
[2024-06-26 19:57] LABS: VBG Base Excess -3.5 mmol/L; VBG HCO3 19 mmol/L (22-26); VBG pCO2 29 mmHg; VBG pH 7.43 (7.32-7.43); VBG pO2 40 mmHg
[2024-06-26 19:58] LABS: Basophils Percent Auto 0.4 % (0-2); Eosinophils Absolute Auto 0.2 X10*3/uL (0.0-0.4); Eosinophils Percent Auto 2.9 % (0-4); Hemoglobin 10.3 g/dl (14.0-18.0); Imm Gran Abs Auto 0.02 X10*3/uL (0.00-0.03); Imm Gran Pct Auto 0.3 % (0.0-0.4); Lymphocytes Absolute Auto 1.1 X10*3/uL (1.2-4.9); Mean Corpuscular HGB Conc 34.3 g/dl (31.0-36.0); Mean Corpuscular Hemoglobin 29.7 pg (27.0-33.0); Mean Corpuscular Volume 86.5 fL (80.0-98.0); Mean Platelet Volume 12.3 fL (9.4-12.4); Monocytes Absolute Auto 0.7 X10*3/uL (0.1-1.2); Monocytes Percent Auto 9.1 % (2-11); NRBC Pct Auto 0.8 /100WBC (0.0-0.2); Neutrophils Absolute Auto 5.2 x10*3/uL (2.0-8.3); Neutrophils Percent Auto 72.3 % (45-73); Platelet Count 121 X10*3/uL (160-400); Red Blood Count 3.47 X10*6/uL (4.60-5.80); Red Cell Distribution Width 19.9 % (11.0-16.0); White Blood Count 7.2 X10*3/uL (4.8-10.8)
[2024-06-26 20:11] LABS: Alanine Aminotransferase 139 U/L (0-40); Albumin Level 1.9 g/dL (3.5-5.0); Alkaline Phosphatase 400 U/L (39-117); Anion Gap 14 (12-20); Aspartate Amino Transferase 895 U/L (5-37); Bilirubin Total 1.4 mg/dL (0.0-1.0); Blood Urea Nitrogen 29 mg/dL (9-16); Calcium 7.4 mg/dL (8.4-10.2); Carbon Dioxide 19 mmol/L (22-29); Chloride 109 mmol/L (96-108); Creatinine Clr Calc Pharmacy 27.8; Estimated Glomerular Filt Rate 44; Glucose Random 131 mg/dL (60-115); Magnesium 1.9 mg/dL (1.6-2.6); Phosphorus 4.3 mg/dL (2.7-4.5); Potassium 3.6 mmol/L (3.3-5.1); Sodium 138 mmol/L (135-145); Total Protein 4.3 g/dL (6.5-8.0)
[2024-06-26] MEDS: Chlorhexidine Gluc Oral Rinse 15 ML MOUTHWASH BUCCAL (21:02)
[2024-06-26] MEDS: Albumin Human 25 % 100 ML IV ×2 (21:23→22:50)
[2024-06-26] MEDS: dexmedeTOMIDidine HCL/NS 400 MCG/100 ML INFUS..BTL 22.99 MCG IVCONT (22:37)
[2024-06-26] MEDS: Metoprolol Tartrate 5 MG/5 ML VIAL IVPUSH (22:51)
[2024-06-27] VITALS (41 sets, daily range): BP systolic 81–143; BP diastolic 54–93; PULSE 18–135; RESP 18–20; TEMP 34.9–38.4; O2SAT 95–100; BMI 28.3
[2024-06-27 00:20] LABS: Glucose, Whole Blood 127 mg/dL (60-115)
[2024-06-27] MEDS: Albumin Human 25 % 100 ML IV ×2 (01:04)
[2024-06-27] MEDS: 0.9 % Sodium Chloride Flush 3 ML SYRINGE IVFLUSH ×3 (01:04→15:08)
[2024-06-27] MEDS: Piperacillin Sodium/Tazobactam 3.375 GM in 0.9 % Sodium Chloride 50 ML IV ×5 (01:39→23:33)
[2024-06-27] MEDS: propofoL 1,000 MG/100 ML VIAL 11.03 MG IVCONT ×5 (02:24→22:36)
[2024-06-27] MEDS: Metoprolol Tartrate 5 MG/5 ML VIAL IVPUSH (02:29)
[2024-06-27] MEDS: dexmedeTOMIDidine HCL/NS 400 MCG/100 ML INFUS..BTL 22.99 MCG IVCONT (03:04)
[2024-06-27 04:27] LABS: MANUAL DIFF FLAG NO
[2024-06-27 04:28] LABS: Basophils Percent Auto 0.6 % (0-2); Eosinophils Absolute Auto 0.1 X10*3/uL (0.0-0.4); Eosinophils Percent Auto 1.3 % (0-4); Hematocrit 24.7 % (42.0-52.0); Hemoglobin 8.5 g/dl (14.0-18.0); Imm Gran Abs Auto 0.02 X10*3/uL (0.00-0.03); Imm Gran Pct Auto 0.3 % (0.0-0.4); Lymphocytes Absolute Auto 1.1 X10*3/uL (1.2-4.9); Lymphocytes Percent Auto 17.2 % (20-40); Mean Corpuscular HGB Conc 34.4 g/dl (31.0-36.0); Mean Corpuscular Hemoglobin 29.7 pg (27.0-33.0); Mean Corpuscular Volume 86.4 fL (80.0-98.0); Mean Platelet Volume 12.3 fL (9.4-12.4); Monocytes Absolute Auto 0.6 X10*3/uL (0.1-1.2); Monocytes Percent Auto 9.5 % (2-11); NRBC Pct Auto 0.5 /100WBC (0.0-0.2); Neutrophils Absolute Auto 4.4 x10*3/uL (2.0-8.3); Neutrophils Percent Auto 71.1 % (45-73); Red Blood Count 2.86 X10*6/uL (4.60-5.80); Red Cell Distribution Width 19.4 % (11.0-16.0); White Blood Count 6.2 X10*3/uL (4.8-10.8)
[2024-06-27 04:29] LABS: Platelet Count 92 X10*3/uL (160-400)
[2024-06-27 04:35] LABS: VBG Base Excess -3.7 mmol/L; VBG HCO3 19 mmol/L (22-26); VBG pCO2 28 mmHg; VBG pH 7.44 (7.32-7.43); VBG pO2 55 mmHg
[2024-06-27 04:41] LABS: Venous Blood Gas Refer to POC result
[2024-06-27 04:44] LABS: Alanine Aminotransferase 88 U/L (0-40); Albumin Level 3.7 g/dL (3.5-5.0); Alkaline Phosphatase 283 U/L (39-117); Anion Gap 19 (12-20); Aspartate Amino Transferase 559 U/L (5-37); Bilirubin Total 1.9 mg/dL (0.0-1.0); Blood Urea Nitrogen 30 mg/dL (9-16); Calcium 8.3 mg/dL (8.4-10.2); Carbon Dioxide 16 mmol/L (22-29); Chloride 107 mmol/L (96-108); Creatinine Clr Calc Pharmacy 26.6; Estimated Glomerular Filt Rate 41; Glucose Random 119 mg/dL (60-115); Magnesium 1.9 mg/dL (1.6-2.6); Phosphorus 3.8 mg/dL (2.7-4.5); Potassium 3.3 mmol/L (3.3-5.1); Sodium 139 mmol/L (135-145); Total Protein 5.4 g/dL (6.5-8.0)
[2024-06-27] MEDS: Potassium Chloride Packet 20 MEQ PACKET PO (05:20)
[2024-06-27 06:14] LABS: Glucose, Whole Blood 113 mg/dL (60-115)
[2024-06-27] MEDS: dexmedeTOMIDidine HCL/NS 400 MCG/100 ML INFUS..BTL 19.92 MCG IVCONT (07:32)
[2024-06-27] MEDS: Albuterol/Iprat 2.5/0.5MG 3 ML AMPUL.NEB INHALE (07:55)
[2024-06-27] MEDS: Chlorhexidine Gluc Oral Rinse 15 ML MOUTHWASH BUCCAL ×3 (08:15→20:24)
[2024-06-27] MEDS: Atorvastatin Calcium 80 MG TABLET PO (08:40)
[2024-06-27] MEDS: predniSONE 5 MG TABLET PO (08:40)
--- NOTE | 2024-06-27 08:54 | PM.CCPN ---
Subjective Subjective Date of Service: 06/27/24 Critical Care Time (minutes): 60 Physical Exam Vital Signs: Vital Signs: Last Vital Signs Temp 98.1 F 06/27/24 08:00 Pulse 124 H 06/27/24 08:00 Resp 18 06/27/24 08:00 BP 112/73 06/27/24 08:00 Pulse Ox 99 06/27/24 08:00 O2 Del Method Mechanical Ventil ation 06/27/24 08:00 O2 Flow Rate 5 06/26/24 08:30 FiO2 21 06/27/24 08:00 Oxygen Flow Rate 25 06/26/24 08:30 BMI result Body Mass Index 28.3 Const: Other: intubated, sedated; no appreciable spontaneous movements, no appreciable movements to noxious stimulus General: no acute distress HEENT: Head: Yes normal to inspection, Yes normocephalic and Yes atraumatic Eyes: General: appearance normal, both eyes and all related structures Neck: Neck: Yes normal visual inspection, Yes full ROM, Yes no meningeal signs, Yes trachea midline and Yes supple Chest: Chest palpation & inspection: normal inspection of the chest Resp: Other: no appreciable rales, rhonchi, wheezing Effort & Inspection: normal respiratory effort Cardio: Rate: tachycardic Rhythm: abnormal rhythm GI: Inspection: Yes normal to inspection, No Abdominal wall edema and No distended Palpation (GI): Soft to palpation, not firm, nontender, no guarding and not rigid Skin: General skin exam: no rashes or lesions noted Neuro: General: tone normal and no meningeal signs Extrem: General: Yes normal to inspection, Yes full ROM, Yes capillary refill normal and Yes no clubbing, cyanosis or edema Psych: Other: unable to assess Objective Data Labs 06/27/24 04:21 06/27/24 04:21 Labs: Laboratory Results - last 24 hr 06/26/24 06/26/24 06/26/24 09:33 09:33 09:33 WBC RBC Hgb Hct MCV MCH MCHC RDW Plt Count MPV Immature Gran % (Auto) Neut % (Auto) Lymph % (Auto) [place] % (Auto) Eos % (Auto) Baso % (Auto) Lymph # (Auto) [place] # (Auto) Eos # (Auto) Baso # (Auto) Abs Immat Gran (auto) Absolute Neuts (auto) Absolute Nucleated RBC Nucleated RBC % (auto) VBG pH VBG pCO2 VBG pO2 VBG HCO3 VBG O2 Saturation VBG Base Excess Sodium 136 Cancelled Potassium 3.9 Cancelled Chloride 102 Carbon Dioxide Anion Gap BUN Creatinine Estim Creat Clear Calc Estimated GFR POC Glucose Random Glucose Lactic Acid Lactic Acid F/U @ 2Hr Calcium Phosphorus Magnesium Total Bilirubin Direct Bilirubin AST ALT Alkaline Phosphatase B-Natriuretic Peptide Total Protein Albumin Urine Color Urine Appearance Urine pH Ur Specific [place] Urine Protein Urine Glucose (UA) Urine Ketones Urine Blood Urine Nitrite Ur Leukocyte Esterase Urine RBC Urine WBC Ur Squamous Epith Cells Urine Bacteria Hyaline Casts Granular Casts Respiratory Panel Moon Adenovirus (Rapid PCR) B.pert (TEM-PCR) B.parapertussis DNA PCR C. pneumoniae DNA (PCR) Coronavirus OC43 (PCR) Coronavirus HKU1 (PCR) Coronavirus 229E (PCR) Coronavirus NL63 (PCR) Human Metapneumovir PCR Influenza A (RT-PCR) Influenza B (RT-PCR) M. pneumoniae (PCR) Parainfluenza 1 (PCR) Parainfluenza 2 (PCR) Parainfluenza 3 (PCR) Parainfluenza 4 (PCR) RSV (PCR) Entero/Rhino (PCR) SARS-CoV-2 RNA (RT-PCR) 06/26/24 06/26/24 06/26/24 09:33 09:33 09:33 WBC RBC Hgb Hct MCV MCH MCHC RDW Plt Count MPV Immature Gran % (Auto) Neut % (Auto) Lymph % (Auto) [place] % (Auto) Eos % (Auto) Baso % (Auto) Lymph # (Auto) [place] # (Auto) Eos # (Auto) Baso # (Auto) Abs Immat Gran (auto) Absolute Neuts (auto) Absolute Nucleated RBC Nucleated RBC % (auto) VBG pH VBG pCO2 VBG pO2 VBG HCO3 VBG O2 Saturation VBG Base Excess Sodium Potassium Chloride Cancelled Carbon Dioxide 20 L Cancelled Anion Gap 18 Cancelled BUN 29 H Creatinine Estim Creat Clear Calc Estimated GFR POC Glucose Random Glucose Lactic Acid Lactic Acid F/U @ 2Hr Calcium Phosphorus Magnesium Total Bilirubin Direct Bilirubin AST ALT Alkaline Phosphatase B-Natriuretic Peptide Total Protein Albumin Urine Color Urine Appearance Urine pH Ur Specific [place] Urine Protein Urine Glucose (UA) Urine Ketones Urine Blood Urine Nitrite Ur Leukocyte Esterase Urine RBC Urine WBC Ur Squamous Epith Cells Urine Bacteria Hyaline Casts Granular Casts Respiratory Panel Moon Adenovirus (Rapid PCR) B.pert (TEM-PCR) B.parapertussis DNA PCR C. pneumoniae DNA (PCR) Coronavirus OC43 (PCR) Coronavirus HKU1 (PCR) Coronavirus 229E (PCR) Coronavirus NL63 (PCR) Human Metapneumovir PCR Influenza A (RT-PCR) Influenza B (RT-PCR) M. pneumoniae (PCR) Parainfluenza 1 (PCR) Parainfluenza 2 (PCR) Parainfluenza 3 (PCR) Parainfluenza 4 (PCR) RSV (PCR) Entero/Rhino (PCR) SARS-CoV-2 RNA (RT-PCR) 06/26/24 06/26/24 06/26/24 09:33 09:33 09:33 WBC RBC Hgb Hct MCV MCH MCHC RDW Plt Count MPV Immature Gran % (Auto) Neut % (Auto) Lymph % (Auto) [place] % (Auto) Eos % (Auto) Baso % (Auto) Lymph # (Auto) [place] # (Auto) Eos # (Auto) Baso # (Auto) Abs Immat Gran (auto) Absolute Neuts (auto) Absolute Nucleated RBC Nucleated RBC % (auto) VBG pH VBG pCO2 VBG pO2 VBG HCO3 VBG O2 Saturation VBG Base Excess Sodium Potassium Chloride Carbon Dioxide Anion Gap BUN Cancelled Creatinine 1.71 H Cancelled Estim Creat Clear Calc 25.0 Cancelled Estimated GFR 39 POC Glucose Random Glucose Lactic Acid Lactic Acid F/U @ 2Hr Calcium Phosphorus Magnesium Total Bilirubin Direct Bilirubin AST ALT Alkaline Phosphatase B-Natriuretic Peptide Total Protein Albumin Urine Color Urine Appearance Urine pH Ur Specific [place] Urine Protein Urine Glucose (UA) Urine Ketones Urine Blood Urine Nitrite Ur Leukocyte Esterase Urine RBC Urine WBC Ur Squamous Epith Cells Urine Bacteria Hyaline Casts Granular Casts Respiratory Panel Moon Adenovirus (Rapid PCR) B.pert (TEM-PCR) B.parapertussis DNA PCR C. pneumoniae DNA (PCR) Coronavirus OC43 (PCR) Coronavirus HKU1 (PCR) Coronavirus 229E (PCR) Coronavirus NL63 (PCR) Human Metapneumovir PCR Influenza A (RT-PCR) Influenza B (RT-PCR) M. pneumoniae (PCR) Parainfluenza 1 (PCR) Parainfluenza 2 (PCR) Parainfluenza 3 (PCR) Parainfluenza 4 (PCR) RSV (PCR) Entero/Rhino (PCR) SARS-CoV-2 RNA (RT-PCR) 06/26/24 06/26/24 06/26/24 09:33 09:33 09:33 WBC RBC Hgb Hct MCV MCH MCHC RDW Plt Count MPV Immature Gran % (Auto) Neut % (Auto) Lymph % (Auto) [place] % (Auto) Eos % (Auto) Baso % (Auto) Lymph # (Auto) [place] # (Auto) Eos # (Auto) Baso # (Auto) Abs Immat Gran (auto) Absolute Neuts (auto) Absolute Nucleated RBC Nucleated RBC % (auto) VBG pH VBG pCO2 VBG pO2 VBG HCO3 VBG O2 Saturation VBG Base Excess Sodium Potassium Chloride Carbon Dioxide Anion Gap BUN Creatinine Estim Creat Clear Calc Estimated GFR Cancelled POC Glucose Random Glucose 110 Cancelled Lactic Acid 3.6 H* Lactic Acid F/U @ 2Hr Calcium 8.7 Cancelled Phosphorus Magnesium Total Bilirubin 1.6 H Direct Bilirubin 1.3 H AST 1255 H ALT 174 H Alkaline Phosphatase 506 H B-Natriuretic Peptide 163 H Total Protein 5.2 L Albumin 2.4 L Urine Color Urine Appearance Urine pH Ur Specific [place] Urine Protein Urine Glucose (UA) Urine Ketones Urine Blood Urine Nitrite Ur Leukocyte Esterase Urine RBC Urine WBC Ur Squamous Epith Cells Urine Bacteria Hyaline Casts Granular Casts Respiratory Panel Moon Adenovirus (Rapid PCR) B.pert (TEM-PCR) B.parapertussis DNA PCR C. pneumoniae DNA (PCR) Coronavirus OC43 (PCR) Coronavirus HKU1 (PCR) Coronavirus 229E (PCR) Coronavirus NL63 (PCR) Human Metapneumovir PCR Influenza A (RT-PCR) Influenza B (RT-PCR) M. pneumoniae (PCR) Parainfluenza 1 (PCR) Parainfluenza 2 (PCR) Parainfluenza 3 (PCR) Parainfluenza 4 (PCR) RSV (PCR) Entero/Rhino (PCR) SARS-CoV-2 RNA (RT-PCR) 06/26/24 06/26/24 06/26/24 13:10 15:11 17:59 WBC RBC Hgb Hct MCV MCH MCHC RDW Plt Count MPV Immature Gran % (Auto) Neut % (Auto) Lymph % (Auto) [place] % (Auto) Eos % (Auto) Baso % (Auto) Lymph # (Auto) [place] # (Auto) Eos # (Auto) Baso # (Auto) Abs Immat Gran (auto) Absolute Neuts (auto) Absolute Nucleated RBC Nucleated RBC % (auto) VBG pH VBG pCO2 VBG pO2 VBG HCO3 VBG O2 Saturation VBG Base Excess Sodium Potassium Chloride Carbon Dioxide Anion Gap BUN Creatinine Estim Creat Clear Calc Estimated GFR POC Glucose Random Glucose Lactic Acid 2.1 H* Lactic Acid F/U @ 2Hr 1.5 Calcium Phosphorus Magnesium Total Bilirubin Direct Bilirubin AST ALT Alkaline Phosphatase B-Natriuretic Peptide Total Protein Albumin Urine Color Yellow Urine Appearance Cloudy Urine pH 5.5 Ur Specific [place] 1.010 Urine Protein 30 (1+) H Urine Glucose (UA) Negative Urine Ketones Negative Urine Blood Small (1+) H Urine Nitrite Negative Ur Leukocyte Esterase Negative Urine RBC 0-2 Urine WBC 0-5 Ur Squamous Epith Cells 3-5 Urine Bacteria None Seen Hyaline Casts 11-20 Granular Casts Present Respiratory Panel Moon See Note Adenovirus (Rapid PCR) Not Detected B.pert (TEM-PCR) Not Detected B.parapertussis DNA PCR Not Detected C. pneumoniae DNA (PCR) Not Detected Coronavirus OC43 (PCR) Not Detected Coronavirus HKU1 (PCR) Not Detected Coronavirus 229E (PCR) Not Detected Coronavirus NL63 (PCR) Not Detected Human Metapneumovir PCR Not Detected Influenza A (RT-PCR) Not Detected Influenza B (RT-PCR) Not Detected M. pneumoniae (PCR) Not Detected Parainfluenza 1 (PCR) Not Detected Parainfluenza 2 (PCR) Not Detected Parainfluenza 3 (PCR) Not Detected Parainfluenza 4 (PCR) Not Detected RSV (PCR) Not Detected Entero/Rhino (PCR) Not Detected SARS-CoV-2 RNA (RT-PCR) Not Detected 06/26/24 06/26/24 06/26/24 18:15 19:49 19:53 WBC 7.2 RBC 3.47 L Hgb 10.3 L Hct 30.0 L MCV 86.5 MCH 29.7 MCHC 34.3 RDW 19.9 H Plt Count 121 L D MPV 12.3 Immature Gran % (Auto) 0.3 Neut % (Auto) 72.3 Lymph % (Auto) 15.0 L [place] % (Auto) 9.1 Eos % (Auto) 2.9 Baso % (Auto) 0.4 Lymph # (Auto) 1.1 L [place] # (Auto) 0.7 Eos # (Auto) 0.2 Baso # (Auto) 0.0 Abs Immat Gran (auto) 0.02 Absolute Neuts (auto) 5.2 Absolute Nucleated RBC 0.060 H Nucleated RBC % (auto) 0.8 H VBG pH 7.43 VBG pCO2 29 VBG pO2 40 VBG HCO3 19 L VBG O2 Saturation 73.0 VBG Base Excess -3.5 Sodium 138 Potassium 3.6 Chloride 109 H Carbon Dioxide 19 L Anion Gap 14 BUN 29 H Creatinine 1.54 H Estim Creat Clear Calc 27.8 Estimated GFR 44 POC Glucose 134 H Random Glucose 131 H Lactic Acid Lactic Acid F/U @ 2Hr Calcium 7.4 L D Phosphorus 4.3 Magnesium 1.9 Total Bilirubin 1.4 H Direct Bilirubin AST 895 H ALT 139 H Alkaline Phosphatase 400 H B-Natriuretic Peptide Total Protein 4.3 L Albumin 1.9 L Urine Color Urine Appearance Urine pH Ur Specific [place] Urine Protein Urine Glucose (UA) Urine Ketones Urine Blood Urine Nitrite Ur Leukocyte Esterase Urine RBC Urine WBC Ur Squamous Epith Cells Urine Bacteria Hyaline Casts Granular Casts Respiratory Panel [place] Adenovirus (Rapid PCR) B.pert (TEM-PCR) B.parapertussis DNA PCR C. pneumoniae DNA (PCR) Coronavirus OC43 (PCR) Coronavirus HKU1 (PCR) Coronavirus 229E (PCR) Coronavirus NL63 (PCR) Human Metapneumovir PCR Influenza A (RT-PCR) Influenza B (RT-PCR) M. pneumoniae (PCR) Parainfluenza 1 (PCR) Parainfluenza 2 (PCR) Parainfluenza 3 (PCR) Parainfluenza 4 (PCR) RSV (PCR) Entero/Rhino (PCR) SARS-CoV-2 RNA (RT-PCR) 06/27/24 06/27/24 06/27/24 00:11 04:21 04:25 WBC 6.2 RBC 2.86 L Hgb 8.5 L Hct 24.7 L MCV 86.4 MCH 29.7 MCHC 34.4 RDW 19.4 H Plt Count 92 L MPV 12.3 Immature Gran % (Auto) 0.3 Neut % (Auto) 71.1 Lymph % (Auto) 17.2 L [place] % (Auto) 9.5 Eos % (Auto) 1.3 Baso % (Auto) 0.6 Lymph # (Auto) 1.1 L [place] # (Auto) 0.6 Eos # (Auto) 0.1 Baso # (Auto) 0.0 Abs Immat Gran (auto) 0.02 Absolute Neuts (auto) 4.4 Absolute Nucleated RBC 0.030 H Nucleated RBC % (auto) 0.5 H VBG pH 7.44 H VBG pCO2 28 VBG pO2 55 VBG HCO3 19 L VBG O2 Saturation 82.0 VBG Base Excess -3.7 Sodium 139 Potassium 3.3 Chloride 107 Carbon Dioxide 16 L Anion Gap 19 BUN 30 H Creatinine 1.61 H Estim Creat Clear Calc 26.6 Estimated GFR 41 POC Glucose 127 H Random Glucose 119 H Lactic Acid Lactic Acid F/U @ 2Hr Calcium 8.3 L D Phosphorus 3.8 Magnesium 1.9 Total Bilirubin 1.9 H Direct Bilirubin AST 559 H ALT 88 H Alkaline Phosphatase 283 H B-Natriuretic Peptide Total Protein 5.4 L Albumin 3.7 Urine Color Urine Appearance Urine pH Ur Specific [place] Urine Protein Urine Glucose (UA) Urine Ketones Urine Blood Urine Nitrite Ur Leukocyte Esterase Urine RBC Urine WBC Ur Squamous Epith Cells Urine Bacteria Hyaline Casts Granular Casts Respiratory Panel [place] Adenovirus (Rapid PCR) B.pert (TEM-PCR) B.parapertussis DNA PCR C. pneumoniae DNA (PCR) Coronavirus OC43 (PCR) Coronavirus HKU1 (PCR) Coronavirus 229E (PCR) Coronavirus NL63 (PCR) Human Metapneumovir PCR Influenza A (RT-PCR) Influenza B (RT-PCR) M. pneumoniae (PCR) Parainfluenza 1 (PCR) Parainfluenza 2 (PCR) Parainfluenza 3 (PCR) Parainfluenza 4 (PCR) RSV (PCR) Entero/Rhino (PCR) SARS-CoV-2 RNA (RT-PCR) 06/27/24 06:11 WBC RBC Hgb Hct MCV MCH MCHC RDW Plt Count MPV Immature Gran % (Auto) Neut % (Auto) Lymph % (Auto) [place] % (Auto) Eos % (Auto) Baso % (Auto) Lymph # (Auto) [place] # (Auto) Eos # (Auto) Baso # (Auto) Abs Immat Gran (auto) Absolute Neuts (auto) Absolute Nucleated RBC Nucleated RBC % (auto) VBG pH VBG pCO2 VBG pO2 VBG HCO3 VBG O2 Saturation VBG Base Excess Sodium Potassium Chloride Carbon Dioxide Anion Gap BUN Creatinine Estim Creat Clear Calc Estimated GFR POC Glucose 113 Random Glucose Lactic Acid Lactic Acid F/U @ 2Hr Calcium Phosphorus Magnesium Total Bilirubin Direct Bilirubin AST ALT Alkaline Phosphatase B-Natriuretic Peptide Total Protein Albumin Urine Color Urine Appearance Urine pH Ur Specific [place] Urine Protein Urine Glucose (UA) Urine Ketones Urine Blood Urine Nitrite Ur Leukocyte Esterase Urine RBC Urine WBC Ur Squamous Epith Cells Urine Bacteria Hyaline Casts Granular Casts Respiratory Panel [place] Adenovirus (Rapid PCR) B.pert (TEM-PCR) B.parapertussis DNA PCR C. pneumoniae DNA (PCR) Coronavirus OC43 (PCR) Coronavirus HKU1 (PCR) Coronavirus 229E (PCR) Coronavirus NL63 (PCR) Human Metapneumovir PCR Influenza A (RT-PCR) Influenza B (RT-PCR) M. pneumoniae (PCR) Parainfluenza 1 (PCR) Parainfluenza 2 (PCR) Parainfluenza 3 (PCR) Parainfluenza 4 (PCR) RSV (PCR) Entero/Rhino (PCR) SARS-CoV-2 RNA (RT-PCR) Microbiology Microbiology Results: Microbiology 06/26/24 08:05 Blood - Venous Blood Culture - Final 06/24/24 13:45 Blood - Venous Blood Culture - Preliminary No growth after 48 hours. 06/24/24 13:40 Blood - Venous Blood Culture - Preliminary No growth after 48 hours. Progress Note: A&P Assessment and plan (1) Shock: Status: Acute (2) Acute hypoxemic respiratory failure: Status: Acute (3) Aspiration into airway: Status: Acute Plan Patient is a 83 Y M w/ hypertension, hyperlipidemia, c/b coronary artery disease, HFpEF, s/p stent, atrial fibrillation on rivaroxaban, COPD, and metastatic prostate cancer on palliative chemotherapy, initially presenting to the emergency department on 06/24 w/ signs/symptoms of failure to thrive; work-up grossly unrevealing, admitted medicine; on 06/26, patient suffered aspiration, intubated N: intubated, sedated w/ propofol, dexmedetomidine gtt, wean as tolerated CV: shock, likely distributive, norepinephrine gtt, wean as tolerated; atrial fibrillation on rivaroxaban, metoprolol IV PRN R: intubated in setting of aspiration, wean as tolerated; COPD GI: tube feeds : acute on chronic renal insufficiency, to monitor renal indices, electrolytes very closely H: anemia, thrombocytopenia, to monitor very closely; atrial fibrillation on rivaroxaban ID: empiric vancomycin, zosyn in setting of aspiration, shock; to follow-up blood cultures E: to monitor hypo-/hyper-glycemia P: no acute issues Quality Stroke Does the patient have a stroke diagnosis?: No VTE Prior VTE?: No VTE Risk Level:: Medical - moderate - high VTE Device Contraindication: N/A - Device Ordered VTE Drug Contraindication: N/A - Med Ordered
--- NOTE | 2024-06-27 09:25 | MHC.CLN ---
PT IS INTUBATED AND SEDATED PT WITH INCREASED NUTRITION RISK R/T PRESSURE INJURY AND DX CA TO START TF PER MD RECOMMEND PROMOTE AT MAX GOAL RATE 60ML/HR WITH 120ML FREE WATER FLUSHES Q 8 HRS TO PROVIDE 1440KCALS (1731KCALS WITH SEDATION; 30KCALS/KG BASED ON CMW), 90G PROTEIN (1.6G/KG), 1568ML TOTAL WATER FROM FORMULA AND FLUSHES (27.5ML/KG) MONITOR TOLERANCE AND LYTES SEE ALSO FULL CLINICAL NUTRITION ASSESSMENT
[2024-06-27] MEDS: Metoprolol Tartrate 10 MG in 0.9 % Sodium Chloride 50 ML 240 MG IV (09:27)
[2024-06-27] MEDS: Calcium Chloride 1 GM/10 ML SYRINGE IVPUSH (09:27)
[2024-06-27] MEDS: Sodium Bicarbonate 8.4% 50 MEQ/50 ML SYRINGE IVPUSH (09:27)
[2024-06-27] MEDS: Furosemide 20 MG/2 ML VIAL 10 MG IVPUSH (09:44)
[2024-06-27] MEDS: Pantoprazole Sodium 40 MG/10 ML VIAL IVPUSH (10:54)
[2024-06-27] MEDS: dexmedeTOMIDidine HCL/NS 400 MCG/100 ML INFUS..BTL 16.86 MCG IVCONT (10:59)
[2024-06-27 11:30] LABS: Glucose, Whole Blood 116 mg/dL (60-115)
--- NOTE | 2024-06-27 12:57 | P.CDIM_ITS ---
PROVIDER RESPONSE TEXT: To clarify, the appropriate diagnosis supported by the clinical indicators: Aspiration pneumonitis: Probable QUERY TEXT: PHYSICIAN'S DOCUMENTATION REQUEST Date of Query: 06/27/2024 09:25 AM EST Patient Name: HERB RAMSAY Admit Date: 06/24/2024 Dear Nidhi Calloway MD, A review of the medical record indicates additional documentation may be needed. Please review below and update the documentation accordingly. Clinical Indicators: Nursing note 06/26 - POC checked at this time, POC 62, pt not diabetic, however 12 ounces of orange ju ice, patient appeared to be aspirating on orange juice. Lung auscultated, dim in the right base, expiratory wheezing throughout. Respiratory called to bedsid e at this time. Unable to get O2 sat, now placed on oxymask. Pt becoming more lethargic and having increased work of breathing. Rapid response called. Event note 06/26 - Hypoxic and hypotensive. Tachypneic. Likely was aspirating overnight and meets seps is criteria. ICU transfer. Based on the above, could you clarify further specifics to the documented aspiration: Aspiration pneumonitis possible, probable, etc. Aspiration pneumonia possible, suspected, etc. Aspiration food, vomitus, mucus, blood etc. Other (explain) Clinically unable to determine (explain) Thank you, Roopa Matamoros, CCS, CDIS Use of terms such as suspected, likely, concern for, or probable (associated with a specific diagnosi s that is being evaluated, monitored, or treated as if it exists) are acceptable and can be coded in the inpatient se tting, when documented at the time of discharge. Please use your independent medical judgment in providing your response. THIS QUERY IS PART OF THE PERMANENT MEDICAL RECORD
--- NOTE | 2024-06-27 12:57 | P.CDIM_ITS ---
PROVIDER RESPONSE TEXT: To clarify, the appropriate diagnosis supported by the clinical indicators: Pressure Injury unstageable left medial great toe: Probable QUERY TEXT: PHYSICIAN'S DOCUMENTATION REQUEST Date of Query: 06/27/2024 09:37 AM EST Patient Name: HERB RAMSAY Admit Date: 06/24/2024 Dear Nidhi Calloway MD, A review of the medical record indicates additional documentation may be needed. Please review below and update the documentation accordingly. Clinical Indicators: Wound assessment notes 06/26 - Pressure injury left medial great toe, unstageable. Dry & Intact Foam dressing. Based on the above, could you please provide further information regarding the ulcer/wound/injury: Pressure Injury unstageable left medial great toe Possible, suspected, probable etc. Other (explain) Clinically unable to determine (explain) Thank you, Roopa Matamoros, CCS, CDIS Use of terms such as suspected, likely, concern for, or probable (associated with a specific diagnosi s that is being evaluated, monitored, or treated as if it exists) are acceptable and can be coded in the inpatient se tting, when documented at the time of discharge. Please use your independent medical judgment in providing your response. THIS QUERY IS PART OF THE PERMANENT MEDICAL RECORD
--- NOTE | 2024-06-27 14:00 | MHC.CM.PN ---
EMR REVIEWED. PT REMAINS INTUBATED AND SEDATED IN ICU. CM WILL CONTINUE TO FOLLOW.
[2024-06-27 14:14] LABS: MRSA Nasal PCR NEGATIVE (Negative); SA Nasal PCR NEGATIVE (Negative)
[2024-06-27] MEDS: dexmedeTOMIDidine HCL/NS 400 MCG/100 ML INFUS..BTL 13.79 MCG IVCONT ×2 (17:02→23:31)
[2024-06-27 17:28] LABS: Glucose, Whole Blood 122 mg/dL (60-115)
[2024-06-27] MEDS: gadobutroL 7.5 ML VIAL IVPUSH (18:38)
[2024-06-27] MEDS: Norepinephrine Bitartrate/D5W 8 MG/250 ML PLAST..BAG 5.75 MG IVCONT (20:20)
[2024-06-28] VITALS (39 sets, daily range): BP systolic 86–137; BP diastolic 64–91; PULSE 91–144; RESP 16–30; TEMP 34.1–38.5; O2SAT 93–100; BMI 29.1
[2024-06-28 00:10] LABS: Glucose, Whole Blood 129 mg/dL (60-115)
[2024-06-28 05:19] LABS: VBG Base Excess -0.3 mmol/L; VBG HCO3 21 mmol/L (22-26); VBG pCO2 26 mmHg; VBG pH 7.52 (7.32-7.43); VBG pO2 47 mmHg
[2024-06-28 05:21] LABS: Venous Blood Gas Refer to POC result
[2024-06-28 05:40] LABS: Imm Gran Abs Auto 0.03 X10*3/uL (0.00-0.03); Imm Gran Pct Auto 0.4 % (0.0-0.4); MANUAL DIFF FLAG SCAN; SCAN SMEAR FLAG 1
[2024-06-28 05:42] LABS: Basophils Percent Auto 0.3 % (0-2); Eosinophils Absolute Auto 0.1 X10*3/uL (0.0-0.4); Eosinophils Percent Auto 0.7 % (0-4); Hematocrit 29.4 % (42.0-52.0); Hemoglobin 9.8 g/dl (14.0-18.0); Lymphocytes Absolute Auto 0.7 X10*3/uL (1.2-4.9); Lymphocytes Percent Auto 9.2 % (20-40); Mean Corpuscular HGB Conc 33.3 g/dl (31.0-36.0); Mean Corpuscular Hemoglobin 29.1 pg (27.0-33.0); Mean Corpuscular Volume 87.2 fL (80.0-98.0); Mean Platelet Volume 13.2 fL (9.4-12.4); Monocytes Absolute Auto 0.5 X10*3/uL (0.1-1.2); Monocytes Percent Auto 6.7 % (2-11); NRBC Pct Auto 0.5 /100WBC (0.0-0.2); Neutrophils Absolute Auto 6.2 x10*3/uL (2.0-8.3); Neutrophils Percent Auto 82.7 % (45-73); PLT CLUMP 1; Red Blood Count 3.37 X10*6/uL (4.60-5.80); Red Cell Distribution Width 19.9 % (11.0-16.0)
[2024-06-28 05:53] LABS: PLT ABN DIST 1; Platelet Count 103 X10*3/uL (160-400); White Blood Count 7.5 X10*3/uL (4.8-10.8)
[2024-06-28 05:57] LABS: Albumin Level 2.8 g/dL (3.5-5.0); Anion Gap 15 (12-20); Blood Urea Nitrogen 29 mg/dL (9-16); Calcium 8.1 mg/dL (8.4-10.2); Carbon Dioxide 19 mmol/L (22-29); Chloride 110 mmol/L (96-108); Creatinine Clr Calc Pharmacy 33.5; Estimated Glomerular Filt Rate 47; Glucose Random 156 mg/dL (60-115); Phosphorus 3.1 mg/dL (2.7-4.5); Potassium 3.2 mmol/L (3.3-5.1); Sodium 141 mmol/L (135-145)
[2024-06-28] MEDS: dexmedeTOMIDidine HCL/NS 400 MCG/100 ML INFUS..BTL 13.79 MCG IVCONT ×2 (06:02→17:00)
[2024-06-28] MEDS: propofoL 1,000 MG/100 ML VIAL 11.03 MG IVCONT (06:03)
[2024-06-28] MEDS: Piperacillin Sodium/Tazobactam 3.375 GM in 0.9 % Sodium Chloride 50 ML IV (06:06)
[2024-06-28] MEDS: Pantoprazole Sodium 40 MG/10 ML VIAL IVPUSH (06:07)
[2024-06-28 06:15] LABS: SLIDE REVIEW VERIFIED
--- NOTE | 2024-06-28 07:48 | P.PNCC_ITS ---
Subjective Subjective Date of Service: 06/28/24 Interval History: no significant overnight events Critical Care Time (minutes): 60 Physical Exam 2 Vital Signs: Vital Signs: Last Vital Signs Temp 100.8 F H 06/28/24 07:00 Pulse 113 H 06/28/24 07:00 Resp 20 06/28/24 07:00 BP 96/66 06/28/24 07:00 Pulse Ox 95 06/28/24 07:00 O2 Del Method Mechanical Ventil ation 06/28/24 07:00 O2 Flow Rate 5 06/26/24 08:30 FiO2 21 06/28/24 07:24 Oxygen Flow Rate 25 06/26/24 08:30 BMI result Body Mass Index 29.1 Const: Other: intubated, sedated; some appreciable grimacing to verbal stimulus General: comfortable, no acute distress and well developed HEENT: Head: Yes normal to inspection, Yes normocephalic and Yes atraumatic Eyes: General: appearance normal, both eyes and all related structures Neck: Neck: Yes normal visual inspection, Yes full ROM, Yes no meningeal signs, Yes trachea midline and Yes supple Chest: Chest palpation & inspection: normal inspection of the chest Resp: Other: no appreciable rales, rhonchi, wheezing Effort & Inspection: normal respiratory effort Cardio: Rate: tachycardic Rhythm: abnormal rhythm GI: Inspection: Yes normal to inspection, No Abdominal wall edema and No distended Palpation (GI): Soft to palpation, not firm, nontender and no guarding Skin: General skin exam: no rashes or lesions noted Neuro: General: tone normal and no meningeal signs Extrem: Other: 1+ pitting edema, R LE greater than L LE General: Yes normal to inspection and Yes capillary refill normal Psych: Other: unable to assess Objective Data Labs 06/28/24 05:08 06/28/24 05:04 Labs: Laboratory Results - last 24 hr 06/24/24 06/26/24 06/27/24 13:13 15:12 09:47 WBC RBC Hgb Hct MCV MCH MCHC RDW Plt Count MPV Immature Gran % (Auto) Neut % (Auto) Lymph % (Auto) [place] % (Auto) Eos % (Auto) Baso % (Auto) Lymph # (Auto) [place] # (Auto) Eos # (Auto) Baso # (Auto) Abs Immat Gran (auto) Absolute Neuts (auto) Absolute Nucleated RBC Nucleated RBC % (auto) Smear Tech's Comments Smear Path Review VBG pH VBG pCO2 VBG pO2 VBG HCO3 VBG O2 Saturation VBG Base Excess Sodium Potassium Chloride Carbon Dioxide Anion Gap BUN Creatinine Estim Creat Clear Calc Estimated GFR POC Glucose Random Glucose Calcium Phosphorus Magnesium Albumin Nasal Screen MRSA (PCR) NEGATIVE Nasal S. aureus Screen NEGATIVE Nasal MRSA/S.aureus Interp SEE NOTE Blood Type B Positive Antibody Screen NEGATIVE 06/27/24 06/27/24 06/28/24 11:26 17:24 00:03 WBC RBC Hgb Hct MCV MCH MCHC RDW Plt Count MPV Immature Gran % (Auto) Neut % (Auto) Lymph % (Auto) [place] % (Auto) Eos % (Auto) Baso % (Auto) Lymph # (Auto) [place] # (Auto) Eos # (Auto) Baso # (Auto) Abs Immat Gran (auto) Absolute Neuts (auto) Absolute Nucleated RBC Nucleated RBC % (auto) Smear Tech's Comments Smear Path Review VBG pH VBG pCO2 VBG pO2 VBG HCO3 VBG O2 Saturation VBG Base Excess Sodium Potassium Chloride Carbon Dioxide Anion Gap BUN Creatinine Estim Creat Clear Calc Estimated GFR POC Glucose 116 H 122 H 129 H Random Glucose Calcium Phosphorus Magnesium Albumin Nasal Screen MRSA (PCR) Nasal S. aureus Screen Nasal MRSA/S.aureus Interp Blood Type Antibody Screen 06/28/24 06/28/24 06/28/24 05:04 05:08 05:09 WBC 7.5 RBC 3.37 L Hgb 9.8 L Hct 29.4 L MCV 87.2 MCH 29.1 MCHC 33.3 RDW 19.9 H Plt Count 103 L MPV 13.2 H Immature Gran % (Auto) 0.4 Neut % (Auto) 82.7 H Lymph % (Auto) 9.2 L [place] % (Auto) 6.7 Eos % (Auto) 0.7 Baso % (Auto) 0.3 Lymph # (Auto) 0.7 L [place] # (Auto) 0.5 Eos # (Auto) 0.1 Baso # (Auto) 0.0 Abs Immat Gran (auto) 0.03 Absolute Neuts (auto) 6.2 Absolute Nucleated RBC 0.040 H Nucleated RBC % (auto) 0.5 H Smear Tech's Comments VERIFIED Smear Path Review VBG pH 7.52 H VBG pCO2 26 VBG pO2 47 VBG HCO3 21 L VBG O2 Saturation 70.0 VBG Base Excess -0.3 Sodium 141 Potassium 3.2 L Chloride 110 H Carbon Dioxide 19 L Anion Gap 15 BUN 29 H Creatinine 1.45 H Estim Creat Clear Calc 33.5 Estimated GFR 47 POC Glucose Random Glucose 156 H Calcium 8.1 L Phosphorus 3.1 Magnesium 2.0 Albumin 2.8 L Nasal Screen MRSA (PCR) Nasal S. aureus Screen Nasal MRSA/S.aureus Interp Blood Type Antibody Screen Microbiology Microbiology Results: Microbiology 06/26/24 15:11 Blood - Venous Blood Culture - Preliminary No growth after 24 hours. 06/26/24 15:11 Blood - Venous Blood Culture - Preliminary No growth after 24 hours. 06/26/24 09:33 Blood - Venous Blood Culture - Preliminary No growth after 24 hours. 06/26/24 08:05 Blood - Venous Blood Culture - Final 06/24/24 13:45 Blood - Venous Blood Culture - Preliminary No growth after 48 hours. 06/24/24 13:40 Blood - Venous Blood Culture - Preliminary No growth after 48 hours. Progress Note: A&P Assessment and plan (1) Aspiration into airway: Status: Acute (2) Acute hypoxemic respiratory failure: Status: Acute (3) Shock: Status: Acute Plan Patient is a 83 Y M w/ hypertension, hyperlipidemia, c/b coronary artery disease, HFpEF, s/p stent, atrial fibrillation on rivaroxaban, COPD, and metastatic prostate cancer on palliative chemotherapy, initially presenting to the emergency department on 06/24 w/ signs/symptoms of failure to thrive; work- up grossly unrevealing, admitted medicine; on 06/26, patient suffered aspiration, intubated N: intubated, sedated w/ propofol, dexmedetomidine gtt, wean as tolerated CV: shock, likely distributive, norepinephrine gtt, wean as tolerated; atrial fibrillation, metoprolol IV PRN R: intubated in setting of aspiration, wean as tolerated; COPD GI: tube feeds : acute on chronic renal insufficiency, to monitor renal indices, electrolytes very closely H: anemia, thrombocytopenia, to monitor very closely; of note, reported bloody bowel movement 06/26; atrial fibrillation, to hold home rivaroxaban ID: empiric vancomycin, zosyn in setting of aspiration, shock; to follow-up blood cultures E: to monitor hypo-/hyper-glycemia P: no acute issues Quality Stroke Does the patient have a stroke diagnosis?: No VTE Prior VTE?: No VTE Risk Level:: Medical - moderate - high VTE Device Contraindication: N/A - Device Ordered VTE Drug Contraindication: Treatment Not Tolerated
[2024-06-28] MEDS: Calcium Chloride 1 GM/10 ML SYRINGE IVPUSH (08:40)
[2024-06-28] MEDS: Chlorhexidine Gluc Oral Rinse 15 ML MOUTHWASH BUCCAL ×3 (08:40→20:45)
[2024-06-28] MEDS: Albumin Human 25 % 100 ML IV (08:40)
[2024-06-28] MEDS: predniSONE 5 MG TABLET PO (08:40)
[2024-06-28] MEDS: Atorvastatin Calcium 80 MG TABLET PO (08:40)
[2024-06-28] MEDS: Potassium Chloride/H20 40 MEQ/100 ML PIGGYBACK 100 MEQ IV (08:40)
[2024-06-28] MEDS: Furosemide 20 MG/2 ML VIAL IVPUSH ×2 (08:40→17:00)
[2024-06-28] MEDS: 0.9 % Sodium Chloride Flush 3 ML SYRINGE IVFLUSH ×3 (08:40→13:59)
[2024-06-28] MEDS: Metoprolol Tartrate 10 MG in 0.9 % Sodium Chloride 50 ML 240 MG IV (09:19)
[2024-06-28] MEDS: cefEPime HCl 2 GM in 0.9 % Sodium Chloride 50 ML IV ×2 (09:32→20:45)
--- NOTE | 2024-06-28 09:32 | MHC.CLN ---
F/U PT REMAINS INTUBATED AND SEDATED PT WITH INCREASED NUTRITION RISK R/T PRESSURE INJURY AND DX CA PT STARTED TF -CURRENTLY RUNNING AT 50ML/HR AND SLOWLY ADVANCING TO GOAL RECOMMEND PROMOTE AT MAX GOAL RATE 60ML/HR WITH 120ML FREE WATER FLUSHES Q 8 HRS TO PROVIDE 1440KCALS (1537KCALS WITH SEDATION; 27KCALS/KG BASED ON CMW), 90G PROTEIN (1.6G/KG), 1568ML TOTAL WATER FROM FORMULA AND FLUSHES (27.5ML/KG) MONITOR TOLERANCE AND LYTES
[2024-06-28] MEDS: Ampicillin Sodium 2 GM in 0.9 % Sodium Chloride 100 ML IV ×3 (09:33→20:47)
--- NOTE | 2024-06-28 10:14 | P.CNNE_ITS ---
History of Present Illness Data of Consult Service Date: 06/28/24 Primary Care Provider: Justus Tinoco MD [facility] Reason for consult: Unresponsiveness This is an 83-year-old male with a PMH significant for?HTN, HLD, CKD3, CAD, NSTEMI s/p stent in 2010,, paroxysmal AFib on Xarelto, recurrent metastatic prostate cancer on palliative chemotherapy with abiraterone and lupron , COPD not on home O2, and HFpEF who was admitted to ICU with critically low potassium. He has been feeling poorly for the past 6 months. Was recently admitted to the hospital from 05/22-05/25 for AFib with RVR and new onset HFpEF. He has been feeling increasing fatigue and exertional SOB the past week or so. Has had reduced p.o. intake due to loss of appetite. Some loose stool, no fever, chills, nausea, vomiting or abdominal pain. Chronic cough at baseline. Denies chest pain/pressure, palpitations. Lives at home with his family and ambulates with a walker at baseline. He garcia sbeen on vent and has been poorly responsive. MRI on 06/27/24 shows mild age related microvascular changes and atrophy and calcified dentate nuclei of questionable significance PMFSH Past Medical History Medical History Arrhythmia CAD (coronary artery disease) Hx of emphysema Rheumatoid arthritis Chronic renal insufficiency History of prostate cancer COPD (chronic obstructive pulmonary disease) Hypercholesteremia HTN (hypertension) Surgical History Surgical History Hx of heart artery stent History of colonoscopy History of tonsillectomy H/O prostatectomy Social History Social History Household Members: Family Housing: House Do you presently have visiting nurse or other home services: Yes Comment: at times Patient Tobacco Use Status: Former Tobacco user Tobacco use type: Cigarette Smoked in Last 30 Days: No e-Cigarette/Vaping Use: Never Used Use of substances other than those prescribed or required for medical reasons: No Currently Displaying Signs/Symptoms of Drug Intoxication Withdrawal: No Have you been hit, kicked, punched, or otherwise hurt by someone within the past year? If so, by whom?: No Do you feel safe in your current relationship?: No Current Relationship Is there a partner from a previous relationship who is making you feel unsafe now?: No Are you made to feel afraid or neglected: No Advance Directives: Yes Advance Directives Information Provided: Yes Advance Directives on File: No (Not on file) Advance Directives Date on File: 06/24/24 Do you have a plan to hurt others: No Plan Recently lost weight without trying: Unsure How much weight loss: Unsure Eating poorly because of decreased appetite: Yes Nutrition screen score: 5 Nutrition Risks: No Nutritional Risk Poor oral hygiene: No service: No Meds Allergies Allergy/AdvReac Type Severity Reaction Status Date / Time pollen extracts Allergy Intermediate itchy/watery Verified 06/24/24 13:19 eyes Active Medications: Current Medications Acetaminophen (Acetaminophen 325 Mg Tablet) 650 mg PO Q6H PRN PRN Reason: Pain, Mild (Pain Scale 1-3), fever or headache Last Admin: 06/26/24 07:50 Dose: 650 mg Albuterol/Ipratropium (Albuterol/Iprat 2.5/0.5mg 3 Ml Ampul.Neb) 3 ml INHALE Q4H PRN PRN Reason: Wheezing Atorvastatin Calcium (Atorvastatin Calcium 80 Mg Tablet) 80 mg PO DAILY KARIN Last Admin: 06/28/24 08:40 Dose: 80 mg Chlorhexidine Gluconate (Chlorhexidine Gluc Oral Rinse 15 Ml Mouthwash) 15 ml BUCCAL TID KARIN Last Admin: 06/28/24 08:40 Dose: 15 ml Furosemide (Furosemide 20 Mg/2 Ml Vial) 20 mg IVPUSH DAILY KARIN; Protocol Last Admin: 06/28/24 08:40 Dose: 20 mg Dexmedetomidine HCl (Precedex) 400 mcg in 100 mls @ 0 mls/hr IVCONT .Q0M KARIN; Protocol Last Titration: 06/28/24 06:22 Dose: 0.5 mcg/kg/hr, 7.66 mls/hr Norepinephrine Bitartrate (Levophed) 8 mg in 250 mls @ 0 mls/hr IVCONT .Q0M KARIN; Protocol Last Titration: 06/28/24 08:16 Dose: 0.07 mcg/kg/min, 8.05 mls/hr Propofol (Diprivan) 1,000 mg in 100 mls @ 0 mls/hr IVCONT .Q0M KARIN; Protocol Last Titration: 06/28/24 10:05 Dose: 0 mcg/kg/min, 0 mls/hr Metoprolol Tartrate 10 mg/ (Sodium Chloride) 60 mls @ 240 mls/hr IV Q6H PRN; Protocol PRN Reason: Tachycardia Last Infusion: 06/28/24 09:35 Dose: Infused Cefepime HCl 2 gm/ Sodium (Chloride) 50 mls @ 100 mls/hr IV Q12H [facility] Last Infusion: 06/28/24 10:11 Dose: Infused Ampicillin Sodium 2 gm/ Sodium (Chloride) 100 mls @ 200 mls/hr IV Q6H [facility] Last Infusion: 06/28/24 10:11 Dose: Infused Non-Formulary Medication (Abiraterone) 1,000 mg PO DAILY [facility] Pantoprazole Sodium (Pantoprazole Sodium 40 Mg/10 Ml Vial) 40 mg IVPUSH DAILY@0630 [facility] Last Admin: 06/28/24 06:07 Dose: 40 mg Prednisone (Prednisone 5 Mg Tablet) 5 mg PO DAILY [facility] Last Admin: 06/28/24 08:40 Dose: 5 mg Rivaroxaban (Rivaroxaban 15 Mg Tablet) 15 mg PO DAILY@1700 [facility] Last Admin: 06/27/24 15:37 Dose: Not Given Sodium Chloride (0.9 % Sodium Chloride Flush 3 Ml Syringe) 3 ml IVFLUSH QSHIFT [facility] Last Admin: 06/28/24 08:40 Dose: 3 ml Home Medications ?Medication ?Instructions ?Recorded ?Confirmed ?Last Taken ?Type leflunomide 20 mg tablet 1 tab PO DAILY 01/16/21 06/24/24 01/20/21 History omeprazole 40 mg capsule,delayed 40 mg PO BID@0630,1630 01/16/21 06/24/24 Unknown History release rosuvastatin 40 mg tablet 40 mg PO DAILY 01/16/21 06/24/24 Unknown History abiraterone 250 mg tablet 1,000 mg PO DAILY 05/22/24 06/24/24 Unknown History bismuth subsalicylate 525 mg/15 mL 525 mg PO Q30M PRN 05/22/24 06/24/24 Unknown History oral suspension heartburn/indigestion calcium carbonate 500 mg-vitamin 1 tab PO BID 05/22/24 06/24/24 Unknown History D3 10 mcg (400 unit) chewable tablet ferrous sulfate 325 mg (65 mg 325 mg PO MOWEFR 05/22/24 06/24/24 Unknown History iron) tablet,delayed release fluticasone propionate 50 2 spray intranasal DAILY 05/22/24 06/24/24 Unknown History mcg/actuation nasal spray,suspension (Flonase Allergy Relief) furosemide 40 mg tablet 40 mg PO DAILY 05/22/24 06/24/24 Unknown History ipratropium 20 mcg-albuterol 100 1 puff inhalation Q8H PRN 05/22/24 06/24/24 Unknown History mcg/actuation mist for inhalation Shortness Of Breath Or Wheezing (Combivent Respimat) leuprolide acetate (6 month) 45 mg 45 mg IM [id number] 05/22/24 05/22/24 Unknown History intramuscular syringe kit (Lupron Depot) prednisone 5 mg tablet 5 mg PO DAILY 05/22/24 06/24/24 05/21/24 History rivaroxaban 20 mg tablet (Xarelto) 20 mg PO DAILY@1700 05/22/24 06/24/24 Unknown History metoprolol tartrate 50 mg tablet 150 mg PO BID 06/24/24 06/24/24 Unknown History Physical Exam 2 Vital Signs: Vital Signs: Last Vital Signs Temp 100.9 F H 06/28/24 09:00 Pulse 144 H 06/28/24 09:00 Resp 25 H 06/28/24 09:00 BP 129/79 06/28/24 09:00 Pulse Ox 94 06/28/24 09:00 O2 Del Method Mechanical Ventil ation 06/28/24 09:00 O2 Flow Rate 5 06/26/24 08:30 FiO2 21 06/28/24 09:00 Oxygen Flow Rate 25 06/26/24 08:30 BMI result Body Mass Index 29.1 Neuro: Other: Is currently off the propofol but is still sedated. He is arousable but verbal stimulation follow simple commands like tracking with his eyes, protruding his tongue moving his legs and gripping with his hands. Exam is therefore non- focal. Neck is supple Results Labs 06/28/24 05:08 06/28/24 05:04 Labs: Short CBC 06/28/24 Range/Units 05:08 WBC 7.5 (4.8-10.8) X10*3/uL Hgb 9.8 L (14.0-18.0) g/dl Hct 29.4 L (42.0-52.0) % Plt Count 103 L (160-400) X10*3/uL BMP 06/28/24 05:04 Sodium 141 Potassium 3.2 L Chloride 110 H Carbon Dioxide 19 L BUN 29 H Creatinine 1.45 H Calcium 8.1 L Liver Function 06/28/24 Range/Units 05:04 Albumin 2.8 L (3.5-5.0) g/dL Microbiology Microbiology Results: Microbiology 06/26/24 15:11 Blood - Venous Blood Culture - Preliminary No growth after 24 hours. 06/26/24 15:11 Blood - Venous Blood Culture - Preliminary No growth after 24 hours. 06/26/24 09:33 Blood - Venous Blood Culture - Preliminary No growth after 24 hours. 06/26/24 08:05 Blood - Venous Blood Culture - Final 06/24/24 13:45 Blood - Venous Blood Culture - Preliminary No growth after 48 hours. 06/24/24 13:40 Blood - Venous Blood Culture - Preliminary No growth after 48 hours. Assessment and Plan (1) Encephalopathy: Status: Acute Multifactorial encephalopathy related to infectious and the hypoxic encephalopathy from multiple medical issues. MRI shows no acute abnormalities. No evidence of meningitis. Recommendation: continue antibiotics. EEG to rule out subclinical seizures. Procedures Date of Service Date of Service: 06/28/24
[2024-06-28] MEDS: Metoprolol Tartrate 50 MG TABLET PO ×3 (11:30→20:43)
[2024-06-28 11:31] LABS: Glucose, Whole Blood 155 mg/dL (60-115)
--- NOTE | 2024-06-28 12:53 | MHC.CM.PN ---
Pt remains on ventilatory support pending neuro eval after MRI on 06/27. Goals of care discussions w/family remain ongoing. CM to follow for finalization of d/c planning
--- NOTE | 2024-06-28 14:54 | W.MHC.ACPN ---
Advanced Care Planning Note Advanced Care Planning Note Discussed with: family member(s) Time spent (in minutes): 15 Narrative: Mr. Bourgeois's brother and healthcare proxy was present at bedside again today; I offered updates and clarifications; we discussed Mr. Bourgeois is more alert, however, was unable to breathe without ventilator support for a meaningful amount of time today; we discussed our plan will be to try less ventilator support again tomorrow; we also discussed Mr. Bourgeois's code status; Mr. Bourgeois's brother stated Mr. Bourgeois has made it clear to his family and primary care physician that, given his terminal illness, he is DNR/DNI; we discussed changing Mr. Bourgeois's code status to DNR, and in the event Mr. Bourgeois is able to be extubated, that he will become DNI at that time Problems Discussed (1) Aspiration into airway: (2) Acute hypoxemic respiratory failure: (3) Shock:
[2024-06-28 17:47] LABS: Glucose, Whole Blood 180 mg/dL (60-115)
[2024-06-29] VITALS (47 sets, daily range): BP systolic 80–131; BP diastolic 53–86; PULSE 88–115; RESP 14–25; TEMP 34.5–38.4; O2SAT 91–100; BMI 29.1
[2024-06-29] MEDS: 0.9 % Sodium Chloride Flush 3 ML SYRINGE IVFLUSH ×4 (00:25→23:50)
[2024-06-29] MEDS: dexmedeTOMIDidine HCL/NS 400 MCG/100 ML INFUS..BTL 13.79 MCG IVCONT (00:25)
[2024-06-29 00:31] LABS: Glucose, Whole Blood 158 mg/dL (60-115)
[2024-06-29] MEDS: Ampicillin Sodium 2 GM in 0.9 % Sodium Chloride 100 ML IV ×4 (02:45→20:30)
[2024-06-29] MEDS: Norepinephrine Bitartrate/D5W 8 MG/250 ML PLAST..BAG 3.45 MG IVCONT (04:35)
[2024-06-29 05:22] LABS: VBG Base Excess 3.8 mmol/L; VBG HCO3 26 mmol/L (22-26); VBG pCO2 33 mmHg; VBG pO2 47 mmHg
[2024-06-29 05:36] LABS: MANUAL DIFF FLAG NO
[2024-06-29 05:40] LABS: Venous Blood Gas Refer to POC result
[2024-06-29 05:43] LABS: Basophils Percent Auto 0.5 % (0-2); Eosinophils Absolute Auto 0.1 X10*3/uL (0.0-0.4); Eosinophils Percent Auto 0.8 % (0-4); Hematocrit 28.9 % (42.0-52.0); Hemoglobin 9.8 g/dl (14.0-18.0); Imm Gran Abs Auto 0.04 X10*3/uL (0.00-0.03); Imm Gran Pct Auto 0.5 % (0.0-0.4); Lymphocytes Absolute Auto 1.2 X10*3/uL (1.2-4.9); Lymphocytes Percent Auto 15.9 % (20-40); Mean Corpuscular HGB Conc 33.9 g/dl (31.0-36.0); Mean Corpuscular Hemoglobin 29.3 pg (27.0-33.0); Mean Corpuscular Volume 86.3 fL (80.0-98.0); Monocytes Absolute Auto 0.8 X10*3/uL (0.1-1.2); Monocytes Percent Auto 10.7 % (2-11); NRBC Pct Auto 0.4 /100WBC (0.0-0.2); Neutrophils Absolute Auto 5.4 x10*3/uL (2.0-8.3); Neutrophils Percent Auto 71.6 % (45-73); Red Blood Count 3.35 X10*6/uL (4.60-5.80); Red Cell Distribution Width 20.4 % (11.0-16.0); White Blood Count 7.6 X10*3/uL (4.8-10.8)
[2024-06-29 05:44] LABS: Platelet Count 90 X10*3/uL (160-400)
[2024-06-29 05:58] LABS: Anion Gap 15 (12-20); Blood Urea Nitrogen 33 mg/dL (9-16); Carbon Dioxide 22 mmol/L (22-29); Chloride 112 mmol/L (96-108); Creatinine Clr Calc Pharmacy 44.6; Estimated Glomerular Filt Rate > 60; Glucose Random 159 mg/dL (60-115); Magnesium 1.6 mg/dL (1.6-2.6); Phosphorus 1.9 mg/dL (2.7-4.5); Potassium 2.9 mmol/L (3.3-5.1); Sodium 146 mmol/L (135-145)
[2024-06-29] MEDS: Pantoprazole Sodium 40 MG/10 ML VIAL IVPUSH (06:08)
[2024-06-29] MEDS: Potassium Chloride Packet 20 MEQ PACKET 40 MEQ PO (06:32)
[2024-06-29] MEDS: propofoL 200 MG/20 ML VIAL 20 MG IVPUSH (06:43)
[2024-06-29] MEDS: HYDROmorphone HCl 1 MG/ML SYRINGE IVPUSH ×2 (07:05→17:01)
[2024-06-29] MEDS: dexmedeTOMIDidine HCL/NS 400 MCG/100 ML INFUS..BTL 15.33 MCG IVCONT (07:06)
[2024-06-29] MEDS: Potassium Phosphate/NS 15 MMOL/250 ML PLAST..BAG 62.5 MMOL IV ×2 (07:13→11:14)
--- NOTE | 2024-06-29 07:43 | P.PNCC_ITS ---
Subjective Subjective Date of Service: 06/29/24 Interval History: no significant overnight events Critical Care Time (minutes): 60 Physical Exam 2 Vital Signs: Vital Signs: Last Vital Signs Temp 98.2 F 06/29/24 07:00 Pulse 101 H 06/29/24 07:00 Resp 20 06/29/24 07:00 BP 98/70 06/29/24 07:00 Pulse Ox 98 06/29/24 07:13 O2 Del Method Mechanical Ventil ation 06/29/24 07:00 O2 Flow Rate 5 06/26/24 08:30 FiO2 21 06/29/24 07:32 Oxygen Flow Rate 25 06/26/24 08:30 BMI result Body Mass Index 32.3 Const: Other: intubated; appreciable spontaneous movements; follows commands General: comfortable, no acute distress, well developed, alert and awake HEENT: Head: Yes normal to inspection, Yes normocephalic and Yes atraumatic Eyes: General: appearance normal, both eyes and all related structures Neck: Neck: Yes normal visual inspection, Yes full ROM, Yes no meningeal signs, Yes trachea midline and Yes supple Chest: Chest palpation & inspection: normal inspection of the chest Resp: Other: some appreciable rales, L greater than R; no appreciable rhonchi, wheezing Effort & Inspection: normal respiratory effort Cardio: Rate: regular rate Rhythm: abnormal rhythm GI: Inspection: Yes normal to inspection, No Abdominal wall edema and No distended Palpation (GI): Soft to palpation, not firm, nontender, no guarding and not rigid Skin: General skin exam: no rashes or lesions noted Neuro: General: tone normal, moves all extremities and no meningeal signs Extrem: Other: appreciable 1+ pitting edema to bilateral shins General: Yes normal to inspection, Yes full ROM and Yes capillary refill normal Psych: Other: no appreciable significant agitation Objective Data Labs 06/29/24 05:14 06/29/24 05:14 Labs: Laboratory Results - last 24 hr 06/28/24 06/28/24 06/29/24 11:27 17:42 00:26 WBC RBC Hgb Hct MCV MCH MCHC RDW Plt Count MPV Immature Gran % (Auto) Neut % (Auto) Lymph % (Auto) [place] % (Auto) Eos % (Auto) Baso % (Auto) Lymph # (Auto) [place] # (Auto) Eos # (Auto) Baso # (Auto) Abs Immat Gran (auto) Absolute Neuts (auto) Absolute Nucleated RBC Nucleated RBC % (auto) VBG pH VBG pCO2 VBG pO2 VBG HCO3 VBG O2 Saturation VBG Base Excess Sodium Potassium Chloride Carbon Dioxide Anion Gap BUN Creatinine Estim Creat Clear Calc Estimated GFR POC Glucose 155 H 180 H 158 H Random Glucose Calcium Phosphorus Magnesium 06/29/24 06/29/24 05:11 05:14 WBC 7.6 RBC 3.35 L Hgb 9.8 L Hct 28.9 L MCV 86.3 MCH 29.3 MCHC 33.9 RDW 20.4 H Plt Count 90 L MPV Not Reportable Immature Gran % (Auto) 0.5 H Neut % (Auto) 71.6 Lymph % (Auto) 15.9 L [place] % (Auto) 10.7 Eos % (Auto) 0.8 Baso % (Auto) 0.5 Lymph # (Auto) 1.2 [place] # (Auto) 0.8 Eos # (Auto) 0.1 Baso # (Auto) 0.0 Abs Immat Gran (auto) 0.04 H Absolute Neuts (auto) 5.4 Absolute Nucleated RBC 0.030 H Nucleated RBC % (auto) 0.4 H VBG pH 7.50 H VBG pCO2 33 VBG pO2 47 VBG HCO3 26 VBG O2 Saturation 73.0 VBG Base Excess 3.8 Sodium 146 H Potassium 2.9 L* Chloride 112 H Carbon Dioxide 22 Anion Gap 15 BUN 33 H Creatinine 1.09 Estim Creat Clear Calc 44.6 Estimated GFR > 60 POC Glucose Random Glucose 159 H Calcium 8.0 L Phosphorus 1.9 L Magnesium 1.6 Microbiology Microbiology Results: Microbiology 06/26/24 15:11 Blood - Venous Blood Culture - Preliminary No growth after 48 hours. 06/26/24 15:11 Blood - Venous Blood Culture - Preliminary No growth after 48 hours. 06/26/24 09:33 Blood - Venous Blood Culture - Preliminary No growth after 48 hours. 06/26/24 08:05 Blood - Venous Blood Culture - Final 06/24/24 13:45 Blood - Venous Blood Culture - Preliminary No growth after 48 hours. 06/24/24 13:40 Blood - Venous Blood Culture - Preliminary No growth after 48 hours. Progress Note: A&P Assessment and plan (1) Acute hypoxemic respiratory failure: Status: Acute (2) Aspiration into airway: Status: Acute (3) Shock: Status: Acute Plan Patient is a 83 Y M w/ hypertension, hyperlipidemia, c/b coronary artery disease, HFpEF, s/p stent, atrial fibrillation on rivaroxaban, COPD, and metastatic prostate cancer on palliative chemotherapy, initially presenting to the emergency department on 06/24 w/ signs/symptoms of failure to thrive; work- up grossly unrevealing, admitted medicine; on 06/26, patient suffered aspiration, intubated N: intubated, sedated w/ dexmedetomidine gtt, wean as tolerated; MRI demonstrating non-specific inflammatory and/or infectious process; after discussion w/ brother, preference to defer further work-up, to empirically treat for meningitis CV: shock, likely distributive, norepinephrine gtt, wean as tolerated; atrial fibrillation, metoprolol PO and IV PRN R: intubated in setting of aspiration, wean as tolerated; COPD GI: tube feeds : acute on chronic renal insufficiency, improving, to monitor renal indices, electrolytes very closely H: anemia, thrombocytopenia, to monitor very closely; of note, reported bloody bowel movement 06/26; atrial fibrillation, to hold home rivaroxaban ID: empiric vancomycin, cefepime, ampicillin in setting of aspiration, possible meningitis; to follow-up blood cultures E: to monitor hypo-/hyper-glycemia P: no acute issues Quality Stroke Does the patient have a stroke diagnosis?: No VTE Prior VTE?: No VTE Risk Level:: Medical - moderate - high VTE Device Contraindication: N/A - Device Ordered VTE Drug Contraindication: Treatment Not Tolerated
[2024-06-29] MEDS: Calcium Chloride 1 GM/10 ML SYRINGE IVPUSH (08:01)
[2024-06-29] MEDS: Chlorhexidine Gluc Oral Rinse 15 ML MOUTHWASH BUCCAL ×3 (08:45→20:29)
[2024-06-29] MEDS: Atorvastatin Calcium 80 MG TABLET PO (08:46)
[2024-06-29] MEDS: Furosemide 20 MG/2 ML VIAL IVPUSH (08:46)
[2024-06-29] MEDS: predniSONE 5 MG TABLET PO (08:46)
[2024-06-29] MEDS: Metoprolol Tartrate 50 MG TABLET PO ×3 (08:46→20:30)
[2024-06-29] MEDS: cefEPime HCl/D5W 2 GM/50 ML PIGGYBACK IV (09:00)
--- NOTE | 2024-06-29 09:51 | MHC.CLN ---
F/U PT REMAINS INTUBATED AND SEDATED REVIEWED LABS PT RECEIVING PROMOTE AT MAX GOAL RATE 60ML/HR WITH 120ML FREE WATER FLUSHES Q 8 HRS PROVIDES 1440KCALS (25KCALS/KG BASED ON CMW), 90G PROTEIN (1.6G/KG), 1568ML TOTAL WATER FROM FORMULA AND FLUSHES (27.5ML/KG) TF WILL PROMOTE WOUND HEALING MONITOR TOLERANCE AND LYTES
[2024-06-29 11:36] LABS: Glucose, Whole Blood 121 mg/dL (60-115)
--- NOTE | 2024-06-29 14:13 | W.MHC.ACPN ---
Advanced Care Planning Note Advanced Care Planning Note Discussed with: family member(s) Time spent (in minutes): 15 Narrative: I met Mr. Penn brother and sister at his bedside; I offered updates, specifically that Mr. Bourgeois is on less ventilator support today, though on perhaps too much ventilator support to suggest he will breathe well if extubated; Mr. Bourgeois's brother and sister expressed understanding of this; Mr. Bourgeois's brother expressed concern that Mr. Penn cancer has made him very weak and believes that Mr. Bourgeois would not want to continue much longer on the ventilator, and as discussed prior, would not want to ever be placed back on the ventilator; given that, Mr. Bourgeois's brother and sister felt that the most appropriate next step would be to remove the breathing tube tomorrow when family are available at around 13:00; we discussed that if Mr. Penn breathing were to get worse, we would be made comfort-focused care at that time Problems Discussed (1) Acute hypoxemic respiratory failure: (2) Aspiration into airway: (3) Shock:
--- NOTE | 2024-06-29 16:23 | HO.WOUND ---
Wound Consult: Initial 83yr old? male [place] [facility] [place] - See progress notes and H&P for detailed history.? Patient is currently in ICU and remains critically ill and on a vent.? Chart review reveals providers and family continue to discuss patient code status and advanced care planning.? Wound consult placed for Buttock and Left 5th toe wound.? ??These below recommendations are made after chart and photo review. Left 5th toe Etiology: ?Unknown Etiology Wound Bed: adherent yellow slough Edges: ? defined Martha wound: ?Intact ?? Goals of Treatment: ? 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 Wound Bed: red pink pigmented tissue Edges: ?mirrored Martha wound: ?Intact ?? Goals of Treatment: ? Triad to protect from moisture and friction Recommendations: 1. Turn and Reposition every 2 hours and as needed for patient comfort.? Use pillows or wedges to support off loading positions. 2. Off Load all bony prominences with use of pillows and heel boots if needed.? Apply Preventative foams where needed. ? 3. Monitor for incontinence and moisture control, use barrier creams when needed for prevention and treatment. 4. Provide adequate and supplemental nutrition.? 5. Continue low air loss mattress. 6. When applicable maintain blood glucose levels per Providers order. 7. Left 5th toe? - Cleanse with NS, Pat dry.? Apply thin layer of Triad to wound bed cover with dry gauze, change every other day. 8. Buttock ? Routine cleansing with Ph balanced wipes or jitendra spray.? Apply thin layer of triad to area twice daily and PRN after episodes of incontinence. Re-consult wound care Nurse for wound deterioration or wound changes.
[2024-06-29 18:20] LABS: Glucose, Whole Blood 129 mg/dL (60-115)
[2024-06-29 23:40] LABS: Glucose, Whole Blood 139 mg/dL (60-115)
[2024-06-29] MEDS: dexmedeTOMIDidine HCL/NS 400 MCG/100 ML INFUS..BTL 6.13 MCG IVCONT (23:51)
[2024-06-30] VITALS (39 sets, daily range): BP systolic 79–120; BP diastolic 54–81; PULSE 107–152; RESP 17–42; TEMP 34.1–38.3; O2SAT 90–99
[2024-06-30] MEDS: Ampicillin Sodium 2 GM in 0.9 % Sodium Chloride 100 ML IV ×4 (03:48→20:35)
[2024-06-30 05:21] LABS: VBG Base Excess 5.7 mmol/L; VBG HCO3 29 mmol/L (22-26); VBG pCO2 38 mmHg; VBG pH 7.49 (7.32-7.43); VBG pO2 36 mmHg
[2024-06-30 05:24] LABS: Venous Blood Gas Refer to POC result
[2024-06-30 05:29] LABS: Basophils Percent Auto 0.5 % (0-2); Eosinophils Absolute Auto 0.2 X10*3/uL (0.0-0.4); Eosinophils Percent Auto 2.7 % (0-4); NRBC Pct Auto 0.5 /100WBC (0.0-0.2); SCAN SMEAR FLAG 1
[2024-06-30 05:31] LABS: Hematocrit 29.2 % (42.0-52.0); Hemoglobin 9.8 g/dl (14.0-18.0); Imm Gran Abs Auto 0.04 X10*3/uL (0.00-0.03); Imm Gran Pct Auto 0.5 % (0.0-0.4); Lymphocytes Absolute Auto 1.4 X10*3/uL (1.2-4.9); Lymphocytes Percent Auto 17.3 % (20-40); MANUAL DIFF FLAG SCAN; Mean Corpuscular HGB Conc 33.6 g/dl (31.0-36.0); Mean Corpuscular Hemoglobin 29.2 pg (27.0-33.0); Mean Corpuscular Volume 86.9 fL (80.0-98.0); Mean Platelet Volume 12.3 fL (9.4-12.4); Monocytes Percent Auto 13.1 % (2-11); Neutrophils Absolute Auto 5.2 x10*3/uL (2.0-8.3); Neutrophils Percent Auto 65.9 % (45-73); PLT CLUMP 1; Red Blood Count 3.36 X10*6/uL (4.60-5.80); Red Cell Distribution Width 20.7 % (11.0-16.0)
[2024-06-30 05:38] LABS: PLT ABN DIST 1; Platelet Count 94 X10*3/uL (160-400); White Blood Count 7.9 X10*3/uL (4.8-10.8)
[2024-06-30] MEDS: Pantoprazole Sodium 40 MG/10 ML VIAL IVPUSH (05:39)
[2024-06-30 05:43] LABS: Albumin Level 2.5 g/dL (3.5-5.0); Anion Gap 15 (12-20); Blood Urea Nitrogen 42 mg/dL (9-16); Calcium 8.4 mg/dL (8.4-10.2); Carbon Dioxide 23 mmol/L (22-29); Chloride 113 mmol/L (96-108); Creatinine Clr Calc Pharmacy 55.8; Estimated Glomerular Filt Rate > 60; Glucose Random 129 mg/dL (60-115); Magnesium 1.7 mg/dL (1.6-2.6); Phosphorus 2.8 mg/dL (2.7-4.5); Potassium 4.2 mmol/L (3.3-5.1); Sodium 147 mmol/L (135-145)
[2024-06-30 05:50] LABS: SLIDE REVIEW VERIFIED
[2024-06-30] MEDS: Albumin Human 25 % 100 ML IV ×2 (06:12→07:21)
[2024-06-30] MEDS: 0.9 % Sodium Chloride Flush 3 ML SYRINGE IVFLUSH ×2 (07:21→14:31)
--- NOTE | 2024-06-30 07:25 | PC.NURSE ---
Note from rapid response 06/26/24-----approx-0810--upon assessment, the patient appeared to be pale, A&O x3, tele; afib rvr with HR 120-130s. Vitals done at this time; temp 103.7 rectal, BP: 80/58, HR; 120 93 % on 4 liters via NC. Provider notified; metoprolol held, tylenol given for temp. POC checked at this time; POC 62; pt not diabetic, however 12 ounces of orange juice given, repeat POC 72. Pt then appeared to be aspirating on orange juice; lung auscultated, dim in the right base, expiratory wheezing throughout. Respiratory called to bedside at this time. Unable to get O2 stat. Pt now placed on oxymask; finally able to get an O2 on the forehead; O2 read as low as 60s and as high as 80. Provider aware and called to the bedside by the charge nurse. CXR ordered and taken; VBG ordered and taken. PT becoming more lethargic and having increased work of breathing, BP still soft; 1 liter bolus ordered and started. Rapid Response Called at this time. Code Cart pulled to room; pacer pads applied, hooked up to defibrillator. RSI kit pulled; 100 Ketamine and 60 of Rocuronium given; pt intubated at bedside by ED doc at 0825. 7.5 tube placed, positive color change, bilateral breath sounds. Levophed gtt started at 0.15 and the patient was transported to ICU.
--- NOTE | 2024-06-30 07:50 | P.PNCC_ITS ---
Subjective Subjective Date of Service: 06/30/24 Interval History: no significant overnight events Critical Care Time (minutes): 60 Physical Exam 2 Vital Signs: Vital Signs: Last Vital Signs Temp 99.9 F 06/30/24 07:00 Pulse 123 H 06/30/24 07:00 Resp 17 06/30/24 07:00 BP 100/64 06/30/24 07:00 Pulse Ox 94 06/30/24 07:00 O2 Del Method Mechanical Ventil ation 06/30/24 07:00 O2 Flow Rate 5 06/26/24 08:30 FiO2 21 06/30/24 07:14 Oxygen Flow Rate 25 06/26/24 08:30 BMI result Body Mass Index 29.1 Const: Other: intubated General: healthy appearing, comfortable, no acute distress, well developed, alert and awake HEENT: Head: Yes normal to inspection, Yes normocephalic and Yes atraumatic Eyes: General: appearance normal, both eyes and all related structures Neck: Neck: Yes normal visual inspection, Yes full ROM, Yes no meningeal signs, Yes trachea midline and Yes supple Chest: Chest palpation & inspection: normal inspection of the chest Resp: Other: no appreciable rales, rhonchi, wheezing Effort & Inspection: normal respiratory effort Cardio: Rate: tachycardic Rhythm: abnormal rhythm GI: Inspection: Yes normal to inspection, No Abdominal wall edema and No distended Palpation (GI): Soft to palpation, not firm, nontender, no guarding and not rigid Skin: General skin exam: no rashes or lesions noted Neuro: Other: follows commands; wiggles fingers and toes General: tone normal and no meningeal signs Extrem: Other: appreciable trace pitting edema to bilateral knees General: Yes normal to inspection, Yes full ROM and Yes capillary refill normal Psych: Appearance: grossly normal Objective Data Labs 06/30/24 04:57 06/30/24 04:57 Labs: Laboratory Results - last 24 hr 06/29/24 06/29/24 06/29/24 11:31 18:13 23:34 WBC RBC Hgb Hct MCV MCH MCHC RDW Plt Count MPV Immature Gran % (Auto) Neut % (Auto) Lymph % (Auto) [place] % (Auto) Eos % (Auto) Baso % (Auto) Lymph # (Auto) [place] # (Auto) Eos # (Auto) Baso # (Auto) Abs Immat Gran (auto) Absolute Neuts (auto) Absolute Nucleated RBC Nucleated RBC % (auto) Smear Tech's Comments VBG pH VBG pCO2 VBG pO2 VBG HCO3 VBG O2 Saturation VBG Base Excess Sodium Potassium Chloride Carbon Dioxide Anion Gap BUN Creatinine Estim Creat Clear Calc Estimated GFR POC Glucose 121 H 129 H 139 H Random Glucose Calcium Phosphorus Magnesium Albumin 06/30/24 06/30/24 04:57 05:11 WBC 7.9 RBC 3.36 L Hgb 9.8 L Hct 29.2 L MCV 86.9 MCH 29.2 MCHC 33.6 RDW 20.7 H Plt Count 94 L MPV 12.3 Immature Gran % (Auto) 0.5 H Neut % (Auto) 65.9 Lymph % (Auto) 17.3 L [place] % (Auto) 13.1 H Eos % (Auto) 2.7 Baso % (Auto) 0.5 Lymph # (Auto) 1.4 [place] # (Auto) 1.0 Eos # (Auto) 0.2 Baso # (Auto) 0.0 Abs Immat Gran (auto) 0.04 H Absolute Neuts (auto) 5.2 Absolute Nucleated RBC 0.040 H Nucleated RBC % (auto) 0.5 H Smear Tech's Comments VERIFIED VBG pH 7.49 H VBG pCO2 38 VBG pO2 36 VBG HCO3 29 H VBG O2 Saturation 50.0 VBG Base Excess 5.7 Sodium 147 H Potassium 4.2 D Chloride 113 H Carbon Dioxide 23 Anion Gap 15 BUN 42 H Creatinine 0.87 Estim Creat Clear Calc 55.8 Estimated GFR > 60 POC Glucose Random Glucose 129 H Calcium 8.4 Phosphorus 2.8 Magnesium 1.7 Albumin 2.5 L Microbiology Microbiology Results: Microbiology 06/24/24 13:45 Blood - Venous Blood Culture - Final No growth after 5 days. 06/24/24 13:40 Blood - Venous Blood Culture - Final No growth after 5 days. 06/26/24 15:11 Blood - Venous Blood Culture - Preliminary No growth after 48 hours. 06/26/24 15:11 Blood - Venous Blood Culture - Preliminary No growth after 48 hours. 06/26/24 09:33 Blood - Venous Blood Culture - Preliminary No growth after 48 hours. 06/26/24 08:05 Blood - Venous Blood Culture - Final Progress Note: A&P Assessment and plan (1) Aspiration into airway: Status: Acute (2) Acute hypoxemic respiratory failure: Status: Acute Plan Patient is a 83 Y M w/ hypertension, hyperlipidemia, c/b coronary artery disease, HFpEF, s/p stent, atrial fibrillation on rivaroxaban, COPD, and metastatic prostate cancer on palliative chemotherapy, initially presenting to the emergency department on 06/24 w/ signs/symptoms of failure to thrive; work- up grossly unrevealing, admitted medicine; on 06/26, patient suffered aspiration, intubated N: intubated, sedated w/ dexmedetomidine gtt, wean as tolerated; MRI demonstrating non-specific inflammatory and/or infectious process; after discussion w/ brother, preference to defer further work-up, to empirically treat for meningitis CV: shock, likely distributive, norepinephrine gtt, wean as tolerated; atrial fibrillation, metoprolol PO and IV PRN R: intubated in setting of aspiration, plan to extubate w/o re-intubation 06/30 13:00; COPD GI: tube feeds : acute on chronic renal insufficiency, improving, to monitor renal indices, electrolytes very closely H: anemia, thrombocytopenia, to monitor very closely; of note, reported bloody bowel movement 06/26; atrial fibrillation, to hold home rivaroxaban ID: empiric vancomycin, cefepime, ampicillin in setting of aspiration, possible meningitis; to follow-up blood cultures E: to monitor hypo-/hyper-glycemia P: no acute issues Quality Stroke Does the patient have a stroke diagnosis?: No VTE Prior VTE?: No VTE Risk Level:: Medical - moderate - high VTE Device Contraindication: N/A - Device Ordered VTE Drug Contraindication: Treatment Not Tolerated
[2024-06-30] MEDS: Atorvastatin Calcium 80 MG TABLET PO (08:32)
[2024-06-30] MEDS: Furosemide 20 MG/2 ML VIAL IVPUSH (08:32)
[2024-06-30] MEDS: Metoprolol Tartrate 50 MG TABLET PO ×2 (08:32→12:24)
[2024-06-30] MEDS: Chlorhexidine Gluc Oral Rinse 15 ML MOUTHWASH BUCCAL (08:32)
[2024-06-30] MEDS: predniSONE 5 MG TABLET PO (08:32)
[2024-06-30] MEDS: cefEPime HCl/D5W 2 GM/50 ML PIGGYBACK IV (08:34)
[2024-06-30 11:17] LABS: Glucose, Whole Blood 93 mg/dL (60-115)
--- NOTE | 2024-06-30 12:59 | P.CDIM_ITS ---
PROVIDER RESPONSE TEXT: To clarify, the appropriate diagnosis supported by the clinical indicators: Acute renal Injury (MANUEL) QUERY TEXT: PHYSICIAN'S DOCUMENTATION REQUEST Date of Query: 06/30/2024 10:20 AM EST Patient Name: HERB RAMSAY Admit Date: 06/24/2024 Dear Nidhi Calloway MD, A review of the medical record indicates additional documentation may be needed. Please review below and update the documentation accordingly. Clinical Indicators: Progress note dated 06/25 - Assessment and Plan - Acute kidney injury Plan: MANUEL on CKD3, follow creatinine. ICU Progress note within the Plan: Acute on chronic renal insufficiency, to monitor renal indices, el ectrolytes very closely. Bun 42 Cr 1.61 Gfr 40 Please clarify which of the following accurately represents the patient's renal status: Injury vs. In sufficiency Acute renal Injury (MANUEL) Acute renal insufficiency Other (explain) Clinically unable to determine (explain) Thank you, Roopa Matamoros, CCS, CDIS Use of terms such as suspected, likely, concern for, or probable (associated with a specific diagnosi s that is being evaluated, monitored, or treated as if it exists) are acceptable and can be coded in the inpatient se tting, when documented at the time of discharge. Please use your independent medical judgment in providing your response. THIS QUERY IS PART OF THE PERMANENT MEDICAL RECORD
[2024-06-30] MEDS: HYDROmorphone HCl 1 MG/ML SYRINGE IVPUSH ×2 (13:18→17:37)
--- NOTE | 2024-06-30 14:38 | MHC.CM.PN ---
EMR REVIEWED AND PT REMAINS INTUBATED AND SEDATED IN ICU. GOC DISCUSSIONS CONTINUE WITH FAMILY. CM WILL CONTINUE TO FOLLOW FOR PLAN.
[2024-06-30] MEDS: Metoprolol Tartrate 10 MG in 0.9 % Sodium Chloride 50 ML 240 MG IV (14:39)
[2024-06-30 18:23] LABS: Glucose, Whole Blood 106 mg/dL (60-115)
[2024-06-30] MEDS: Metoprolol Tartrate 5 MG/5 ML VIAL 10 MG IVPUSH (19:44)
[2024-06-30] MEDS: Amiodarone/Dextrose 150 MG/100 ML PLAST..BAG 600 MG IV (21:04)
[2024-06-30] MEDS: Amiodarone HCL 900 MG in 0.9 % Sodium Chloride 500 ML 34.53 MG IVCONT (21:16)
[2024-06-30 23:20] LABS: Glucose, Whole Blood 90 mg/dL (60-115)
[2024-07-01] VITALS (17 sets, daily range): BP systolic 112–138; BP diastolic 73–94; PULSE 127–154; RESP 24–34; TEMP 37.4–38.1; O2SAT 91–100; BMI 30.4
[2024-07-01] MEDS: Morphine Sulfate 2 MG/ML CARTRIDGE IVPUSH ×2 (01:58→20:53)
[2024-07-01] MEDS: Ampicillin Sodium 2 GM in 0.9 % Sodium Chloride 100 ML IV ×2 (02:53→08:28)
[2024-07-01 05:15] LABS: Basophils Absolute Auto 0.1 X10*3/uL (0.0-0.2); Basophils Percent Auto 0.6 % (0-2); Eosinophils Absolute Auto 0.1 X10*3/uL (0.0-0.4); Eosinophils Percent Auto 1.4 % (0-4); Hemoglobin 9.5 g/dl (14.0-18.0); Imm Gran Abs Auto 0.06 X10*3/uL (0.00-0.03); Imm Gran Pct Auto 0.6 % (0.0-0.4); Lymphocytes Absolute Auto 1.9 X10*3/uL (1.2-4.9); Lymphocytes Percent Auto 20.4 % (20-40); MANUAL DIFF FLAG NO; Mean Corpuscular HGB Conc 32.8 g/dl (31.0-36.0); Mean Corpuscular Hemoglobin 29.1 pg (27.0-33.0); Mean Corpuscular Volume 88.7 fL (80.0-98.0); Mean Platelet Volume 12.5 fL (9.4-12.4); Monocytes Absolute Auto 1.4 X10*3/uL (0.1-1.2); Monocytes Percent Auto 14.9 % (2-11); NRBC Pct Auto 0.9 /100WBC (0.0-0.2); Neutrophils Absolute Auto 5.8 x10*3/uL (2.0-8.3); Neutrophils Percent Auto 62.1 % (45-73); Platelet Count 132 X10*3/uL (160-400); Red Blood Count 3.27 X10*6/uL (4.60-5.80); Red Cell Distribution Width 20.8 % (11.0-16.0); White Blood Count 9.4 X10*3/uL (4.8-10.8)
[2024-07-01] MEDS: Pantoprazole Sodium 40 MG/10 ML VIAL IVPUSH (05:18)
[2024-07-01 05:32] LABS: Albumin Level 3.2 g/dL (3.5-5.0); Anion Gap 19 (12-20); Blood Urea Nitrogen 49 mg/dL (9-16); Calcium 8.7 mg/dL (8.4-10.2); Carbon Dioxide 22 mmol/L (22-29); Chloride 112 mmol/L (96-108); Creatinine Clr Calc Pharmacy 36.5; Estimated Glomerular Filt Rate 52; Glucose Random 80 mg/dL (60-115); Magnesium 1.7 mg/dL (1.6-2.6); Phosphorus 3.7 mg/dL (2.7-4.5); Potassium 4.2 mmol/L (3.3-5.1); Sodium 149 mmol/L (135-145)
[2024-07-01] MEDS: Amiodarone/Dextrose 150 MG/100 ML PLAST..BAG 600 MG IV ×2 (06:31→08:01)
--- NOTE | 2024-07-01 07:44 | PM.CCPN ---
Subjective Subjective Date of Service: 07/01/24 Interval History: no significant overnight events; atrial fibrillation with RVR to 170s, amiodarone bolus, gtt Critical Care Time (minutes): 0 Physical Exam Vital Signs: Vital Signs: Last Vital Signs Temp 100.2 F 07/01/24 06:58 Pulse 127 H 07/01/24 06:58 Resp 32 H 07/01/24 06:58 BP 126/82 07/01/24 06:58 Pulse Ox 91 L 07/01/24 06:58 O2 Del Method Nasal Cannula 07/01/24 06:58 O2 Flow Rate 2 07/01/24 06:58 FiO2 21 06/30/24 13:00 Oxygen Flow Rate 25 06/26/24 08:30 BMI result Body Mass Index 30.4 Const: General: cooperative, comfortable, no acute distress, well developed, alert and awake Orientation/consciousness: oriented to person, oriented to place and oriented to time (year) HEENT: Head: Yes normal to inspection, Yes normocephalic and Yes atraumatic Eyes: General: appearance normal, both eyes and all related structures Neck: Neck: Yes normal visual inspection, Yes full ROM, Yes no meningeal signs, Yes trachea midline and Yes supple Chest: Chest palpation & inspection: normal inspection of the chest Resp: Other: no appreciable rales, rhonchi, wheezing Effort & Inspection: normal respiratory effort Cardio: Rate: tachycardic Rhythm: abnormal rhythm GI: Inspection: Yes normal to inspection, No Abdominal wall edema and No distended Palpation (GI): Soft to palpation, not firm, nontender, no guarding and not rigid Skin: General skin exam: no rashes or lesions noted Neuro: General: oriented to person, oriented to place, oriented to time (year), tone normal, no meningeal signs and no focal motor deficits Extrem: General: Yes normal to inspection, Yes full ROM, Yes capillary refill normal and Yes no clubbing, cyanosis or edema Psych: Appearance: grossly normal Objective Data Labs 07/01/24 04:58 07/01/24 04:58 Labs: Laboratory Results - last 24 hr 06/30/24 06/30/24 06/30/24 11:12 18:13 23:12 WBC RBC Hgb Hct MCV MCH MCHC RDW Plt Count MPV Immature Gran % (Auto) Neut % (Auto) Lymph % (Auto) [place] % (Auto) Eos % (Auto) Baso % (Auto) Lymph # (Auto) [place] # (Auto) Eos # (Auto) Baso # (Auto) Abs Immat Gran (auto) Absolute Neuts (auto) Absolute Nucleated RBC Nucleated RBC % (auto) Sodium Potassium Chloride Carbon Dioxide Anion Gap BUN Creatinine Estim Creat Clear Calc Estimated GFR POC Glucose 93 106 90 Random Glucose Calcium Phosphorus Magnesium Albumin 07/01/24 04:58 WBC 9.4 RBC 3.27 L Hgb 9.5 L Hct 29.0 L MCV 88.7 MCH 29.1 MCHC 32.8 RDW 20.8 H Plt Count 132 L D MPV 12.5 H Immature Gran % (Auto) 0.6 H Neut % (Auto) 62.1 Lymph % (Auto) 20.4 [place] % (Auto) 14.9 H Eos % (Auto) 1.4 Baso % (Auto) 0.6 Lymph # (Auto) 1.9 [place] # (Auto) 1.4 H Eos # (Auto) 0.1 Baso # (Auto) 0.1 Abs Immat Gran (auto) 0.06 H Absolute Neuts (auto) 5.8 Absolute Nucleated RBC 0.080 H Nucleated RBC % (auto) 0.9 H Sodium 149 H Potassium 4.2 Chloride 112 H Carbon Dioxide 22 Anion Gap 19 BUN 49 H Creatinine 1.33 Estim Creat Clear Calc 36.5 Estimated GFR 52 POC Glucose Random Glucose 80 Calcium 8.7 Phosphorus 3.7 Magnesium 1.7 Albumin 3.2 L Microbiology Microbiology Results: Microbiology 06/24/24 13:45 Blood - Venous Blood Culture - Final No growth after 5 days. 06/24/24 13:40 Blood - Venous Blood Culture - Final No growth after 5 days. 06/26/24 15:11 Blood - Venous Blood Culture - Preliminary No growth after 48 hours. 06/26/24 15:11 Blood - Venous Blood Culture - Preliminary No growth after 48 hours. 06/26/24 09:33 Blood - Venous Blood Culture - Preliminary No growth after 48 hours. 06/26/24 08:05 Blood - Venous Blood Culture - Final Progress Note: A&P Assessment and plan (1) Aspiration into airway: Status: Acute (2) Acute hypoxemic respiratory failure: Status: Acute Plan Patient is a 83 Y M w/ hypertension, hyperlipidemia, c/b coronary artery disease, HFpEF, s/p stent, atrial fibrillation on rivaroxaban, COPD, and metastatic prostate cancer on palliative chemotherapy, initially presenting to the emergency department on 06/24 w/ signs/symptoms of failure to thrive; work-up grossly unrevealing, admitted medicine; on 06/26, patient suffered aspiration, intubated N: MRI demonstrating non-specific inflammatory and/or infectious process; after discussion w/ brother, preference to defer further work-up, to empirically treat for meningitis CV: shock, likely distributive, resolved; atrial fibrillation, amiodarone gtt, metoprolol IV PRN R: intubated in setting of aspiration, intubated 06/26, extubated 07/01; COPD GI: NPO, speech/swallow evaluation today : acute on chronic renal insufficiency, improving, to monitor renal indices, electrolytes very closely H: anemia, thrombocytopenia, to monitor very closely; of note, reported bloody bowel movement 06/26; atrial fibrillation, to hold home rivaroxaban ID: empiric vancomycin, cefepime, ampicillin in setting of aspiration, possible meningitis; to follow-up blood cultures E: to monitor hypo-/hyper-glycemia P: no acute issues Quality Stroke Does the patient have a stroke diagnosis?: No VTE Prior VTE?: No VTE Risk Level:: Medical - moderate - high VTE Device Contraindication: N/A - Device Ordered VTE Drug Contraindication: Treatment Not Tolerated
[2024-07-01] MEDS: 0.9 % Sodium Chloride Flush 3 ML SYRINGE IVFLUSH ×2 (07:59→14:32)
[2024-07-01] MEDS: Magnesium Sulfate/D5W 1 GM/100 ML PIGGYBACK IV (08:04)
[2024-07-01] MEDS: Albumin Human 25 % 50 ML 100 ML IV (08:07)
[2024-07-01] MEDS: cefEPime HCl/D5W 2 GM/50 ML PIGGYBACK IV (08:10)
[2024-07-01] MEDS: Furosemide 20 MG/2 ML VIAL IVPUSH (08:32)
--- NOTE | 2024-07-01 09:49 | MHC.CLN ---
F/U PT EXTUBATED YESTERDAY CURRENTLY NPO AWAITING ALTERATION HAND EVAL FOR APPROPRIATE DIET CONSISTENCY WHEN DIET TO ADVANCE RECOMMEND ADDING NUTRITION SUPPLEMENT TO PROMOTE WOUND HEALING ENSURE TID WOULD PROVIDE 1050KCALS, 60G PROTEIN MONITOR FOR DIET ADVANCEMENT
--- NOTE | 2024-07-01 10:42 | MHC.SLORD ---
Addendum entered and electronically signed by Estela Chamorro MA, CCC-ASSET SPECIALIST 07/01/24 14:52: MBSS was cancelled by Dr. Calloway. Dr. Calloway met with patient and family and decision was made to change goals of care to DUCK OPERATOR. Per Dr. Calloway, modified diet and ASSET SPECIALIST intervention no longer needed, as patient will be feeding for pleasure. Please re-refer if ASSET SPECIALIST can be of further assistance. Original Note: Speech Language Pathology Order Status: Patient seen for bedside swallow exam in the ICU this morning. RN reported patient was extubated around 13:00 and has been tolerating ice chips with RN. Patient attempted to feed himself by holding cups/utensils with both hands, but did ultimately need assistance bringing to his mouth. He tolerated ice chips and thin liquid via teaspoon, with cup sip, evidenced wet voice and gurgling. No overt difficulties on sips of honey thick liquid by teaspoon, then by cup. Patient tolerated soft solids, cleared oral cavity with multiple swallows. ASSET SPECIALIST recommends further assessment w/ MBSS, given recent extubation, aspiration event, and concern for silent aspiration. Discussed with referring MD and scheduled with Radiology for 2:30pm today. Recommendations pending MBSS.
--- NOTE | 2024-07-01 11:41 | MHC.CM.PN ---
Pt extubated and on n/c O2. 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 MD to discuss goals of care with family. CM to make broad SNF referrals should pt need STR d/t deconditioning and overall physical decline.
[2024-07-01 12:20] LABS: Glucose, Whole Blood 117 mg/dL (60-115)
--- NOTE | 2024-07-01 13:57 | W.MHC.ACPN ---
Advanced Care Planning Note Advanced Care Planning Note Discussed with: patient and family member(s) Time spent (in minutes): 60 Narrative: Mr. Bourgeois was awake, alert, and oriented to person, place and time; Mr. Bourgeois's brothers and sisters were present at his bedside today; we discussed Mr. Bourgeois's both chronic and acute illness; Mr. Bourgeois expressed that he understands he has terminal cancer, and that he feels he is unlikely able to leave the hospital, and feels he may very well pass away tonight; we discussed Mr. Bourgeois's options for continued medical treatments, or comfort-focused care; Mr. Bourgeois elected to change his philosophy of care to comfort-focused care; Mr. Bourgeois states he finds comfort in spending time with his family, who state they will take turns to be at his bedside Problems Discussed (1) Aspiration into airway: (2) Acute hypoxemic respiratory failure:
[2024-07-01] MEDS: Scopolamine 1.5 MG PATCH.TD.3 TRANSDERMA (14:21)
[2024-07-01] MEDS: fentaNYL 25 MCG PATCH.TD72 TRANSDERMA (14:32)
--- NOTE | 2024-07-01 16:46 | PC.NURSE ---
13:00 Patient, MD and siblings (2 sisters, 2 brothers) had goals of care discussion at pt bedside. Together decided to change code status to Comfort measures (FROZEN PIE MAKER). Pt given scopolamine patch, fentanyl patch. Amiodarone gtt discontinued per orders. Pt HR remains unchanged in Afib. Pt transfer orders for Med surg. Pt moved to room 361. Hansen and TLC central line in place due to FROZEN PIE MAKER code status.
[2024-07-01] MEDS: Artificial Tears 15 ML DROPS 2 DROP EYE-BOTH (22:27)
[2024-07-02] MEDS: HYDROmorphone HCl 0.5 MG/0.5 ML SYRINGE 1 MG IVPUSH (02:24)
--- NOTE | 2024-07-02 10:34 | HO.PM.IMPN ---
Subjective Subjective Date of Service: 07/02/24 Interval History: difficulty vocalizing Physical Exam Vital Signs: Vital Signs: Last Vital Signs Temp 100.6 F H 07/01/24 15:00 Pulse 140 H 07/01/24 15:00 Resp 33 H 07/01/24 15:00 BP 138/85 07/01/24 14:00 Pulse Ox 100 07/01/24 15:00 O2 Del Method Nasal Cannula 07/01/24 15:00 O2 Flow Rate 2 07/01/24 15:00 FiO2 21 06/30/24 13:00 Oxygen Flow Rate 25 06/26/24 08:30 BMI result Body Mass Index 30.4 alert, following commands, difficuflty vocalizing, ill appearing Objective Data Active Medications Acetaminophen (Acetaminophen 325 Mg Tablet) 650 mg PO Q4H PRN PRN Reason: Fever >/= 100, Pain, mild 1-3 Artificial Tears (Artificial Tears 15 Ml Drops) 2 drop EYE-BOTH Q4H PRN PRN Reason: Dry Eyes Last Admin: 07/01/24 22:27 Dose: 2 drop Documented By: YANELI Fentanyl (Fentanyl 25 Mcg Patch.Td72) 25 mcg TRANSDERMA Q72H KARIN Last Admin: 07/01/24 14:32 Dose: 25 mcg Documented By: MARY Glycopyrrolate (Glycopyrrolate 0.2 Mg/Ml Vial) 0.2 mg IVPUSH Q6H PRN PRN Reason: Respiratory secretions Haloperidol Lactate (Haloperidol Lactate 5 Mg/Ml Vial) 1 mg IVPUSH Q4H PRN PRN Reason: Delirium Hydromorphone HCl (Hydromorphone Hcl 0.5 Mg/0.5 Ml Syringe) 1 mg IVPUSH Q1H PRN PRN Reason: Pain, Severe (Pain Scale 7-10) Last Admin: 07/02/24 02:24 Dose: 1 mg Documented By: YANELI Lorazepam (Lorazepam 2 Mg/Ml Vial) 1 mg IVPUSH Q1H PRN PRN Reason: Myoclonic twitching/anxiety Morphine Sulfate (Morphine Sulfate 2 Mg/Ml Cartridge) 2 mg IVPUSH Q1H PRN PRN Reason: Pain, Severe (7-10)/ RR>/=24 Last Admin: 07/01/24 20:53 Dose: 2 mg Documented By: YANELI 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: 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 Ondansetron HCl (Ondansetron Hcl 4 Mg/2 Ml Vial) 4 mg IVPUSH Q4H PRN PRN Reason: Nausea and Vomiting Scopolamine (Scopolamine 1.5 Mg Patch.Td.3) 1.5 mg TRANSDERMA Q72H [facility] Last Admin: 07/01/24 14:21 Dose: 1.5 mg Documented By: MARY Sodium Chloride (0.9 % Sodium Chloride Flush 3 Ml Syringe) 3 ml IVFLUSH QSHIFT [facility] Last Admin: 07/02/24 00:05 Dose: Not Given Documented By: YANELI Non-Admin Reason: Previously Administered Tramadol HCl (Tramadol Hcl 50 Mg Tablet) 50 mg PO Q4H PRN PRN Reason: Pain, Mild (Pain Scale 1-3) Labs 07/01/24 04:58 07/01/24 04:58 Labs: Laboratory Results - last 24 hr 07/01/24 12:15 POC Glucose 117 H Microbiology Microbiology Results: Microbiology 06/26/24 15:11 Blood Culture - Final Blood - Venous No growth after 5 days. 06/26/24 15:11 Blood Culture - Final Blood - Venous No growth after 5 days. 06/26/24 09:33 Blood Culture - Final Blood - Venous No growth after 5 days. Assessment and Plan (1) Shock: Status: Acute Plan 83M PMH hypertension, hyperlipidemia, coronary disease, chronic diastolic CHF, paroxysmal atrial fibrillation, COPD, prostate cancer with metastases presented with failure to thrive course complicated by acute aspiration requiring intubation and ICU transfer. Was eventually extubated, due to poor prognosis goals of care was changed to comfort measures only and patient was downgraded to medical floor Acute hypoxic respiratory failure, septic shock, coronary disease, hypertension, hyperlipidemia, CAD, chronic diastolic CHF, COPD, metastatic prostate cancer, paroxysmal atrial fibrillation with RVR, acute kidney injury Hypernatremia Transitioned to comfort measures only Continue p.r.n. opiates Hospice eval - ? If stable transitioned to outpatient hospice Quality Stroke Does the patient have a stroke diagnosis?: No VTE Prior VTE?: No VTE Risk Level:: Medical - moderate - high VTE Device Contraindication: N/A - Device Ordered VTE Drug Contraindication: Treatment Not Tolerated
[2024-07-02] MEDS: 0.9 % Sodium Chloride Flush 3 ML SYRINGE IVFLUSH ×3 (13:19→20:48)
[2024-07-02] MEDS: Morphine Sulfate 2 MG/ML CARTRIDGE IVPUSH ×2 (13:20→20:48)
[2024-07-03] MEDS: Morphine Sulfate 2 MG/ML CARTRIDGE IVPUSH (06:07)
--- NOTE | 2024-07-03 08:55 | P.PNIM_ITS ---
Subjective Subjective Date of Service: 07/03/24 Interval History: better vocalization today Physical Exam 2 Vital Signs: Vital Signs: Last Vital Signs Temp 100.6 F H 07/01/24 15:00 Pulse 140 H 07/01/24 15:00 Resp 33 H 07/01/24 15:00 BP 138/85 07/01/24 14:00 Pulse Ox 100 07/01/24 15:00 O2 Del Method Nasal Cannula 07/01/24 15:00 O2 Flow Rate 2 07/01/24 15:00 FiO2 21 06/30/24 13:00 Oxygen Flow Rate 25 06/26/24 08:30 BMI result Body Mass Index 30.4 alert, vocalizing better, no acute distress, overall ill appearing Objective Data Active Medications Acetaminophen (Acetaminophen 325 Mg Tablet) 650 mg PO Q4H PRN PRN Reason: Fever >/= 100, Pain, mild 1-3 Artificial Tears (Artificial Tears 15 Ml Drops) 2 drop EYE-BOTH Q4H PRN PRN Reason: Dry Eyes Last Admin: 07/01/24 22:27 Dose: 2 drop Documented By: YANELI Fentanyl (Fentanyl 25 Mcg Patch.Td72) 25 mcg TRANSDERMA Q72H [facility] Last Admin: 07/01/24 14:32 Dose: 25 mcg Documented By: MARY Glycopyrrolate (Glycopyrrolate 0.2 Mg/Ml Vial) 0.2 mg IVPUSH Q6H PRN PRN Reason: Respiratory secretions Haloperidol Lactate (Haloperidol Lactate 5 Mg/Ml Vial) 1 mg IVPUSH Q4H PRN PRN Reason: Delirium Hydromorphone HCl (Hydromorphone Hcl 0.5 Mg/0.5 Ml Syringe) 1 mg IVPUSH Q1H PRN PRN Reason: Pain, Severe (Pain Scale 7-10) Last Admin: 07/02/24 02:24 Dose: 1 mg Documented By: YANELI Lorazepam (Lorazepam 2 Mg/Ml Vial) 1 mg IVPUSH Q1H PRN PRN Reason: Myoclonic twitching/anxiety Morphine Sulfate (Morphine Sulfate 2 Mg/Ml Cartridge) 2 mg IVPUSH Q1H PRN PRN Reason: Pain, Severe (7-10)/ RR>/=24 Last Admin: 07/03/24 06:07 Dose: 2 mg Documented By: YANELI Ondansetron HCl (Ondansetron Hcl 4 Mg/2 Ml Vial) 4 mg IVPUSH Q4H PRN PRN Reason: Nausea and Vomiting Scopolamine (Scopolamine 1.5 Mg Patch.Td.3) 1.5 mg TRANSDERMA Q72H [facility] Last Admin: 07/01/24 14:21 Dose: 1.5 mg Documented By: MARY Sodium Chloride (0.9 % Sodium Chloride Flush 3 Ml Syringe) 3 ml IVFLUSH QSHIFT [facility] Last Admin: 07/02/24 20:48 Dose: 3 ml Documented By: YANELI Tramadol HCl (Tramadol Hcl 50 Mg Tablet) 50 mg PO Q4H PRN PRN Reason: Pain, Mild (Pain Scale 1-3) Labs 07/01/24 04:58 07/01/24 04:58 Assessment and Plan (1) Shock: Status: Acute Plan 83M PMH hypertension, hyperlipidemia, coronary disease, chronic diastolic CHF, paroxysmal atrial fibrillation, COPD, prostate cancer with metastases presented with failure to thrive course complicated by acute aspiration requiring intubation and ICU transfer. Was eventually extubated, due to poor prognosis goals of care was changed to comfort measures only and patient was downgraded to medical floor Acute hypoxic respiratory failure, septic shock, coronary disease, hypertension, hyperlipidemia, CAD, chronic diastolic CHF, COPD, metastatic prostate cancer, paroxysmal atrial fibrillation with RVR, acute kidney injury Hypernatremia Transitioned to comfort measures only Continue p.r.n. opiates plan for Hospice eval - ? If remains stable transition to outpatient hospice Quality Stroke Does the patient have a stroke diagnosis?: No VTE Prior VTE?: No VTE Risk Level:: Medical - moderate - high VTE Device Contraindication: N/A - Device Ordered VTE Drug Contraindication: Treatment Not Tolerated
[2024-07-03] MEDS: 0.9 % Sodium Chloride Flush 3 ML SYRINGE IVFLUSH ×3 (09:24→21:54)
[2024-07-03] MEDS: HYDROmorphone HCl 0.5 MG/0.5 ML SYRINGE 1 MG IVPUSH (23:55)
[2024-07-04] MEDS: 0.9 % Sodium Chloride Flush 3 ML SYRINGE IVFLUSH ×3 (08:20→20:30)
--- NOTE | 2024-07-04 09:13 | HO.PM.IMPN ---
Subjective Subjective Date of Service: 07/04/24 Interval History: no complaints Physical Exam Vital Signs: Vital Signs: Last Vital Signs Temp 100.6 F H 07/01/24 15:00 Pulse 140 H 07/01/24 15:00 Resp 33 H 07/01/24 15:00 BP 138/85 07/01/24 14:00 Pulse Ox 100 07/01/24 15:00 O2 Del Method Nasal Cannula 07/01/24 15:00 O2 Flow Rate 2 07/01/24 15:00 FiO2 21 06/30/24 13:00 Oxygen Flow Rate 25 06/26/24 08:30 BMI result Body Mass Index 30.4 alert, vocalizing better, no acute distress, overall ill appearing Objective Data Active Medications Acetaminophen (Acetaminophen 325 Mg Tablet) 650 mg PO Q4H PRN PRN Reason: Fever >/= 100, Pain, mild 1-3 Artificial Tears (Artificial Tears 15 Ml Drops) 2 drop EYE-BOTH Q4H PRN PRN Reason: Dry Eyes Last Admin: 07/01/24 22:27 Dose: 2 drop Documented By: YANELI Fentanyl (Fentanyl 25 Mcg Patch.Td72) 25 mcg TRANSDERMA Q72H [facility] Last Admin: 07/01/24 14:32 Dose: 25 mcg Documented By: MARY Glycopyrrolate (Glycopyrrolate 0.2 Mg/Ml Vial) 0.2 mg IVPUSH Q6H PRN PRN Reason: Respiratory secretions Haloperidol Lactate (Haloperidol Lactate 5 Mg/Ml Vial) 1 mg IVPUSH Q4H PRN PRN Reason: Delirium Hydromorphone HCl (Hydromorphone Hcl 0.5 Mg/0.5 Ml Syringe) 1 mg IVPUSH Q1H PRN PRN Reason: Pain, Severe (Pain Scale 7-10) Last Admin: 07/03/24 23:55 Dose: 1 mg Documented By: KENYATTA Lorazepam (Lorazepam 2 Mg/Ml Vial) 1 mg IVPUSH Q1H PRN PRN Reason: Myoclonic twitching/anxiety Morphine Sulfate (Morphine Sulfate 2 Mg/Ml Cartridge) 2 mg IVPUSH Q1H PRN PRN Reason: Pain, Severe (7-10)/ RR>/=24 Last Admin: 07/03/24 06:07 Dose: 2 mg Documented By: YANELI Ondansetron HCl (Ondansetron Hcl 4 Mg/2 Ml Vial) 4 mg IVPUSH Q4H PRN PRN Reason: Nausea and Vomiting Scopolamine (Scopolamine 1.5 Mg Patch.Td.3) 1.5 mg TRANSDERMA Q72H [facility] Last Admin: 07/01/24 14:21 Dose: 1.5 mg Documented By: MARY Sodium Chloride (0.9 % Sodium Chloride Flush 3 Ml Syringe) 3 ml IVFLUSH QSHIFT [facility] Last Admin: 07/04/24 08:20 Dose: 3 ml Documented By: ELIZABETH Tramadol HCl (Tramadol Hcl 50 Mg Tablet) 50 mg PO Q4H PRN PRN Reason: Pain, Mild (Pain Scale 1-3) Labs 07/01/24 04:58 07/01/24 04:58 Assessment and Plan (1) Shock: Status: Acute Plan 83M PMH hypertension, hyperlipidemia, coronary disease, chronic diastolic CHF, paroxysmal atrial fibrillation, COPD, prostate cancer with metastases presented with failure to thrive course complicated by acute aspiration requiring intubation and ICU transfer. Was eventually extubated, due to poor prognosis goals of care was changed to comfort measures only and patient was downgraded to medical floor Acute hypoxic respiratory failure, septic shock, coronary disease, hypertension, hyperlipidemia, CAD, chronic diastolic CHF, COPD, metastatic prostate cancer, paroxysmal atrial fibrillation with RVR, acute kidney injury Hypernatremia Transitioned to comfort measures only Continue p.r.n. opiates plan for Hospice eval - ? If remains stable transition to outpatient hospice Quality Stroke Does the patient have a stroke diagnosis?: No VTE Prior VTE?: No VTE Risk Level:: Medical - moderate - high VTE Device Contraindication: N/A - Device Ordered VTE Drug Contraindication: Treatment Not Tolerated
--- NOTE | 2024-07-04 10:47 | MHC.CLN ---
F/U PATIENT TRANSITIONED TO COMFORT CARE 07/01. DIET=PUREE. CONTINUE TO PROVIDE FOODS TOLERATED. FOLLOW FOR PLAN OF CARE.
--- NOTE | 2024-07-04 11:14 | MHC.CM.PN ---
Addendum entered by Natalie Fitzpatrick 07/04/24 14:54: Family requested a PT eval because he showed improvement since speaking with the hospitalist after transfer from ICU. ordered a PT eval at family request. PT states that the patient is not appropriate for STR. T/W informed the family that STR is not an option. Luis plans to contact pts secondary insurance to check on hospice coverage. CM will follow up with family tomorrow. 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 [facility] had offered a bed. The pt does not qualify for STR. If he goes to [facility], it would be private pay. The patient does not have a payor source for LTC or hospice in a SNF. HCPs Matt and Luis were both called. A message was given to Matt's about discharge. A VM was left for Luis too. DP to be determined once ANNIE has connected with the HCPs. The MD was under the impression that the pt could return home to live with his brother. Matt's contradicted that plan. She stated that Luis can no longer care for the patient.
[2024-07-04] MEDS: Scopolamine 1.5 MG PATCH.TD.3 TRANSDERMA (16:11)
[2024-07-04] MEDS: fentaNYL 25 MCG PATCH.TD72 TRANSDERMA (16:12)
--- NOTE | 2024-07-05 05:12 | PC.NURSE ---
assumed care of pt at 1900, pt resting comfortably in bed with no sign of anxiety, restlessness or pain, pt asked numerous times over shift if in pain with pt denying every time. pt position changed with care given for comfort, will cont to monitor
--- NOTE | 2024-07-05 08:36 | HO.PM.IMPN ---
Subjective Subjective Date of Service: 07/05/24 Interval History: no complaints, but difficulty expressing self Physical Exam Vital Signs: Vital Signs: Last Vital Signs Temp 100.6 F H 07/01/24 15:00 Pulse 140 H 07/01/24 15:00 Resp 33 H 07/01/24 15:00 BP 138/85 07/01/24 14:00 Pulse Ox 100 07/01/24 15:00 O2 Del Method Nasal Cannula 07/01/24 15:00 O2 Flow Rate 2 07/01/24 15:00 FiO2 21 06/30/24 13:00 Oxygen Flow Rate 25 06/26/24 08:30 BMI result Body Mass Index 30.4 alert, no acute distress, grossly weak, ill appearing, minimally vocal Objective Data Active Medications Acetaminophen (Acetaminophen 325 Mg Tablet) 650 mg PO Q4H PRN PRN Reason: Fever >/= 100, Pain, mild 1-3 Artificial Tears (Artificial Tears 15 Ml Drops) 2 drop EYE-BOTH Q4H PRN PRN Reason: Dry Eyes Last Admin: 07/01/24 22:27 Dose: 2 drop Documented By: YANELI Fentanyl (Fentanyl 25 Mcg Patch.Td72) 25 mcg TRANSDERMA Q72H [facility] Last Admin: 07/04/24 16:12 Dose: 25 mcg Documented By: ELIZABETH Glycopyrrolate (Glycopyrrolate 0.2 Mg/Ml Vial) 0.2 mg IVPUSH Q6H PRN PRN Reason: Respiratory secretions Haloperidol Lactate (Haloperidol Lactate 5 Mg/Ml Vial) 1 mg IVPUSH Q4H PRN PRN Reason: Delirium Hydromorphone HCl (Hydromorphone Hcl 0.5 Mg/0.5 Ml Syringe) 1 mg IVPUSH Q1H PRN PRN Reason: Pain, Severe (Pain Scale 7-10) Last Admin: 07/03/24 23:55 Dose: 1 mg Documented By: KENYATTA Lorazepam (Lorazepam 2 Mg/Ml Vial) 1 mg IVPUSH Q1H PRN PRN Reason: Myoclonic twitching/anxiety Morphine Sulfate (Morphine Sulfate 2 Mg/Ml Cartridge) 2 mg IVPUSH Q1H PRN PRN Reason: Pain, Severe (7-10)/ RR>/=24 Last Admin: 07/03/24 06:07 Dose: 2 mg Documented By: YANELI Ondansetron HCl (Ondansetron Hcl 4 Mg/2 Ml Vial) 4 mg IVPUSH Q4H PRN PRN Reason: Nausea and Vomiting Scopolamine (Scopolamine 1.5 Mg Patch.Td.3) 1.5 mg TRANSDERMA Q72H [facility] Last Admin: 07/04/24 16:11 Dose: 1.5 mg Documented By: ELIZABETH Sodium Chloride (0.9 % Sodium Chloride Flush 3 Ml Syringe) 3 ml IVFLUSH QSHIFT [facility] Last Admin: 07/04/24 20:30 Dose: 3 ml Documented By: MARLEY Tramadol HCl (Tramadol Hcl 50 Mg Tablet) 50 mg PO Q4H PRN PRN Reason: Pain, Mild (Pain Scale 1-3) Labs 07/01/24 04:58 07/01/24 04:58 Assessment and Plan (1) Shock: Status: Acute Plan 83M PMH hypertension, hyperlipidemia, coronary disease, chronic diastolic CHF, paroxysmal atrial fibrillation, COPD, prostate cancer with metastases presented with failure to thrive course complicated by acute aspiration requiring intubation and ICU transfer. Was eventually extubated, due to poor prognosis goals of care was changed to comfort measures only and patient was downgraded to medical floor Acute hypoxic respiratory failure, septic shock, coronary disease, hypertension, hyperlipidemia, CAD, chronic diastolic CHF, COPD, metastatic prostate cancer, paroxysmal atrial fibrillation with RVR, acute kidney injury Hypernatremia Transitioned to comfort measures only Continue p.r.n. opiates If remains stable transition to outpatient hospice Quality Stroke Does the patient have a stroke diagnosis?: No VTE Prior VTE?: No VTE Risk Level:: Medical - moderate - high VTE Device Contraindication: N/A - Device Ordered VTE Drug Contraindication: Treatment Not Tolerated
[2024-07-05] MEDS: 0.9 % Sodium Chloride Flush 3 ML SYRINGE IVFLUSH ×2 (09:03→20:48)
[2024-07-05] MEDS: LORazepam 2 MG/ML VIAL 1 MG IVPUSH ×2 (14:28→22:00)
[2024-07-05] MEDS: HYDROmorphone HCl 0.5 MG/0.5 ML SYRINGE 1 MG IVPUSH (14:36)
--- NOTE | 2024-07-05 16:09 | MHC.CM.PN ---
IMM 07/05/[address] [facility] has offered a bed. The patient + family accept the bed offer. They have decided to go with [facility]. [facility] has been notified. The patient will dc tomorrow to the [facility]. He will transport via BLS.
[2024-07-05 23:29] VITALS: RESP 24
[2024-07-05] MEDS: Morphine Sulfate 2 MG/ML CARTRIDGE IVPUSH (23:29)
[2024-07-05 23:58] VITALS: RESP 24
[2024-07-06] VITALS (10 sets, daily range): BP systolic 128; BP diastolic 59; PULSE 67; RESP 17–38; TEMP 36.4; O2SAT 98
[2024-07-06] MEDS: LORazepam 2 MG/ML VIAL 1 MG IVPUSH ×2 (00:04→04:01)
[2024-07-06] MEDS: Morphine Sulfate 2 MG/ML CARTRIDGE IVPUSH ×5 (01:31→09:20)
[2024-07-06] MEDS: 0.9 % Sodium Chloride Flush 3 ML SYRINGE IVFLUSH ×2 (07:17→09:22)
--- NOTE | 2024-07-06 07:30 | PC.NURSE ---
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 Morphine given for comfort. Patient washed up, wounds cleansed and redressed. T/[id number].
--- NOTE | 2024-07-06 08:57 | MHC.CM.PN ---
Addendum entered by Natalie Fitzpatrick 07/06/24 14:31: Patient passed prior to discharge. The facility was notified that the patient passed. Original Note: IMM 07/05/24 Patient will transfer to [facility] today. The plan is hospice in the facility. 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
--- NOTE | 2024-07-06 10:55 | PC.NURSE ---
Patient passed at this time, MD Shawna at bedside to confirm .
--- NOTE | 2024-07-06 11:35 | P.DS_ITS ---
DS: Providers Provider Date of Service: 07/06/24 Date of admission: 06/24/24 18:36 Date of discharge: 07/06/24 Primary care physician: Justus Tinoco MD Consults: 06/26/24 10:18 Consult to Wound Care Routine Reason for consultation: MASD to buttock, wound to left small toe DS: Diagnosis Discharge Diagnosis (1) Shock: Status: Acute (2) Encephalopathy: Status: Acute (3) Aspiration into airway: Status: Acute (4) Acute hypoxemic respiratory failure: Status: Acute (5) COPD exacerbation: Status: Acute (6) Transaminitis: Status: Acute (7) Occult blood positive stool: Status: Acute (8) MANUEL (acute kidney injury): Status: Acute (9) Acute hypokalemia: Status: Acute DS: Summary Hospital Course Hospital Course: The patient had prolonged hospital stay. for full details please return to EMR. Admission note HPI Pt is an 83-year-old male with a complicated PMH significant for?HTN, HLD, CKD3, CAD, NSTEMI s/p stent in 2010,, paroxysmal AFib on Xarelto, recurrent metastatic prostate cancer on palliative chemotherapy with abiraterone and lupron (follows with Dr. Alva and Dr. Monroy), COPD not on home O2, and HFpEF who presents to the ED after routine outpatient labs were drawn yesterday and showed critically low potassium. Pt is a rather poor and vague historian, but states has been feeling rather poorly for the past 6 months. Was recently admitted to the hospital from 05/22-05/25 for AFib with RVR and new onset HFpEF. Reports has been feeling increasing fatigue and exertional SOB the past week or so. Has had reduced p.o. intake due to loss of appetite. Some loose stool, no fever, chills, nausea, vomiting or abdominal pain. Chronic cough at baseline. Denies chest pain/pressure, palpitations. Lives at home with his family and ambulates with a walker at baseline. In the ED pt was febrile up to 100.5, tachycardic up to 126, and tachypneic up to 25. Labs were significant for potassium 2.7, BUN 34, creatinine 1.67, lactic acid 2.3 with repeat 1.8, bilirubin 1.2, AST 224, ALT 68, alk-phos 584, initial troponin 67.4 with repeat 64.1, and BNP mildly elevated at 193. Stool positive for occult blood. UA negative for UTI. Tested negative for flu, RSV, and COVID. CXR showed bronchial wall thickening possibly infectious and/or inflammatory in etiology. EKG demonstrated AFib with RVR of 119 with PVCs. Pt was treated with cefepime, potassium chloride, and Lasix 40mg IV. Pt will be admitted to the [facility] for acute hypokalemia and MANUEL in the setting of COPD exacerbation with possible underlying pneumonia meeting SIRS criteria. Hospital course The patient mainly presented with SOB and heart failure with MANUEL and Afib RvR with failure to thrive course complicated by acute aspiration requiring intubation and ICU transfer. Was eventually extubated, due to poor prognosis goals of care was changed to comfort measures only and patient was downgraded to medical floor. Transitioned to comfort measures only on p.r.n. opiates. He was originally treated in this admission for: Acute hypoxic respiratory failure, septic shock, coronary disease, hypertension, hyperlipidemia, CAD, chronic diastolic CHF, COPD, metastatic prostate cancer, paroxysmal atrial fibrillation with RVR, acute kidney injury Hypernatremia on 07/06/2024 at 1055. family contacted and support offered. Time Attestation Discharge Coordination Time (in mins): 44 Quality: Safe Use of Opioids Does Pt have an Active Cancer Diagnosis on the Problem List?: No Quality: Stroke Does the patient have a stroke diagnosis?: No Physical Exam Vital Signs: Vital Signs: Last Vital Signs Temp 97.5 F 07/06/24 07:44 Pulse 67 07/06/24 07:44 Resp 24 H 07/06/24 09:55 BP 128/59 L 07/06/24 07:44 Pulse Ox 98 07/06/24 07:44 O2 Del Method Nasal Cannula 07/06/24 07:44 O2 Flow Rate 2 07/06/24 07:44 FiO2 21 06/30/24 13:00 Oxygen Flow Rate 25 06/26/24 08:30 BMI result Body Mass Index 30.4 Const: Other: DS: Data Imaging Chest x-ray: Radiologist's impression: ITS Impressions Chest X-Ray 06/24/24 13:21 IMPRESSION: Bronchial wall thickening may be infectious and/or inflammatory in etiology. Electronically signed by: Vivienne Sanz MD 06/24/2024 03:21 PM EDT RP Chest X-Ray 06/26/24 08:15 IMPRESSION: Unremarkable chest examination. Electronically signed by: Dorian Nicholas MD 06/26/2024 08:38 AM EST RP Chest X-Ray 06/26/24 08:49 IMPRESSION: 1. Tip of endotracheal tube is 2.2 cm above the paemlla. 2. Enteric tube tip is in the fundus. The end hole is at the GE junction and needs to be advanced by 5 cm. Electronically signed by: Dorian Nicholas MD 06/26/2024 09:21 AM EST RP Chest X-Ray 06/26/24 12:51 IMPRESSION: 1. Right IJ central venous catheter tip projects over the SVC. No pneumothorax. 2. Enteric tube tip is below the diaphragm with the side port at the level of the gastroesophageal junction. Electronically signed by: Chaka Singh MD 06/26/2024 01:30 PM EST RP Abdomen Ultrasound 06/27/24 11:42 IMPRESSION: 1. Heterogeneous hepatic parenchymal with nodular contour and multiple hyperechoic foci. Findings are nonspecific, but can be seen in the setting of hepatic metastases or cirrhosis. No intrahepatic or extrahepatic biliary ductal dilatation. 2. Echogenic foci within the gallbladder fundus with ring down artifact which could represent adenomyomatosis. No cholelithiasis, gallbladder wall thickening, or pericholecystic free fluid to suggest acute cholecystitis. 3. Pancreas not well seen due to overlying bowel gas. Electronically signed by: Kwan Duke MD 06/27/2024 12:57 PM EST RP Brain MRI 06/27/24 17:40 IMPRESSION: No acute stroke/nonhemorrhagic ischemia. Old blood products versus calcifications in the dentate nuclei with associated enhancement. Underlying acute inflammatory versus infectious processes cannot be excluded. Small vessel occlusive disease. Developmental venous anomaly, right parietal lobe. Old blood products suggesting hypertensive etiology versus a amyloid angiopathy Electronically signed by: Aguila Avendaño MD 06/28/2024 07:49 AM EST RP Discharge Plan Discharge Date/Time: 07/06/24 10:55 Anticipated Discharge Date/Time: 07/06/24 11:34 Patient Disposition: Discharge Diagnosis: Respiratory failure , renal failure Referrals: Rainer Caballero [facility] [Outside] - 1 Week Justus Tinoco MD [Primary Care Provider] - 1 Week Discharge Medications: No Action omeprazole 40 mg capsule,delayed release(DR/EC) 40 mg PO BID@0630,1630 leflunomide 20 mg tablet 1 tab PO DAILY rosuvastatin 40 mg tablet 40 mg PO DAILY furosemide 40 mg tablet 40 mg PO DAILY prednisone 5 mg tablet 5 mg PO DAILY ferrous sulfate 325 mg (65 mg iron) Tablet,Delayed Release (Dr/Ec) 325 mg PO MOWEFR fluticasone propionate [Flonase Allergy Relief] 50 mcg/actuation [place],Suspension 2 spray INTRANASAL DAILY Rx Instructions: administer into each nostril bismuth subsalicylate 525 mg/15 mL Suspension 525 mg PO Q30M PRN (Reason: heartburn/indigestion) Rx Instructions: do not exceed 8 doses in a 24 hour period calcium carbonate-vitamin D3 500 mg-10 mcg (400 unit) tablet,chewable 1 tab PO BID abiraterone 250 mg tablet 1,000 mg PO DAILY Lupron Depot (6 Month) 45 mg Syringe Kit 45 mg IM [id number] Xarelto 20 mg tablet 20 mg PO DAILY@1700 Combivent Respimat 20-100 mcg/actuation mist 1 puff inhalation Q8H PRN (Reason: Shortness Of Breath Or Wheezing) magnesium oxide 400 mg (241.3 mg magnesium) Tablet 400 mg PO DAILY Qty: 1 0RF metoprolol tartrate 50 mg tablet 150 mg PO BID Print Language: Maori
== END 2024-07-06 16:00 | disposition expired | DRG 207 ==
LOC: HO.ED 15:31 → HO.EDOVER 18:52 → HO.IMC 19:34 → HO.ICU 06-26 08:54 → HO.S3 07-01 14:49
PROVIDERS: Internal Medicine; Internal Medicine Critical Care Medicine; Nurse Practitioner Family; Physician Assistant; Physician Assistant Medical; Admitting Provider Student in an Organized Health Care Education/Training Program; Emergency Provider Emergency Medicine Emergency Medical Services; PCP Internal Medicine; Visit Provider Student in an Organized Health Care Education/Training Program
DX: J44.1 Chronic obstructive pulmonary disease with (acute) exacerbation (principal); A41.9 Sepsis, unspecified organism; G93.41 Metabolic encephalopathy; I50.33 Acute on chronic diastolic (congestive) heart failure; J96.01 Acute respiratory failure with hypoxia; R65.21 Severe sepsis with septic shock; J69.0 Pneumonitis due to inhalation of food and vomit; N17.9 Acute kidney failure, unspecified; I13.0 Hypertensive heart and chronic kidney disease with heart failure and stage 1 through stage 4 chronic kidney disease, or unspecified chronic kidney disease; E87.21 Acute metabolic acidosis; E87.0 Hyperosmolality and hypernatremia; N18.30 Chronic kidney disease, stage 3 unspecified; I25.10 Atherosclerotic heart disease of native coronary artery without angina pectoris; M06.9 Rheumatoid arthritis, unspecified; C61 Malignant neoplasm of prostate; Z66 Do not resuscitate; L89.890 Pressure ulcer of other site, unstageable; I48.0 Paroxysmal atrial fibrillation; E87.6 Hypokalemia; D63.1 Anemia in chronic kidney disease; R57.1 Hypovolemic shock; K21.9 Gastro-esophageal reflux disease without esophagitis; Z95.5 Presence of coronary angioplasty implant and graft; Z20.822 Contact with and (suspected) exposure to COVID-19; Z87.891 Personal history of nicotine dependence; Z79.01 Long term (current) use of anticoagulants; Z79.51 Long term (current) use of inhaled steroids; Z79.52 Long term (current) use of systemic steroids; Z79.818 Long term (current) use of other agents affecting estrogen receptors and estrogen levels; Z79.899 Other long term (current) drug therapy
CPT/HCPCS: 0241U; 36415; 36600; 70553; 71045; 71046; 76705; 80048; 80053; 80076; 81001; 81003; 82040; 82272; 82803; 82947; 83605; 83690; 83735; 83880; 84100; 84145; 84484; 85025; 85027; 85610; 86850; 86900; 86901; 87040; 87633; 87640; 87641; 92610; 93005; 94002; 94003; 94640; 94799; 97162; 99285; A9585; C1758; J0282; J0283; J0290; J0456; J0692; J1171; J1920; J1940; J2060; J2270; J2470; J2543; J2704; J3475; J3480; P9047

== ENCOUNTER → 2024-06-24 12:46 | Outpatient (BNV) | payer MEDICARE, SELFPAY | PROVIDERS: Admitting Provider Student in an Organized Health Care Education/Training Program; Emergency Provider Emergency Medicine Emergency Medical Services; PCP Internal Medicine; Visit Provider Internal Medicine | DX: R94.31 Abnormal electrocardiogram [ECG] [EKG] (principal) | CPT/HCPCS: 93010 ==

== ENCOUNTER 2024-06-24 18:36 | Outpatient (BNV) | payer MEDICARE, SELFPAY | END 2024-06-27 17:40 | PROVIDERS: Admitting Provider Student in an Organized Health Care Education/Training Program; Emergency Provider Emergency Medicine Emergency Medical Services; PCP Internal Medicine; Visit Provider Radiology Diagnostic Radiology | DX: G93.40 Encephalopathy, unspecified (principal) | CPT/HCPCS: 70553 ==

== ENCOUNTER → 2024-06-24 18:36 | Outpatient (BNV) | payer MEDICARE, SELFPAY | PROVIDERS: Admitting Provider Student in an Organized Health Care Education/Training Program; Emergency Provider Emergency Medicine Emergency Medical Services; PCP Internal Medicine; Visit Provider Internal Medicine Critical Care Medicine | DX: J96.01 Acute respiratory failure with hypoxia (principal); T17.908A Unspecified foreign body in respiratory tract, part unspecified causing other injury, initial encounter | CPT/HCPCS: 36556; 99233; 99291 ==

== ENCOUNTER → 2024-06-24 18:36 | Outpatient (BNV) | payer MEDICARE, SELFPAY | PROVIDERS: Admitting Provider Student in an Organized Health Care Education/Training Program; Emergency Provider Emergency Medicine Emergency Medical Services; PCP Internal Medicine; Visit Provider Psychiatry & Neurology Neurology | DX: G93.40 Encephalopathy, unspecified (principal) | CPT/HCPCS: 99222 ==

== ENCOUNTER → 2024-06-24 18:36 | Outpatient (BNV) | payer MEDICARE, SELFPAY | PROVIDERS: Admitting Provider Student in an Organized Health Care Education/Training Program; Emergency Provider Emergency Medicine Emergency Medical Services; PCP Internal Medicine; Visit Provider Student in an Organized Health Care Education/Training Program | DX: A41.9 Sepsis, unspecified organism (principal); R65.21 Severe sepsis with septic shock; Z51.5 Encounter for palliative care | CPT/HCPCS: 99223; 99231; 99232; 99233; 99239; 99499 ==